=== PATIENT | female | born 1955 | race Caucasian/White ===

== ENCOUNTER 2021-12-08 15:50 | Emergency (ER) | payer MEDICARE, OTHER, SELFPAY ==
[2021-12-08 15:51] VITALS: BP 145/90; PULSE 67; RESP 14; TEMP 36.7; O2SAT 97; BMI 35.9
--- NOTE | 2021-12-08 16:19 | EKG12_ITS ---
Test Reason : NEURO Blood Pressure : / mmHG Vent. Rate : 065 BPM Atrial Rate : 065 BPM P-R Int : 176 ms QRS Dur : 086 ms QT Int : 380 ms P-R-T Axes : 027 -17 032 degrees QTc Int : 395 ms Normal sinus rhythm Anterior infarct , age undetermined , cannot be excluded Abnormal ECG Confirmed by SALINA HERRING, JOSE ([id number]), web content editor KATE MARTINEZ ([id number]) on 12/12/2021 9:46:20 AM Referred By: DAVID/KRUPA Confirmed By:JOSE DOWNING MD
--- NOTE | 2021-12-08 16:19 | CT_ITS ---
STUDY: CT BRAIN WITHOUT CONTRAST REASON FOR EXAM: Female, 65 years old. Acute change mental status with disorientation RADIATION DOSAGE (If Supplied By Facility): CTDIvol = ( 44.99 ) mGy, DLP = ( 796.11 ) mGycm TECHNIQUE: Transaxial CT imaging of the brain was performed without administration of intravenous contrast material. Individualized dose optimization techniques were used for this CT. COMPARISON: No relevant priors. FINDINGS: Normal soft tissue structures. Normal calvarium. Normal size ventricles and extra-axial spaces for the patient''s age. Normal white matter tracts of the cerebral hemispheres. Normal basal ganglia and thalami. Normal brainstem. Normal cerebellum. Decreased attenuation within the left temporal lobe consistent with a subacute infarct. Within the medial aspect of the left temporal lobe there is a 1.2 cm oval area of increased attenuation worrisome for parenchymal hematoma or less likely aneurysm. Normal visualized paranasal sinuses. CT/Brain/Head without Contrast IMPRESSION: Subacute infarct of the left temporal lobe with 1.2 cm area of hemorrhage medially or less likely aneurysm. N.B. : The above Results were Read Back by Rickie Lee MD to Gulshan Olson MD, and understanding confirmed on 12/08/2021 17:18:26 (ET). Electronically Signed: Rickie Lee MD at 17:19 EDT ,
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
[2021-12-08 16:26] LABS: Bedside Glucose 89 mg/dL (74-106)
[2021-12-08 16:27] LABS: Absolute Lymphocyte Count 2.15 X10^3/uL (0.83-4.51); Absolute Neutrophil Count 4.2 X10^3/uL (2.0-7.7); Basophil# 0.02 X10^3/uL; Basophil% 0.3 % (0-1); Eosinophil# 0.08 X10^3/uL; Eosinophils% 1.2 % (0-5); Hemoglobin 14.7 g/dL (12.0-15.0); Lymphocyte # 2.15 X10^3/ul (0.83-4.51); Lymphocyte % 31.5 % (19-41); Mean Corp Hgb Conc 32.7 g/dL (32-36); Mean Corpuscular Hgb 29.8 pg (27.0-32.0); Mean Corpuscular Volume 91.3 fL (81-99); Mean Platelet Vol. 11.8 fl (6.2-12.0); Monocyte# 0.36 X10^3/uL; Monocyte% 5.3 % (0-10); NRBC Flagged by Analyzer 0 % (0-5); Neutrophil % 61.6 % (47-70); Platelet Count 188 K/mm3 (150-450); RBC Distribution Width CV 13.5 % (11.6-14.6); Red Blood Count 4.93 M/mm3 (4.2-5.4); White Blood Count 6.8 K/mm3 (4.4-11.0)
[2021-12-08 16:31] VITALS: BMI 35.9
[2021-12-08 16:45] LABS: AST(SGOT) 21 U/L (15-37); Alanine Aminotransfer ALT/SGPT 24 U/L (13-56); Albumin, Serum 3.7 g/dL (3.2-5.0); Alkaline Phosphatase 63 U/L (45-117); Anion Gap 6 (5-15); BUN 10 mg/dL (7-18); BUN/Creat Ratio 10.9 RATIO (10-20); Calcium,Total 9.1 mg/dL (8.5-10.1); Chloride 108 mmol/L (98-107); Creatinine, Serum 0.91 mg/dL (0.55-1.02); EST Glomerular Filtration Rate 65 mL/min (>60); Est Glom Filt Rate - Afr Amer 79 mL/min (>60); Estimated Creatinine Clearance 60.52 ml/min; Globulin 3.7 g/dL (2.2-4.2); Glucose 96 mg/dL (74-106); Potassium 3.7 mmol/L (3.5-5.1); Protein, Total 7.4 g/dL (6.4-8.2); Sodium Level 141 mmol/L (136-145)
--- NOTE | 2021-12-08 16:45 | RAD_ITS ---
STUDY: X-RAY CHEST REASON FOR EXAM: Female, 65 years old. chest pain TECHNIQUE: PA and lateral views of the chest. COMPARISON: None. FINDINGS: Poor inspiration with some bibasilar atelectasis. There is no demonstrated pleural abnormality. Normal size heart. Normal mediastinum and yvrose. Normal visualized pulmonary arteries. Normal visualized aortic arch and descending thoracic aorta. Normal visualized thoracic spine. Normal visualized ribs, clavicles, and shoulders. There is no demonstrated abnormality of the visualized soft tissue structures of the upper abdomen. RAD/Chest PA and Lateral IMPRESSION: Poor inspiration with some bibasilar atelectasis. Electronically Signed: Rickie Lee MD at 17:24 EDT ,
[2021-12-08 17:45] VITALS: PULSE 68; RESP 18; O2SAT 93
[2021-12-08 17:58] LABS: Color, Urine Yellow (Yellow); Glucose, Dipstick Normal (Normal); Ketone-Dipstick Negative (Negative); Leukocyte Esterase-Dipstick 25 /ul (Negative); Nitrite-Dipstick Negative (Negative); Occult Blood-Urine Negative /ul (Negative); Protein-Dipstick Negative (Negative); Urine Bilirubin Dipstick Negative (Negative); Urine Clarity Clear (Clear); Urine Urobilinogen Normal (Normal)
[2021-12-08 18:00] VITALS: BP 131/84; PULSE 58; RESP 16; O2SAT 98
--- NOTE | 2021-12-08 18:26 | ED.RN ---
CALLED PHYSIC[facility] THE ETA IS 2 HOURS, THEY ARE TRYING TO OUT SOURCE
[2021-12-08 18:27] LABS: Bacteria 1+ /hpf (None Seen); Red Blood Cells-Urine 0-5 SEEN /hpf (0-5); Squamous Epithelial Cells - UA 0-5 SEEN /hpf (5-10); White Blood Cells 0-5 SEEN /hpf (0-5)
[2021-12-08 18:28] LABS: Mucous, Urine 1+ /hpf (<or=2+)
--- NOTE | 2021-12-08 18:45 | ED.RN ---
CALLED [facility] AND ASKED TO SPEAK TO A JIG BORING MACHINE OPERATOR FOR METAL TIER 2 THEY SAID THEY DIDN'T HAVE A JIG BORING MACHINE OPERATOR FOR METAL ON. CHARGE NURSE SAID TO CALL [facility] TO SEE IF THEY HAD ANYONE AVAILABLE
--- NOTE | 2021-12-08 18:55 | ED.RN ---
PER DR FINLEY, NO [facility] NEEDED.
--- NOTE | 2021-12-08 18:58 | ED.RN ---
DECISION WAS MADE TO FLY THE PATIENT MEDFLIGHT WILL BE HERE IN 28 MINUTES, [facility]UROLOGY TECHNOLOGIST [facility] CALLED BACK AND SAID THEY WOULD LOOK INTO THIS ISSUE
[2021-12-08 20:01] VITALS: BP 159/102; PULSE 63; RESP 18; O2SAT 97
== END 2021-12-08 20:02 | disposition short-term general hospital (02) ==
PROVIDERS: Emergency Provider Emergency Medicine; Visit Provider Emergency Medicine
DX: I61.9 Nontraumatic intracerebral hemorrhage, unspecified (principal); E66.9 Obesity, unspecified; Z68.35 Body mass index [BMI] 35.0-35.9, adult; R07.9 Chest pain, unspecified
CPT/HCPCS: 70450; 71046; 80053; 81001; 82962; 85025; 87811; 93005; 99285; A4216

== ENCOUNTER 2022-01-22 17:01 | Emergency (ER) | payer MEDICARE, OTHER, SELFPAY ==
[2022-01-22 17:04] VITALS: BP 150/80; PULSE 63; RESP 21; TEMP 36.4; O2SAT 97; BMI 38.9
[2022-01-22 17:08] VITALS: BMI 38.9
--- NOTE | 2022-01-22 17:26 | CT_ITS ---
STUDY: CT BRAIN WITHOUT CONTRAST REASON FOR EXAM: Female, 66 years old. Technologist Notes Other, rt sided headache with numbness and tingling to face and neck headache TECHNIQUE: Transaxial CT imaging of the brain was performed without administration of intravenous contrast material. Individualized dose optimization techniques were used for this CT. COMPARISON: Dec 08 2021 4:39pm report only. NO images. FINDINGS: Normal calvarium. Normal soft tissues. There is an old infarct of the Left MCA region. Again, within the medial aspect of the left temporal lobe there is a 1.1 cm oval area of increased attenuation which may be a clival meningioma or possibly a cavernous carotid artery aneurysm. CTA of the head can better evaluate. Normal size ventricles and extra-axial spaces for the patient''s age. Normal white matter tracts of the cerebral hemispheres. Normal basal ganglia and thalami. Normal brainstem. Normal cerebellum. There is no intracranial hemorrhage. There are no findings of an acute ischemic infarction. Normal visualized paranasal sinuses. ASPECTS 10 CT/Brain/Head without Contrast IMPRESSION: There are no acute intracranial findings. Again, within the medial aspect of the left temporal lobe there is a 1.1 cm oval area of increased attenuation which may be a clival meningioma or possibly a cavernous carotid artery aneurysm. CTA of the head can better evaluate. Electronically Signed: Arash Higuera MD at 18:50 EDT ,
--- NOTE | 2022-01-22 17:28 | EKG12_ITS ---
Test Reason : Blood Pressure : / mmHG Vent. Rate : 058 BPM Atrial Rate : 058 BPM P-R Int : 198 ms QRS Dur : 094 ms QT Int : 556 ms P-R-T Axes : 040 -12 050 degrees QTc Int : 545 ms Sinus bradycardia Anterior infarct , age undetermined ,cannot be excluded Prolonged QT Abnormal ECG Confirmed by SALINA HERRING, JOSE ([id number]), news videotape editor TASNEEM BERNARDO ([id number]) on 01/26/2022 7:50:26 AM Referred By: WILMA Confirmed By:JOSE DOWNING MD
--- NOTE | 2022-01-22 17:35 | RAD_ITS ---
STUDY: XR Chest 1 View 01/22/2022 5:32 PM REASON FOR EXAM: Female, 66 years old. CHEST PAIN neck pain COMPARISON: None TECHNIQUE: XR Chest 1 View FINDINGS: There is no demonstrated pleural abnormality. Normal heart size. Normal mediastinum. Normal yvrose. Prominent appearing increased interstitial lung markings. Normal visualized pulmonary arteries. There is atherosclerotic calcification of the aortic arch with tortuosity. There are diffuse degenerative changes of the visualized thoracic spine. There is degenerative osteoarthritis of the bilateral shoulders. There is no demonstrated abnormality of the visualized soft tissue structures of the upper abdomen. RAD/Chest 1 View (Portable) IMPRESSION: There are no acute findings. Electronically Signed: Arash Higuera MD at 18:01 EDT ,
[2022-01-22 18:00] LABS: Absolute Lymphocyte Count 2.32 X10^3/uL (0.83-4.51); Absolute Neutrophil Count 3.4 X10^3/uL (2.0-7.7); Basophil# 0.02 X10^3/uL; Basophil% 0.3 % (0-1); Eosinophil# 0.17 X10^3/uL; Eosinophils% 2.7 % (0-5); Hematocrit 42.1 % (37-47); Hemoglobin 13.9 g/dL (12.0-15.0); Lymphocyte # 2.32 X10^3/ul (0.83-4.51); Lymphocyte % 37.3 % (19-41); Mean Corpuscular Hgb 29.8 pg (27.0-32.0); Mean Corpuscular Volume 90.1 fL (81-99); Monocyte# 0.33 X10^3/uL; Monocyte% 5.3 % (0-10); NRBC Flagged by Analyzer 0 % (0-5); Neutrophil # 3.36 X10^3/uL (2.7-7.7); Neutrophil % 54.1 % (47-70); Platelet Count 159 K/mm3 (150-450); RBC Distribution Width CV 13.5 % (11.6-14.6); RBC Distribution Width SD 44.6 fl (35.1-43.9); Red Blood Count 4.67 M/mm3 (4.2-5.4); White Blood Count 6.2 K/mm3 (4.4-11.0)
[2022-01-22] MEDS: proCHLORPERazine 10 MG/2 ML Vial IV (18:06)
[2022-01-22] MEDS: 0.9% Normal Saline 1,000 ML 1000 ML IV (18:06)
[2022-01-22] MEDS: DiphenhydrAMINE 50 MG/ML Syringe 25 MG IV (18:06)
[2022-01-22] MEDS: carBAMazepine 200 MG Tablet 100 MG PO (18:07)
[2022-01-22 18:09] VITALS: BP 147/98; PULSE 59; RESP 23; O2SAT 95
[2022-01-22 18:09] LABS: Prothrombin Time (Protime)PT. 12.9 SECONDS (11.7-14.9)
[2022-01-22 18:10] LABS: Partial Thromboplast Time 28.5 Seconds (24.1-36.2)
[2022-01-22 18:20] LABS: Anion Gap 6 (5-15); BUN 15 mg/dL (7-18); BUN/Creat Ratio 16.7 RATIO (10-20); Calcium,Total 9.1 mg/dL (8.5-10.1); Chloride 113 mmol/L (98-107); EST Glomerular Filtration Rate 67 mL/min (>60); Est Glom Filt Rate - Afr Amer 81 mL/min (>60); Estimated Creatinine Clearance 53.83 ml/min; Glucose 124 mg/dL (74-106); Potassium 3.8 mmol/L (3.5-5.1); Sodium Level 143 mmol/L (136-145); Troponin-I HS 7 pg/mL (3.0-54.0)
[2022-01-22 19:07] VITALS: BP 147/98; PULSE 49; RESP 15; O2SAT 92
--- NOTE | 2022-01-22 20:13 | EDS_ITS ---
HPI History of Present Illness Chief Complaint: Neuro S/Sx Informant: patient Narrative Narrative: Patient is a 36-year-old female with complex medical history including ischemic stroke with hemorrhagic conversion on December 08. Patient does have a known intracranial aneurysm as well. She is followed by [facility]. Her hospital stay was complicated by severe headaches at the base of her right head going to her face. She is had intermittent tingling of her face since. She started having more pain this afternoon on her right head and neck and so her daughter called the primary care doctor who recommended she come to the emergency room for further evaluation. Symptoms started around 1 PM today. Patient tried taking Tylenol twice with no relief of her symptoms. With her initial stroke patient had trouble getting words out, was confused and was saying nonsensical things. PFSH PFSH Home Medications carbamazepine 100 mg capsule,extended release [id number] 100 mg PO BID #28 caps 01/22/22 [Rx Last Taken Unknown] Allergy/AdvReac Type Severity Reaction Status Date / Time No Known Allergies Allergy Verified 12/08/21 15:58 Social History household members: spouse Smoking Status: Never smoker substance use type: does not use ROS ROS ED Constitutional Constitutional ED: Denies chills or fever(s) Eyes Eyes: Denies blurry vision or change in vision ENT ENT ED: Reports ear pain right; Denies rhinorrhea or sore throat Cardiovascular Cardiovascular: Denies chest pain or palpitations Respiratory/Chest Respiratory/Chest: Denies cough Gastrointestinal Gastrointestinal: Denies abdominal pain, nausea or vomiting Genitourinary Genitourinary ED: Denies dysuria Musculoskeletal Musculoskeletal: Reports neck pain; Denies arthralgias Integumentary Denies rash Neurologic Neurologic: Reports headache(s) and paresthesias; Denies weakness Psychiatric Psychiatric: Denies anxiety or depression Hematologic/Lymphatic Hematologic/Lymphatic: Denies easy bleeding or easy bruising EXAM Physical Exam Const Vital Signs: 01/22/22 17:04 01/22/22 18:09 01/22/22 19:07 Temperature 97.6 F L Temperature Source Temporal Pulse Rate 63 59 L 49 L Respiratory Rate 21 H 23 H 15 Blood Pressure 150/80 H 147/98 H 147/98 H Blood Pressure Mean 103 114 114 Pulse Ox 97 95 92 Oxygen Delivery Method Room Air Room Air 01/22/22 20:18 01/22/22 20:30 Temperature Temperature Source Pulse Rate 53 L 54 L Respiratory Rate 19 H 18 Blood Pressure 146/90 H 146/90 H Blood Pressure Mean Pulse Ox 96 Oxygen Delivery Method Positive well nourished and well developed General Appearance ED: well developed and NAD HEENT Reports TM's clear and moist mucous membranes HEENT Narrative: Patient has a pinpoint area of palpation at the right base of the skull and manipulation of this reproduces her symptoms tenderness; Negative for trauma Tympanic Membrane ED: Yes TM's clear Eyes PERRL and EOMs intact bilaterally Neck supple Chest Wall inspection of chest normal and palpation of chest normal Resp normal respiratory effort and clear to auscultation bilaterally Cardio regular rate, regular rhythm and no murmurs GI normal to inspection, nondistended, normoactive bowel sounds and non-tender Back/Spine no CVA tenderness Extremity normal to inspection General Extremety ED: Negative for edema or tenderness General Extremity: Negative for edema Neuro oriented x3, CN's II-XII intact bilaterally and no sensory deficits noted Neuro Narrative: NIH=0 Sensorium / Orientation: alert Motor Exam: strength 5/5 throughout Psych mental status grossly normal Mood & Affect: anxious Skin no rashes or lesions noted and no wounds MDM MDM MDM Narrative Medical decision making narrative: Patient is evaluated for right-sided headache and tingling of her face. Patient has had intermittent tingling of her face since her stroke in December. She has an NIH of 0. I do not think this is an acute stroke. Her pain appears to be either muscle skeletal or an occipital neuralgia. She does have a history of migraines as well and is given IV Compazine and Benadryl. She is given IV fluids. She is given an oral dose of carbamazepine. On repeat evaluation patient has resolution of her symptoms and feels much better. She would like to go home. A CT is obtained given her recent hemorrhagic stroke which shows no acute findings. There is a stable carotid artery aneurysm however patient is aware of this. Patient's lab work is largely unremarkable. She will be disch arged home with a prescription for carbamazepine. She is encouraged to call her neurologist to see about taking Excedrin [id number] when she has this pain again as Tylenol is not effective. Patient and family are agreeable this plan of care. She is discharged home in stable condition. Lab Data Attestation: I reviewed the patient's lab results. Labs: Laboratory Results - last 24 hr 01/22/22 01/22/22 01/22/22 17:45 17:45 17:45 WBC 6.2 RBC 4.67 Hgb 13.9 Hct 42.1 MCV 90.1 MCH 29.8 MCHC 33.0 RDW Std Deviation 44.6 H RDW Coeff of Debra 13.5 Plt Count 159 MPV 12.0 Immature Gran % (Auto) 0.300 Neut % (Auto) 54.1 Lymph % (Auto) 37.3 [place] % (Auto) 5.3 Eos % (Auto) 2.7 Baso % (Auto) 0.3 Absolute Neuts (auto) 3.4 Absolute Lymphs (auto) 2.32 Nucleated RBC % 0 PT 12.9 INR 1.0 APTT 28.5 Sodium 143 Potassium 3.8 Chloride 113 H Carbon Dioxide 24.0 Anion Gap 6 BUN 15 Creatinine 0.90 Estim Creat Clear Calc 53.83 Est GFR (MDRD) Af Amer 81 Est GFR (MDRD) Non-Af 67 BUN/Creatinine Ratio 16.7 Glucose 124 H Calcium 9.1 Troponin I High Sens 7 Radiography Chest X-Ray - ED: 1 View, Read by ED Physician, Read by Radiologist and No Acute Disease Diagnostic Testing: Clinical Impression(s) from Imaging Studies Brain CT 01/22/22 17:26 IMPRESSION: There are no acute intracranial findings. Again, within the medial aspect of the left temporal lobe there is a 1.1 cm oval area of increased attenuation which may be a clival meningioma or possibly a cavernous carotid artery aneurysm. CTA of the head can better evaluate. Electronically Signed: Arash Higuera MD at 18:50 EDT , Chest X-Ray 01/22/22 17:35 IMPRESSION: There are no acute findings. Electronically Signed: Arash Higuera MD at 18:01 EDT , Rhythm Strip Rhythm Strip: Sinus Rhythm Rate: 58 Ectopy: None EKG Initial EKG: Attestation: I personally reviewed and interpreted this EKG as follows: Interpretation: Sinus Bradycardia Comments: Sinus bradycardia rate of 58 Left axis deviation Normal MN and QRS interval Prolonged QTC at [address] segments Discharge Plan Triage Chief Complaint: Neuro S/Sx ED Provider: Suyapa Salinas Dx/Rx/DC Orders Clinical Impression: Occipital neuralgia of right side, Headache, Facial paresthesia Instructions: ED Headache Unspecified Prescriptions: New carbamazepine 100 mg capsule, ER multiphase 12 hr 100 mg PO BID Qty: 28 0RF Primary Care Provider: Yoselin Francis Referrals: Yoselin Francis, [Primary Care Provider] - Activity Restrictions/Additional Instructions: Please call your neurologist tomorrow to discuss taking carbamazepine for these headaches versus Excedrin or another NSAID. I suspect this pain is either occipital neuralgia or possibly migraine headache. Disposition Disposition: Home, Self Care
[2022-01-22 20:18] VITALS: BP 146/90; PULSE 53; RESP 19
[2022-01-22 20:30] VITALS: BP 146/90; PULSE 54; RESP 18; O2SAT 96
== END 2022-01-22 20:32 | disposition home or self-care (01) ==
PROVIDERS: Emergency Provider Emergency Medicine; PCP Family Medicine; Visit Provider Emergency Medicine
DX: M54.81 Occipital neuralgia (principal); I72.0 Aneurysm of carotid artery; R51.9 Headache, unspecified; R20.2 Paresthesia of skin; Z86.73 Personal history of transient ischemic attack (TIA), and cerebral infarction without residual deficits; R07.9 Chest pain, unspecified
CPT/HCPCS: 70450; 71045; 80048; 84484; 85025; 85610; 85730; 93005; 96361; 96374; 96375; 99285; J7030; A4216

== ENCOUNTER 2022-06-17 09:30 | Outpatient (RCR) | payer MEDICARE, OTHER, SELFPAY ==
--- NOTE | 2021-12-16 15:34 | HP.PTEVAL ---
Patient's Visit Information MADELEINE HARRISON is a 66 year old F referred to Physical Therapy by RODDY RAMESH with a diagnosis of CVA. Date of Evaluation: 12/16/21 Physical Therapist: Jessica Doran DPT - Visit Plan Plan: Patient does not require PT at this time- she has returned to baseline - Subjective She was fully I prior to admission- She has been home since Tuesday--Two story home and lives with - bathroom and bedroom are upstairs and downstairs- single HR- 5 steps to come in the back door- ledge on the left side. No AD prior or since returning home. No loss of balance or falls. 90-95% back to baseline from mobility. She is back to cooking, cleaning, feeding dogs, sweeping up dog food, sweeping out her car. She takes her own shower, brushes her teeth, johnson her hair. The only 5% left is to get her steadiness before she takes off. No pain or N/T in the LE. - Objective Posture: good throughout. Gait: no deviation noted. HR/TR: able. Stairs: asc/esc 8 recip with 1 HR. SLS: left: 15 seconds right: 5 seconds. ROM: WFL. Transfers: no UE A. Strength: Core: fair plus, Hip: 4+/5, Knee: 5/5, Ankle: 5/5. Sensation: WNL to gross touch bilateral - Balance/Special Test Scores Functional Gait Assessment Score: 30 % Disability: 0 Lower Extremity Functional Score: 77 TUG Test Time Seconds: 9.8 30 Second Chair Rise Test Seconds: 10 - Rehabilitation Potential Physical Therapy Diagnosis: Patient presents with functional strength and mobility- does not require PT. - Anticipated Interventions Thank you for the opportunity to evaluate your patient. For Medicare and Medicare HMO plans, please review the plan of care and approve it. It will need to be FAXED BACK to us at [phone] for Medicare purposes. For Medicare only, by signing this I certify the plan of care. Please let me know if there are questions or concerns regarding this plan of care. Physician Signature: Date:
--- NOTE | 2021-12-18 12:00 | HP.SP.EVAL ---
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 Daughter, Kailey, and , Alejandro, present with her today and helped as historians. Both caregivers reporting receptive and expressive language difficulties at home since the stroke. Pre-morbid Pt was fully independent with no other prior medical comorbidities. Caregivers reporting potential symptoms started on 12/07/21. Pt brought to [facility] and then life-flighted to [facility]. CT revealed CVA and an aneurysm. Gisela reporting paraphasias and neologisms via turbin for blanket and tokafu when grabbing her head. Smoking Status: Never smoker - Pain Is pain an issue with your current prescribed condition?: No Patient Allergies - Allergies Allergies No Known Allergies Allergy (Verified 12/08/21 15:58) Objective Cog/Ling/Com - Test Administered Nryahmzqs-Hlitaonqig-Tvebqfjwlvpad Assessment Administered: Yes Emerztaek-Abhwxueotf-Nznxxysnucmlp Assessment: Cognitive ? Linguistic skills were evaluated using patient/family interview, skilled observation and informal evaluation through tasks completed by the patient. - Orientation Orientation: Person, Birthdate - Identification Body parts/objects: WFL Colors: Mild Letters: WFL Numbers: WFL - Answer Yes/No Questions Simple: Mild Complex: Moderate, Severe - Follows Commands 1 Step: WFL 2 Step: Mild Complex: Moderate - Automatic Sequences Automatic Sequences: Mild - Repetition Words: WFL Sentences: Moderate - Naming Naming in categories: Mild - Conversational Tasks Conversational Tasks: Moderate, Severe - Comments Comments: During conversation task Pt presenting with mild expressive language deficits with moderately severe receptive language deficits. Pt often benefiting from reduced sentence length and repetition to improve overall comprehension of conversation. Pt also benefiting from extended processing time and feedback confirmation of what she heard during picture identification tasks. During repetition tasks Pt performing with high accuracy for shorter sentences approximately 3 words in length, however as the complexity increased Pt accuracy reducing drastically with also the presence of neologisms. Pt demonstrating limited to no awareness of neologism errors, for example Pt calling a motorcycle a loopty-loop with no awareness until she was told. However at times it does appear Pt pauses in conversation but has difficulty identifying the error or what she replaced the target word with. Pt performing with 100% acc in automatic sequence counting from 1-21 and benefited from supervision to recite the GILBERT. - Reading Comprehension Words: Mild Phrases: Severe Sentences: Severe - Oral Reading Words: Moderate Phrases: Moderate Sentences: Severe Comments: Pt's neologisms appear to have a perseverative component with Pt ending words with -tle (churtle for capitan grande; Martle for Manuela) or -icle (midicle for minutes; pickle for picnic; famicle for famished). This perseveration appeared more apparent during reading tasks compared to conversation. - Writing Comments: Unable to test at this time due to session length restriction - will assess in future sessions. - Recall Comments: Pt demonstrating difficulty with functional recall of events thus far leading up to and including the days of her CVA treatment. Unclear if memory is a deficit at this time secondary to severity of expressive and receptive aspects of her aphasia. Will continue to monitor. Plan - Plan Plan: Will recommend Pt for weekly outpatient speech therapy intervention address moderately severe transcortical sensory aphasia due to demonstrating mild deficits in expressive language and moderately severe deficits in receptive language. Pt would benefit from verbal and visual modeling, verbal/visual and tactile cuing, repeated practice, circumlocution training, answering yes/no reliably, following directions, and reading comprehension. Without skilled intervention Pt is at risk for difficulty communicating basic, medical, emergent, social wants & needs, and interacting with family/friends at home, during social interactions, and at work. - Recommendations Treatment Warranted: Yes Treatment Warranted: Receptive/ Expressive Language - Progress Prognosis: Good - Frequency Frequency: 2x /Week Additional (Frequency): 60 min sessions Duration: 12 Months - Goal #1-5 Goal #1: Nanette will follow 2-step commands with 3 or fewer components (e.g. tap your right knee twice) at 80% accuracy given minimal verbal and visual cues in order to comprehend instructions across 3 consecutively measured sessions. Goal #2: Nanette will complete phrases/sentences with 2+ appropriate words at 80% accuracy given moderate verbal cues across 3 consecutively measured sessions. Goal #3: Nanette will identify the correct picture in a field of 4 when presented with the word auditorily with 85% accuracy given min verbal cues across 3 consecutively measured sessions. Goal #4: Nanette will answer basic progressing to mod complex yes/no questions verbally or with picture aids with 80% acc independently across 3 consecutively measured sessions. Education - Patient has Indicated that the Following Identified Educational Needs: None The Patient has indicated that they have no educational or learning abilities that may effect their care.: Yes - Patient Instruction Patient Education: Diagnosis, Treatment Plan, Goals Other Education: Direct education provided re: avoiding the phrase think about it and instead implementing aphasia word finding strategies such as asking Nanette questions that ask her to describe the word she is trying to say. Person Taught: Patient, Family Teaching Method: Discussion, Demonstration Response to teaching: Reinforcement needed
--- NOTE | 2022-01-22 08:34 | HP.SP.REEV ---
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 Pt has participated in 9 consecutive sessions targeting symptoms of transcortical sensory aphasia. Pt beginning to show awareness of expressive language neologisms and instances where she communicated a word she was not wanting. This is a significant improvement compared to initial evaluation where Pt was demonstrating no awareness of errors. Pt continues to have difficulty with receptive language at the multi-step direction level - especially when the task includes shapes. Pt's expressive language is primarily marked by difficulty with convergent naming tasks, with her greatest strength lying in confrontation naming. Through therapy it has been observed Pt has difficulty reading whereas her spelling skills (at the word level) appear to have remained in tact. Pt beginning to understand what happened to cause these expressive/receptive language changes which has improved her outlook on therapy. Suspecting potential cognitive deficits in memory however difficult to quantify given Pt's expressive/receptive language deficits. Smoking Status: Never smoker - Pain Is pain an issue with your current prescribed condition?: No Patient Allergies - Allergies Allergies No Known Allergies Allergy (Verified 12/08/21 15:58) Previous/Current Goals - Goals 1-5 Previous Goal #1: Madeleine will follow 2-step commands with 3 or fewer components (e.g. tap your right knee twice) at 80% accuracy given minimal verbal and visual cues in order to comprehend instructions across 3 consecutively measured sessions. Goal 1 Status: GOAL PROGRESSING: Madeleine follows one step written directions (e.g., [place] river the color) via identifying the described word from a field of 4 choices with 62% acc independently, however performed with 0% acc with following the action verb (e.g., salt river, draw a line under). Pt follows 2 step directions with 4 components with 0% acc independently and benefited from reduction in complexity of task to only 1 step direction with 2 components to improve acc to 42%. Pt cont'd to benefit from mod-max verbal repetition and rephrasing of directions with visual models to improve acc of following 1 step directions to 85%. Previous Goal #2: Madeleine will complete phrases/sentences with 2+ appropriate words at 80% accuracy given moderate verbal cues across 3 consecutively measured sessions. Goal 2 Status: GOAL PROGRESSING: Pt completes confrontation naming tasks with 50-69% acc independently and benefits from mod-max phonemic and semantic cues to improve acc to 90% acc. Pt completes convergent naming tasks with 25-33% acc independently and benefits from max verbal, phonemic, and semantic cues to improve to 75% acc - Pt completes convergent naming tasks when provided with a visual field of 3 choices with 100% acc. Pt completes divergent naming tasks with 20-90% acc independently and benefits from max verbal and phonemic cues to improve to 100% regardless of independent percentage. Pt describes picture scenes with 25% acc independently and improved to 43% on second attempt following mod verbal cues to create a word bank via a labeling task. Previous Goal #3: Madeleine will identify the correct picture in a field of 4 when presented with the word auditorily with 85% accuracy given min verbal cues across 3 consecutively measured sessions. Goal 3 Status: GOAL MET: Pt identified the correct picture in a field of 4 with 92% acc independently and benefited from repetition of target to improve acc to 100%. Pt demonstrating increased comprehension when presented with one word at a time, for example in an identification task. Pt with more increased difficulty at the sentence level. Previous Goal #4: Madeleine will answer basic progressing to mod complex yes/no questions verbally or with picture aids with 80% acc independently across 3 consecutively measured sessions. Goal 4 Status: GOAL PROGRESSING: Basic yes/no IF questions: 82%. Basic yes/no DO questions: 60%. Basic yes/no CAN questions: 80%. Basic yes/no ARE questions: 100% Objective Cog/Ling/Com - Test Administered Wvpbdrirk-Zldizyhdmz-Baqeumielsvvq Assessment Administered: Yes [id number]-Ulkbonjsvhxyr Assessment: Cognitive ? Linguistic skills were evaluated using patient/family interview, skilled observation and informal evaluation through tasks completed by the patient. - Identification Body parts/objects: Moderate - identification of shapes - Answer Yes/No Questions Simple: Mild Complex: Moderate, Severe - Follows Commands 1 Step: WFL 2 Step: Mild Complex: Moderate - benefits from reduction of complexity of task - Automatic Sequences Automatic Sequences: WFL - Repetition Words: WFL Sentences: Moderate - Naming Responsive naming: Mild - confrontation naming Naming in categories: Mild Alva: Moderate - convergent naming Abstract: Moderate - divergent naming - Conversational Tasks Conversational Tasks: Moderate, Severe - Reading Comprehension Words: Mild Phrases: Severe Sentences: Severe - Oral Reading Words: Moderate Phrases: Moderate Sentences: Severe Comments: Pt continues to have difficulty with reading acc of single words when reading aloud. Pt often repeating what she has read to herself which PROFESSIONAL ENGINEER is suspecting is to help with improvement of comprehension. Pt would benefit from cont'd tx of reading skills at the word level and 2+ sentence level paragraphs. - Writing Functional writing correctly: Name, Address, Paragraph - syntax and semantics of paragraph with mod-severe deficits; handwriting WFL Words: Moderate Phrases: Severe Sentences: Severe Plan - Plan Plan: Will recommend Pt for weekly outpatient speech therapy intervention address moderately severe transcortical sensory aphasia due to demonstrating mild deficits in expressive language and moderately severe deficits in receptive language. Pt would benefit from verbal and visual modeling, verbal/visual and tactile cuing, repeated practice, circumlocution training, answering yes/no reliably, following directions, and reading comprehension. Without skilled intervention Pt is at risk for difficulty communicating basic, medical, emergent, social wants & needs, and interacting with family/friends at home, during social interactions, and at work. - Recommendations Treatment Warranted: Yes Treatment Warranted: Receptive/ Expressive Language - Progress Prognosis: Good - Frequency Frequency: 2x /Week Additional (Frequency): 60 min sessions Duration: 12 Months - Goal #1-5 Goal #1: Madeleine will follow 2-step commands with 3 or fewer components (e.g. tap your right knee twice) at 80% accuracy given minimal verbal and visual cues in order to comprehend instructions across 3 consecutively measured sessions. Goal #2: Madeleine will complete basic to mod complex confrontation, convergent, and divergent naming tasks with 80% acc independently across 3 measured opportunities to improve word retrieval. Goal #3: Madeleine will read 2 or more sentences and answer comprehension questions re: the material at 75% accuracy given min assist. Goal #4: Madeleine will answer basic progressing to mod complex yes/no questions verbally or with picture aids with 80% acc independently across 3 consecutively measured sessions. Education - Patient has Indicated that the Following Identified Educational Needs: None The Patient has indicated that they have no educational or learning abilities that may effect their care.: Yes - Patient Instruction Patient Education: Diagnosis, Treatment Plan, Goals Other Education: Direct education provided re: avoiding the phrase think about it and instead implementing aphasia word finding strategies such as asking Madeleine questions that ask her to describe the word she is trying to say. Person Taught: Patient, Family Teaching Method: Discussion, Demonstration Response to teaching: Reinforcement needed
--- NOTE | 2022-03-17 18:22 | HP.SPREEV_ITS ---
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 Pt has participated in 9 consecutive sessions targeting symptoms of transcortical sensory aphasia. Pt beginning to show awareness of expressive language neologisms and instances where she communicated a word she was not wanting. This is a significant improvement compared to initial evaluation where Pt was demonstrating no awareness of errors. Pt continues to have difficulty with receptive language at the multi-step direction level - especially when the task includes shapes. Pt's expressive language is primarily marked by difficulty with convergent naming tasks, with her greatest strength lying in confrontation naming. Through therapy it has been observed Pt has difficulty reading whereas her spelling skills (at the word level) appear to have remained in tact. Pt beginning to understand what happened to cause these expressive/receptive language changes which has improved her outlook on therapy. Suspecting potential cognitive deficits in memory however difficult to quantify given Pt's expressive/receptive language deficits. Smoking Status: Never smoker - Pain Is pain an issue with your current prescribed condition?: No Patient Allergies - Allergies Allergies No Known Allergies Allergy (Verified 12/08/21 15:58) Previous/Current Goals - Goals 1-5 Previous Goal #1: Madeleine will follow 2-step commands with 3 or fewer components (e.g. tap your right knee twice) at 80% accuracy given minimal verbal and visual cues in order to comprehend instructions across 3 consecutively measured sessions. Goal 1 Status: PROGRESSIN-step directions with adjective+object = 84% acc and benefited from repetition of directions to improve acc to 100%. Completes 2- step directions with FIRST+THEN with 92% acc independently. Completes 2-step directions with IF+THEN with 60% acc independently and benefited from extended processing time to 100% acc. Previous Goal #2: Madeleine will complete basic to mod complex confrontation, convergent, and divergent naming tasks with 80% acc independently across 3 measured opportunities to improve word retrieval. Goal 2 Status: PROGRESSING: Completes confrontation naming with 50% acc and benefits from mod verbal and phonemic cues to increase to 70% acc. Completes divergent naming tasks with 60% acc. Pt can describe pictures with 20% acc and benefits from from mod-max verbal cues to identify vocabulary to include in description. Pt completes compare/contrast between 2 pictures by identifying what is the same with 50% acc and what was different with 25% acc. Previous Goal #3: Madeleine will read 2 or more sentences and answer comprehension questions re: the material at 75% accuracy given min assist. Goal 3 Status: GOAL PROGRESSING: Madeleine read a 2 sentence paragraph to herself and then answered 3 comprehension questions with answers provided in a field of 4 with 0% acc independently. Madeleine read a short letter (43 words long) and then answered comprehension questions with answers provided in a field of 3 with 0% acc independently and did not benefit from mod-max verbal and referring to the text cues. Previous Goal #4: Madeleine will answer basic progressing to mod complex yes/no questions verbally or with picture aids with 80% acc independently across 3 consecutively measured sessions. Goal 4 Status: GOAL MET: Moderate y/n questions: 90% acc independently and benefited from self correction to improve to 100%. Complex Y/N questions: 100% acc independently. Plan - Plan Plan: Will recommend Pt for weekly outpatient speech therapy intervention address moderately severe transcortical sensory aphasia due to demonstrating mild deficits in expressive language and moderately severe deficits in receptive language. Pt would benefit from verbal and visual modeling, verbal/visual and tactile cuing, repeated practice, circumlocution training, following directions, and reading comprehension. Without skilled intervention Pt is at risk for difficulty communicating basic, medical, emergent, social wants & needs, and interacting with family/friends at home, during social interactions, and at work. - Recommendations Treatment Warranted: Yes Treatment Warranted: Receptive/ Expressive Language - Progress Prognosis: Good - Frequency Frequency: 2x /Week Additional (Frequency): 60 min sessions Duration: 2 Months - Goals that are Established Determination:: Goals will be added/modified as deemed necessary and appropriate. Therapy will be discontinued when results of re-evaluation indicate therapy is no longer needed or lack of progress has been documented. - Goal #1-5 Goal #1: Madeleine will follow 2-step commands with 3 or fewer components (e.g. t ap your right knee twice) at 80% accuracy given minimal verbal and visual cues in order to comprehend instructions across 3 consecutively measured sessions. Goal #2: Madeleien will complete basic to mod complex confrontation, convergent, and divergent naming tasks with 80% acc independently across 3 measured opportunities to improve word retrieval. Goal #3: Madeleine will read 2 or more sentences and answer comprehension questions re: the material at 75% accuracy given min assist. Goal #4: Madeleine will generate 3 sentences when given a target verb following WHO+verb+WHAT structure with 80% acc independently across 3 consecutively measured sessions. Goal #5: Madeleine will generate 3 additional pieces of information answering WHERE/WHEN/WHY of one self-created WHO+verb+WHAT sentence with 2 of the 3 questions answered independently across 3 consecutively measured sessions. Education - Patient has Indicated that the Following Identified Educational Needs: None The Patient has indicated that they have no educational or learning abilities that may effect their care.: Yes - Patient Instruction Patient Education: Diagnosis, Treatment Plan, Goals Other Education: Direct education provided re: avoiding the phrase think about it and instead implementing aphasia word finding strategies such as asking Madeleine questions that ask her to describe the word she is trying to say. Person Taught: Patient, Family Teaching Method: Discussion, Demonstration Response to teaching: Reinforcement needed
--- NOTE | 2022-05-18 18:55 | HP.SP.REEV ---
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 Pt has participated in 30 consecutive sessions targeting symptoms of transcortical sensory aphasia. Pt showing improvements with auditory feedback loop via identifying instances when the word she attempted to verbalize is not the one she was looking to say. This is a significant improvement compared to initial evaluation where Pt was demonstrating no awareness of errors. Pt continues to have intermittent difficulty with receptive language at the multi-component direction level - especially when the task includes shapes. She has cont'd participation in Verb Network Strengthening Treatment (VNeST), where she is provided a target verb and asked to create 3 sentences for WHO+verb+WHAT, select one of her sentences and then add WHERE, WHY, and WHEN, then recall which verb she was using, then create 3 additional sentences either the same as before or new. This approach is designed to help create new word networks. Continuing to suspect cognitive deficits in memory however difficult to quantify given Pt's expressive/receptive language deficits. Smoking Status: Never smoker - Pain Is pain an issue with your current prescribed condition?: No Patient Allergies - Allergies Allergies No Known Allergies Allergy (Verified 12/08/21 15:58) Previous/Current Goals - Goals 1-5 Previous Goal #1: Madeleine will follow 2-step commands with 3 or fewer components (e.g. tap your right knee twice) at 80% accuracy given minimal verbal and visual cues in order to comprehend instructions across 3 consecutively measured sessions. Goal 1 Status: PROGRESSING: Limited targeting this session d/t focus on other goals. Pt followed 4 component directions with 75% acc independently and benefited from min verbal cues to improve acc to 100%. Previous Goal #2: Madeleine will complete basic to mod complex confrontation, convergent, and divergent naming tasks with 80% acc independently across 3 measured opportunities to improve word retrieval. Goal 2 Status: PROGRESSING: Pt completed confrontation naming task with 62% acc and benefited from min semantic and phonemic cues to improve to 100%. Pt completed basic convergent naming task via being given one target word and identifying its category with 50% acc independently and benefited from mod phonemic cues to improve to 80% acc and MC cues to improve to 100%. Pt completed compare and contrast task via reporting how 2 items were the same with 75% acc and how they were different with 50% acc across 4 target trials. Pt completed a phrase completion task with 60% acc and benefited from mod phonemic and semantic cues to improve to 93% acc. Previous Goal #3: Madeleine will read 2 or more sentences and answer comprehension questions re: the material at 75% accuracy given min assist. Goal 3 Status: PROGRESSING: Pt participated in auditory comprehension of a short paragraph (2 sentences) via answering comprehension questions with 60% acc (3/5) and did not benefit from mod logical cues, 50% acc (3/6) on the second trial and benefited from multiple choice to improve acc to 66%. Pt read a simple 3 sentence paragraphs and answered 6 comprehension questions about each one with the following acc across 5 trials: 66 to 100% with an average of 83% acc. Previous Goal #4: Madeleine will generate 3 sentences when given a target verb following WHO+verb+WHAT structure with 80% acc independently across 3 consecutively measured sessions. Goal 4 Status: PROGRESSING: Pt generating 3 sentences with the WHO+verb+WHAT with between 16 to 33% acc independently and benefited from mod-max verbal, semantic, and phonemic cues to improve to 50 to 83% acc. Pt placed cards in the correct order after being mixed up with 100% acc. Previous Goal #5: Madeleine will generate 3 additional pieces of information answering WHERE/WHEN/WHY of one self-created WHO+verb+WHAT sentence with 2 of the 3 questions answered independently across 3 consecutively measured sessions. Goal 5 Status: PROGRESSING: Pt generating 3 additional pieces of information via answering WHERE/WHEN/WHY questions with 0% to 33% acc independently and benefited from max verbal and logical cues to improve acc to 100%. Pt placed cards in the correct order after being mixed up with 100% acc. Objective Cog/Ling/Com - Test Administered Zsczcalef-Wfowbufnta-Jiwbowwxelcyf Assessment Administered: Yes Uyklqljzf-Rlcszdefct-Hdoizvumlgcdw Assessment: Cognitive ? Linguistic skills were evaluated using patient/family interview, skilled observation and informal evaluation through tasks completed by the patient. - Orientation Orientation: Person, Place, Date - Identification Body parts/objects: WFL Colors: WFL Letters: WFL Numbers: WFL - Answer Yes/No Questions Simple: WFL Complex: WFL - Follows Commands 1 Step: WFL 2 Step: WFL Complex: Mild - Comments Comments: Pt follows basic to min complex commands with 2-3 components however when complexity increases to 4-5, Pt completing 3-4 commands. - Automatic Sequences Automatic Sequences: WFL - Repetition Words: WFL Sentences: WFL, Mild - Naming Responsive naming: Mild, Moderate Naming in categories: Mild, Moderate [place]: Mild Abstract: Mild - Conversational Tasks Conversational Tasks: Moderate Comments: Pt demonstrating decreased instances of word finding difficulties and neologisms from severe severity to moderate severity. Pt's verbal expression is more fluent with no instances of neologisms, however Pt does become perseverative on a word ending (e.g., uscle) where she attempts to add this on during word finding attempts. Pt's conversational language is beginning to contain more content words where understanding the context of her communication is becoming clearer. Even so, Pt's language continues to remain less specific in terms of verbs and descriptor words compared to what is suspected to be typical for her. - Comments Comments: During conversation task Pt presenting with mild expressive language deficits with mild severe receptive language deficits. Sentence length during conversation is no longer modified to be shorter as Pt appears to be understanding at least 80% of conversational speech. Pt continues to benefit from extended processing time and feedback confirmation of what she heard or labeled an item during picture identification tasks. Pt continues to perform with 100% acc in automatic sequence counting from 1-21 and benefited from supervision to recite the [place]. - Reading Picture-Word Matching Picture-Word matching: WFL - Reading Comprehension Words: WFL Phrases: Moderate Sentences: Moderate - Oral Reading Words: Moderate Phrases: Moderate Sentences: Severe Comments: Pt continues to have difficulty with reading comprehension and appears to perform the same whether reading to self or aloud. Pt with minimal oral reading speech errors, however comprehensions continues to be a barrier. See goal progress above for further details. - Writing Functional writing correctly: Name, Phone Number Words: WFL Phrases: Mild Sentences: Moderate Comments: Pt's writing has improved since the time of initial evaluation via containing 15 ortiz content noun/verbs/adjectives compared to only 5 at the time of initial eval. Pt's grammatical structure continues to be a challenge and often reflects how she speaks in conversations. - Recall Comments: Pt demonstrating difficulty with functional recall of events thus far leading up to and including the days of her CVA treatment. Unclear if memory is a deficit at this time secondary to severity of expressive and receptive aspects of her aphasia. Will continue to monitor. - Executive Function Comments Comments: Suspect Pt is experiencing a change in cognitive function with regards to memory however given the severity of her aphasia, testing would be inconclusive and misrepresentative of her abilities at this time. Plan to target as her aphasia continues to improve. Cognitive Linguistic Comments - Comments Re-evaluation April 15 and April 21 with the [place] Aphasia Assessment Short Form. Plan - Plan Plan: Will recommend Pt for weekly outpatient speech therapy intervention address mild to moderate transcortical sensory aphasia due to demonstrating mild to moderate deficits in expressive language and mild deficits in receptive language. Pt would benefit from verbal and visual modeling, verbal/visual and tactile cuing, repeated practice, circumlocution training, following directions, and reading comprehension. Without skilled intervention Pt is at risk for difficulty communicating basic, medical, emergent, social wants & needs, and interacting with family/friends at home, during social interactions, and at work. - Recommendations Treatment Warranted: Yes Treatment Warranted: Receptive/ Expressive Language - Progress Prognosis: Good - Frequency Frequency: 1x/Week Additional (Frequency): 60 min sessions Duration: 10 weeks - Goals that are Established Determination:: Goals will be added/modified as deemed necessary and appropriate. Therapy will be discontinued when results of re-evaluation indicate therapy is no longer needed or lack of progress has been documented. - Goal #1-5 Goal #1: Madeleine will follow 2-step commands with 3 or fewer components (e.g. tap your right knee twice) at 80% accuracy given minimal verbal and visual cues in order to comprehend instructions across 3 consecutively measured sessions. Goal #2: Madeleine will complete basic to mod complex confrontation, convergent, and divergent naming tasks with 80% acc independently across 3 measured opportunities to improve word retrieval. Goal #3: Madeleine will read 2 or more sentences and answer comprehension questions re: the material at 75% accuracy given min assist. Goal #4: Madeleine will generate 3 sentences when given a target verb following WHO+verb+WHAT structure with 80% acc independently across 3 consecutively measured sessions. Goal #5: Madeleine will generate 3 additional pieces of information answering WHERE/WHEN/WHY of one self-created WHO+verb+WHAT sentence with 2 of the 3 questions answered independently across 3 consecutively measured sessions. Education - Patient has Indicated that the Following Identified Educational Needs: None The Patient has indicated that they have no educational or learning abilities that may effect their care.: Yes - Patient Instruction Patient Education: Diagnosis, Treatment Plan, Goals Other Education: Direct education provided re: avoiding the phrase think about it and instead implementing aphasia word finding strategies such as asking Madeleine questions that ask her to describe the word she is trying to say. Person Taught: Patient, Family Teaching Method: Discussion, Demonstration Response to teaching: Reinforcement needed
== END 2022-06-17 19:00 | disposition home or self-care (01) ==
LOC: SP 09:30
PROVIDERS: PCP Family Medicine
DX: I69.320 Aphasia following cerebral infarction
CPT/HCPCS: 92507; 92523; 97162; 97165

== ENCOUNTER 2022-07-15 09:30 | Outpatient (RCR) | payer MEDICARE, OTHER, SELFPAY ==
--- NOTE | 2022-09-23 10:30 | HP.SP.DC_ITS ---
ST Discharge Summary - Discharged: Discharge: MADELEINE HARRISON was seen for initial language/aphasia evaluation at [facility] on 12/16/22 s/p thrombus of left MCA. Pt attended 36 sessions following evaluation to target word retrieval, divergent naming, convergent naming, and sentence creation through VNeST aphasia intervention. Madeleine made significant progress since her initial evaluation which can be seen in her re-evaluation reports. Madeleine was continually making progress and would benefit from cont'd therapy - Pt's progress was relayed to her frequently. Madeleine often getting frustrated and significantly fatigued at the end of her sessions. This ST had many conversations with Pt's and phone calls with Pt's daughter re: her frustration and fatigue with accommodations to therapy intensity being addressed. In July, family requesting to place Pt on hold. Followed up with family again in August and they reported she is doing well at home. Pt discharged from speech therapy caseload on this date, 09/23/22 at family's request. Thank you for allowing me to parti cipate the care of your Pt. Will reevaluate at Pt?s request following script from physician.
== END 2022-07-15 19:00 | disposition home or self-care (01) ==
LOC: SP 09:30
PROVIDERS: PCP Family Medicine
DX: I63.312 Cerebral infarction due to thrombosis of left middle cerebral artery (principal); R47.01 Aphasia; I63.9 Cerebral infarction, unspecified
CPT/HCPCS: 92507

== ENCOUNTER 2022-09-25 15:40 | Emergency (ER) | payer MEDICARE, OTHER, SELFPAY ==
[2022-09-25 15:43] VITALS: BP 121/77; PULSE 85; RESP 16; TEMP 36.6; O2SAT 93; BMI 32.4
[2022-09-25 15:45] VITALS: RESP 18; O2SAT 88
[2022-09-25 16:01] VITALS: O2SAT 96
--- NOTE | 2022-09-25 16:03 | CT_ITS ---
INDICATION: Trauma, fell, found unresponsive EXAMINATION: CT BRAIN - CT Head or Brain W/O Contrast Injection TECHNIQUE: Multiple axial images were obtained of the head without intravenous contrast. A radiation dose optimization technique was used for this scan. IV Contrast dosage and agent: None. COMPARISON: 01/22/2022 FINDINGS: BRAIN PARENCHYMA: No intra- or extra-axial hemorrhage. No acute territorial infarction. Stable encephalomalacic area from chronic left temporal lobe CVA. Small focus of high attenuation in the medial left temporal lobe likely represents residual from the high attenuation lesion on the prior study. Posterior fossa structures are unremarkable. CSF SPACES: Appropriate for age. No hydrocephalus. Basal cisterns are patent. CALVARIUM, SKULL BASE, PARANASAL SINUSES AND MASTOID AIR CELLS: Clear. No acute fracture. ORBITS: Both globes, extraocular muscles, optic nerves and retrobulbar fat appear unremarkable. CT/Brain/Head without Contrast IMPRESSION: No acute intracranial findings. Electronically Signed: Josiah Bautista MD at 17:10 EDT ,
--- NOTE | 2022-09-25 16:03 | CT_ITS ---
INDICATION: Trauma, fall, found unresponsive EXAMINATION: CT CERVICAL SPINE - CT Spine Cervical W/O Contrast Injection TECHNIQUE: Helically acquired images were obtained of the cervical spine. 2D reformatted images were reviewed. A radiation dose optimization technique was used for this scan. IV Contrast dosage and agent: None. COMPARISON: None. FINDINGS: VERTEBRAE: No acute fracture No discrete lytic or blastic abnormality. Normal alignment. Normal craniocervical junction and cervicothoracic junction. DISCS and SPINAL CANAL: Loss of normal disc space height at C6-7 with osteophyte formation. No critical stenosis. NECK SOFT TISSUES: No prevertebral soft tissue swelling. LUNG APICES: Clear. CT/Spine Cervical without Contras IMPRESSION: No acute fracture of the cervical spine. Electronically Signed: Josiah Bautista MD at 17:15 EDT ,
--- NOTE | 2022-09-25 16:04 | EKG12_ITS ---
Test Reason : SYNCOPE Blood Pressure : / mmHG Vent. Rate : 082 BPM Atrial Rate : 082 BPM P-R Int : 200 ms QRS Dur : 094 ms QT Int : 396 ms P-R-T Axes : 038 -12 040 degrees QTc Int : 462 ms Normal sinus rhythm Minimal voltage criteria for LVH, may be normal variant ( R in aVL ) Possible Anterior infarct , age undetermined Abnormal ECG Confirmed by NETO HERRING, JAXON ([id number]), editor & co founder KATE MARTINEZ ([id number]) on 09/27/2022 11:19:40 AM Referred By: Confirmed By:JAXON DUQUE MD
--- NOTE | 2022-09-25 16:05 | EDS_ITS ---
HPI History of Present Illness Chief Complaint: Confusion Informant: patient, spouse/S.O. and family Narrative Narrative: History is father son and daughter as well as the patient. Patient really does not recall what happened. She is knows she is in the emergency department now but does not recall the events. The states that he and the patient had been out shopping all day they had a busy day. They were moving furniture on the porch. They then went inside. She made some food and was sitting at the table eating. He went into the other room to do some things. He heard what sounds like a grunt or growl. He thought maybe she was playing with one of the dogs. Short time after that he went into the kitchen to check on her. As he was started to go in there he heard a falling sound and found her on the ground. At that point there was no seizure activity. But she was frothing at the mouth and had slightly abnormal breathing. He states he did check her pulse and she had a good pulse. She was not responding to him at first. Very quickly she started to get slightly combative. She then got [place] and is progressively improved and is still improving. EMS was called but both he and his son (the patient's son also) are nutrition services associate. Patient's only medications are atorvastatin at night baby aspirin and multivitamin. She had a ischemic stroke back December 2021. There is a note about hemorrhagic conversion but the patient's family all states that she never had any bleeding. They did find a very small aneurysm but they were told it does not need any treatment. She never had bleeding or surgery. Her primary symptom of the stroke has been expressive aphasia which is just slowly improving over time. [facility] Medical History Stroke/cerebrovascular accident Home Medications aspirin 81 mg tablet,delayed release 81 mg PO DAILY 09/25/22 [History Last Taken Unknown] atorvastatin 40 mg tablet 40 mg PO DAILY 09/25/22 [History Last Taken Unknown] hydrocodone-acetaminophen 5-325mg 5mg-325mg 1 tab PO Q6H PRN PRN Pain 3 days #10 TABLETS 09/25/22 [Rx Last Taken Unknown] levetiracetam 1,000 mg tablet (Keppra) 1,000 mg PO BID #60 tabs 09/25/22 [Rx Last Taken Unknown] multivitamin 1 tab PO DAILY 09/25/22 [History Last Taken Unknown] Allergy/AdvReac Type Severity Reaction Status Date / Time clonazepam AdvReac Other Verified 09/25/22 15:49 Social History household members: spouse Smoking Status: Never smoker substance use type: does not use ROS ROS ED ROS Narrative A complete review of systems was performed and is negative except as documented in the history of present illness. Some specific details below. Constitutional: No recent fevers or chills. She was feeling well all day while shopping. EYE: No discharge, visual complaints, or pain. She denies visual complaints now. ENT: No difficulty swallowing. No swelling. No pain. No reflux symptoms. She denies any facial trauma. CV: No reported chest pain. did feel a pulse moments after the event. Respiratory: No coughing or trouble breathing. She had some frothing and coarse breathing initially but that resolved spontaneously. GI: No abdominal pain. No nausea vomiting diarrhea. No blood in stool. She has been eating and drinking normally. : No frequency dysuria or hematuria. Musculoskeletal: No symptoms of trauma. No pains except mild neck discomfort that is nonfocal. No swelling. Skin: No rash. Nondiaphoretic. Neuro: No weakness or numbness. No focal deficit. She has some expressive aphasia that is not new and is at baseline. Endocrine: No polyuria or polydipsia. No history of diabetes. EXAM Physical Exam Narrative Exam Narrative: Patient is actually awake alert sitting calmly in bed. HEENT shows no sign of head trauma that I see. No intraoral bleeding at this time. Eyes show normal range of motion and pupillary function Neck has no focal tenderness but she does state that it is somewhat sore. Lungs are clear and saturations are about 96 to 98% on room air on the monitor. This shows no hypoxia. Heart is regular. Rate about 80. I hear no murmur gallop or rub. Peripheral pulses x4 are normal. Abdomen is soft completely nontender. Extremities show no sign of trauma. I can move upper and lower extremities easily. No deformities. No tenderness or notable bruising on exam. Neurologically she is awake she is alert to person place. She does not know the year but might not get that. But she knows that this is an important year and her daughter is going to have a baby. She cannot think of the name of the president but does not like the individual. Evidently this is pretty normal also. Patient has shown marked improvement from her time at home now. This is agreed upon by all family members. Const Vital Signs: 09/25/22 15:43 09/25/22 15:45 09/25/22 16:01 Temperature 97.9 F Temperature Source Oral Pulse Rate 85 Respiratory Rate 16 18 Blood Pressure 121/77 H Blood Pressure Mean 91 Pulse Ox 93 88 96 Oxygen Delivery Method Room Air Room Air Nasal Cannula Oxygen Flow Rate (L/min) 2 09/25/22 17:08 09/25/22 18:08 Temperature Temperature Source Pulse Rate 72 69 Respiratory Rate 18 16 Blood Pressure 132/62 H 141/72 H Blood Pressure Mean 85 95 Pulse Ox 96 100 Oxygen Delivery Method Room Air Nasal Cannula Oxygen Flow Rate (L/min) 3 MDM MDM MDM Narrative Medical decision making narrative: My independent interpretation the patient's CT of the head does show signs of prior stroke on the left side. I see no indication of bleeding. My independent interpretation of her CT of the spine shows arthritic changes throughout but I see no notable fracture. Blood work shows a normal CBC. Electrolytes were normal other than mild elevation of the creatinine and decreased potassium. Patient is being given some fluids. Her lactate is pending but I am suspicious it would likely be elevated so she will be hydrated somewhat. Glucose was also found to be slightly up at 145. Troponin was negative at 15 Prolactin was elevated about 2-1/2 times normal at 80. This is giving further suspicion that this may have been a seizure. Lactate did come back elevated 4.4 as was expected. 17:10 patient's recheck. She is sleeping now. We will recheck her once we get final reading of the images. I called [facility] and discussed the case with neurologist, Dr. Jiménez. He did recommend starting Keppra to thousand twice a day. No driving until this is sorted out and they will follow her up sooner. I have the number for follow-up. I discussed with patient and family. Patient is complaining of pain around her neck but is really in the anterior sternocleidomastoid area. It is sore when she uses that muscle or pressing on it. I hear no bruit though. We will get her up and walk to make sure nothing else hurts. She had been having some pain near the left rib cage down below anteriorly but is not tender and is not hurting now. She states that she had a little soreness in the left knee but its not bothering her there either. Patient got up to walk around and her left knee was bothering her. We did do x- rays of this and there is no indication of fracture. I discussed options with family and patient. Patient does not want to be admitted. She wants to go home. Family is comfortable with this. They figured she is just kind of sore all over likely from falling in the seizure. I think this is true. There is no other focal area of pain that we have not imaged. I will give her something for pain if needed. She will start with ice and Tylenol. She can have up to 4 g of Tylenol a day but she needs to watch this with the hydrocodone. There is also Tylenol and that. Both the and son are medics and they will have EMS help them get her into the house. They have a spot for her to stay. is retired and has no problems taking care of her at home. They will slowly get her up and moving. This was preferred by all family members and the patient. Lab Data Attestation: I reviewed the patient's lab results. Labs: Laboratory Results - last 24 hr 09/25/22 09/25/22 09/25/22 15:45 15:45 16:10 WBC 10.0 RBC 4.61 Hgb 13.7 Hct 42.3 MCV 91.8 MCH 29.7 MCHC 32.4 RDW Std Deviation 44.6 H RDW Coeff of Debra 13.1 Plt Count 232 MPV 11.7 Immature Gran % (Auto) 2.900 H Neut % (Auto) 51.7 Lymph % (Auto) 38.3 [place] % (Auto) 4.3 Eos % (Auto) 2.3 Baso % (Auto) 0.5 Absolute Neuts (auto) 5.2 Absolute Lymphs (auto) 3.82 Nucleated RBC % 0 Sodium 139 Potassium 3.3 L Chloride 109 H Carbon Dioxide 20.0 L Anion Gap 10 BUN 15 Creatinine 1.17 H Estim Creat Clear Calc 49.76 Est GFR (MDRD) Af Amer 59 L Est GFR (MDRD) Non-Af 49 L BUN/Creatinine Ratio 12.8 Glucose 145 H Lactic Acid 4.4 H* Calcium 8.8 Troponin I High Sens 15 Prolactin 80.1 Radiography Diagnostic Testing: Clinical Impression(s) from Imaging Studies Brain CT 09/25/22 16:03 IMPRESSION: No acute intracranial findings. Electronically Signed: Josiah Bautista MD at 17:10 EDT , Cervical Spine CT 09/25/22 16:03 IMPRESSION: No acute fracture of the cervical spine. Electronically Signed: Josiah Bautista MD at 17:15 EDT , Knee X-Ray 09/25/22 18:35 IMPRESSION: No acute fracture or dislocation. Electronically Signed: Rickie Lee MD at 19:20 EDT , EKG Initial EKG: Comments: My independent interpretation of this patient's EKG done for an unresponsive episode shows normal sinus rhythm. Overall rate is 82. No ectopy. No acute ST elevation or depression but there are some nonspecific changes that may be related to mild LVH. RI interval is max length of 200 ms. QRS duration and QTc are normal. The EKG is similar to 22 January 2022 other than being slightly quicker Discharge Plan Triage Chief Complaint: Confusion ED Provider: Michael Beauchamp Dx/Rx/DC Orders Clinical Impression: Seizure, History of CVA with residual deficit, Expressive aphasia Instructions: ED Seizure New Onset Unknown ... Prescriptions: New levetiracetam [Keppra] 1,000 mg tablet 1,000 mg PO BID Qty: 60 0RF hydrocodone-acetaminophen [hydrocodone-acetaminophen] 5-325 mg tablet 1 tab PO Q6H PRN PRN (Reason: Pain) 3 Days Qty: 10 0RF No Action atorvastatin 40 mg tablet 40 mg PO DAILY aspirin [Aspir-81] 81 mg Tablet,Delayed Release (Dr/Ec) 81 mg PO DAILY multivitamin Tablet 1 tab PO DAILY Primary Care Provider: Yoselin Francis Referrals: Yoselin Francis, DO [Primary Care Provider] - Activity Restrictions/Additional Instructions: Call [facility] Department of neurology at [phone] for an appointment in the next 1 to 2 weeks. I discussed the case with Dr. Jiménez who would like you to be seen. Disposition Disposition: Home, Self Care
[2022-09-25 16:16] LABS: Absolute Lymphocyte Count 3.82 X10^3/uL (0.83-4.51); Absolute Neutrophil Count 5.2 X10^3/uL (2.0-7.7); Basophil# 0.05 X10^3/uL; Basophil% 0.5 % (0-1); Eosinophil# 0.23 X10^3/uL; Eosinophils% 2.3 % (0-5); Hematocrit 42.3 % (37-47); Hemoglobin 13.7 g/dL (12.0-15.0); Lymphocyte # 3.82 X10^3/ul (0.83-4.51); Lymphocyte % 38.3 % (19-41); Mean Corp Hgb Conc 32.4 g/dL (32-36); Mean Corpuscular Hgb 29.7 pg (27.0-32.0); Mean Corpuscular Volume 91.8 fL (81-99); Mean Platelet Vol. 11.7 fl (6.2-12.0); Monocyte# 0.43 X10^3/uL; Monocyte% 4.3 % (0-10); NRBC Flagged by Analyzer 0 % (0-5); Neutrophil # 5.16 X10^3/uL (2.7-7.7); Neutrophil % 51.7 % (47-70); Platelet Count 232 K/mm3 (150-450); RBC Distribution Width CV 13.1 % (11.6-14.6); RBC Distribution Width SD 44.6 fl (35.1-43.9); Red Blood Count 4.61 M/mm3 (4.2-5.4)
[2022-09-25 16:38] LABS: Anion Gap 10 (5-15); BUN 15 mg/dL (7-18); BUN/Creat Ratio 12.8 RATIO (10-20); Calcium,Total 8.8 mg/dL (8.5-10.1); Chloride 109 mmol/L (98-107); Creatinine, Serum 1.17 mg/dL (0.55-1.02); EST Glomerular Filtration Rate 49 mL/min (>60); Est Glom Filt Rate - Afr Amer 59 mL/min (>60); Estimated Creatinine Clearance 49.76 ml/min; Glucose 145 mg/dL (74-106); Potassium 3.3 mmol/L (3.5-5.1); Prolactin 80.1 ng/mL; Sodium Level 139 mmol/L (136-145); Troponin-I HS 15 pg/mL (3.0-54.0)
[2022-09-25] MEDS: 0.9% Normal Saline 1,000 ML 999 ML IV (16:43)
[2022-09-25 16:47] LABS: Lactic Acid 4.4 mmol/L (0.4-1.9)
[2022-09-25 17:08] VITALS: BP 132/62; PULSE 72; RESP 18; O2SAT 96
[2022-09-25 18:08] VITALS: BP 141/72; PULSE 69; RESP 16; O2SAT 100
[2022-09-25] MEDS: levETIRAcetam 1,000 MG Tablet 1000 MG PO (18:23)
[2022-09-25] MEDS: Ondansetron 4 MG/2 ML Vial IV (18:32)
[2022-09-25] MEDS: Morphine 4 MG/ML Syringe IV (18:32)
--- NOTE | 2022-09-25 18:35 | RAD_ITS ---
STUDY: X-RAY - LEFT KNEE REASON FOR EXAM: Female, 66 years old. trauma TECHNIQUE: 4 view(s) of the knee. COMPARISON: None. FINDINGS: Normal visualized distal femur. Normal visualized proximal tibia and fibula. Normal proximal tibiofibular articulation. There is severe degenerative arthrosis of the medial femorotibial compartment with severe joint space narrowing. There is mild degenerative arthrosis of the lateral femorotibial compartment. There is mild degenerative arthrosis of the patellofemoral articulation. The soft tissue structures are unremarkable. RAD/Knee 4 or More Views IMPRESSION: No acute fracture or dislocation. Electronically Signed: Rickie Lee MD at 19:20 EDT ,
[2022-09-25 20:08] VITALS: BP 124/70; PULSE 60; RESP 16; O2SAT 100
[2022-09-25] MEDS: HYDROcodone Bitartrate/Apap 5/325 Tablet PO (20:12)
[2022-09-25 20:13] LABS: Reflex Lactate? Y
== END 2022-09-25 20:24 | disposition home or self-care (01) ==
PROVIDERS: Emergency Provider Emergency Medicine; PCP Family Medicine; Visit Provider Emergency Medicine
DX: R56.9 Unspecified convulsions (principal); Z79.82 Long term (current) use of aspirin; I69.398 Other sequelae of cerebral infarction; Z79.899 Other long term (current) drug therapy
CPT/HCPCS: 70450; 72125; 73564; 80048; 83605; 84146; 84484; 85025; 93005; 96361; 96374; 96375; 99285; J7030; A4216; J2405

== ENCOUNTER → 2022-10-29 | Outpatient (CLI) | payer MEDICARE, OTHER, SELFPAY ==
--- NOTE | 2022-10-29 10:34 | CDU_ITS ---
Reason For Study: CVA, CONVULSIONS Rt. Velocities/BP Lt. Velocities/BP Prox CCA 92.7/22.3 cm/sec. Prox CCA 118.6/25.3 cm/sec. Mid CCA 78.7/19.3 cm/sec. Mid CCA 65.8/17.9 cm/sec. Dist CCA 65.5/17.1 cm/sec. Dist CCA 65.8/14.2 cm/sec. Prox ICA 50.9/14.1 cm/sec. Prox ICA 53.8/13.1 cm/sec. Mid ICA 94.1/25.9 cm/sec. Mid ICA 63.2/24.5 cm/sec. Dist ICA 79.8/24.8 cm/sec. Dist ICA 68.3/24.4 cm/sec. Rt. ICA/CCA = 94.1/78.7=1.2. Lt. ICA/CCA = 68.3/65.8=1.0. Prox ECA 78.7/6.2 cm/sec. Prox ECA 59.7/9.3 cm/sec. Rt. Vert. 56.7/14.9 cm/sec. Lt. Vert. 44.7/18.5 cm/sec. Right Extracranial There is intimal thickening but no significant atherosclerotic plaque noted in the right common carotid artery. There is intimal thickening but no significant atherosclerotic plaque noted in the right internal carotid artery. There is intimal thickening but no significant atherosclerotic plaque noted in the right external carotid artery. Antegrade flow is noted in the right vertebral artery. Left Extracranial There is intimal thickening but no significant atherosclerotic plaque noted in the left common carotid artery. There is intimal thickening but no significant atherosclerotic plaque noted in the left internal carotid artery. There is no significant atherosclerotic plaque noted in the left external carotid artery. Antegrade flow is noted in the left vertebral artery. Procedure Carotid Duplex [id number]. This is a Carotid Duplex examination using B-mode, color flow and specral Doppler. Exam performed in department. VL/Carotid Duplex Ultrasound Interpretation Summary Normal right extracranial internal carotid. Normal left extracranial internal c arotid. Patent and antegrade vertebrals bilaterally. Normal right extracranial internal carotid. Normal left extracranial internal carotid. Patent and antegrade vertebrals bilaterally Ordering Physician: Yoselin Francis Referring Physician: Yoselin Francis Performed By: Amanda Camp, CHIVO, RVT
[2022-10-29 12:09] LABS: Ammonia < 10.0 umol/L (11-32)
== END | disposition home or self-care (01) ==
PROVIDERS: PCP Family Medicine; Referring Provider Family Medicine; Visit Provider Family Medicine
DX: R56.9 Unspecified convulsions (principal); Z86.73 Personal history of transient ischemic attack (TIA), and cerebral infarction without residual deficits
CPT/HCPCS: 36415; 80177; 82140; 93880; 95819

== ENCOUNTER → 2022-11-17 | Outpatient (CLI) | payer MEDICARE, OTHER, SELFPAY ==
--- NOTE | 2022-11-17 13:00 | MRI_ITS ---
STUDY: MRA OF THE HEAD WITHOUT CONTRAST REASON FOR EXAM: Female, 66 years old. 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 The study was performed unenhanced. Contrast: No contrast administered. COMPARISON: CT examination of 09/23/2022 FINDINGS: CAROTID VESSELS: Normal bilateral petrous carotid arteries. Normal right cavernous carotid artery with a normal supraclinoid bifurcation. Normal left cavernous carotid artery with a normal supraclinoid bifurcation. ANTERIOR CEREBRAL ARTERIES: Normal right A1 segments of the anterior cerebral artery. Normal left A1 segments of the anterior cerebral artery. Normal intact anterior communicating artery (ACOM). Normal bilateral A2 segments of the anterior cerebral arteries. MIDDLE CEREBRAL ARTERIES: Normal right M1 and M2 segments of the middle cerebral arteries, with a normal M1 bifurcation. There is normal appearance of the LEFT M1. There is significant loss of M2 branches, particularly going to the temporal lobe. This corresponds the area of remote LEFT MCA infarct. No acute occlusion identified. Remaining M2-M4 branches on the LEFT have normal appearance. POSTERIOR TO INDICATING ARTERIES: The posterior indicating arteries are not well visualized VERTEBRAL BASILAR SYSTEM: Normal bilateral vertebral arteries. Normal basilar artery with a normal basilar bifurcation. The visualized bilateral superior cerebellar (SCA) arteries are normal. POSTERIOR CEREBRAL ARTERIES Normal bilateral P1, P2 and visualized P3 segments of the posterior cerebral arteries. There is no demonstrated aneurysm of the [place]. There is evidence of increased signal along the cortical surface of the LEFT temporal lobe corresponding to the area of infarct on recent CT. This may represent gyriform laminar necrosis. There is no demonstrated abnormality of the visualized brain. MRI/MRA Head ONLY without Contrast IMPRESSION: 1. No evidence of acute stenosis or LVO. No aneurysmal dilatation. 2. Significant pruning of M2 branches of the LEFT MCA, corresponding to the area of remote LEFT MCA infarct involving the LEFT temporal lobe. 3. No other vascular abnormalities noted. Electronically Signed: Rickie Mensah MD at 23:04 EDT ,
--- NOTE | 2022-11-17 13:45 | MRI_ITS ---
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 stroke 1 year ago and seizure 09/2022,, rt hand tingling , pressure rt side of head, short term memory loss Date: 11/17/2022 12:51 PM Technique: MR a examination of the neck obtained with standard protocol including [id number] imaging and three-dimensional reconstructions. No contrast administered. Comparison: No previous for comparison FINDINGS MRA Neck: Aortic arch: Aortic arch is not included on the exam. Right carotid system: There is a mild deformity of the posterior wall of the RIGHT carotid bifurcation without stenosis or occlusion. Mild eccentric intimal thickening versus flow artifact are considerations. Remaining RIGHT ICA is normal appearance to the level of the skull base. Normal appearance the visualized external carotid branches on the RIGHT. Left carotid system: There is normal appearance of visualized LEFT carotid artery bifurcation, mild contour deformity along posterior wall of the LEFT carotid bifurcation, consistent with flow artifact versus focal area of nonoccluding intimal thickening. Remaining LEFT ICA has normal appearance to the level of the skull base. Vertebral arteries: There is normal appearance of the vertebral arteries bilaterally without focal stenosis or occlusion. Airway and soft tissues of the neck: Not adequately visualized not visualized Cervical spine: Not adequately visualized. MRI/MRA Neck WITH and W/O Contrast IMPRESSION: 1. Mild contour deformity of flow signal along posterior wall of the carotid bifurcations bilaterally. This can represent sequelae of flow artifact versus eccentric posterior intimal thickening. No evidence however of hemodynamically significant stenosis involving the cervical carotid or vertebral circulation to level skull base. Electronically Signed: Rickie Mensah MD at 23:14 EDT ,
[2022-11-19 15:37] LABS: CREATININE FINGERSTICK < 0.9 mg/dL (0.55-1.02)
== END | disposition home or self-care (01) ==
LOC: MRI 12:10
PROVIDERS: PCP Family Medicine
DX: I63.312 Cerebral infarction due to thrombosis of left middle cerebral artery (principal)
CPT/HCPCS: 70544; 70549; A9575

== ENCOUNTER → 2023-01-05 | Outpatient (CLI) | payer MEDICARE, OTHER, SELFPAY ==
[2023-01-05 08:51] LABS: Hematocrit 42.4 % (37-47); Hemoglobin 13.8 g/dL (12.0-15.0); Mean Corp Hgb Conc 32.5 g/dL (32-36); Mean Corpuscular Hgb 30.1 pg (27.0-32.0); Mean Corpuscular Volume 92.4 fL (81-99); Mean Platelet Vol. 11.4 fl (6.2-12.0); Platelet Count 160 K/mm3 (150-450); RBC Distribution Width CV 13.2 % (11.6-14.6); RBC Distribution Width SD 44.9 fl (35.1-43.9); Red Blood Count 4.59 M/mm3 (4.2-5.4); White Blood Count 4.9 K/mm3 (4.4-11.0)
[2023-01-05 09:28] LABS: Vitamin B12 388 pg/mL (211-911)
[2023-01-05 09:41] LABS: ALB/GLOB Ratio 0.9 RATIO (0.9-2.4); AST(SGOT) 32 U/L (15-37); Alanine Aminotransfer ALT/SGPT 40 U/L (13-56); Albumin, Serum 3.3 g/dL (3.2-5.0); Alkaline Phosphatase 78 U/L (45-117); Anion Gap 5 (5-15); BUN 18 mg/dL (7-18); BUN/Creat Ratio 24.8 RATIO (10-20); Calcium,Total 8.3 mg/dL (8.5-10.1); Chloride 112 mmol/L (98-107); Cholesterol 132 mg/dL (200); Creatinine, Serum 0.73 mg/dL (0.55-1.02); EST Glomerular Filtration Rate 84 mL/min (>60); Est Glom Filt Rate - Afr Amer 102 mL/min (>60); Globulin 3.6 g/dL (2.2-4.2); Glucose 93 mg/dL (74-106); High Density Lipoprotein 73 mg/dL; Potassium 4.2 mmol/L (3.5-5.1); Protein, Total 6.9 g/dL (6.4-8.2); Sodium Level 143 mmol/L (136-145); Thyroid Stim Hormone (TSH) 0.94 uIU/mL (0.358-3.74); Triglycerides 56 mg/dL; Very Low Density Lipoprotein 11 mg/dL (5-40)
[2023-01-09 12:07] LABS: KEPPRA (LEVETIRACETAM) 14.4 ug/mL (10.0-40.0); Vitamin B1, Thiamine 109.1 nmol/L (66.5-200.0)
== END | disposition home or self-care (01) ==
PROVIDERS: PCP Family Medicine; Referring Provider Psychiatry & Neurology Neurology; Visit Provider Psychiatry & Neurology Neurology
DX: I63.9 Cerebral infarction, unspecified (principal); G40.909 Epilepsy, unspecified, not intractable, without status epilepticus; R41.3 Other amnesia
CPT/HCPCS: 36415; 80053; 80061; 80177; 82140; 82607; 82746; 83735; 84425; 84443; 85027

== ENCOUNTER 2023-02-04 17:54 | Emergency (ER) | payer MEDICARE, OTHER, SELFPAY ==
[2023-02-04 17:55] VITALS: BP 152/102; PULSE 69; RESP 22; TEMP 36.4; O2SAT 100; BMI 34.2
--- NOTE | 2023-02-04 18:20 | CT_ITS ---
INDICATION: Hx of cerebral aneurysm with spontaneous rupture EXAMINATION: CT BRAIN - CT Head or Brain W/O Contrast Injection TECHNIQUE: Multiple axial images were obtained of the head without intravenous contrast. A radiation dose optimization technique was used for this scan. IV Contrast dosage and agent: None. COMPARISON: 09/25/2022 FINDINGS: BRAIN PARENCHYMA: No intra- or extra-axial hemorrhage. No acute territorial infarction. Stable encephalomalacia left temporal lobe from chronic CVA. No intracranial mass or mass effect. Posterior fossa structures are unremarkable. CSF SPACES: Appropriate for age. No hydrocephalus. Basal cisterns are patent. CALVARIUM, SKULL BASE, PARANASAL SINUSES AND MASTOID AIR CELLS: Clear. No discrete lytic or blastic abnormalities. ORBITS: Both globes, extraocular muscles, optic nerves and retrobulbar fat appear unremarkable. CT/Brain/Head without Contrast IMPRESSION: No acute intracranial findings. Electronically Signed: Josiah Bautista MD at 18:59 EDT ,
--- NOTE | 2023-02-04 18:22 | EX.ED.DYSGE1 ---
HPI History of Present Illness Chief Complaint: General Illness Detail of Chief Complaint: I feel stupid headache and hurting all over Informant: patient and spouse/S.O. Onset/Context/Timing Onset: Hours (2 hours prior) Context: Sudden Onset Timing: Continuous Quality: Headache Location: Generalized and pain all over Current Severity: Moderate Maximum Severity: Severe Worsened by: Light sensitivity Relieved by: Nothing Associated Symptoms Associated Symptoms: History is limited Narrative Narrative: Patient is a 67-year-old woman with history of migraine headaches, cerebral aneurysm with spontaneous rupture that was flown to [facility]. There was no intervention according to family. She is on cholesterol medication and antidepressant and to anxiolytic medicine. History is limited because of patient's main responses I feel stupid . informing that this means that she does not feel well. She does endorse head pain, she does endorse light sensitivity and does endorse hurting all over. She apparently was sitting outside and holding her head prior to her headache starting. Daughter states this is common when she has a headache, migraine. Recent Illness/Hospitalization: No [facility] Medical History Stroke/cerebrovascular accident Home Medications aspirin 81 mg tablet,delayed release 81 mg PO DAILY 09/25/22 [History Last Taken Unknown] multivitamin 1 tab PO DAILY 09/25/22 [History Last Taken Unknown] atorvastatin 40 mg tablet 40 mg PO DAILY #90 tabs 12/30/22 [Rx Last Taken Unknown] buspirone 10 mg tablet 10 mg PO BID #180 tabs 12/30/22 [Rx Last Taken Unknown] hydroxyzine HCl 25 mg tablet 25 mg PO BID PRN itching #180 tabs 12/30/22 [Rx Last Taken Unknown] levetiracetam 1,000 mg tablet (Keppra) 1,000 mg PO BID #180 tabs 12/30/22 [Rx Last Taken Unknown] meloxicam 7.5 mg tablet 7.5 mg PO BID PRN pain #60 tabs 12/30/22 [Rx Last Taken Unknown] mupirocin 2 % topical ointment 1 applic topical BID 12/30/22 [History Last Taken Unknown] Allergy/AdvReac Type Severity Reaction Status Date / Time clonazepam AdvReac Other Verified 12/30/22 08:52 Family History other other (Documented in the HPI narrative) Social History household members: spouse Smoking Status: Never smoker substance use type: does not use ROS ROS ED Review of Systems ROS Unobtainable: due to mental condition and due to mental status Constitutional Constitutional ED: Denies chills or fever(s) Eyes Eyes: Reports other Details: Light sensitivity ; Denies blurry vision, change in vision or diplopia ENT ENT ED: Reports other Details: Denies ringing in ears or decreased hearing. ; Denies ear pain, rhinorrhea or sore throat Cardiovascular Cardiovascular: Denies chest pain or palpitations Respiratory/Chest Respiratory/Chest: Reports cough and dyspnea Gastrointestinal Gastrointestinal: Reports abdominal pain; Denies nausea or vomiting Musculoskeletal Musculoskeletal: Reports other Details: Left scapular pain. ; Denies arthralgias, back pain, myalgias or neck pain Integumentary Reports rash Neurologic Neurologic: Reports headache(s) and weakness; Denies paresthesias Psychiatric Psychiatric: Denies anxiety or depression Allergic/Immunologic Allergic/Immunologic ED: Denies mouth swelling, tongue swelling or urticaria EXAM Physical Exam Const Vital Signs: 02/04/23 17:55 02/04/23 18:04 02/04/23 19:17 Temperature 97.6 F L Temperature Source Temporal Pulse Rate 69 63 Respiratory Rate 22 H 19 H Respiratory Effort Normal Non-Labored Respiratory Pattern Normal Blood Pressure 152/102 H 140/93 H Blood Pressure Mean 118 108 Pulse Ox 100 Oxygen Delivery Method Room Air Positive well nourished, well developed, obese and unkempt Constitutional Narrative: Patient is rotating her head to the right and left with her eyes closed. She did not open her eyes during the entire history and physical examination. General Appearance ED: unkempt and well developed; Negative for pallor Nutritional Appearance: obese HEENT Reports moist mucous membranes HEENT Narrative: There is slight nasal discharge noted that is clear. Ears normal. Mucosa moist. Teeth normal. Eyes PERRL Eyes Narrative: There is no nystagmus. General Eye ED: Negative for pale conjunctiva or scleral icterus Neck no lymphadenopathy, supple and no JVD Neck Narrative: There is no findings. Resp normal respiratory effort and clear to auscultation bilaterally Cardio regular rate, regular rhythm, S1 normal heart sound, S2 normal heart sound and no murmurs GI normal to inspection, nondistended, normoactive bowel sounds, non-tender, non-distended and no masses; Negative for hepatosplenomegaly Back/Spine no CVA tenderness Extremity normal to inspection General Extremety ED: Negative for edema or tenderness General Extremity: Negative for edema Neuro CN's II-XII intact bilaterally Neuro Narrative: Patient reports weakness in her left upper extremity however when the left upper extremity was placed above her head it came down slowly and veered to the left missing her face/head. When the arm was extended at her side it fell to the bed. Psych Appearance: unkempt Mood & Affect: depressed and tearful Skin no rashes or lesions noted and no wounds General Skin Exam: Negative for jaundice or pallor MDM MDM MDM Narrative Medical decision making narrative: History of cerebral aneurysm and complaint of headache as well as migraines will obtain CT to rule out hemorrhage since her headache started 2 hours ago. If there is no evidence of hemorrhage we will treat with migraine cocktail. Since there was no eye contact and patient does not truly have weakness to left upper extremity suspect this is due to an affective disorder. Lab Data Labs: Laboratory Results - last 24 hr 02/04/23 17:30 WBC 8.3 RBC 4.98 Hgb 14.7 Hct 46.4 MCV 93.2 MCH 29.5 MCHC 31.7 L RDW Std Deviation 44.9 H RDW Coeff of Debra 13.2 Plt Count 183 MPV 12.2 H Immature Gran % (Auto) 0.200 Neut % (Auto) 48.5 Lymph % (Auto) 42.2 H Upson % (Auto) 6.8 Eos % (Auto) 2.1 Baso % (Auto) 0.2 Absolute Neuts (auto) 4.0 Absolute Lymphs (auto) 3.48 Nucleated RBC % 0 ESR 24 Sodium 142 Potassium 4.1 Chloride 109 H Carbon Dioxide 24.0 Anion Gap 9 BUN 13 Creatinine 1.09 H Estim Creat Clear Calc 52.68 Est GFR (MDRD) Af Amer 64 Est GFR (MDRD) Non-Af 53 L BUN/Creatinine Ratio 11.9 Glucose 113 H Calcium 9.1 Radiography Diagnostic Testing: Clinical Impression(s) from Imaging Studies Brain CT 02/04/23 18:20 IMPRESSION: No acute intracranial findings. Electronically Signed: Josiah Bautista MD at 18:59 EDT , Treatment and Re-Evaluation :: Exit interview was performed at 1933. Patient was told the CAT scan is normal. Blood work is baseline. I asked if she has been under any stress because she not reporting no symptoms. Son says no. After son walked out the informing that his son is . His ex- is back in the picture and she really has been under stress. In light of this with a normal work-up in my opinion patient had a conversion reaction. Discharge Plan Triage Chief Complaint: General Illness ED Provider: Gulshan Olson Dx/Rx/DC Orders Clinical Impression: Conversion reaction, Headache, History of subarachnoid hemorrhage Instructions: ED Conversion Reaction Prescriptions: No Action mupirocin 2 % ointment 1 applic topical BID meloxicam 7.5 mg tablet 7.5 mg PO BID PRN (Reason: pain) Qty: 60 5RF atorvastatin 40 mg tablet 40 mg PO DAILY Qty: 90 1RF levetiracetam [Keppra] 1,000 mg tablet 1,000 mg PO BID Qty: 180 1RF buspirone 10 mg tablet 10 mg PO BID Qty: 180 1RF hydroxyzine HCl 25 mg tablet 25 mg PO BID PRN (Reason: itching) Qty: 180 1RF aspirin [Aspir-81] 81 mg Tablet,Delayed Release (Dr/Ec) 81 mg PO DAILY multivitamin Tablet 1 tab PO DAILY Primary Care Provider: Yoselin Francis Referrals: Yoselin Francis, [Primary Care Provider] - 5-7 Days Disposition Disposition: Home, Self Care
[2023-02-04 18:53] LABS: Absolute Lymphocyte Count 3.48 X10^3/uL (0.83-4.51); Basophil# 0.02 X10^3/uL; Basophil% 0.2 % (0-1); Eosinophil# 0.17 X10^3/uL; Eosinophils% 2.1 % (0-5); Hematocrit 46.4 % (37-47); Hemoglobin 14.7 g/dL (12.0-15.0); Lymphocyte # 3.48 X10^3/ul (0.83-4.51); Lymphocyte % 42.2 % (19-41); Mean Corp Hgb Conc 31.7 g/dL (32-36); Mean Corpuscular Hgb 29.5 pg (27.0-32.0); Mean Corpuscular Volume 93.2 fL (81-99); Mean Platelet Vol. 12.2 fl (6.2-12.0); Monocyte# 0.56 X10^3/uL; Monocyte% 6.8 % (0-10); NRBC Flagged by Analyzer 0 % (0-5); Neutrophil % 48.5 % (47-70); Platelet Count 183 K/mm3 (150-450); RBC Distribution Width CV 13.2 % (11.6-14.6); RBC Distribution Width SD 44.9 fl (35.1-43.9); Red Blood Count 4.98 M/mm3 (4.2-5.4); White Blood Count 8.3 K/mm3 (4.4-11.0)
[2023-02-04 19:01] LABS: Erythrocyte Sedimentation Rate 24 mm/hr (0-30)
[2023-02-04 19:12] LABS: Anion Gap 9 (5-15); BUN 13 mg/dL (7-18); BUN/Creat Ratio 11.9 RATIO (10-20); Calcium,Total 9.1 mg/dL (8.5-10.1); Chloride 109 mmol/L (98-107); Creatinine, Serum 1.09 mg/dL (0.55-1.02); EST Glomerular Filtration Rate 53 mL/min (>60); Est Glom Filt Rate - Afr Amer 64 mL/min (>60); Estimated Creatinine Clearance 52.68 ml/min; Glucose 113 mg/dL (74-106); Potassium 4.1 mmol/L (3.5-5.1); Sodium Level 142 mmol/L (136-145)
[2023-02-04 19:17] VITALS: BP 140/93; PULSE 63; RESP 19
--- NOTE | 2023-02-04 19:38 | EX.ED.DYSGE1 ---
HPI History of Present Illness Chief Complaint: General Illness [facility] Medical History Stroke/cerebrovascular accident Home Medications aspirin 81 mg tablet,delayed release 81 mg PO DAILY 09/25/22 [History Last Taken Unknown] multivitamin 1 tab PO DAILY 09/25/22 [History Last Taken Unknown] atorvastatin 40 mg tablet 40 mg PO DAILY #90 tabs 12/30/22 [Rx Last Taken Unknown] buspirone 10 mg tablet 10 mg PO BID #180 tabs 12/30/22 [Rx Last Taken Unknown] hydroxyzine HCl 25 mg tablet 25 mg PO BID PRN itching #180 tabs 12/30/22 [Rx Last Taken Unknown] levetiracetam 1,000 mg tablet (Keppra) 1,000 mg PO BID #180 tabs 12/30/22 [Rx Last Taken Unknown] meloxicam 7.5 mg tablet 7.5 mg PO BID PRN pain #60 tabs 12/30/22 [Rx Last Taken Unknown] mupirocin 2 % topical ointment 1 applic topical BID 12/30/22 [History Last Taken Unknown] Allergy/AdvReac Type Severity Reaction Status Date / Time clonazepam AdvReac Other Verified 12/30/22 08:52 Family History other Social History household members: spouse Smoking Status: Never smoker substance use type: does not use EXAM Physical Exam Const Vital Signs: 02/04/23 17:55 02/04/23 18:04 02/04/23 19:17 Temperature 97.6 F L Temperature Source Temporal Pulse Rate 69 63 Respiratory Rate 22 H 19 H Respiratory Effort Normal Non-Labored Respiratory Pattern Normal Blood Pressure 152/102 H 140/93 H Blood Pressure Mean 118 108 Pulse Ox 100 Oxygen Delivery Method Room Air [facility] MDM Lab Data Labs: Laboratory Results - last 24 hr 02/04/23 17:30 WBC 8.3 RBC 4.98 Hgb 14.7 Hct 46.4 MCV 93.2 MCH 29.5 MCHC 31.7 L RDW Std Deviation 44.9 H RDW Coeff of Debra 13.2 Plt Count 183 MPV 12.2 H Immature Gran % (Auto) 0.200 Neut % (Auto) 48.5 Lymph % (Auto) 42.2 H [place] % (Auto) 6.8 Eos % (Auto) 2.1 Baso % (Auto) 0.2 Absolute Neuts (auto) 4.0 Absolute Lymphs (auto) 3.48 Nucleated RBC % 0 ESR 24 Sodium 142 Potassium 4.1 Chloride 109 H Carbon Dioxide 24.0 Anion Gap 9 BUN 13 Creatinine 1.09 H Estim Creat Clear Calc 52.68 Est GFR (MDRD) Af Amer 64 Est GFR (MDRD) Non-Af 53 L BUN/Creatinine Ratio 11.9 Glucose 113 H Calcium 9.1 Radiography Diagnostic Testing: Clinical Impression(s) from Imaging Studies Brain CT 02/04/23 18:20 IMPRESSION: No acute intracranial findings. Electronically Signed: Josiah Bautista MD at 18:59 EDT , EKG Initial EKG: Attestation: I personally reviewed and interpreted this EKG as follows: Interpretation: Sinus Rhythm (Normal sinus rhythm rate is 70. There is artifact which computer is reading is ossific changes. There is a prolonged QT interval. GA interval is under 50 ms. QT duration is 488 ms a QTc of 427. QRS duration 90 ms. [place] is normal.) Discharge Plan Triage Chief Complaint: General Illness ED Provider: Gulshan Olson Dx/Rx/DC Orders Clinical Impression: Conversion reaction, Headache, History of subarachnoid hemorrhage Instructions: ED Conversion Reaction Prescriptions: No Action mupirocin 2 % ointment 1 applic topical BID meloxicam 7.5 mg tablet 7.5 mg PO BID PRN (Reason: pain) Qty: 60 5RF atorvastatin 40 mg tablet 40 mg PO DAILY Qty: 90 1RF levetiracetam [Keppra] 1,000 mg tablet 1,000 mg PO BID Qty: 180 1RF buspirone 10 mg tablet 10 mg PO BID Qty: 180 1RF hydroxyzine HCl 25 mg tablet 25 mg PO BID PRN (Reason: itching) Qty: 180 1RF aspirin [Aspir-81] 81 mg Tablet,Delayed Release (Dr/Ec) 81 mg PO DAILY multivitamin Tablet 1 tab PO DAILY Primary Care Provider: Yoselin Francis Referrals: Yoselin Francis, DO [Primary Care Provider] - 5-7 Days Disposition Disposition: Home, Self Care
[2023-02-04] MEDS: LORazepam 0.5 MG Tablet PO (19:55)
[2023-02-04 19:57] VITALS: BP 134/78; PULSE 64; RESP 14; TEMP 36.6; O2SAT 97
== END 2023-02-04 19:57 | disposition home or self-care (01) ==
PROVIDERS: Emergency Provider Emergency Medicine; PCP Family Medicine; Visit Provider Emergency Medicine
DX: R51.9 Headache, unspecified (principal); Z86.73 Personal history of transient ischemic attack (TIA), and cerebral infarction without residual deficits; Z86.79 Personal history of other diseases of the circulatory system; F44.9 Dissociative and conversion disorder, unspecified
CPT/HCPCS: 70450; 80048; 85025; 85652; 93005; 99285

== ENCOUNTER → 2024-02-02 | Outpatient (CLI) | payer MEDICARE, OTHER, SELFPAY ==
[2024-02-02 15:46] LABS: Hematocrit 41.7 % (37-47); Hemoglobin 13.9 g/dL (12.0-15.0); Mean Corp Hgb Conc 33.3 g/dL (32-36); Mean Corpuscular Hgb 30.4 pg (27.0-32.0); Mean Corpuscular Volume 91.2 fL (81-99); Mean Platelet Vol. 12.4 fl (6.2-12.0); Platelet Count 166 K/mm3 (150-450); RBC Distribution Width CV 12.9 % (11.6-14.6); RBC Distribution Width SD 42.5 fl (35.1-43.9); Red Blood Count 4.57 M/mm3 (4.2-5.4); White Blood Count 5.6 K/mm3 (4.4-11.0)
[2024-02-02 16:00] LABS: Valproic Acid (Depakene) Level 68 ug/mL (50-100)
[2024-02-02 16:03] LABS: ALB/GLOB Ratio 0.9 RATIO (0.9-2.4); AST(SGOT) 17 U/L (15-37); Alanine Aminotransfer ALT/SGPT 18 U/L (13-56); Albumin, Serum 3.1 g/dL (3.2-5.0); Alkaline Phosphatase 73 U/L (45-117); Anion Gap 6 (5-15); BUN 13 mg/dL (7-18); BUN/Creat Ratio 12.6 RATIO (10-20); Calcium,Total 8.4 mg/dL (8.5-10.1); Chloride 111 mmol/L (98-107); Cholesterol 127 mg/dL (200); Creatinine, Serum 1.03 mg/dL (0.55-1.02); EST Glomerular Filtration Rate 56 mL/min (>60); Est Glom Filt Rate - Afr Amer 68 mL/min (>60); Globulin 3.6 g/dL (2.2-4.2); Glucose 97 mg/dL (74-106); High Density Lipoprotein 58 mg/dL; Potassium 3.6 mmol/L (3.5-5.1); Protein, Total 6.7 g/dL (6.4-8.2); Sodium Level 141 mmol/L (136-145); Triglycerides 73 mg/dL; Very Low Density Lipoprotein 15 mg/dL (5-40)
[2024-02-02 23:26] LABS: Xtra Tube EP Lab EXTRA TUBE
== END | disposition home or self-care (01) ==
LOC: PAVLAB 14:48
PROVIDERS: PCP Family Medicine; Referring Provider Psychiatry & Neurology Neurology; Visit Provider Psychiatry & Neurology Neurology
DX: G40.909 Epilepsy, unspecified, not intractable, without status epilepticus (principal); I63.9 Cerebral infarction, unspecified
CPT/HCPCS: 36415; 80053; 80061; 80164; 82140; 85027

== ENCOUNTER → 2024-12-13 | Outpatient (CLI) | payer MEDICARE, OTHER, SELFPAY ==
[2024-12-13 09:44] LABS: Hematocrit 44.1 % (37-47); Hemoglobin 14.7 g/dL (12.0-15.0); Mean Corp Hgb Conc 33.3 g/dL (32-36); Mean Corpuscular Volume 92.5 fL (81-99); Mean Platelet Vol. 11.9 fl (6.2-12.0); Platelet Count 149 K/mm3 (150-450); RBC Distribution Width CV 13.6 % (11.6-14.6); RBC Distribution Width SD 46.3 fl (35.1-43.9); Red Blood Count 4.77 M/mm3 (4.2-5.4); White Blood Count 4.5 K/mm3 (4.4-11.0)
[2024-12-13 10:13] LABS: Ammonia 24.0 umol/L (11-51); Valproic Acid (Depakene) Level 45 ug/mL (50-100)
[2024-12-13 10:15] LABS: AST(SGOT) 26 U/L (<=31); Alanine Aminotransfer ALT/SGPT 16 U/L (<=34); Albumin, Serum 3.7 g/dL (3.4-4.8); Alkaline Phosphatase 67 U/L (35-104); Anion Gap 10 (5-15); BUN 13 mg/dL (4-19); BUN/Creat Ratio 15.3 RATIO (10-20); Calcium,Total 8.7 mg/dL (7.6-11.0); Carbon Dioxide 23.3 mmol/L (21.0-32.0); Chloride 106 mmol/L (98-108); Cholesterol 126 mg/dL (<=200); Globulin 3.0 g/dL (2.2-4.2); Glucose 89 mg/dL (70-99); Low Density Lipoprotein Calc. 56 mg/dL; Potassium 4.2 mmol/L (3.3-5.1); Triglycerides 111 mg/dL; Very Low Density Lipoprotein 22 mg/dL (5-40); cholesterol:hdl ratio screen 2.63
--- OUTSIDE RECORDS SUMMARY | 2024-12-13 11:15 | XMS RPT_ITS | CCD ---
Author Organization [facility] ion [facility] Care Team Providers Care [employer] Counsel[employer] Name Role Phone MEG CARNEY Attending Unavailable MEG CARNEY Admitting Unavailable Unavailable Primary Care Provider UnavailELOY Ashby Admitting Unavailable CONSULT, SURGERY - NEURO Consulting Unavail able GULSHAN FINLEY Referring Unavailable ELOY CALVO Attending Unavailable KAILEY COOL Attending Unavailable ELOY CALVO Referring Unavailable Yoselin Francis DO Primary Care Provider DO Yoselin Francis Primary Care Provider [phone] DO Yoselin Francis Referring Provider Dr. Judah Desai Attending Provider Dr. Ronen Moise Attending Provider [phone] RONALD VINCENT Referring Unavailable HURSTRONALD Referring Unavailable HURSTRONALD Referring Unavailable HURSTRONALD Referring Unavailable HURSTRONALD Referring Unavailable RONALD VINCENT Referring Unavailable RONALD VINCENT Referring Unavailable Ronen Moise Attending Unavailable Yoselin Francis Primary Care Unavailable Yoselin Francis Referring Unavailable Nestor, Chalon Referring Unavailable Ronen Moise Attending Unavailable Nestor Chalon Primary Care Unavailable Ronen Moise Attending Unavailable Ronen Moise Referring Unavailable Nestor Chalon Primary Care Unavailable Ronen Moise Attending Unavailable Nestor, Chalon Primary Care Unavailable Nestor, Chalon Referring Unavailable Ronald Vincent MD Unavailable Unavailable Allergies Allergy Classification Reported Allergen(s) Allergy Type Date of Onset Reaction(s) Facility (2 sources) Citalopram Drug Allergy 2 Anxiety, Agitation, Confusion, Depression, Hallucination [facility] (4 sources) clonazePAM Drug Allergy 3 Other [facility] (1 source) ALLERGIES NOT ON FILE; Translations: [ALLERGIES NOT ON FILE] Propensity to adverse reactions (disorder) [facility] 2 Repository (1 source) clonazePAM Drug Allergy 4 [facility] Repository Medications Current Medications Medication Drug Class(es) Dates Sig (Normalized) Sig (Original) acetaminophen 500 mg oral capsule (2 sources) Start: 03-15-2023 Mapap (acetaminophen) 500 mg capsule take 2 capsule by oral route every 8 hours for 7 days, then as needed after 7 days - Active Start: 12-09-2021 End: 12-11-2021 take 1 tablet by mouth every four hours as needed acetaminophen (TYLENOL) tablet 325 mg aspirin 81 mg delayed release oral tablet (9 sources) Platelet Aggregation Inhibitor, Nonsteroidal Anti-inflammatory Drug Start: 03-15-2023 take 1 tablet by mouth twice daily aspirin 81 mg tablet,delayed release take 1 tablet by oral route twice daily for 6 weeks for DVT prophylaxis - Active Start: 02-23-2023 take 1 tablet by whitney th once daily in the evening aspirin 81 mg tablet,delayed release take 1 tablet by oral route every evening 81 MG - Active Start: 09-25-2022 take 1 tablet by whitney th once daily Aspirin (Aspir-81) 81 mg Tablet,Delayed Release (Dr/Ec) Active 81 MG PO DAILY September 25, 2022 12:00am Start: 12-10-2021 End: 06-10-2022 aspirin 81 MG Chew Tab chewa ble tablet Chew 1 tablet daily. 30 tablet 5 12/12/2021 06/10/2022 Active atorvastatin 40 mg oral tablet (10 sources) HMG-CoA Reductase Inhibitor Start: 02-23-2023 take 1 tablet by mouth once daily in the evening atorvastatin 40 mg tablet take 1 tablet by oral route every evening 40 MG - Active Start: 09-25-2022 End: 12-30-2022 take 40 mg by mouth once daily Atorvastatin Active 40 MG PO DAILY December 30, 2022 2:04pm Start: 12-09-2021 End: 06-09-2022 take 1 tablet by mouth at bedtime atorvastatin 40 MG tablet Take 1 tablet by mouth at bedtime. 30 tablet 5 12/11/2021 06/09/2022 Active busPIRone hydrochloride 15 mg oral tablet (5 sources) Start: 02-23-2023 take 1 tablet by mouth twice daily buspirone 15 mg tablet take 1 tablet by oral route 2 times every day MORNING AND EVENING - Active Start: 12-30-2022 End: 12-30-2022 take 10 mg by mouth twice daily Buspirone Active 10 MG PO TWICE A DAY 180 December 30, 2022 2:07pm 12 hr carBAMazepine 100 mg extended release oral capsule (3 sources) Mood Stabilizer Start: 01-22-2022 take 100 mg by mouth twice daily Carbamazepine Active 100 MG PO TWICE A DAY January 22, 2022 12:00am cephalexin 500 mg oral capsule (1 source) Cephalosporin Antibacterial Start: 03-15-2023 take 1 capsule by mouth every eight hours cephalexin 500 mg capsule take 1 capsule by oral route every 8 hours for 3 doses - Active hydrOXYzine hydrochloride 25 mg oral tablet (3 sources) Antihistamine Start: 02-23-2023 take 1 tablet by mouth once daily as needed hydroxyzine HCl 25 mg tablet take 1 by oral route DAILY PRN FOR ITHCHING - Active Start: 12-30-2022 take 25 mg by mouth twice hay y Hydroxyzine Hcl Active 25 MG PO TWICE A DAY 180 December 30, 2022 12:00am levETIRAcetam 1000 mg oral tablet (7 sources) Start: 02-23-2023 levetiracetam 1,000 mg tablet take 1 tablet by oral route every 12 hours ONE MORNING ONE IN THE EVENING - Active Start: 09-25-2022 End: 12-30-2022 take 1 tablet by mouth twice daily Levetiracetam (Keppra) 1,000 mg tablet Active 1000 MG PO TWICE A DAY 180 December 30, 2022 2:04pm LORazepam 0.5 mg oral tablet (2 sources) Benzodiazepine Start: 01-02-2022 take 1 tablet by mouth three times daily as needed for anxiety LORazepam 0.5 MG tablet Take 0.5 mg by mouth 3 times daily as needed for agitation or Anxiety. 0 01/02/2022 Active meloxicam 7.5 mg oral tablet (3 sources) Nonsteroidal Anti-inflammatory Drug Start: 02-23-2023 meloxicam 7.5 mg tablet take 1 tablet by oral route PRN as needed - Active Start: 12-30-2022 take 7.5 mg by mouth twice melchor ly Meloxicam Active 7.5 MG PO TWICE A DAY 60 December 30, 2022 12:00am Multivitamin preparation (4 sources) Start: 09-25-2022 take 1 tablet by mouth once daily Multivitamin Active 1 TABLET PO DAILY September 25, 2022 12:00am mupirocin 0.02 mg/mg topical ointment (2 sources) RNA Synthetase Inhibitor Antibacterial Start: 12-30-2022 Mupirocin Active 1 APPLIC TOPICAL TWICE A DAY December 30, 2022 12:00am ondansetron 4 mg oral tablet (1 source) Serotonin-3 Receptor Antagonist Start: 03-15-2023 take 1 tablet by mouth every eight hours as needed for nausea ondansetron HCl 4 mg tablet take 1 tablet by mouth every 8 hours as needed for nausea - Active Completed/Discontinued Medications Medication Drug Class(es) Dates Sig (Normalized) Sig (Original) acetaminophen 325 mg / HYDROcodone bitartrate 5 mg oral tablet (4 sources) Opioid Agonist Start: 09-25-2022 End: 12-30-2022 take 1 tablet by mouth every six hours as needed Hydrocodone-Acetam inophen Discontinued 1 TABLET PO EVERY 6 HOURS NEEDED 10 3 September 25, 2022 December 30, 2022 8:52am benzocaine 140 mg/ml / butamben 20 mg/ml / tetracaine 20 mg/ml mucosal spray (1 source) Michelle Local Anesthetic, Standardized Chemical Allergen Start: 12-10-2021 End: 12-10-2021 tetracaine-benzoca ine (CETACAINE) topical spray 1 spray citalopram 20 mg oral tablet (1 source) Serotonin Reuptake Inhibitor Start: 12-29-2021 End: 01-08-2022 citalopram 20 MG tablet Enoxaparin Sodium (LOVENOX) injection 40 mg (1 source) Start: 12-10-2021 End: 12-11-2021 Enoxaparin Sodium (LOVENOX) injection 40 mg 2 ml fentaNYL 0.05 mg/ml injection (1 source) Opioid Agonist Start: 12-10-2021 End: 12-10-2021 fentaNYL (SUBLIMAZE) injection 200 mcg 1 ml hydrALAZINE hydrochloride 20 mg/ml injection (1 source) Arteriolar Vasodilator Start: 12-08-2021 End: 12-09-2021 hydrALAZINE (APRESOLINE) injection 10 mg hydrALAZINE (APRESOLINE) injection 10 mg (1 source) Start: 12-09-2021 End: 12-11-2021 take 10 mg intravenously every hour as needed hydrALAZINE (APRESOLINE) injection 10 mg Iopamidol (1 source) Radiographic Contrast Agent Start: 12-08-2021 End: 12-08-2021 Iopamidol (370 mg/mL) (ISOVUE) 76 % 1-162 mL labetalol (NORMODYNE) injection 10 mg (1 source) Start: 12-09-2021 End: 12-11-2021 take 10 mg intravenously every hour as needed labetalol (NORMODYNE) injection 10 mg lidocaine 0.05 mg/mg topical ointment (1 source) Antiarrhythmic, Amide Local Anesthetic Start: 12-10-2021 End: 12-10-2021 lidocaine (XYLOCAINE) 5 % ointment 1 Application 100 ml magnesium sulfate 10 mg/ml injection (2 sources) Start: 12-10-2021 End: 12-10-2021 magnesium sulfate 1 g in dextrose 5% 100 mL premix IVPB Start: 12-09-2021 End: 12-09-2021 Magnesium Sulfate 4 g in renzo rile water 50 ml premix IVPB 2 ml midazolam 1 mg/ml injection (1 source) Benzodiazepine Start: 12-10-2021 End: 12-10-2021 midazolam (VERSED) injection 10 mg ondansetron 4mg/2ml (ZOFRAN) injection 4 mg (1 source) Start: 12-09-2021 End: 12-11-2021 take 4 mg intravenously every six hours as needed ondansetron 4mg/2ml (ZOFRAN) injection 4 mg oxyCODONE hydrochloride 10 mg oral tablet (3 sources) Opioid Agonist Start: 12-10-2021 End: 07-08-2022 take 1 tablet by mouth every four hours as needed oxyCODONE HCl (ROXICODONE) tablet 10 mg Start: 12-09-2021 End: 12-09-2021 oxyCODONE (ROXICODONE) table t Start: 12-09-2021 End: 12-10-2021 take 1 tablet by mouth every four hours as needed oxyCODONE (ROXICODONE) tablet 5 mg polyethylene glycol (MIRALAX) packet 17 g (1 source) Start: 12-09-2021 End: 12-11-2021 polyethylene glycol (MIRALAX) packet 17 g 1000 ml potassium chloride 0.02 meq/ml / sodium chloride 9 mg/ml injection (1 source) Start: 12-09-2021 End: 12-11-2021 Intravenous, at 75 mL/hr, CONTINUOUS, Starting on Tue12/09/21 at 0115, Until Tue12/11/21 at 2019 2 ml prochlorperazine 5 mg/ml injection (1 source) Phenothiazine Start: 12-10-2021 End: 12-10-2021 prochlorperazine (COMPAZINE) injection 10 mg Start: 12-10-2021 End: 12-10-2021 prochlorperazine (COMPAZINE) injection 10 mg Senna Leaves (1 source) Start: 12-09-2021 End: 12-11-2021 senna (SENOKOT) tablet 8.6 m g 1000 ml sodium chloride 9 mg /ml injection (3 sources) Start: 12-08-2021 End: 12-10-2021 sodium chloride 0.9% IV solution Start: 12-08-2021 End: 12-08-2021 sodium chloride (PF) 0.9 % i njection 1-100 mL Problems Active Problems Problem Classification Problem Date Documented Date Episodic/Chronic Acute cerebrovascular disease (20 sources) Cerebral hemorrhage; Translations: [Nontraumatic intracerebral hemorrhage, unspecified] Onset: 12-08-2021 Chronic Anxiety disorders (2 sources) Anxiety disorder, unspecified Chronic Aortic; peripheral; and visceral artery aneurysms (1 source) Aneurysm; Translations: [Aneurysm of unspecified site] Chronic Cardiac and circulatory congenital anomalies (1 source) Patent foramen ovale; Translations: [Atrial septal defect] Chronic Disorders of lipid metabolism (2 sources) Hyperlipidemia, unspecified Chronic Epilepsy; convulsions (7 sources) Epilepsy; Translations: [Epilepsy, unspecified, not intractable, without status epilepticus] Onset: 04-09-2024 12-30-2022 Chronic Epilepsy; convulsions (4 sources) Seizure; Translations: [Unspecified convulsions] 09-25-2022 Episodic Headache; including migraine (8 sources) Headache; Translations: [Headache] 01-30-2022 Episodic Late effects of cerebrovascular disease (4 sources) History of cerebrovascular accident with residual deficit; Translations: [Unspecified sequelae of cerebral infarction] 09-25-2022 Chronic Miscellaneous mental health disorders (1 source) Psychologic conversion disorder; Translations: [Dissociative and conversion disorder, unspecified] 02-04-2023 Chronic Mood disorders (2 sources) Mood disorders Occlusion or stenosis of precerebral arteries (1 source) Occlusion and stenosis of unspecified carotid artery; Translations: [Occlusion and stenosis of unspecified carotid artery] Onset: 01-02-2024 Chronic Osteoarthritis (10 sources) Unilateral primary osteoarthritis, left knee; Translations: [Unilateral primary osteoarthritis, left knee] Chronic Other aftercare (1 source) Long-term current use of aspirin; Translations: [penitentiary (current) use of aspirin] Episodic Other and ill-defined cerebrovascular disease (1 source) Cerebrovascular disease; Translations: [Other cerebrovascular vasospasm and vasoconstriction] Chronic Other circulatory disease (1 source) History of subarachnoid hemorrhage; Translations: [Personal history of other diseases of the circulatory system] 02-04-2023 Episodic Other connective tissue disease (2 sources) Presence of unspecified artificial knee joint; Translations: [Presence of unspecified artificial knee joint] Onset: 05-06-2023 Chronic Other connective tissue disease (10 sources) Presence of left artificial knee joint; Translations: [Presence of left artificial knee joint] Onset: 03-10-2023 Chronic Other injuries and conditions due to external causes (4 sources) Contusion; Translations: [Unspecified multiple injuries, initial encounter] 09-25-2022 Episodic Other nervous system disorders (4 sources) Expressive dysphasia; Translations: [Aphasia] 09-25-2022 Chronic Other nervous system disorders (7 sources) Facial paresthesia; Translations: [Paresthesia of skin] 01-30-2022 Episodic Other non-traumatic joint disorders (2 sources) Effusion, unspecified knee; Translations: [Effusion, unspecified knee] Onset: 05-04-2023 Episodic Other nutritional; endocrine; and metabolic disorders (2 sources) Obese class II; Translations: [Obesity, unspecified] Onset: 01-17-2022 01-17-2022 Chronic Residual codes; unclassified (2 sources) Amnesia; Translations: [Other amnesia] 12-30-2022 Episodic Residual codes; unclassified (2 sources) Other amnesia; Translations: [Memory loss] 12-30-2022 Episodic Spondylosis; intervertebral disc disorders; other back problems (7 sources) Cervico-occipital neuralgia; Translations: [Occipital neuralgia] 01-30-2022 Episodic Thyroid disorders (1 source) Thyroid nodule; Translations: [Nontoxic single thyroid nodule] Chronic Past or Other Problems Problem Classification Problem Date Documented Da te Episodic/Chronic Other circulatory disease (2 sources) Personal history of transient ischemic attack (TIA), and cerebral infarction without residual deficits Episodic Other non-traumatic joint disorders (4 sources) Pain in left knee; Translations: [Pain, joint, knee, left] Episodic Residual codes; unclassified (2 sources) Other specified health status Episodic Results Test Name Value Interpretation Reference Range Facility Neurology Visit Reporton Neurology Visit Report [facility] [address], [address] [place] [address] OFFICE VISIT Date of Service: 04/09/24 MR#: [id number] Acct: [id number] Name: NANETTE HARRISON GUERLINE Rep #: [id number] 14 : 1955 Provider: Dr. Ronen hernandez MD Age/Sex: 68/F Location: [facility] Status: Signed HPI [facility] Chief Complaint: Details: Interim History: Nanette returns for follow-up visit. She has a history of stroke that occurred in December 2021. She is accompanied by her . In December 2021, she was noted to have some confusion and word finding difficulty. The symptoms persisted and the following day, she presented to the emergency room and was found to have an acute left temporal infarct. A question of a left temporal hemorrhagic component was raised. 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 Neurosurgical consultation was obtained and the family reported that no surgical intervention for the cerebral aneurysm was felt to be warranted. She was placed on aspirin 81 mg daily. She has not had symptoms suggestive of recurrent stroke since December 2021 and does not have any history of stroke prior to December 2021. Her aphasia has improved over time however she continues to have word finding difficulty and exhibits word substitutions. She has also had some slowed mentation and memory difficulty, particularly with short-term memory, since her stroke and this has persisted. She denied having numbness or weakness. Buspirone has been of benefit for her anxiety. She has a history of occasional headaches. She does not experience associated nausea. Individual headaches last about 2 hours and have been alleviated with acetaminophen. In the past, her headaches occurred about once every 4 to 6 weeks. She is independent in her daily activities. In September 2022, she had a seizure. Her reported that he heard the patient fall in another room and found her on the ground, unconscious and exhibiting generalized convulsions and foaming at the mouth. The convulsion lasted about 1 minute. She did not have associated tongue biting or urinary incontinence. She had postictal confusion and lethargy. She was taken to the emergency room and levetiracetam was initiated. She has had no further seizures since September 2022. Levetiracetam may have contributed to her anxiety and may have caused easy irritability. Levetiracetam was discontinued and divalproex DR was initiated. Clinically she has tolerated divalproex DR well except for an occasional slight tremor, however laboratory studies reveal an elevated ammonia level (she does not appear to have symptomatic side effects (such as asterixis, gait imbalance or further worsened worsened cognition). She has had left knee pain since her seizure and fall in September 2022 and in March 2023 she underwent a left total knee replacement. Acetaminophen has been of benefit for her knee pain. Meloxicam was of some benefit for her knee pain (she no longer uses this medication). She has had no further seizures since September 2022 and does not have any history of seizures prior to September 2022. An EEG in October 2022 revealed diffuse theta slowing consistent with a global encephalopathy. She does not have any history of [employer] infection or concussion. She does not have any significant history. Mini-Mental status exam score was 20/30 in December 2022. She has not had fatigue. She has slept well and no longer uses trazodone. Physical Exam: Neuro: The patient is awake; she is mildly bradyphrenic; she exhibits some paucity of speech; she is oriented to day of the week; she is able to subtract 7 from 100; no tremor is noted at rest or when arms are extended Neck: No bruits Heart: Regular rhythm and rate Supplemental Info Head CT (12/08/2021): FINDINGS: Normal soft tissue structures. Normal calvarium. Normal size ventricles and extra-axial spaces for the patient''s age. Normal white matter tracts of the cerebral hemispheres. Normal basal ganglia and thalami. Normal brainstem. Normal cerebellum. Decreased attenuation within the left temporal lobe consistent with a subacute infarct. Within the medial aspect of the left temporal lobe there is a 1.2 cm oval area of increased attenuation worrisome for parenchymal hematoma or less likely aneurysm. Normal visualized paranasal sinuses. IMPRESSION: Subacute infarct of the left temporal lobe with 1.2 cm area of hemorrhage medially or less likely aneurysm. These images were reviewed on 12/30/2022. A subacute left temporal cortical/subcortical infarct is noted with a small area (13 mm) of hemorrhage versus aneurysm medially CBC, CMP (12/08/2021): Unremarkable. Head CT (01/22/2022): FINDINGS: Normal calvarium. Normal soft tissues. There is an old infarct of the Left MCA region. Again, within the medial aspec (more content not included)... Normal [facility] Ammoniaon 02-02-2024 Ammonia (P) [Moles/Vol] 56.0 umol/L High 11-32 [facility] Comment on above: Performed By: #### L 501.8100, L500.4100, L503.5510, L500.4050, L100.0500 #### [facility] [place], [address] CBC-Complete Blood Cnt No Di ffon 02-02-2024 Erythrocyte distribution width (RBC) [Ratio] 12.9 % Normal 11.6-14.6 [facility] Comment on above: Performed By: #### L 501.8100, L500.4100, L503.5510, L500.4050, L100.0500 #### [facility] [address] [place], [address] Hematocrit (Bld) [Volume fraction] 41.7 % Normal 37-47 [facility] Comment on above: Performed By: #### L 501.8100, L500.4100, L503.5510, L500.4050, L100.0500 #### [facility] [address] [place], [address] Hemoglobin (Bld) [Mass/Vol] 13.9 g/dL Normal 12.0-15.0 [facility] Comment on above: Performed By: #### L 501.8100, L500.4100, L503.5510, L500.4050, L100.0500 #### [facility] [address] [place], [address] MCH (RBC) [Entitic mass] 30.4 pg Normal 27.0-32.0 [facility] Comment on above: Performed By: #### L 501.8100, L500.4100, L503.5510, L500.4050, L100.0500 #### [facility] [address] [place], [address] MCHC (RBC) [Mass/Vol] 33.3 g/dL Normal 32-36 [facility] Comment on above: Performed By: #### L 501.8100, L500.4100, L503.5510, L500.4050, L100.0500 #### [facility] [address] [place], [address] MCV (RBC) [Entitic vol] 91.2 fL Normal 81-[address] [facility] Comment on above: Performed By: #### L 501.8100, L500.4100, L503.5510, L500.4050, L100.0500 #### [facility] [address] [place], [address] Platelet mean volume (Bld) [Entitic vol] 12.4 fL High 6.2-12.0 [facility] Comment on above: Performed By: #### L 501.8100, L500.4100, L503.5510, L500.4050, L100.0500 #### [facility] [address] [place], [address] Platelets (Bld) [#/Vol] 166 10*3/uL Normal 150-450 [facility] Comment on above: Performed By: #### L 501.8100, L500.4100, L503.5510, L500.4050, L100.0500 #### [facility] [address] [place], [address] RBC (Bld) [#/Vol] 4.57 10*6/uL Normal 4.2-5.[address] [facility] Comment on above: Performed By: #### L 501.8100, L500.4100, L503.5510, L500.4050, L100.0500 #### [facility] [address] [place], [address] RDW SD 42.5 fl Normal 35.1-43.9 [facility] Comment on above: Performed By: #### L 501.8100, L500.4100, L503.5510, L500.4050, L100.0500 #### [facility] [address] [place], [address] WBC (Bld) [#/Vol] 5.6 10*3/uL Normal 4.4-11.0 [facility] Comment on above: Performed By: #### L 501.8100, L500.4100, L503.5510, L500.4050, L100.0500 #### [facility] [address] [place], [address] Comprehensive Metabolic Prof venancio 02-02-2024 Albumin [Mass/Vol] 3.1 g/dL Low 3.2-5.0 [facility] Comment on above: Performed By: #### L 501.8100, L500.4100, L503.5510, L500.4050, L100.0500 #### [facility] [address] [place], [address] Albumin/Globulin [Mass ratio] 0.9 {ratio} Normal 0.9-2.4 [facility] Comment on above: Performed By: #### L 501.8100, L500.4100, L503.5510, L500.4050, L100.0500 #### [facility] [address] [place], [address] ALK P 73 U/L Normal 45-117 [facility] Comment on above: Performed By: #### L 501.8100, L500.4100, L503.5510, L500.4050, L100.0500 #### [facility] [address] [place], [address] ALT [Catalytic activity/Vol] 18 U/L Normal 13-56 [facility] Comment on above: Performed By: #### L 501.8100, L500.4100, L503.5510, L500.4050, L100.0500 #### [facility] [address] [place], [address] AST [Catalytic activity/Vol] 17 U/L Normal 15-37 [facility] Comment on above: Performed By: #### L 501.8100, L500.4100, L503.5510, L500.4050, L100.0500 #### [facility] [address] [place], [address] Bilirubin [Mass/Vol] 0.40 mg/dL Normal 0.20-1.00 [facility] Comment on above: Result Comment: For patients on eltrombopag therapy, use of Dimension [place] TBIL is not recommended. Performed By: #### L 501.8100, L500.4100, L503.5510, L500.4050, L100.0500 #### [facility] [address] [place], [address] BUN/CRE 12.6 RATIO Normal 10-20 [facility] Comment on above: Performed By: #### L 501.8100, L500.4100, L503.5510, L500.4050, L100.0500 #### [facility] [address] [place], [address] CA,Total 8.4 mg/dL Low 8.5-10.1 [facility] Comment on above: Performed By: #### L 501.8100, L500.4100, L503.5510, L500.4050, L100.0500 #### [facility] [address] [place], [address] Chloride [Moles/Vol] 111 mmol/L High 98-107 [facility] Comment on above: Performed By: #### L 501.8100, L500.4100, L503.5510, L500.4050, L100.0500 #### [facility] [address] [place], [address] CO2 [Moles/Vol] 24.0 mmol/L Normal 21.0-32.0 [facility] Comment on above: Performed By: #### L 501.8100, L500.4100, L503.5510, L500.4050, L100.0500 #### [facility] [address] [place], [address] Creatinine [Mass/Vol] 1.03 mg/dL High 0.55-1.02 [facility] Comment on above: Result Comment: The validity of the calculated GFR GFRAA in patients over 70 years has not been determined. Clinical correlation is essential. Performed By: #### L 501.8100, L500.4100, L503.5510, L500.4050, L100.0500 #### [facility] [address] [place], [address] EST GFR - AA 68 mL/min Normal >60 [facility] Comment on above: Result Comment: Afri can Mosoth[place] GFR Calc Performed By: #### L 501.8100, L500.4100, L503.5510, L500.4050, L100.0500 #### [facility] [address] [place], [address] GAP 6 Normal 5-15 [facility] Comment on above: Performed By: #### L 501.8100, L500.4100, L503.5510, L500.4050, L100.0500 #### [facility] [address] [place], [address] GFR/1.73 sq M.predicted among non-blacks MDRD (S/P/Bld) [Vol rate/Area] 56 mL/min/{1.73_m2} Low >60 [facility] Comment on above: Result Comment: Non- GFR Calc Performed By: #### L 501.8100, L500.4100, L503.5510, L500.4050, L100.0500 #### [facility] [address] [place], [address] Globulin (S) [Mass/Vol] 3.6 g/dL Normal 2.2-4.2 [facility] Comment on above: Performed By: #### L 501.8100, L500.4100, L503.5510, L500.4050, L100.0500 #### [facility] [address] [place], [address] Glucose [Mass/Vol] 97 mg/dL Normal 74-106 [facility] Comment on above: Performed By: #### L 501.8100, L500.4100, L503.5510, L500.4050, L100.0500 #### [facility] [address] [place], [address] Potassium [Moles/Vol] 3.6 mmol/L Normal 3.5-5.1 [facility] Comment on above: Performed By: #### L 501.8100, L500.4100, L503.5510, L500.4050, L100.0500 #### [facility] [address] [place], [address] Sodium [Moles/Vol] 141 mmol/L Normal 136-145 [facility] Comment on above: Performed By: #### L 501.8100, L500.4100, L503.5510, L500.4050, L100.0500 #### [facility] [address] [place], [address] T PROT 6.7 g/dL Normal 6.4-8.2 [facility] Comment on above: Performed By: #### L 501.8100, L500.4100, L503.5510, L500.4050, L100.0500 #### [facility] [address] [place], [address] Urea nitrogen [Mass/Vol] 13 mg/dL Normal 7-18 [facility] Comment on above: Performed By: #### L 501.8100, L500.4100, L503.5510, L500.4050, L100.0500 #### [facility] [address] [place], [address] Lipid Profileon 02-02-2024 Cholesterol [Mass/Vol] 127 mg/dL Normal 200 [facility] Comment on above: Result Comment: <200 mg/dL Desirable 200-240 mg/dL Borderline >240 mg/dL High Risk Performed By: #### L 501.8100, L500.4100, L503.5510, L500.4050, L100.0500 #### [facility] [address] [place], [address] Cholesterol in HDL [Mass/Vol] 58 mg/dL Normal [facility] Comment on above: Result Comment: The drugs N-Acetylcysteine and Metamizole may falsely depress this assay. Reference Range HDL <40 mg/dL Low HDL Cholesterol HDL >or= 60 mg/dL High HDL Cholesterol Performed By: #### L 501.8100, L500.4100, L503.5510, L500.4050, L100.0500 #### [facility] [address] [place], [address] Cholesterol in LDL [Mass/Vol] 54 mg/dL Normal 0-130 [facility] Comment on above: Performed By: #### L 501.8100, L500.4100, L503.5510, L500.4050, L100.0500 #### [facility] [address] [place], [address] Cholesterol in VLDL [Mass/Vol] 15 mg/dL Normal 5-40 [facility] Comment on above: Performed By: #### L 501.8100, L500.4100, L503.5510, L500.4050, L100.0500 #### [facility] [address] [place], [address] Triglyceride [Mass/Vol] 73 mg/dL Normal [facility] Comment on above: Result Comment: The drugs N-Acetylcysteine and Metamizole may falsely depress this assay. Serum Triglycerides Reference Interval Normal <150 mg/dL Borderline high 150 - 199 mg/dL High 200 - 499 mg/dL Very High > or = 500 mg/dL Performed By: #### L 501.8100, L500.4100, L503.5510, L500.4050, L100.0500 #### [facility] [address] [place], [address] Valproic Acid (Depakene) Lev norm 02-02-2024 VALPROIC ACID 68 ug/mL Normal 50-100 [facility] Comment on above: Performed By: #### L 501.8100, L500.4100, L503.5510, L500.4050, L100.0500 #### [facility] [address] [place], [place], [id number] Neurology Visit Reporton Neurology Visit Report [facility] [address], [address] [place], [place] [address] OFFICE VISIT Date of Service: 01/02/24 MR#: [id number] Acct: [id number] Name: NANETTE HARRISON Rep #: [id number] : 1955 Provider: Dr. Ronen hernandez MD Age/Sex: 68/F Location[place] [facility] [place]. Status: Signed HPI HPI Chief Complaint: Details: Interim History: Nanette returns for follow-up visit. She has a history of stroke that occurred in December 2021. She is accompanied by her . In December 2021, she was noted to have some confusion and word finding difficulty. The symptoms persisted and the following day, she presented to the emergency room and was found to have an acute left temporal infarct. A question of a left temporal hemorrhagic component was raised. 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 Neurosurgical consultation was obtained and the family reported that no surgical intervention for the cerebral aneurysm was felt to be warranted. She was placed on aspirin 81 mg daily. She has not had symptoms suggestive of recurrent stroke since December 2021 and does not have any history of stroke prior to December 2021. Her aphasia has improved over time however she continues to have word finding difficulty and exhibits word substitutions. She has also had some slowed mentation and memory difficulty, particularly with short-term memory, since her stroke and this has persisted. She has had some anxiety and easy irritability; buspirone 10 mg twice daily has been of moderate benefit. She denied having numbness or weakness. She has a history of occasional headaches. She does not experience associated nausea. Individual headaches last about 2 hours and have been alleviated with acetaminophen. In the past, her headaches occurred about once every 4 to 6 weeks. She is independent in her daily activities. In September 2022, she had a seizure. Her reported that he heard the patient fall in another room and found her on the ground, unconscious and exhibiting generalized convulsions and foaming at the mouth. The convulsion lasted about 1 minute. She did not have associated tongue biting or urinary incontinence. She had postictal confusion and lethargy. She was taken to the emergency room and levetiracetam was initiated. She has had no further seizures since September 2022. She has had left knee pain since her seizure and fall in September 2022 and in March 2023 she underwent a left total knee replacement. Acetaminophen is of benefit for her knee pain. Meloxicam was of some benefit for her knee pain (she no longer uses this medication). She has had no further seizures since September 2022 and does not have any history of seizures prior to September 2022. An EEG in October 2022 revealed diffuse theta slowing consistent with a global encephalopathy. She does not have any history of [employer] infection or concussion. She does not have any significant history. Mini-Mental status exam score was 20/30 in December 2022. She has not had fatigue. She now sleeps well and no longer uses trazodone. Physical Exam: Neuro: The patient is awake; she is mildly bradyphrenic; she exhibits some paucity of speech; she is oriented to day of the week; she is able to subtract 7 from 100 Neck: No bruits Heart: Regular rhythm and rate Supplemental Info Head CT (12/08/2021): FINDINGS: Normal soft tissue structures. Normal calvarium. Normal size ventricles and extra-axial spaces for the patient''s age. Normal white matter tracts of the cerebral hemispheres. Normal basal ganglia and thalami. Normal brainstem. Normal cerebellum. Decreased attenuation within the left temporal lobe consistent with a subacute infarct. Within the medial aspect of the left temporal lobe there is a 1.2 cm oval area of increased attenuation worrisome for parenchymal hematoma or less likely aneurysm. Normal visualized paranasal sinuses. IMPRESSION: Subacute infarct of the left temporal lobe with 1.2 cm area of hemorrhage medially or less likely aneurysm. These images were reviewed on 12/30/2022. A subacute left temporal cortical/subcortical infarct is noted with a small area (13 mm) of hemorrhage versus aneurysm medially CBC, CMP (12/08/2021): Unremarkable. Head CT (01/22/2022): FINDINGS: Normal calvarium. Normal soft tissues. There is an old infarct of the Left MCA region. Again, within the medial aspect of the left temporal lobe there is a 1.1 cm oval area of increased attenuation which may be a clival meningioma or possibly a cavernous carotid artery aneurysm. CTA of the head can better evaluate. Normal size ventricles and extra-axial spaces for the patient''s age. Normal white matter tracts of the cerebral hemispheres. Normal basal ganglia and thalami. Normal brainstem. Normal cerebellum. There is no intracranial hemorrhag (more content not included)... Normal [facility] Neurology Visit Reporton Neurology Visit Report [facility] [address] [place] [address], [address] [place] [address] OFFICE VISIT Date of Service: 05/03/23 MR#: [id number] Acct: [id number] Name: NANETTE HARRISON GUERLINE Rep #: [id number] : 1955 Provider: Dr. Ronen hernandez MD Age/Sex: 67/F Location[place] [facility] [place] Status: Signed with Addenda ADDENDUM by Dr. Ronen Moise MD on 08/30/23 at 1629 Addendum Addendum (08/30/2023): Trazodone has been of moderate benefit for the patient's insomnia however she continues to experience some insomnia and nighttime restlessness. Trazodone will be increased to 100 mg nightly. 08/30/23 1629 Date Ronen Moise MD cc: Yoselin Francis DO * Signed ADDENDUM by Dr. Ronen Moise MD on 07/06/23 at 1514 Addendum Addendum (07/06/2023): The patient's daughter contacted the office and reported that the patient is having insomnia. Trazodone 50 mg nightly will be prescribed. 07/06/23 1514 Date Ronen Moise MD cc: Yoselin Francis DO * Signed ADDENDUM by Dr. Ronen Moise MD on 06/29/23 at 1425 Addendum Addendum (06/29/2023): Buspirone 10 mg twice daily will be continued for her anxiety and easy irritability. 06/29/23 1425 Date Ronen Moise MD cc: Yoselin Francis DO * Signed ADDENDUM by Dr. Ronen Moise MD on 05/03/23 at 2035 Addendum Addendum (05/03/2023): Ammonia (01/05/2023): Normal. 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 She has a history of stroke that occurred in December 2021. She is accompanied by her . In December 2021, she was noted to have some confusion and word finding difficulty. The symptoms persisted and the following day she presented to the emergency room and was found to have an acute left temporal infarct. A question of a left temporal hemorrhagic component was raised. 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 Neurosurgical consultation was obtained and the family reported that no surgical intervention for the cerebral aneurysm was felt to be warranted. The patient was placed on aspirin 81 mg daily. She has not had symptoms suggestive of recurrent stroke since December 2021 and does not have any history of stroke prior to December 2021. Her aphasia has improved over time however she continues to have word finding difficulty and exhibits word substitutions. She has also had some slowed mentation and memory difficulty, particularly with short-term memory, since her stroke and this has persisted. She has had some anxiety and easy irritability; buspirone has been of benefit. Her speech output is moderately fluent. She denied having numbness or weakness. She has a history of occasional headaches. She does not experience associated nausea. Individual headaches last about 2 hours and have been alleviated with acetaminophen. In the past, her headaches occurred about once every 4 to 6 weeks. She is independent in her daily activities. In September 2022, she had a seizure. The patient's reported that he heard the patient fall in another room and found her on the ground, unconscious and exhibiting generalized convulsions and foaming at the mouth. The convulsion lasted about 1 minute. She did not have associated tongue biting or urinary incontinence. She had postictal confusion and lethargy. She was taken to the emergency room and levetiracetam was initiated. She is tolerating this well and has not had further seizures. She has had left knee pain since her seizure and fall in September 2022 and in March 2023 she underwent a left total knee replacement. Acetaminophen has not been of significant nora (more content not included)... Normal [facility] Basic metabolic 2000 panelon 02-23-2023 Anion gap [Moles/Vol] 12 mmol/L Normal 6-18 [facility] Comment on above: Performed By: #### 2 4321-2 #### [facility] [address] [place] [address] Calcium [Mass/Vol] 9.3 mg/dL Normal 8.9-10.3 [facility] Comment on above: Performed By: #### 2 4321-2 #### [facility] [address] [facility] [place] [address] Chloride [Moles/Vol] 105 mmol/L Normal 98-107 [facility] Comment on above: Performed By: #### 2 4321-2 #### [facility] [address] [facility] [place] [address] CO2 [Moles/Vol] 24 mmol/L Normal 22-[address] [facility] Comment on above: Performed By: #### 2 4321-2 #### [facility] [address] [facility] [place] [address] Creatinine [Mass/Vol] 0.85 mg/dL Normal 0.60-1.30 [facility] Comment on above: Performed By: #### 2 4321-2 #### [facility] [address] [place] [address] GFR/1.73 sq M.predicted among non-blacks MDRD (S/P/Bld) [Vol rate/Area] 74 mL/min/{1.73_m2} Normal >=60 [facility] Comment on above: Result Comment: Effe ctive March 14, 2022, calculation based on the?Chronic Kidney Disease Epidemiology Collaboration (CKD-EPI) equation refit?without adjustment for race. Performed By: #### 2 4321-2 #### [facility] [address] [facility] [address] Glucose [Mass/Vol] 80 mg/dL Normal 70-99 [facility] Comment on above: Performed By: #### 2 4321-2 #### [facility] [address] [place] [address] Potassium [Moles/Vol] 4.4 mmol/L Normal 3.6-5.1 [facility] Comment on above: Performed By: #### 2 4321-2 #### [facility] [address] [place] [address] Sodium [Moles/Vol] 141 mmol/L Normal 136-145 [facility] Comment on above: Performed By: #### 2 4321-2 #### [facility] [address] [place] [address] Urea nitrogen [Mass/Vol] 15 mg/dL Normal 8-20 [facility] Comment on above: Performed By: #### 2 4321-2 #### [facility] [address] [place] [address] Urea nitrogen/Creatinine [Mass ratio] 17.6 mg/mg Normal 12.0-20.0 [facility] Comment on above: Performed By: #### 2 4321-2 #### [facility] [address] [place] [address] Hemogram and platelets WO di fferential panel (Bld)on 02-23-2023 Basophils (Bld) [#/Vol] 0.02 10*3/uL Normal 0.00-0.20 [facility] Comment on above: Performed By: #### 2 4317-0 #### [facility] [address] [place] [address] Basophils/100 WBC (Bld) 0.4 % Normal 0.0-2.0 [facility] Comment on above: Performed By: #### 2 4317-0 #### [facility] [address] [place] [address] Eosinophils (Bld) [#/Vol] 0.11 10*3/uL Normal 0.00-0.70 [facility] Comment on above: Performed By: #### 2 4317-0 #### [facility] [address] [place] [address] Eosinophils/100 WBC (Bld) 2.3 % Normal 0.0-7.0 [facility] Comment on above: Performed By: #### 2 4317-0 #### [facility] [address] [place] [address] Erythrocyte distribution width (RBC) [Ratio] 13.2 % Normal 11.0-14.8 [facility] Comment on above: Performed By: #### 2 4317-0 #### [facility] [address] [place] [address] Hematocrit (Bld) [Volume fraction] 44.6 % Normal 34.3-47.9 [facility] Comment on above: Performed By: #### 2 4317-0 #### [facility] [address] [place] [address] Hemoglobin (Bld) [Mass/Vol] 14.8 g/dL Normal 12.0-16.0 [facility] Comment on above: Performed By: #### 2 4317-0 #### [facility] [address] [place] [address] Immature granulocytes (Bld) [#/Vol] 0.01 10*3/uL Normal 0.00-0.10 [facility] Comment on above: Performed By: #### 2 4317-0 #### [facility] [address] [place] [address] Immature granulocytes/100 WBC (Bld) 0.2 % Normal 0.0-1.2 [facility] Comment on above: Performed By: #### 2 4317-0 #### [facility] [address] [place] [address] Lymphocytes (Bld) [#/Vol] 1.89 10*3/uL Normal 1.00-4.80 [facility] Comment on above: Performed By: #### 2 4317-0 #### [facility] [address] [place] [address] Lymphocytes/100 WBC (Bld) 39.2 % Normal 17.9-49.6 [facility] Comment on above: Performed By: #### 2 4317-0 #### [facility] [address] [place] [address] MCH 30.3 pcg Normal 27.0-34.0 [facility] Comment on above: Performed By: #### 2 4317-0 #### [facility] [address] [place] [address] MCHC (RBC) [Mass/Vol] 33.2 g/dL Normal 30.8-35.3 [facility] Comment on above: Performed By: #### 2 4317-0 #### [facility] [address] [place] [address] MCV (RBC) [Entitic vol] 91.4 fL Normal 80.0-97.0 [facility] Comment on above: Performed By: #### 2 4317-0 #### [facility] [address] [place] [address] Monocytes (Bld) [#/Vol] 0.29 10*3/uL Normal 0.00-0.90 [facility] Comment on above: Performed By: #### 2 4317-0 #### [facility] [address] [place] [address] Monocytes/100 WBC (Bld) 6.0 % Normal 0.0-12.0 [facility] Comment on above: Performed By: #### 2 4317-0 #### [facility] [address] [place] [address] Neutrophils Absolute 2.50 K/mcL Normal 1.80-7.70 [facility] Comment on above: Performed By: #### 2 4317-0 #### [facility] [address] [place] [address] Neutrophils/100 WBC (Bld) 51.9 % Normal 38.1-75.5 [facility] Comment on above: Performed By: #### 2 4317-0 #### [facility] [address] [place] [address] Platelet mean volume (Bld) [Entitic vol] 11.8 fL Normal 6.2-12.1 [facility] Comment on above: Performed By: #### 2 4317-0 #### [facility] [address] [place] [address] Platelets (Bld) [#/Vol] 187 10*3/uL Normal 142-424 [facility] Comment on above: Performed By: #### 2 4317-0 #### [facility] [address] [place] [address] RBC (Bld) [#/Vol] 4.88 10*6/uL Normal 3.74-5.34 [facility] Comment on above: Performed By: #### 2 4317-0 #### [facility] [address] [place] [address] WBC (Bld) [#/Vol] 4.8 10*3/uL Normal 4.6-10.2 [facility] Comment on above: Performed By: #### 2 4317-0 #### [facility] [address] [place] [address] Absolute lymphocyte countOrd ered By: Gulshan Filney on 02-04-2023 Lymphocytes Auto (Unsp spec) [#/Vol] 3.48 10*3/uL 0.83-4.51 [facility] Basophil percentageOrdered B y: Gulshan Finley on 02-04-2023 Basophils/100 WBC (Bld) 0.2 % 0-[address] [facility] Chloride [Moles/Vol] 109 mmol/L 98-107 [facility] Eosinophils/100 WBC (Bld) 2.1 % 0-5 [facility] Glucose [Mass/Vol] 113 mg/dL 74-106 [facility] Comment on above: Fasting Glucose resu lt from 100 to 125 mg/dL suggests IMPAIRED HOMEOSTASIS per A.D.A. criteria. Neutrophils (Bld) [#/Vol] 4.0 10*3/uL 2.0-7.7 [facility] Neutrophils/100 WBC (Bld) 48.5 % 47-70 [facility] Potassium [Moles/Vol] 4.1 mmol/L 3.5-5.1 [facility] Sodium [Moles/Vol] 142 mmol/L 136-145 [facility] WBC (Bld) [#/Vol] 8.3 10*3/uL 4.4-11.0 [facility] Blood erythrocytes count (nu mber/volume)Ordered By: Gulshan Finley on 02-04-2023 RBC (Bld) [#/Vol] 4.98 10*6/uL 4.2-5.[address] [facility] Blood hemoglobin measurement (mass/volume)Ordered By: Gulshan Finley on 02-04-2023 Hemoglobin (Bld) [Mass/Vol] 14.7 g/dL 12.0-15.0 [facility] Blood lymphocytes/100 leukoc ytesOrdered By: Gulshan Finley on 02-04-2023 Lymphocytes/100 WBC (Bld) 42.2 % 19-41 [facility] Blood monocytes/100 leukocyt esOrdered By: Gulshan Finley on 02-04-2023 Monocytes/100 WBC (Bld) 6.8 % 0-[address] [facility] Blood platelet mean volumeOr dered By: Gulshan Finley on 02-04-2023 Platelet mean volume (Bld) [Entitic vol] 12.2 fL 6.2-12.0 [facility] Determination of erythrocyte mean corpuscular volume (MCV)Ordered By: Gulshan Finley on 02-04-2023 MCV (RBC) [Entitic vol] 93.2 fL 81-[address] [facility] Erythrocyte sedimentation ra teOrdered By: Gulshan Finley on 02-04-2023 ESR (Bld) [Velocity] 24 mm/h 0-30 [facility] Hematocrit Auto (Bld) [Volum e fraction]Ordered By: Gulshananibal Finley on 02-04-2023 Hematocrit (Bld) [Volume fraction] 46.4 % 37-47 [facility] Laboratory - Chemistry and C hemistry - challengeOrdered By: Gulshananibal Finley on 02-04-2023 CO2 [Moles/Vol] 24.0 mmol/L 21.0-32.0 [facility] Urea nitrogen/Creatinine [Mass ratio] 11.9 mg/mg 10-20 [facility] Laboratory - Hematology and Cell countsOrdered By: Gulshananibal Finley on 02-04-2023 Erythrocyte distribution width (RBC) [Entitic vol] 44.9 fL 35.1-43.9 [facility] Erythrocyte distribution width (RBC) [Ratio] 13.2 % 11.6-14.6 [facility] Immature granulocytes/100 WBC (Bld) 0.200 % 0.0-0.9 [facility] Comment on above: IG% - Immature Granu locytes (promyelocytes, myelocytes and metamyelocytes) > 1% indicates that a LEFT SHIFT is Present. MCH (RBC) [Entitic mass] 29.5 pg 27.0-32.0 [facility] Nucleated RBC/100 WBC (Bld) [Ratio] 0 % 0-5 [facility] MCHC Auto (RBC) [Mass/Vol]Or dered By: Gulshan Finley on 02-04-2023 MCHC (RBC) [Mass/Vol] 31.7 g/dL 32-36 [facility] No Panel InformationOrdered By: Gulshan Finley on 02-04-2023 Estimated Creatinine Clearance Calc 52.68 ml/min [facility] Estimated GFR (MDRD) Amer 64 mL/min >60 [facility] Comment on above: GFR Calc Estimated GFR (MDRD) Non-Af Amer 53 mL/min >60 [facility] Comment on above: Non- GFR Calc Platelets bldOrdered By: Gulshananibal Finley on 02-04-2023 Platelets (Bld) [#/Vol] 183 10*3/uL 150-450 [facility] Serum or plasma calcium nicole urement (mass/volume)Ordered By: Gulshananibal Finley on 02-04-2023 Calcium [Mass/Vol] 9.1 mg/dL 8.5-10.1 [facility] Serum or plasma creatinine m easurement (mass/volume)Ordered By: Gulshananibal Finley on 02-04-2023 Creatinine [Mass/Vol] 1.09 mg/dL 0.55-1.02 [facility] Comment on above: The validity of the calculated GFR & GFRAA in patients over 70 years has not been determined. Clinical correlation is essential. Serum or plasma urea nitroge n measurement (mass/volume)Or[facility]: [facility] 02-04-[facility]23 Urea nitrogen [Mass/Vol] 13 mg/dL 7-18 [facility] Thin prep Papanicolaou smear with manual screeningOrdered By: [facility] on 02-04-2023 Thin prep Papanicolaou smear with manual screening 9 5-15 [facility] Basophil percentageOrdered B y: Ronen Medinabhavana on 01-05-2023 Ammonia (P) [Moles/Vol] 13.0 umol/L 11-32 [facility] Bilirubin [Mass/Vol] 0.50 mg/dL 0.20-1.00 [facility] Comment on above: For patients on eltr ombopag therapy, use of Dimension [place] TBIL is not recommended. Chloride [Moles/Vol] 112 mmol/L 98-107 [facility] Cholesterol [Mass/Vol] 132 mg/dL <200 [facility] Comment on above: <200 mg/dL Desirable 200-240 mg/dL Borderline >240 mg/dL High Risk Glucose [Mass/Vol] 93 mg/dL 74-106 [facility] Potassium [Moles/Vol] 4.2 mmol/L 3.5-5.1 [facility] Protein [Mass/Vol] 6.9 g/dL 6.4-8.2 [facility] Sodium [Moles/Vol] 143 mmol/L 136-145 [facility] Triglyceride [Mass/Vol] 56 mg/dL <[address] [facility] Comment on above: The drugs N-Acetylcy steine and Metamizole may falsely depress this assay.Serum Triglycerides Reference Interval Normal <150 mg/dL Borderline high 150 - 199 mg/dL High 200 - 499 mg/dL Very High > or = 500 mg/dL WBC (Bld) [#/Vol] 4.9 10*3/uL 4.4-11.0 [facility] Blood erythrocytes count (nu mber/volume)Ordered By: Ronen Moise on 01-05-2023 RBC (Bld) [#/Vol] 4.59 10*6/uL 4.2-5.[address] [facility] Blood hemoglobin measurement (mass/volume)Ordered By: Ronen Moise on 01-05-2023 Hemoglobin (Bld) [Mass/Vol] 13.8 g/dL 12.0-15.0 [facility] Blood platelet mean volumeOr dered By: Ronen Moise on 01-05-2023 Platelet mean volume (Bld) [Entitic vol] 11.4 fL 6.2-12.0 [facility] Determination of erythrocyte mean corpuscular volume (MCV)Ordered By: Ronen Moise on 01-05-2023 MCV (RBC) [Entitic vol] 92.4 fL 81-[address] [facility] Hematocrit Auto (Bld) [Volum e fraction]Ordered By: Ronen Moise on 01-05-2023 Hematocrit (Bld) [Volume fraction] 42.4 % 37-47 [facility] Laboratory - Chemistry and C hemistry - challengeOrdered By: Ronen Moise on 01-05-2023 ALP [Catalytic activity/Vol] 78 U/L 45-117 [facility] ALT [Catalytic activity/Vol] 40 U/L 13-56 [facility] CO2 [Moles/Vol] 26.0 mmol/L 21.0-32.0 [facility] Cobalamin (Vitamin B12) [Mass/Vol] 388 pg/mL 211-911 [facility] Globulin (S) [Mass/Vol] 3.6 g/dL 2.2-4.[address] [facility] Magnesium [Mass/Vol] 2.0 mg/dL 1.6-2.6 [facility] Urea nitrogen/Creatinine [Mass ratio] 24.8 mg/mg 10-20 [facility] Laboratory - Hematology and Cell countsOrdered By: Ronen Moise on 01-05-2023 Erythrocyte distribution width (RBC) [Entitic vol] 44.9 fL 35.1-43.9 [facility] Erythrocyte distribution width (RBC) [Ratio] 13.2 % 11.6-14.6 [facility] MCH (RBC) [Entitic mass] 30.1 pg 27.0-32.0 [facility] MCHC Auto (RBC) [Mass/Vol]Or dered By: Ronen Moise on 01-05-2023 MCHC (RBC) [Mass/Vol] 32.5 g/dL 32-36 [facility] No Panel InformationOrdered By: Ronen Moise on 01-05-2023 Estimated GFR (MDRD) Amer 102 mL/min >60 [facility] Comment on above: GFR Calc Estimated GFR (MDRD) Non-Af Amer 84 mL/min >60 [facility] Comment on above: Non- GFR Calc Levetiracetam (Keppra) Level 14.4 ug/mL 10.0-40.0 [facility] Comment on above: Performed at: [address] [id number] Director: Gildardo Rees MD, Phone: [phone] Thyroid Stimulating Hormone (TSH) 0.94 uIU/mL 0.358-3.74 [facility] Whole Blood Vitamin B1 Level 109.1 nmol/L 66.5-200.0 [facility] Platelets bldOrdered By: Sam Moise on 01-05-2023 Platelets (Bld) [#/Vol] 160 10*3/uL 150-450 [facility] Serum or plasma albumin nicole urement (mass/volume)Ordered By: Ronen Moise on 01-05-2023 Albumin [Mass/Vol] 3.3 g/dL 3.2-5.0 [facility] Serum or plasma albumin/glob ulin mass ratioOrdered By: Ronen Moise on 01-05-2023 Albumin/Globulin [Mass ratio] 0.9 {ratio} 0.9-2.4 [facility] Serum or plasma calcium nicole urement (mass/volume)Ordered By: Ronen Moise on 01-05-2023 Calcium [Mass/Vol] 8.3 mg/dL 8.5-10.1 [facility] Serum or plasma cholesterol in HDL measurement (mass/volume)Ordered By: Ronen Moise on 01-05-2023 Cholesterol in HDL [Mass/Vol] 73 mg/dL >40 [facility] Comment on above: The drugs N-Acetylcy steine and Metamizole may falsely depress this assay. Reference Range HDL <40 mg/dL Low HDL Cholesterol HDL >or= 60 mg/dL High HDL Cholesterol Serum or plasma cholesterol in VLDL measurement (mass/volume)Ordered By: Ronen Moise on 01-05-2023 Cholesterol in VLDL [Mass/Vol] 11 mg/dL 5-40 [facility] Serum or plasma creatinine m easurement (mass/volume)Ordered By: Ronen Moise 01-05-2023 Creatinine [Mass/Vol] 0.73 mg/dL 0.55-1.02 [facility] Comment on above: The validity of the calculated GFR & GFRAA in patients over 70 years has not been determined. Clinical correlation is essential. Serum or plasma folate measu rement (mass/volume)Ordered By: Ronen Moise on 01-05-2023 Folate [Mass/Vol] 17.40 ng/mL 3.1-55.4 [facility] Serum or plasma low density lipoprotein (LDL) cholesterol measurement (mass/volume)Ordered By: Ronen Moise 01-05-2023 Cholesterol in LDL [Mass/Vol] 48 mg/dL 0-130 [facility] Serum or plasma urea nitroge n measurement (mass/volume)Ordered By: Ronen Moise 01-05-2023 Urea nitrogen [Mass/Vol] 18 mg/dL 7-18 [facility] Thin prep Papanicolaou smear with manual screeningOrdered By: Ronen Moise on 01-05-2023 Thin prep Papanicolaou smear with manual screening 32 U/L 15-37 [facility] Thin prep Papanicolaou smear with manual screening 5 5-15 [facility] Basophil percentageon 2022 Basophil percentage < 0.9 mg/dL 0.55-1.02 [facility] No Panel Informationon 11-17 Bedside Estimated GFR (eGFR) [employer] [facility] [employer] [facility] Comment on above: Previous reported re sult: < 60.0 mL/minEdited by: FELIPA on 11/23/22:0752 AMENDED REPORT 11/23/22751 EGFR WB previously reported as: < 60.0 L mL/min Basophil percentageOrdered B y: Yoselin Francis on 10-29-2022 Basophil percentage < 10.0 umol/L - [facility] Absolute lymphocyte countOrd ered By: Dr. Beauchamp on 09-25-2022 Lymphocytes Auto (Unsp spec) [#/Vol] 3.82 10*3/uL 0.83-4.51 [facility] Basophil percentageOrdered B y: Dr. Beauchamp on 09-25-2022 Lactate [Moles/Vol] 4.4 mmol/L 0.4-2.[address] [facility] Comment on above: Critical Result(s) C alled at: 16:53:32 09/25/2022 by: ROSLYN CHU TO KRUPAAPPLE. Results read back by same. Basophils/100 WBC (Bld) 0.5 % 0-1 [facility] Chloride [Moles/Vol] 109 mmol/L 98-107 [facility] Eosinophils/100 WBC (Bld) 2.3 % 0-5 [facility] Glucose [Mass/Vol] 145 mg/dL 74-106 [facility] Comment on above: Fasting Glucose resu lt greater than or equal to 126 mg/dL suggests DIABETES MELLITUS per A.D.A. criteria. Neutrophils (Bld) [#/Vol] 5.2 10*3/uL 2.0-7.7 [facility] Neutrophils/100 WBC (Bld) 51.7 % 47-70 [facility] Potassium [Moles/Vol] 3.3 mmol/L 3.5-5.1 [facility] Sodium [Moles/Vol] 139 mmol/L 136-145 [facility] WBC (Bld) [#/Vol] 10.0 10*3/uL 4.4-11.[address] [facility] Blood erythrocytes count (nu mber/volume)Ordered By: Dr. Beauchamp on 09-25-2022 RBC (Bld) [#/Vol] 4.61 10*6/uL 4.2-5.[address] [facility] Blood hemoglobin measurement (mass/volume)Ordered By: Dr. Beauchamp on 09-25-2022 Hemoglobin (Bld) [Mass/Vol] 13.7 g/dL 12.0-15.0 [facility] Blood lymphocytes/100 leukoc ytesOrdered By: Dr. Beauchamp on 09-25-2022 Lymphocytes/100 WBC (Bld) 38.3 % 19-41 [facility] Blood monocytes/100 leukocyt esOrdered By: Dr. Beauchamp on 09-25-2022 Monocytes/100 WBC (Bld) 4.3 % 0-10 [facility] Blood platelet mean volumeOr dered By: Dr. Beauchamp on 09-25-2022 Platelet mean volume (Bld) [Entitic vol] 11.7 fL 6.2-12.0 [facility] Determination of erythrocyte mean corpuscular volume (MCV)Ordered By: Dr. Beauchamp on 09-25-2022 MCV (RBC) [Entitic vol] 91.8 fL 81-[address] [facility] Hematocrit Auto (Bld) [Volum e fraction]Ordered By: Dr. Beauchamp on 09-25-2022 Hematocrit (Bld) [Volume fraction] 42.3 % 37-47 [facility] Laboratory - Chemistry and C hemistry - challengeOrdered By: Dr. Beauchamp on 09-25-2022 CO2 [Moles/Vol] 20.0 mmol/L 21.0-32.0 [facility] Urea nitrogen/Creatinine [Mass ratio] 12.8 mg/mg 10-20 [facility] Laboratory - Hematology and Cell countsOrdered By: Dr. Beauchamp on 09-25-2022 Erythrocyte distribution width (RBC) [Entitic vol] 44.6 fL 35.1-43.9 [facility] Erythrocyte distribution width (RBC) [Ratio] 13.1 % 11.6-14.6 [facility] Immature granulocytes/100 WBC (Bld) 2.900 % 0.0-0.9 [facility] Comment on above: IG% - Immature Granu locytes (promyelocytes, myelocytes and metamyelocytes) > 1% indicates that a LEFT SHIFT is Present. MCH (RBC) [Entitic mass] 29.7 pg 27.0-32.0 [facility] Nucleated RBC/100 WBC (Bld) [Ratio] 0 % 0-5 [facility] MCHC Auto (RBC) [Mass/Vol]Or dered By: Dr. Beauchamp on 09-25-2022 MCHC (RBC) [Mass/Vol] 32.4 g/dL 32-36 [facility] No Panel InformationOrdered By: Dr. Beauchamp on 09-25-2022 Estimated Creatinine Clearance Calc 49.76 ml/min [facility] Estimated GFR (MDRD) Amer 59 mL/min >60 [facility] Comment on above: GFR Calc Estimated GFR (MDRD) Non-Af Amer 49 mL/min >60 [facility] Comment on above: Non- GFR Calc Troponin I High Sensitivity 15 pg/mL 3.0-54.0 [facility] Comment on above: Please Note: New Gauri t Units and Gender Specific Reference Ranges. For more information see Policy Stat Procedure [place] High Sensitivity Troponin (TNIH) and attachments. Platelets bldOrdered By: Dr. Beauchamp on 09-25-2022 Platelets (Bld) [#/Vol] 232 10*3/uL 150-450 [facility] Serum or plasma calcium nicole urement (mass/volume)Ordered By: Dr. Beauchamp on 09-25-2022 Calcium [Mass/Vol] 8.8 mg/dL 8.5-10.1 [facility] Serum or plasma creatinine m easurement (mass/volume)Ordered By: Dr. Beauchamp on 09-25-2022 Creatinine [Mass/Vol] 1.17 mg/dL 0.55-1.02 [facility] Comment on above: The validity of the calculated GFR & GFRAA in patients over 70 years has not been determined. Clinical correlation is essential. Serum or plasma prolactin me asurement (mass/volume)Ordered By: Dr. Beauchamp on 09-25-2022 Prolactin [Mass/Vol] 80.1 ng/mL [facility] Comment on above: NORMAL REFERENCE RAN GES FEMALE NON- 2.2 - 30.3 ng/mL 8.1 - 347.6 ng/mL POST-MENOPAUSAL 0.7 - 31.5 ng/mL MALE 2.5 - 17.4 ng/mL Serum or plasma urea nitroge n measurement (mass/volume)Ordered By: Dr. Beauchamp on 09-25-2022 Urea nitrogen [Mass/Vol] 15 mg/dL 7-18 [facility] Thin prep Papanicolaou smear with manual screeningOrdered By: Dr. Beauchamp on 09-25-2022 Thin prep Papanicolaou smear with manual screening 10 5-15 [facility] Absolute lymphocyte counton 01-22-2022 Lymphocytes Auto (Unsp spec) [#/Vol] 2.32 10*3/uL 0.83-4.51 [facility] Work Phone: Basophil percentageon 2021 Basophils/100 WBC (Bld) 0.3 % 0-1 [facility] Work Phone: Chloride [Moles/Vol] 113 mmol/L 98-107 [facility] Work Phone: Eosinophils/100 WBC (Bld) 2.7 % 0-5 [facility] Work Phone: Glucose [Mass/Vol] 124 mg/dL 74-106 [facility] Work Phone: Comment on above: Fasting Glucose resu lt from 100 to 125 mg/dL suggests IMPAIRED HOMEOSTASIS per A.D.A. criteria. Neutrophils (Bld) [#/Vol] 3.4 10*3/uL 2.0-7.7 [facility] Work Phone: Neutrophils/100 WBC (Bld) 54.1 % 47-70 [facility] Work Phone: Potassium [Moles/Vol] 3.8 mmol/L 3.5-5.1 [facility] Work Phone: Sodium [Moles/Vol] 143 mmol/L 136-145 [facility] Work Phone: WBC (Bld) [#/Vol] 6.2 10*3/uL 4.4-11.0 [facility] Work Phone: Blood erythrocytes count (nu mber/volume)on 01-22-2022 RBC (Bld) [#/Vol] 4.67 10*6/uL 4.2-5.4 [facility] Phone: Blood hemoglobin measurement (mass/volume)on 01-22-2022 Hemoglobin (Bld) [Mass/Vol] 13.9 g/dL 12.0-15.0 [facility] Work Phone: Blood lymphocytes/100 leukoc yteson 01-22-2022 Lymphocytes/100 WBC (Bld) 37.3 % 19-41 [facility] Work Phone: Blood monocytes/100 leukocyt eson 01-22-2022 Monocytes/100 WBC (Bld) 5.3 % 0-[address] [facility] Work Phone: Blood platelet mean volumeon 01-22-2022 Platelet mean volume (Bld) [Entitic vol] 12.0 fL 6.2-12.0 [facility] Work Phone: Determination of erythrocyte mean corpuscular volume (MCV)on 01-22-2022 MCV (RBC) [Entitic vol] 90.1 fL 81-[address] [facility] Work Phone: Hematocrit Auto (Bld) [Volum e fraction]on 01-22-2022 Hematocrit (Bld) [Volume fraction] 42.1 % 37-47 [facility] Work Phone: INR in Blood by Coagulation assayon 01-22-2022 INR Coag (Bld) [Relative time] 1.0 {INR} [facility] Work Phone: Laboratory - Chemistry and C hemistry - challengeon 01-22-2022 CO2 [Moles/Vol] 24.0 mmol/L 21.0-32.0 [facility] Work Phone: Urea nitrogen/Creatinine [Mass ratio] 16.7 mg/mg 10-20 [facility] Work Phone: Laboratory - Coagulationon 0 01-22-2022 aPTT Coag (Bld) [Time] 28.5 s 24.1-36.2 [facility] Work Phone: PT Coag (PPP) [Time] 12.9 s 11.7-14.9 [facility] Work Phone: Laboratory - Hematology and Cell countson 01-22-2022 Erythrocyte distribution width (RBC) [Entitic vol] 44.6 fL 35.1-43.9 [facility] Work Phone: Erythrocyte distribution width (RBC) [Ratio] 13.5 % 11.6-14.6 [facility] Work Phone: Immature granulocytes/100 WBC (Bld) 0.300 % 0.0-0.9 [facility] Work Phone: Comment on above: IG% - Immature Granu locytes (promyelocytes, myelocytes and metamyelocytes) > 1% indicates that a LEFT SHIFT is Present. MCH (RBC) [Entitic mass] 29.8 pg 27.0-32.0 [facility] Work Phone: Nucleated RBC/100 WBC (Bld) [Ratio] 0 % 0-5 [facility] Work Phone: MCHC Auto (RBC) [Mass/Vol]on 01-22-2022 MCHC (RBC) [Mass/Vol] 33.0 g/dL 32-36 [facility] Work Phone: No Panel Informationon 01-22 Estimated Creatinine Clearance Calc 53.83 ml/min [facility] Work Phone: Estimated GFR (MDRD) Amer 81 mL/min >60 [facility] Work Phone: Comment on above: GFR Calc Estimated GFR (MDRD) Non-Af Amer 67 mL/min >60 [facility] Work Phone: Comment on above: Non- GFR Calc Troponin I High Sensitivity 7 pg/mL 3.0-54.0 [facility] Work Phone: Comment on above: Please Note: New Gauri t Units and Gender Specific Reference Ranges. For more information see Policy Stat Procedure [place] High Sensitivity Troponin (TNIH) and attachments. Platelets bldon 01-22-2022 Platelets (Bld) [#/Vol] 159 10*3/uL 150-450 [facility] Work Phone: Serum or plasma calcium nicole urement (mass/volume)on 01-22-2022 Calcium [Mass/Vol] 9.1 mg/dL 8.5-10.1 [facility] Work Phone: Serum or plasma creatinine m easurement (mass/volume)on 01-22-2022 Creatinine [Mass/Vol] 0.90 mg/dL 0.55-1.02 [facility] Work Phone: Comment on above: The validity of the calculated GFR & GFRAA in patients over 70 years has not been determined. Clinical correlation is essential. Serum or plasma urea nitroge n measurement (mass/volume)on 01-22-2022 Urea nitrogen [Mass/Vol] 15 mg/dL 7-18 [facility] Work Phone: Thin prep Papanicolaou smear with manual screeningon 01-22-2022 Thin prep Papanicolaou smear with manual screening 6 5-15 [facility] Work Phone: CALCIUMon 12-11-2021 Calcium [Mass/Vol] 8.7 mg/dL Normal 8.6-10.5 [facility] Comment on above: Performed By: #### M GO, IPB, CA, CHM7 #### [facility] (DEFAULT) [address] [address] Calcium [Mass/Vol] 8.7 mg/dL 8.6 - 10. 5 mg/dL [facility] CBC AND ELECTRONIC DIFFon Basophils (Bld) [#/Vol] 10*3/uL Normal 0.00-0.15 [facility] Comment on above: Performed By: #### M GO, IPB, CA, CHM7 #### [facility] (DEFAULT) [address] [place] [phone] Basophils/100 WBC (Bld) 0.1 % Normal [facility] Comment on above: Performed By: #### M GO, IPB, CA, CHM7 #### [facility] (DEFAULT) [address] [place] [phone] DIFF STATUS Electronic Differential Normal [facility] Comment on above: Performed By: #### M GO, IPB, CA, CHM7 #### [facility] (DEFAULT) [address] [place] [phone] Eosinophils (Bld) [#/Vol] 10*3/uL Normal 0.00-0.42 [facility] Comment on above: Performed By: #### M SINTIA, IPB, CA, CHM7 #### [facility] (DEFAULT) [address] [place] [phone] Eosinophils/100 WBC (Bld) 0.2 % Normal [facility] Comment on above: Performed By: #### M GO, IPB, CA, CHM7 #### [facility] (DEFAULT) [address] [place] [phone] Hematocrit (Bld) [Volume fraction] 41.8 % Normal 34.9-44.3 [facility] Comment on above: Performed By: #### M SINTIA, IPB, CA, CHM7 #### [facility] (DEFAULT) [address] [place] [address] Hemoglobin (Bld) [Mass/Vol] 13.9 g/dL Normal 11.4-15.2 [facility] Comment on above: Performed By: #### M GO, IPB, CA, CHM7 #### [facility] (DEFAULT) [address] [place] [address]44 Immature Grans % 0.2 % Normal [facility] Comment on above: Performed By: #### M GO, IPB, CA, CHM7 #### [facility] (DEFAULT) [address] [place] [address] 12096 Immature Grans Absolute <0.04 Normal <=0.08 [facility] Comment on above: Performed By: #### M GO, IPB, CA, CHM7 #### [facility] (DEFAULT) [address] [place] [address] Lymphocytes (Bld) [#/Vol] 1.89 10*3/uL Normal 1.16-3.51 [facility] Comment on above: Performed By: #### M GO, IPB, CA, CHM7 #### [facility] (DEFAULT) [address] [place] [address] 91300 Lymphocytes/100 WBC (Bld) 23.2 % Normal [facility] Comment on above: Performed By: #### M SINTIA, IPB, CA, CHM7 #### [facility] (DEFAULT) [address] [place] [phone] MCV (RBC) [Entitic vol] 89.9 fL Normal 79.6-97.7 [facility] Comment on above: Performed By: #### M GO, IPB, CA, CHM7 #### [facility] (DEFAULT) [address] [place] [address] 34857 Mean Cell Hgb 29.9 pg Normal 25.9-33.9 [facility] Comment on above: Performed By: #### M GO, IPB, CA, CHM7 #### [facility] (DEFAULT) [address] [place] [address] 37814 Mean Cell Hgb Conc 33.3 g/dL Normal 31.4-35.9 [facility] Comment on above: Performed By: #### M GO, IPB, CA, CHM7 #### [facility] (DEFAULT) [address] [place] [address]492 Monocytes (Bld) [#/Vol] 0.46 10*3/uL Normal 0.22-0.87 [facility] Comment on above: Performed By: #### Riana PATRICIO, IPB, CA, CHM7 #### [facility] (DEFAULT) [address] [place] [address] [phone] Monocytes/100 WBC (Bld) 5.7 % Normal [facility] Comment on above: Performed By: #### Riana PATRICIO, IPB, CA, CHM7 #### [facility] (DEFAULT) [address] [place] [address] 13468 Nucleated RBC 0.0 /100 WBC Normal <=0.2 [facility] Comment on above: Performed By: #### Riana PATRICIO, IPB, CA, CHM7 #### [facility] (DEFAULT) [address] [place] [phone] Platelet mean volume (Bld) [Entitic vol] 12.0 fL Normal 8.5-12.2 [facility] Comment on above: Performed By: #### Riana PATRICIO, IPB, CA, CHM7 #### [facility] (DEFAULT) [address] [place] [address] [phone] Platelets (Bld) [#/Vol] 199 10*3/uL Normal 150-393 [facility] Comment on above: Performed By: #### M SINTIA, IPB, CA, CHM7 #### U [facility] (DEFAULT) [address] [place] [address] [phone] RBC (Bld) [#/Vol] 4.65 10*6/uL Normal 3.91-5.04 [facility] Comment on above: Performed By: #### Riana PATRICIO, IPB, CA, CHM7 #### [facility] (DEFAULT) [address] [place] [address] 01639 RBC Distribution 13.5 % Normal 10.8-14.9 [facility] Comment on above: Performed By: #### M SINTIA, IPB, CA, CHM7 #### [facility] (DEFAULT) [address] [place] [address] 38323 Segs + Bands Auto 70.6 % Normal [facility] Comment on above: Performed By: #### M GO, IPB, CA, CHM7 #### [facility] (DEFAULT) [address] [place] [address] 84925 Segs + Bands,Absolute Auto 5.73 K/uL Normal 1.64-7.28 [facility] Comment on above: Performed By: #### M SINTIA, IPB, CA, CHM7 #### [facility] (DEFAULT) [address] [place] [address] 74697 WBC (Bld) [#/Vol] 8.13 10*3/uL Normal 3.99-11.19 [facility] Comment on above: Performed By: #### M GO, IPB, CA, CHM7 #### [facility] (DEFAULT) [address] [place] [address] 34213 Basophils (Bld) [#/Vol] 10*3/uL 0.00 - 0.15 K/uL [facility] Basophils/100 WBC (Bld) 0.1 % [facility] Differential cell count method Nom (Bld) Electronic Differential [facility] Eosinophils (Bld) [#/Vol] 10*3/uL 0.00 - 0.42 K/uL [facility] Eosinophils/100 WBC (Bld) 0.2 % [facility] Erythrocyte distribution width (RBC) [Ratio] 13.5 % 10.8 - 14.9 % [facility] Hematocrit (Bld) [Volume fraction] 41.8 % 34.9 - 44.3 % [facility] Hemoglobin (Bld) [Mass/Vol] 13.9 g/dL 11.4 - 15.2 g/dL [facility] Immature granulocytes (Bld) [#/Vol] 10*3/uL <=0.08 K/uL [facility] Immature granulocytes/100 WBC (Bld) 0.2 % [facility] Lymphocytes (Bld) [#/Vol] 1.89 10*3/uL 1.16 - 3.51 K/uL [facility] Lymphocytes/100 WBC (Bld) 23.2 % [facility] MCH (RBC) [Entitic mass] 29.9 pg 25.9 - 33.9 [place] [facility] (RBC) [Mass/Vol] 33.3 g/dL 31.4 - 35.9 g/dL [facility] MCV (RBC) [Entitic vol] 89.9 fL 79.6 - 97.7 fL [facility] Monocytes (Bld) [#/Vol] 0.46 10*3/uL 0.22 - 0.87 K/uL [facility] Monocytes/100 WBC (Bld) 5.7 % [facility] Neutrophils (Bld) [#/Vol] 5.73 10*3/uL 1.64 - 7.28 K/uL [facility] Nucleated RBC/100 WBC (Bld) [Ratio] 0.0 % <=0.2 /100 WBC [facility] Platelet mean volume (Bld) [Entitic vol] 12.0 fL 8.5 - 12.2 fL [facility] Platelets (Bld) [#/Vol] 199 10*3/uL 150 - 393 K/uL [facility] RBC (Bld) [#/Vol] 4.65 10*6/uL [facility] Segmented neutrophils/100 WBC (Bld) 70.6 % [facility] WBC (Bld) [#/Vol] 8.13 10*3/uL 3.99 - 11. 19 K/uL [facility] CHEM 7 (LYTES,BUN,CREA,GLUC) on 12-11-2021 Anion gap [Moles/Vol] 18 mmol/L High 7-[address] [facility] Comment on above: Performed By: #### M SINTIA IPB, CA, CHM7 #### [facility] (DEFAULT) [address] [place] [address] [phone] Chloride [Moles/Vol] 108 mmol/L Normal 98-108 [facility] Comment on above: Performed By: #### M SINTIA, IPB, CA, CHM7 #### [facility] (DEFAULT) [address] [place] [address] 45440 CO2 [Moles/Vol] 18 mmol/L Low 21-31 [facility] Comment on above: Performed By: #### M SINTIA IPB, CA, CHM7 #### [facility] (DEFAULT) [address] [place] [address] 49605 Creatinine [Mass/Vol] 0.74 mg/dL Normal 0.50-1.20 [facility] Comment on above: Performed By: #### M SINTIA IPB, CA, CHM7 #### [facility] (DEFAULT) [address] [place] [address] 54548 GFR/1.73 sq M.predicted among non-blacks MDRD (S/P/Bld) [Vol rate/Area] 89 mL/min/{1.73_m2} Normal >=60 [facility] Comment on above: Result Comment: Repo rted eGFR is based on the CKD-EPI 2020 equation using creatinine, age, and sex. Performed By: #### M SINTIA IPB, CA, CHM7 #### [facility] (DEFAULT) [address] [place] [address] 20080 Glucose [Mass/Vol] 98 mg/dL Normal 70-99 [facility] Comment on above: Performed By: #### M SINTIA IPB, CA, CHM7 #### [facility] (DEFAULT) [address] [place] [address] 01117 Osmolality [Osmolality] 293 mosm/kg Normal 278-305 [facility] Comment on above: Performed By: #### M SINTIA IPB, CA, CHM7 #### [facility] (DEFAULT) [address] [place] [address] 69773 Potassium [Moles/Vol] 4.0 mmol/L Normal 3.5-5.0 [facility] Comment on above: Performed By: #### M GO, IPB, CA, CHM7 #### [facility] (DEFAULT) [address] [place] [address] 92200 Sodium [Moles/Vol] 140 mmol/L Normal 135-145 [facility] Comment on above: Performed By: #### M GO, IPB, CA, CHM7 #### [facility] (DEFAULT) [address] [place] [address] 70658 Urea nitrogen [Mass/Vol] 13 mg/dL Normal 7-25 [facility] Comment on above: Performed By: #### Riana PATRICIO, IPB, CA, CHM7 #### [facility] (DEFAULT) [address] [place] [address] 52437 Urea nitrogen/Creatinine [Mass ratio] 18 mg/mg Normal [facility] Comment on above: Performed By: #### M SINTIA IPB, CA, CHM7 #### [facility] (DEFAULT) [address] [place] [address] 02257 Anion gap [Moles/Vol] 18 mmol/L High 7 - 17 mmol/L [facility] Chloride [Moles/Vol] 108 mmol/L 98 - 10 8 mmol/L [facility] CO2 [Moles/Vol] 18 mmol/L Low 21 - 31 mmol/L [facility] Creatinine [Mass/Vol] 0.74 mg/dL 0.50 - 1.20 mg/dL [facility] GFR/1.73 sq M.predicted CKD-EPI (S/P/Bld) [Vol rate/Area] 89 >=60 mL/min/1.73m2 [facility] Comment on above: Reported eGFR is bas ed on the CKD-EPI 2020 equation using creatinine, age, and sex. Glucose [Mass/Vol] 98 mg/dL 70 - 99 mg/dL [facility] Interpretation and review of laboratory results Abnormal [facility] Osmolality Calc [Osmolality] 293 [facility] Potassium [Moles/Vol] 4.0 mmol/L 3.5 - 5.0 mmol/L [facility] Sodium [Moles/Vol] 140 mmol/L 135 - 145 mmol/L [facility] Urea nitrogen [Mass/Vol] 13 mg/dL 7 - 25 mg/dL [facility] Urea nitrogen/Creatinine [Mass ratio] 18 mg/mg [facility] MAGNESIUMon 12-11-2021 Magnesium [Mass/Vol] 1.9 mg/dL Normal 1.6-2.6 [facility] Comment on above: Performed By: #### AMY BETANCOURT, ASHVIN, CHM7 #### [facility] (DEFAULT) [address] [place] [address] 39975 Magnesium [Mass/Vol] 1.9 mg/dL 1.6 - 2 .6 mg/dL [facility] No Panel Informationon 12-11 Interpretation and review of laboratory results Normal [facility] PHOSPHATE, INORGANICon 12-11 Phosphorous 2.8 mg/dL Normal 2.2-4.6 [facility] Comment on above: Performed By: #### AMY BETANCOURT, ASHVIN, CHM7 #### [facility] (DEFAULT) [address] [place] [address] 60692 Phosphate [Mass/Vol] 2.8 mg/dL 2.2 - 4 .6 mg/dL [facility] PT,INR,PTTon 12-11-2021 aPTT Coag (Bld) [Time] 30.7 s Normal 24.0-34.3 [facility] Comment on above: Performed By: #### AMY BETANCOURT, ASHVIN, CHM7 #### [facility] (DEFAULT) [address] [place] [address] 60632 INR Coag (PPP) [Relative time] 1.2 {INR} High 0.9-1.1 [facility] Comment on above: Performed By: #### AMY BETANCOURT, ASHVIN, CHM7 #### [facility] (DEFAULT) [address] [place] [address] 88160 PT Coag (PPP) [Time] 14.8 s High 11.9-14.2 [facility] Comment on above: Performed By: #### M AMY PATRICIO CA, CHM7 #### [facility] (DEFAULT) [address] [place] [address] 54405 aPTT Coag (PPP) [Time] 30.7 s [facility] INR Coag (Bld) [Relative time] 1.2 {INR} High [facility] Interpretation and review of laboratory results Abnormal [facility] PT Coag (PPP) [Time] 14.8 s High [facility] CALCIUMon 12-10-2021 Calcium [Mass/Vol] 8.6 mg/dL Normal 8.6-10.5 [facility] Comment on above: Performed By: #### AMY BETANCOURT CA, CHM7 #### [facility] (DEFAULT) [address] [place] [address] [phone] Calcium [Mass/Vol] 8.6 mg/dL 8.6 - 10. 5 mg/dL [facility] CBC AND ELECTRONIC DIFFon Basophils (Bld) [#/Vol] 10*3/uL Normal 0.00-0.15 [facility] Comment on above: Performed By: #### M AMY PATRICIO, ASHVIN, CHM7 #### [facility] (DEFAULT) [address] [place] [address] 74545 Basophils/100 WBC (Bld) 0.1 % Normal [facility] Comment on above: Performed By: #### AMY BETANCOURT, CA, CHM7 #### [facility] (DEFAULT) [address] [place] [address] 86159 DIFF STATUS Electronic Differential Normal [facility] Comment on above: Performed By: #### M GO, IPB, CA, CHM7 #### [facility] (DEFAULT) [address] [place] [address] 52657 Eosinophils (Bld) [#/Vol] 0.04 10*3/uL Normal 0.00-0.42 [facility] Comment on above: Performed By: #### M GO, IPB, CA, CHM7 #### [facility] (DEFAULT) [address] [place] [address] 35555 Eosinophils/100 WBC (Bld) 0.5 % Normal [facility] Comment on above: Performed By: #### M GO, IPB, CA, CHM7 #### [facility] (DEFAULT) [address] [place] [address] 98126 Hematocrit (Bld) [Volume fraction] 43.0 % Normal 34.9-44.3 [facility] Comment on above: Performed By: #### M GO, IPB, CA, CHM7 #### [facility] (DEFAULT) [address] [place] [address] 03919 Hemoglobin (Bld) [Mass/Vol] 14.3 g/dL Normal 11.4-15.2 [facility] Comment on above: Performed By: #### M GO, IPB, CA, CHM7 #### [facility] (DEFAULT) [address] [place] [address] 01060 Immature Grans % 0.3 % Normal [facility] Comment on above: Performed By: #### M GO, IPB, CA, CHM7 #### [facility] (DEFAULT) [address] [place] [address] 53932 Immature Grans Absolute <0.04 Normal <=0.08 [facility] Comment on above: Performed By: #### M GO, IPB, CA, CHM7 #### [facility] (DEFAULT) [address] [place] [address] 85303 Lymphocytes (Bld) [#/Vol] 1.46 10*3/uL Normal 1.16-3.51 [facility] Comment on above: Performed By: #### M ELIZA PATRICIOB, CA, CHM7 #### [facility] (DEFAULT) [address] [place] [address] 06374 Lymphocytes/100 WBC (Bld) 18.5 % Normal [facility] Comment on above: Performed By: #### M SINTIA IPB, CA, CHM7 #### [facility] (DEFAULT) [address] [place] [address] 99698 MCV (RBC) [Entitic vol] 90.5 fL Normal 79.6-97.7 [facility] Comment on above: Performed By: #### Riana PATRICIO IPB, CA, CHM7 #### [facility] (DEFAULT) [address] [place] [address] 78182 Mean Cell Hgb 30.1 pg Normal 25.9-33.9 [facility] Comment on above: Performed By: #### ELIZA BETANCOURTB, CA, CHM7 #### [facility] (DEFAULT) [address] [place] [address] 64440 Mean Cell Hgb Conc 33.3 g/dL Normal 31.4-35.9 [facility] Comment on above: Performed By: #### M SINTIA IPB, CA, CHM7 #### [facility] (DEFAULT) [address] [place] [address] 28977 Monocytes (Bld) [#/Vol] 0.41 10*3/uL Normal 0.22-0.87 [facility] Comment on above: Performed By: #### M SINTIA, IPB, CA, CHM7 #### [facility] (DEFAULT) [address] [place] [address] 89740 Monocytes/100 WBC (Bld) 5.2 % Normal [facility] Comment on above: Performed By: #### M SINTIA, IPB, CA, CHM7 #### [facility] (DEFAULT) [address] [place] [address] 52881 Nucleated RBC 0.0 /100 WBC Normal <=0.2 [facility] Comment on above: Performed By: #### M ELIZA PATRICIOB, CA, CHM7 #### [facility] (DEFAULT) [address] [place] [address] 13516 Platelet mean volume (Bld) [Entitic vol] 11.8 fL Normal 8.5-12.2 [facility] Comment on above: Performed By: #### M SINTIA IPB, CA, CHM7 #### [facility] (DEFAULT) [address] [place] [address] 74697 Platelets (Bld) [#/Vol] 187 10*3/uL Normal 150-393 [facility] Comment on above: Performed By: #### ELIZA BETANCOURTB, CA, CHM7 #### [facility] (DEFAULT) [address] [place] [address] 72812 RBC (Bld) [#/Vol] 4.75 10*6/uL Normal 3.91-5.04 [facility] Comment on above: Performed By: #### ELIZA BETANCOURTB, CA, CHM7 #### [facility] (DEFAULT) [address] [place] [address] 37685 RBC Distribution 13.5 % Normal 10.8-14.9 [facility] Comment on above: Performed By: #### M ELIZA PATRICIOB, CA, CHM7 #### [facility] (DEFAULT) [address] [place] [address] 10701 Segs + Bands Auto 75.4 % Normal [facility] Comment on above: Performed By: #### ELIZA BETANCOURTB, CA, CHM7 #### [facility] (DEFAULT) [address] [place] [address] 16052 Segs + Bands,Absolute Auto 5.97 K/uL Normal 1.64-7.28 [facility] Comment on above: Performed By: #### M AMY PATRICIO, CA, CHM7 #### [facility] (DEFAULT) [address] [place] [address] WBC (Bld) [#/Vol] 7.91 10*3/uL Normal 3.99-11.19 [facility] Comment on above: Performed By: #### M AMY PATRICIO, CA, CHM7 #### [facility] (DEFAULT) [address] [place] [address] Basophils (Bld) [#/Vol] 10*3/uL 0.00 - 0.15 K/uL [facility] Basophils/100 WBC (Bld) 0.1 % [facility] Differential cell count method Nom (Bld) Electronic Differential [facility] Eosinophils (Bld) [#/Vol] 0.04 10*3/uL 0.00 - 0.42 K/uL [facility] Eosinophils/100 WBC (Bld) 0.5 % [facility] Erythrocyte distribution width (RBC) [Ratio] 13.5 % 10.8 - 14.9 % [facility] Hematocrit (Bld) [Volume fraction] 43.0 % 34.9 - 44.3 % [facility] Hemoglobin (Bld) [Mass/Vol] 14.3 g/dL 11.4 - 15.2 g/dL [facility] Immature granulocytes (Bld) [#/Vol] 10*3/uL <=0.08 K/uL [facility] Immature granulocytes/100 WBC (Bld) 0.3 % [facility] Lymphocytes (Bld) [#/Vol] 1.46 10*3/uL 1.16 - 3.51 K/uL [facility] Lymphocytes/100 WBC (Bld) 18.5 % [facility] MCH (RBC) [Entitic mass] 30.1 pg 25.9 - 33.9 pg [facility] MCHC (RBC) [Mass/Vol] 33.3 g/dL 31.4 - 35.9 g/dL [facility] MCV (RBC) [Entitic vol] 90.5 fL 79.6 - 97.7 fL [facility] Monocytes (Bld) [#/Vol] 0.41 10*3/uL 0.22 - 0.87 K/uL [facility] Monocytes/100 WBC (Bld) 5.2 % [facility] Neutrophils (Bld) [#/Vol] 5.97 10*3/uL 1.64 - 7.28 K/uL [facility] Nucleated RBC/100 WBC (Bld) [Ratio] 0.0 % <=0.2 /100 WBC [facility] Platelet mean volume (Bld) [Entitic vol] 11.8 fL 8.5 - 12.2 fL [facility] Platelets (Bld) [#/Vol] 187 10*3/uL 150 - 393 K/uL [facility] RBC (Bld) [#/Vol] 4.75 10*6/uL [facility] Segmented neutrophils/100 WBC (Bld) 75.4 % [facility] WBC (Bld) [#/Vol] 7.91 10*3/uL 3.99 - 11. 19 K/uL [facility] CHEM 7 (LYTES,BUN,CREA,GLUC) on 12-10-2021 Anion gap [Moles/Vol] 14 mmol/L Normal 7-17 [facility] Comment on above: Performed By: #### AMY BETANCOURT, ASHVIN, CHM7 #### [facility] (DEFAULT) [address] [address] Chloride [Moles/Vol] 108 mmol/L Normal 98-108 [facility] Comment on above: Performed By: #### AMY BETANCOURT, ASHVIN, CHM7 #### [facility] (DEFAULT) [address] [address] CO2 [Moles/Vol] 22 mmol/L Normal 21-31 [facility] Comment on above: Performed By: #### AMY BETANCOURT, ASHVIN, CHM7 #### [facility] (DEFAULT) [address] [place] [address] 57291 Creatinine [Mass/Vol] 0.79 mg/dL Normal 0.50-1.20 [facility] Comment on above: Performed By: #### ELIZA BETANCOURTB, CA, CHM7 #### [facility] (DEFAULT) [address] [place] [address] 00805 GFR/1.73 sq M.predicted among non-blacks MDRD (S/P/Bld) [Vol rate/Area] 82 mL/min/{1.73_m2} Normal >=60 [facility] Comment on above: Result Comment: Repo rted eGFR is based on the CKD-EPI 2020 equation using creatinine, age, and sex. Performed By: #### AMY BETANCOURT, CA, CHM7 #### [facility] (DEFAULT) [address] [place] [address] 42983 Glucose [Mass/Vol] 99 mg/dL Normal 70-99 [facility] Comment on above: Performed By: #### ELIZA BETANCOURTB, CA, CHM7 #### [facility] (DEFAULT) [address] [place] [address] 73391 Osmolality [Osmolality] 292 mosm/kg Normal 278-305 [facility] Comment on above: Performed By: #### ELIZA BETANCOURTB, CA, CHM7 #### [facility] (DEFAULT) [address] [place] [address] 81714 Potassium [Moles/Vol] 3.9 mmol/L Normal 3.5-5.0 [facility] Comment on above: Performed By: #### ELIZA BETANCOURTB, CA, CHM7 #### [facility] (DEFAULT) [address] [place] [address] 85590 Sodium [Moles/Vol] 140 mmol/L Normal 135-145 [facility] Comment on above: Performed By: #### Riana PATRICIO IPB, CA, CHM7 #### [facility] (DEFAULT) [address] [place] [address] Urea nitrogen [Mass/Vol] 11 mg/dL Normal 7-25 [facility] Comment on above: Performed By: #### M AMY PATRICIO, CA, CHM7 #### [facility] (DEFAULT) [address] [place] [address] Urea nitrogen/Creatinine [Mass ratio] 14 mg/mg Normal [facility] Comment on above: Performed By: #### M AMY PATRICIO, CA, CHM7 #### [facility] (DEFAULT) [address] [place] [address] Anion gap [Moles/Vol] 14 mmol/L 7 - 17 mmol/L [facility] Chloride [Moles/Vol] 108 mmol/L 98 - 10 8 mmol/L [facility] CO2 [Moles/Vol] 22 mmol/L 21 - 31 mmol/L [facility] Creatinine [Mass/Vol] 0.79 mg/dL 0.50 - 1.20 mg/dL [facility] GFR/1.73 sq M.predicted CKD-EPI (S/P/Bld) [Vol rate/Area] 82 >=60 mL/min/1.73m2 [facility] Comment on above: Reported eGFR is bas ed on the CKD-EPI 2020 equation using creatinine, age, and sex. Glucose [Mass/Vol] 99 mg/dL 70 - 99 mg/dL [facility] Osmolality Calc [Osmolality] 292 [facility] Potassium [Moles/Vol] 3.9 mmol/L 3.5 - 5.0 mmol/L [facility] Sodium [Moles/Vol] 140 mmol/L 135 - 145 mmol/L [facility] Urea nitrogen [Mass/Vol] 11 mg/dL 7 - 25 mg/dL [facility] Urea nitrogen/Creatinine [Mass ratio] 14 mg/mg [facility] CONTINUOUS CARDIAC MONITORIN G STRIPon 12-10-2021 [facility] CONTINUOUS CARDIAC MONITORIN G STRIPOrdered By: Unassigned Pacs on 12-10-2021 [facility] Work Phone: CT HEAD WITHOUT CONTRASTon 0 12-10-2021 CT HEAD WITHOUT CONTRAST EXAM: CT HEAD WITHOUT CONTRAST, 12/10/2021 7:06 AM COMPARISON: CT head noncontrast 12/09/2021, cerebral angiogram 12/09/2021. CLINICAL INDICATIONS: 65 years Female Headache, intracranial hemorrhage suspected; RELEVANT CLINICAL HISTORY: TECHNIQUE: A series of transaxial computerized tomographic images are obtained from base of skull to vertex without intravenous contrast. Axial whole-head and thin section posterior fossa slices are provided. Reformats: Sagittal and coronal. FINDINGS: No significant change, compared with CT from previous day. Again seen is a cortically based, somewhat wedge-shaped area of hypoattenuation involving the left temporal lobe, with relative sparing of the medial temporal lobe. Appearance is compatible with a recent infarct in the left MCA territory. Again seen is an ovoid density just over 1 cm in size, located in the left medial temporal region, adjacent to the anterior clinoid, and closely related to the left sylvian fissure. As suggested in the report of the previous CT exam, this could attention represent a thrombosed aneurysm, since this was not visualized on cerebral angiography of 12/09/2021. No midline shift, no downward herniation, no hydrocephalus. Posterior fossa is unremarkable. Calvarium is intact. IMPRESSION: 1. No significant change, compared with CT from previous day. 2. Again seen is cortically based hypoattenuation involving the lateral aspect of the left temporal lobe, compatible with an acute stage cerebral infarct. 3. Again seen is an ovoid hyperdensity in the medial left temporal region closely related to the sylvian fissure. It could represent a thrombosed aneurysm. Normal [facility] CT Head WO contraston 2021 IMPRESSION: 1. No significant change, compared with CT from previous day. 2. Again seen is cortically based hypoattenuation involving the lateral aspect of the left temporal lobe, compatible with an acute stage cerebral infarct. 3. Again seen is an ovoid hyperdensity in the medial left temporal region closely related to the sylvian fissure. It could represent a thrombosed aneurysm. OLOGY EXAM: CT HEAD WITHOUT CONTRAST, 12/10/2021 7:06 AM COMPARISON: CT head noncontrast 12/09/2021, cerebral angiogram 12/09/2021. CLINICAL INDICATIONS: 65 years Female Headache, intracranial hemorrhage suspected; RELEVANT CLINICAL HISTORY: TECHNIQUE: A series of transaxial computerized tomographic images are obtained from base of skull to vertex without intravenous contrast. Axial whole-head and thin section posterior fossa slices are provided. Reformats: Sagittal and coronal. FINDINGS: No significant change, compared with CT from previous day. Again seen is a cortically based, somewhat wedge-shaped area of hypoattenuation involving the left temporal lobe, with relative sparing of the medial temporal lobe. Appearance is compatible with a recent infarct in the left MCA territory. Again seen is an ovoid density just over 1 cm in size, located in the left medial temporal region, adjacent to the anterior clinoid, and closely related to the left sylvian fissure. As suggested in the report of the previous CT exam, this could attention represent a thrombosed aneurysm, since this was not visualized on cerebral angiography of 12/09/2021. No midline shift, no downward herniation, no hydrocephalus. Posterior fossa is unremarkable. Calvarium is intact. RADIOLOGY Narinder John MD - 12/10/2021 EXAM: CT HEAD WITHOUT CONTRAST, 12/10/2021 7:06 AM COMPARISON: CT head noncontrast 12/09/2021, cerebral angiogram 12/09/2021. CLINICAL INDICATIONS: 65 years Female Headache, intracranial hemorrhage suspected; RELEVANT CLINICAL HISTORY: TECHNIQUE: A series of transaxial computerized tomographic images are obtained from base of skull to vertex without intravenous contrast. Axial whole-head and thin section posterior fossa slices are provided. Reformats: Sagittal and coronal. FINDINGS: No significant change, compared with CT from previous day. Again seen is a cortically based, somewhat wedge-shaped area of hypoattenuation involving the left temporal lobe, with relative sparing of the medial temporal lobe. Appearance is compatible with a recent infarct in the left MCA territory. Again seen is an ovoid density just over 1 cm in size, located in the left medial temporal region, adjacent to the anterior clinoid, and closely related to the left sylvian fissure. As suggested in the report of the previous CT exam, this could attention represent a thrombosed aneurysm, since this was not visualized on cerebral angiography of 12/09/2021. No midline shift, no downward herniation, no hydrocephalus. Posterior fossa is unremarkable. Calvarium is intact. IMPRESSION IMPRESSION: 1. No significant change, compared with CT from previous day. 2. Again seen is cortically based hypoattenuation involving the lateral aspect of the left temporal lobe, compatible with an acute stage cerebral infarct. 3. Again seen is an ovoid hyperdensity in the medial left temporal region closely related to the sylvian fissure. It could represent a thrombosed aneurysm. [facility] Radiology Study observation (narrative) [facility] WO contrastOrdered B y: Narinder John on 12-10-2021 [facility] Work Phone: ECHOCARDIOGRAM TRANSESOPHAGE AL (GILDARDO)on 12-10-2021 ECHOCARDIOGRAM TRANSESOPHAGEAL (GILDARDO) ? Normal LV size and systolic function, EF 55%. ? Normal RV size and systolic function. ? Small PFO with qymp-zk-whpml flow seen by color Doppler. ? Very small (3 mm) secundum ASD seen with 1.3 cm posterior rim. No significant flow seen on color Doppler. ? No evidence of right to left shunting with bubble study through PFO or ASD. ? No significant valvular dysfunction. ? No RA, LA, or SCARLETT thrombus. ? Gastric and descending/transvers e aorta views not obtained due to patient intolerance and self-extubation. Facility [facility] Patient Information Patient Name Nanette Harrison Legal Sex Female Indication for Exam Priority: Routine Dx: Cerebrovascular accident (CVA), unspecified mechanism [I63.9 (ICD-10-CM)] Order Question Reason for Exam recent stroke, unknown cause Interpretation Summary ? Normal LV size and systolic function, EF 55%. ? Normal RV size and systolic function. ? Small PFO with whjt-wk-oomnq flow seen by color Doppler. ? Very small (3 mm) secundum ASD seen with 1.3 cm posterior rim. No significant flow seen on color Doppler. ? No evidence of right to left shunting with bubble study through PFO or ASD. ? No significant valvular dysfunction. ? No RA, LA, or SCARLETT thrombus. ? Gastric and descending/transvers e aorta views not obtained due to patient intolerance and self-extubation. Findings Left Ventricle Chamber size is normal. Normal wall thickness. Normal global wall motion. Regional wall motion is normal. Ejection fraction is normal (55 - 60%). Diastolic function not assessed. Right Ventricle Chamber size is normal. Normal wall thickness. Segmental wall motion is normal. Systolic function is normal. Left Atrium Chamber size is normal. Left atrial appendage appears normal. No left atrial appendage thrombus present. No spontaneous contrast is present in the appendage. Normal pulmonary vein connection present. Right Atrium Chamber size is normal. Septum The atrial septum is bowed right due to elevated left atrial pressure. A patent foramen ovale is present by color flow. A secundum septal defect is present by color flow. Mitral Valve Normal appearing leaflets. Leaflet mobility is normal. Trace regurgitation. No valve stenosis. Aortic Valve Trileaflet valve. Leaflet mobility is normal. No regurgitation. No stenosis. Tricuspid Valve Normal leaflets. Leaflet mobility is normal. Trace regurgitation. No stenosis. Pulmonic Valve Normal structure. No regurgitation. No stenosis. Aorta No dilation to extent seen. Pericardium No pericardial effusion. IVC/SVC The superior vena cava structure is normal. Pulmonary Artery The pulmonary artery is normal. Reading Providers Reading Role Read Date Ash Chilel MD Fellow - Reading 12/10/2021 Mark Hallman MD Test [employer] [facility], [facility] 12/10/2021 Wall Motion Score Index: 1.00 The left ventricular wall motion is normal. Doppler Measurements - Tricuspid Valve Regurgitation TR pk arcadio 2.55 m/s TR pk grad 26 mmHg Performing Staff Roopa Smith RN Study Details The risks and alternatives of the procedure and conscious sedation were explained to the patient/family member and/or their power of contract attorney. Informed consent was obtained. All staff members involved in the procedure completed a timeout prior to the start of the procedure verifying correct patient identity and correct procedure to be performed. A complete transesophageal echocardiography study (including color flow Doppler, 3D and agitated saline contrast study) was performed. Overall study quality was good. Total time physician provided [id number]-um-[id number] service beginning with the administration of sedation medications until the patient was sufficiently recovered after the procedure was 35 minutes. Contrast was not administered per physician discretion. Probe insertion was not difficult. Patient reaction to probe was well-tolerated. Indications for study: cardiac source of embolus. There were no complications. Exam Details Performed Procedure Technologist Supporting Staff Performing Physician ECHO TRANSESOPHAGEAL W/3D W/COLORFLOW W/LIMITED DOPPLER Roopa Smith RN Appointment Date/Status Modality Department 12/10/2021 Arrived GILDARDO TESTING, [facility] ECHOCARDIOGRAPHY ROSS Begin Exam End Exam 12/10/2021 1:16 PM 12/10/2021 2:56 PM Moderate sedation provided by performing physician. Vitals Height Weight BSA (Calculated - sq m) BP Pulse 148/69 56 GILDARDO Sedation Medications No data selected in time range GILDARDO Documentation Sedation/Intra-proce dure Log Signed at 1558 EDT Order Report Order Details Encounter View Encounter External Results Report Open External Results Report Patient Release Status: This result is viewable by the patient in Coffee and Powerhart. ECHOCARDIOGR (more content not included)... Normal [facility] Normal LV size and systolic function, EF 55%. Normal RV size and systolic function. Small PFO with iswt-rs-gqzfc flow seen by color Doppler. Very small (3 mm) secundum ASD seen with 1.3 cm posterior rim. No significant flow seen on color Doppler. No evidence of right to left shunting with bubble study through PFO or ASD. No significant valvular dysfunction. No RA, LA, or SCARLETT thrombus. Gastric and descending/transvers e aorta views not obtained due to patient intolerance and self-extubation. Left Ventricle Chamber size is normal. Normal wall thickness. Normal global wall motion. Regional wall motion is normal. Ejection fraction is normal (55 - 60%). Diastolic function not assessed. Right Ventricle Chamber size is normal. Normal wall thickness. Segmental wall motion is normal. Systolic function is normal. Left Atrium Chamber size is normal. Left atrial appendage appears normal. No left atrial appendage thrombus present. No spontaneous contrast is present in the appendage. Normal pulmonary vein connection present. Right Atrium Chamber size is normal. IVC/SVC The superior vena cava structure is normal. Mitral Valve Normal appearing leaflets. Leaflet mobility is normal. Trace regurgitation. No valve stenosis. Tricuspid Valve Normal leaflets. Leaflet mobility is normal. Trace regurgitation. No stenosis. Aortic Valve Trileaflet valve. Leaflet mobility is normal. No regurgitation. No stenosis. Pulmonic Valve Normal structure. No regurgitation. No stenosis. Pericardium No pericardial effusion. Septum The atrial septum is bowed right due to elevated left atrial pressure. A patent foramen ovale is present by color flow. A secundum septal defect is present by color flow. Pulmonary Artery The pulmonary artery is normal. Aorta No dilation to extent seen. Study Details The risks and alternatives of the procedure and conscious sedation were explained to the patient/family member and/or their power of contract attorney. Informed consent was obtained. All staff members involved in the procedure completed a timeout prior to the start of the procedure verifying correct patient identity and correct procedure to be performed. A complete transesophageal echocardiography study (including color flow Doppler, 3D and agitated saline contrast study) was performed. Overall study quality was good. Total time physician provided gicl-my-ozcy service beginning with the administration of sedation medications until the patient was sufficiently recovered after the procedure was 35 minutes. Contrast was not administered per physician discretion. Probe insertion was not difficult. Patient reaction to probe was well-tolerated. Indications for study: cardiac source of embolus. There were no complications. Wall Motion Score Index: 1.00 The left ventricular wall motion is normal. [facility] Radiology Study observation (narrative) [facility] ECHOCARDIOGRAM TRANSESOPHAGE AL (GILDARDO)Ordered By: Mark Hallman on 12-10-2021 Body surface area Derived from formula 2.2 m2 [facility] Work Phone: TR pk grad 26 mmHg [facility] Work Phone: TR pk arcadio 2.55 m/s [facility] Work Phone: [facility] Work Phone: EXTRA MICROon 12-10-2021 [facility] LAVENDER TOP TUBEon 12-11-19 [facility] MAGNESIUMon 12-10-2021 Magnesium [Mass/Vol] 2.1 mg/dL Normal 1.6-2.6 [facility] Comment on above: Performed By: #### AMY BETANCOURT CA, CHM7 #### [facility] (DEFAULT) [address] [place] [address] [phone] Magnesium [Mass/Vol] 2.1 mg/dL 1.6 - 2 .6 mg/dL [facility] No Panel Informationon 12-10 Interpretation and review of laboratory results Normal [facility] PHOSPHATE, INORGANICon 12-10 Phosphorous 3.4 mg/dL Normal 2.2-4.6 [facility] Comment on above: Performed By: #### AMY BETANCOURT CA, CHM7 #### [facility] (DEFAULT) [address] [place] [address] [phone] Phosphate [Mass/Vol] 3.4 mg/dL 2.2 - 4 .6 mg/dL [facility] PT,INR,PTTon 12-10-2021 aPTT Coag (Bld) [Time] 29.8 s Normal 24.0-34.3 [facility] Comment on above: Performed By: #### AMY BETANCOURT CA, CHM7 #### [facility] (DEFAULT) [address] [place] [address] [phone] INR Coag (PPP) [Relative time] 1.2 {INR} High 0.9-1.1 [facility] Comment on above: Performed By: #### AMY BETANCOURT CA, CHM7 #### [facility] (DEFAULT) [address] [place] [address] [phone] PT Coag (PPP) [Time] 14.5 s High 11.9-14.2 [facility] Comment on above: Performed By: #### AMY BETANCOURT CA, CHM7 #### [facility] (DEFAULT) [address] [place] [address] [phone] aPTT Coag (PPP) [Time] 29.8 s [facility] INR Coag (Bld) [Relative time] 1.2 {INR} High [facility] Interpretation and review of laboratory results Abnormal [facility] PT Coag (PPP) [Time] 14.5 s High [facility] ABORH TYPE RECONFIRMATIONon 12-09-2021 ABO/RH(D) TYPE Positive Normal [facility] Comment on above: Performed By: #### M AMY PATRICIO, CA, CHM7 #### [facility] (DEFAULT) [address] [place] [address] [phone] ABO/RH(D) TYPE Positive [facility] CALCIUMon 12-09-2021 Calcium [Mass/Vol] 8.6 mg/dL Normal 8.6-10.5 [facility] Comment on above: Performed By: #### M AMY PATRICIO, CA, CHM7 #### [facility] (DEFAULT) [address] [place] [address] 68113 Calcium [Mass/Vol] 8.6 mg/dL 8.6 - 10. 5 mg/dL [facility] CARDIAC RHYTHM (SCANNED)on 0 12-09-2021 [facility] CBC AND ELECTRONIC DIFFon Basophils (Bld) [#/Vol] 10*3/uL Normal 0.00-0.15 [facility] Comment on above: Performed By: #### M AMY PATRICIO, CA, CHM7 #### [facility] (DEFAULT) [address] [place] [address] 99923 Basophils/100 WBC (Bld) 0.1 % Normal [facility] Comment on above: Performed By: #### M AMY PATRICIO, CA, CHM7 #### [facility] (DEFAULT) [address] [place] [address] [phone] DIFF STATUS Electronic Differential Normal [facility] Comment on above: Performed By: #### AMY BETANCOURT, CA, CHM7 #### [facility] (DEFAULT) [address] [place] [address] [phone] Eosinophils (Bld) [#/Vol] 10*3/uL Normal 0.00-0.42 [facility] Comment on above: Performed By: #### AMY BETANCOURT, CA, CHM7 #### [facility] (DEFAULT) [address] [place] [address] 13674 Eosinophils/100 WBC (Bld) 0.1 % Normal [facility] Comment on above: Performed By: #### ELIZA BETANCOURTB, CA, CHM7 #### [facility] (DEFAULT) [address] [place] [address] [phone] Hematocrit (Bld) [Volume fraction] 40.2 % Normal 34.9-44.3 [facility] Comment on above: Performed By: #### AMY BETANCOURT, CA, CHM7 #### [facility] (DEFAULT) [address] [place] [address] 49132 Hemoglobin (Bld) [Mass/Vol] 13.9 g/dL Normal 11.4-15.2 [facility] Comment on above: Performed By: #### AMY BETANCOURT, ASHVIN, CHM7 #### [facility] (DEFAULT) [address] [place] [address] 69495 Immature Grans % 0.3 % Normal [facility] Comment on above: Performed By: #### AMY BETANCOURT, CA, CHM7 #### [facility] (DEFAULT) [address] [place] [address] 13183 Immature Grans Absolute <0.04 Normal <=0.08 [facility] Comment on above: Performed By: #### AMY BETANCOURT, CA, CHM7 #### [facility] (DEFAULT) [address] [place] [address] 31035 Lymphocytes (Bld) [#/Vol] 1.67 10*3/uL Normal 1.16-3.51 [facility] Comment on above: Performed By: #### ELIZA BETANCOURTB, CA, CHM7 #### [facility] (DEFAULT) [address] [place] [address] 54061 Lymphocytes/100 WBC (Bld) 21.0 % Normal [facility] Comment on above: Performed By: #### M SINTIA, IPB, CA, CHM7 #### U [facility] (DEFAULT) [address] [place] [address] 51433 MCV (RBC) [Entitic vol] 88.4 fL Normal 79.6-97.7 [facility] Comment on above: Performed By: #### M SINTIA, IPB, CA, CHM7 #### [facility] (DEFAULT) [address] [place] [address] 90152 Mean Cell Hgb 30.5 pg Normal 25.9-33.9 [facility] Comment on above: Performed By: #### Riana PATRICIO, IPB, CA, CHM7 #### [facility] (DEFAULT) [address] [place] [address] 12266 Mean Cell Hgb Conc 34.6 g/dL Normal 31.4-35.9 [facility] Comment on above: Performed By: #### Riana PATRICIO, ELIZAB, CA, CHM7 #### [facility] (DEFAULT) [address] [place] [address] 02742 Monocytes (Bld) [#/Vol] 0.32 10*3/uL Normal 0.22-0.87 [facility] Comment on above: Performed By: #### Riana PATRICIO, IPB, CA, CHM7 #### [facility] (DEFAULT) [address] [place] [address] 65995 Monocytes/100 WBC (Bld) 4.0 % Normal [facility] Comment on above: Performed By: #### Riana PATRICIO, IPB, CA, CHM7 #### [facility] (DEFAULT) [address] [place] [address] 44982 Nucleated RBC 0.0 /100 WBC Normal <=0.2 [facility] Comment on above: Performed By: #### M GO, IPB, CA, CHM7 #### U [facility] (DEFAULT) [address] [place] [address] 94305 Platelet mean volume (Bld) [Entitic vol] 11.8 fL Normal 8.5-12.2 [facility] Comment on above: Performed By: #### M GO, IPB, CA, CHM7 #### U [facility] (DEFAULT) [address] [place] [address] 24572 Platelets (Bld) [#/Vol] 171 10*3/uL Normal 150-393 [facility] Comment on above: Performed By: #### M GO, IPB, CA, CHM7 #### U [facility] (DEFAULT) [address] [place] [address] 90945 RBC (Bld) [#/Vol] 4.55 10*6/uL Normal 3.91-5.04 [facility] Comment on above: Performed By: #### M GO, IPB, CA, CHM7 #### [facility] (DEFAULT) [address] [place] [address] 40860 RBC Distribution 13.5 % Normal 10.8-14.9 [facility] Comment on above: Performed By: #### M GO, IPB, CA, CHM7 #### [facility] (DEFAULT) [address] [place] [address] 84018 Segs + Bands Auto 74.5 % Normal [facility] Comment on above: Performed By: #### M GO, IPB, CA, CHM7 #### U [facility] (DEFAULT) [address] [place] [address] 34994 Segs + Bands,Absolute Auto 5.93 K/uL Normal 1.64-7.28 [facility] Comment on above: Performed By: #### M GO, IPB, CA, CHM7 #### [facility] (DEFAULT) [address] [place] [address] 38999 WBC (Bld) [#/Vol] 7.96 10*3/uL Normal 3.99-11.19 [facility] Comment on above: Performed By: #### M SINTIA, IPSameera, CA, CHM7 #### [facility] (DEFAULT) [address] [place] [address] 12323 Basophils (Bld) [#/Vol] 10*3/uL 0.00 - 0.15 K/uL [facility] Basophils/100 WBC (Bld) 0.1 % [facility] Differential cell count method Nom (Bld) Electronic Differential [facility] Eosinophils (Bld) [#/Vol] 10*3/uL 0.00 - 0.42 K/uL [facility] Eosinophils/100 WBC (Bld) 0.1 % [facility] Erythrocyte distribution width (RBC) [Ratio] 13.5 % 10.8 - 14.9 % [facility] Hematocrit (Bld) [Volume fraction] 40.2 % 34.9 - 44.3 % [facility] Hemoglobin (Bld) [Mass/Vol] 13.9 g/dL 11.4 - 15.2 g/dL [facility] Immature granulocytes (Bld) [#/Vol] 10*3/uL <=0.08 K/uL [facility] Immature granulocytes/100 WBC (Bld) 0.3 % [facility] Lymphocytes (Bld) [#/Vol] 1.67 10*3/uL 1.16 - 3.51 K/uL [facility] Lymphocytes/100 WBC (Bld) 21.0 % [facility] MCH (RBC) [Entitic mass] 30.5 pg 25.9 - 33.9 pg [facility] MCHC (RBC) [Mass/Vol] 34.6 g/dL 31.4 - 35.9 g/dL [facility] MCV (RBC) [Entitic vol] 88.4 fL 79.6 - 97.7 fL [facility] Monocytes (Bld) [#/Vol] 0.32 10*3/uL 0.22 - 0.87 K/uL [facility] Monocytes/100 WBC (Bld) 4.0 % [facility] Neutrophils (Bld) [#/Vol] 5.93 10*3/uL 1.64 - 7.28 K/uL [facility] Nucleated RBC/100 WBC (Bld) [Ratio] 0.0 % <=0.2 /100 WBC [facility] Platelet mean volume (Bld) [Entitic vol] 11.8 fL 8.5 - 12.2 fL [facility] Platelets (Bld) [#/Vol] 171 10*3/uL 150 - 393 K/uL [facility] RBC (Bld) [#/Vol] 4.55 10*6/uL [facility] Segmented neutrophils/100 WBC (Bld) 74.5 % [facility] WBC (Bld) [#/Vol] 7.96 10*3/uL 3.99 - 11. 19 K/uL [facility] CHEM 7 (LYTES,BUN,CREA,GLUC) on 12-09-2021 Anion gap [Moles/Vol] 11 mmol/L Normal 7-17 [facility] Comment on above: Performed By: #### M AMY PATRICIO, CA, CHM7 #### [facility] (DEFAULT) [address] [place] [address] Chloride [Moles/Vol] 108 mmol/L Normal 98-108 [facility] Comment on above: Performed By: #### AMY BETANCOURT, CA, CHM7 #### [facility] (DEFAULT) [address] [place] [address] CO2 [Moles/Vol] 24 mmol/L Normal 21-31 [facility] Comment on above: Performed By: #### AMY BETANCOURT, CA, CHM7 #### [facility] (DEFAULT) [address] [place] [address] Creatinine [Mass/Vol] 0.79 mg/dL Normal 0.50-1.20 [facility] Comment on above: Performed By: #### AMY BETANCOURT, CA, CHM7 #### U [facility] (DEFAULT) [address] [place] [address] [phone] GFR/1.73 sq M.predicted among non-blacks MDRD (S/P/Bld) [Vol rate/Area] 82 mL/min/{1.73_m2} Normal >=60 [facility] Comment on above: Result Comment: Repo rted eGFR is based on the CKD-EPI 2020 equation using creatinine, age, and sex. Performed By: #### AMY BETANCOURT, CA, CHM7 #### [facility] (DEFAULT) [address] [place] [address] 64163 Glucose [Mass/Vol] 111 mg/dL High 70-99 [facility] Comment on above: Performed By: #### AMY BETANCOURT, CA, CHM7 #### [facility] (DEFAULT) [address] [place] [address] 65055 Osmolality [Osmolality] 290 mosm/kg Normal 278-305 [facility] Comment on above: Performed By: #### AMY BETANCOURT, CA, CHM7 #### [facility] (DEFAULT) [address] [place] [address] 19167 Potassium [Moles/Vol] 3.9 mmol/L Normal 3.5-5.0 [facility] Comment on above: Performed By: #### ELIZA BETANCOURTB, CA, CHM7 #### [facility] (DEFAULT) [address] [place] [address] 50203 Sodium [Moles/Vol] 139 mmol/L Normal 135-145 [facility] Comment on above: Performed By: #### ELIZA BETANCOURTB, CA, CHM7 #### [facility] (DEFAULT) [address] [place] [address] 28758 Urea nitrogen [Mass/Vol] 9 mg/dL Normal 7-25 [facility] Comment on above: Performed By: #### ELIZA BETANCOURTB, ASHVIN, JENNIFERM7 #### [facility] (DEFAULT) [address] [place] [address] Urea nitrogen/Creatinine [Mass ratio] 11 mg/mg Normal [facility] Comment on above: Performed By: #### M AMY PATRICIO, ASHVIN, PAKO7 #### [facility] (DEFAULT) [address] [place] [address] Anion gap [Moles/Vol] 11 mmol/L 7 - 17 mmol/L [facility] Chloride [Moles/Vol] 108 mmol/L 98 - 10 8 mmol/L [facility] CO2 [Moles/Vol] 24 mmol/L 21 - 31 mmol/L [facility] Creatinine [Mass/Vol] 0.79 mg/dL 0.50 - 1.20 mg/dL [facility] GFR/1.73 sq M.predicted CKD-EPI (S/P/Bld) [Vol rate/Area] 82 >=60 mL/min/1.73m2 [facility] Comment on above: Reported eGFR is bas ed on the CKD-EPI 2020 equation using creatinine, age, and sex. Glucose [Mass/Vol] 111 mg/dL High 70 - 99 mg/dL [facility] Interpretation and review of laboratory results Abnormal [facility] Osmolality Calc [Osmolality] 290 [facility] Potassium [Moles/Vol] 3.9 mmol/L 3.5 - 5.0 mmol/L [facility] Sodium [Moles/Vol] 139 mmol/L 135 - 145 mmol/L [facility] Urea nitrogen [Mass/Vol] 9 mg/dL 7 - 25 mg/dL [facility] Urea nitrogen/Creatinine [Mass ratio] 11 mg/mg [facility] CT ANGIO BRAIN/NECKon 2021 CT ANGIO BRAIN/NECK EXAM: CT ANGIO BRAIN/NECK, 12/08/2021 21:29 PM COMPARISON: No previous study is available for comparison. CLINICAL INDICATIONS: 65 years Female Suspected Stroke; TECHNIQUE: A series of transaxial multislice computerized tomographic images are obtained with helical technique from top of aortic arch to vertex following bolus intravenous administration of nonionic contrast. Axial thin section source images, as well as sagittal and coronal thin section reformats, were provided at the scanner. Additional multiplanar and 3D reconstructions were provided. CONTRAST: Iopamidol (370 mg/mL) (ISOVUE) 76 % 1-162 mL; Route of Administration: Intravenous; Dose: 75 mL. FINDINGS: CTA NECK: Aortic Arch: There is conventional origin of the great vessels from the aortic arch, without origin stenosis. Carotid Arteries: The bilateral common, internal, and external carotid arteries are normal in caliber, without evidence of dissection or pseudoaneurysm. No significant stenosis at the carotid bifurcations bilaterally. Tortuous course of the bilateral common carotid arteries bilaterally. Vertebral Arteries: Cervical segments of both vertebral arteries are patent with no significant narrowing. No evidence of dissection and/or pseudoaneurysm. CTA INTRACRANIAL: Intrarenal segments of the internal carotid arteries are patent. No significant stenosis. No major anatomical variations at [place]. 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 Intracranial vertebral arteries are patent. Basilar artery is unremarkable. 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 No evidence of active extravasation within these hyperattenuating focus. Small amount of contrast near the base of the suspected aneurysm (series 7 image 159). The expected continuing vessel is not opacified with contrast and may be the source of the patient's infarct. This vessel appears to originate near the M1 M2 junction. Nonvascular findings: Hazy groundglass densities noted bilaterally. Multinodular appearance of the thyroid gland with largest nodule within the left thyroid lobe measuring 1.6 x 1.3 cm (image 38 series 5) IMPRESSION: 1. 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 2. 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 No CTA spot sign within this thrombosed aneurysm; minimal contrast near the base of the suspected aneurysm could reflect blood flow near the aneurysm neck. No flow distal to this 3. No large vessel occlusion or significant stenosis involving the major arterial vasculature head and neck. 4. Multinodular appearance of the thyroid gland with largest nodule within the left thyroid lobe. Recommend nonemergent thyroid ultrasound when clinically feasible. 5. Hazy bilateral groundglass densities, may relate to aspiration or a developing infectious/inflammat ory etiology. Findings were discussed with Dr. Lilliam Parson on 12/08/2021 9:50 PM. I personally viewed and interpreted these images and I have reviewed and approved this report. [facility] IMPRESSION: 1. 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 2. 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 No CTA spot sign within this thrombosed aneurysm; minimal contrast near the base of the suspected aneurysm could reflect blood flow near the aneurysm neck. No flow distal to this 3. No large vessel occlusion or significant stenosis involving the major arterial vasculature head and neck. 4. Multinodular appearance of the thyroid gland with largest nodule within the left thyroid lobe. Recommend nonemergent thyroid ultrasound when clinically feasible. 5. Hazy bilateral groundglass densities, may relate to aspiration or a developing infectious/inflammat ory etiology. Findings were discussed with Dr. Lilliam Parson on 12/08/2021 9:50 PM. I personally viewed and interpreted these images and I have reviewed and approved this report. OLOGY EXAM: CT ANGIO BRAIN/NECK, 12/08/2021 21:29 PM COMPARISON: No previous study is available for comparison. CLINICAL INDICATIONS: 65 years Female Suspected Stroke; TECHNIQUE: A series of transaxial multislice computerized tomographic images are obtained with helical technique from top of aortic arch to vertex following bolus intravenous administration of nonionic contrast. Axial thin section source images, as well as sagittal and coronal thin section reformats, were provided at the scanner. Additional multiplanar and 3D reconstructions were provided. CONTRAST: Iopamidol (370 mg/mL) (ISOVUE) 76 % 1-162 mL; Route of Administration: Intravenous; Dose: 75 mL. FINDINGS: CTA NECK: Aortic Arch: There is conventional origin of the great vessels from the aortic arch, without origin stenosis. Carotid Arteries: The bilateral common, internal, and external carotid arteries are normal in caliber, without evidence of dissection or pseudoaneurysm. No significant stenosis at the carotid bifurcations bilaterally. Tortuous course of the bilateral common carotid arteries bilaterally. Vertebral Arteries: Cervical segments of both vertebral arteries are patent with no significant narrowing. No evidence of dissection and/or pseudoaneurysm. CTA INTRACRANIAL: Intrarenal segments of the internal carotid arteries are patent. No significant stenosis. No major anatomical variations at [place]. 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 Intracranial vertebral arteries are patent. Basilar artery is unremarkable. 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 No evidence of active extravasation within these hyperattenuating focus. Small amount of contrast near the base of the suspected aneurysm (series 7 image 159). The expected continuing vessel is not opacified with contrast and may be the source of the patient's infarct. This vessel appears to originate near the M1 M2 junction. Nonvascular findings: Hazy groundglass densities noted bilaterally. Multinodular appearance of the thyroid gland with largest nodule within the left thyroid lobe measuring 1.6 x 1.3 cm (image 38 series 5) RADIOLOGY Ronald Gramajo MD - 12/09/2021 EXAM: CT ANGIO BRAIN/NECK, 12/08/2021 21:29 PM COMPARISON: No previous study is available for comparison. CLINICAL INDICATIONS: 65 years Female Suspected Stroke; TECHNIQUE: A series of transaxial multislice computerized tomographic images are obtained with helical technique from top of aortic arch to vertex following bolus intravenous administration of nonionic contrast. Axial thin section source images, as well as sagittal and coronal thin section reformats, were provided at the scanner. Additional multiplanar and 3D reconstructions were provided. CONTRAST: Iopamidol (370 mg/mL) (ISOVUE) 76 % 1-162 mL; Route of Administration: Intravenous; Dose: 75 mL. FINDINGS: CTA NECK: Aortic Arch: There is conventional origin of the great vessels from the aortic arch, without origin stenosis. Carotid Arteries: The bilateral common, internal, and external carotid arteries are normal in caliber, without evidence of dissection or pseudoaneurysm. No significant stenosis at the carotid bifurcations bilaterally. Tortuous course of the bilateral common carotid arteries bilaterally. Vertebral Arteries: Cervical segments of both vertebral arteries are patent with no significant narrowing. No evidence of dissection and/or pseudoaneurysm. CTA INTRACRANIAL: Intrarenal segments of the internal carotid arteries are patent. No significant stenosis. No major anatomical variations at [place]. 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 Intracranial vertebral arteries are patent. Basilar artery is unremarkable. 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 No evidence of active extravasation within these hyperattenuating focus. Small amount of contrast near the base of the suspected aneurysm (series 7 image 159). The expected continuing vessel is not opacified with contrast and may be the source of the patient's infarct. This vessel appears to originate near the M1 M2 junction. Nonvascular findings: Hazy groundglass densities noted bilaterally. Multinodular appearance of the thyroid gland with largest nodule within the left thyroid lobe measuring 1.6 x 1.3 cm (image 38 series 5) IMPRESSION IMPRESSION: 1. 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 2. 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 No CTA spot sign within this thrombosed aneurysm; minimal contrast near the base of the suspected aneurysm could reflect blood flow near the aneurysm neck. No flow distal to this 3. No large vessel occlusion or significant stenosis involving the major arterial vasculature head and neck. 4. Multinodular appearance of the thyroid gland with largest nodule within the left thyroid lobe. Recommend nonemergent thyroid ultrasound when clinically feasible. 5. Hazy bilateral groundglass densities, may relate to aspiration or a developing infectious/inflammat ory etiology. Findings were discussed with Dr. Lilliam Parson on 12/08/2021 9:50 PM. I personally viewed and interpreted these images and I have reviewed and approved this report. [facility] CT HEAD WITHOUT CONTRASTon 0 12-09-2021 CT HEAD WITHOUT CONTRAST EXAM: CT HEAD WITHOUT CONTRAST, 12/09/2021 4:30 AM COMPARISON: CT head without contrast December 08, 2021 CLINICAL INDICATIONS: 65 years Female Parenchymal hemorrhage, follow-up; TECHNIQUE: A series of transaxial computerized tomographic images are obtained from base of skull to vertex without intravenous contrast. Axial whole-head and thin section posterior fossa slices are provided. Reformats: Sagittal and coronal. FINDINGS: Stable area of hypodensity involving the inferior left temporal lobe with loss of castelan-white differentiation. Stable localized mass effect with sulcal effacement. No midline shift. At the medial aspect of this area of hypodensity adjacent to the left anterior clinoid process there is a stable rounded focus of hyperdensity. Ventricles are normal in size and configuration for patient's stated age. Posterior fossa is within normal limits. Calvarium and skull base appear intact. Visualized sinuses show no air fluid levels. Visualized orbits are unremarkable. IMPRESSION: 1. Stable area of hypodensity in the inferior left temporal lobe favored to represent a subacute infarct. 2. 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 I personally viewed and interpreted these images and I have reviewed and approved this report. Normal [facility] CT Head WO contraston 2021 IMPRESSION: 1. Stable area of hypodensity in the inferior left temporal lobe favored to represent a subacute infarct. 2. 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 I personally viewed and interpreted these images and I have reviewed and approved this report. OLOGY EXAM: CT HEAD WITHOUT CONTRAST, 12/09/2021 4:30 AM COMPARISON: CT head without contrast December 08, 2021 CLINICAL INDICATIONS: 65 years Female Parenchymal hemorrhage, follow-up; TECHNIQUE: A series of transaxial computerized tomographic images are obtained from base of skull to vertex without intravenous contrast. Axial whole-head and thin section posterior fossa slices are provided. Reformats: Sagittal and coronal. FINDINGS: Stable area of hypodensity involving the inferior left temporal lobe with loss of castelan-white differentiation. Stable localized mass effect with sulcal effacement. No midline shift. At the medial aspect of this area of hypodensity adjacent to the left anterior clinoid process there is a stable rounded focus of hyperdensity. Ventricles are normal in size and configuration for patient's stated age. Posterior fossa is within normal limits. Calvarium and skull base appear intact. Visualized sinuses show no air fluid levels. Visualized orbits are unremarkable. RADIOLOGY Sadiq Chauhan MD - 12/09/2021 EXAM: CT HEAD WITHOUT CONTRAST, 12/09/2021 4:30 AM COMPARISON: CT head without contrast December 08, 2021 CLINICAL INDICATIONS: 65 years Female Parenchymal hemorrhage, follow-up; TECHNIQUE: A series of transaxial computerized tomographic images are obtained from base of skull to vertex without intravenous contrast. Axial whole-head and thin section posterior fossa slices are provided. Reformats: Sagittal and coronal. FINDINGS: Stable area of hypodensity involving the inferior left temporal lobe with loss of castelan-white differentiation. Stable localized mass effect with sulcal effacement. No midline shift. At the medial aspect of this area of hypodensity adjacent to the left anterior clinoid process there is a stable rounded focus of hyperdensity. Ventricles are normal in size and configuration for patient's stated age. Posterior fossa is within normal limits. Calvarium and skull base appear intact. Visualized sinuses show no air fluid levels. Visualized orbits are unremarkable. IMPRESSION IMPRESSION: 1. Stable area of hypodensity in the inferior left temporal lobe favored to represent a subacute infarct. 2. 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 I personally viewed and interpreted these images and I have reviewed and approved this report. [facility] Radiology Study observation (narrative) [facility] CT Head WO contrastOrdered B y: Sadiq Chauhan on 12-09-2021 [facility] Work Phone: HEMOGLOBIN [id number] By: Barbara Vaughn on 12-09-2021 Average glucose Estimated from glycated hemoglobin (Bld) [Mass/Vol] 111 mg/dL [facility] HbA1c (Bld) [Mass fraction] 5.5 % 4.7 - 5.6 % [facility] LIPID PANEL WITH REFLEX TO Riana LLANES LDLon 12-09-2021 Cholesterol [Mass/Vol] 180 mg/dL <200 [facility] Comment on above: [<200 mg/dL: Desirab le] [200-239 mg/dL: Borderline High] [>239 mg/dL: High] Cholesterol in HDL [Mass/Vol] 51 mg/dL >=40 [facility] Comment on above: [<40 mg/dL: Low (Hig h Risk)] [>59 mg/dL: High (Low Risk)] Cholesterol in HDL [Mass/Vol] 129 mg/dL <130 [facility] Cholesterol in LDL [Mass/Vol] 107 mg/dL High 0 - 99 mg/dL [facility] Comment on above: [<100 mg/dL: Optimal ] [100-129 mg/dL: Near Optimal] [130-159 mg/dL: Borderline High] [160-189 mg/dL: High] [>189 mg/dL: Very High] Cholesterol.total/Alejandra sterol in HDL [Mass ratio] 3.5 {ratio} <4.5 [facility] Interpretation and review of laboratory results Abnormal [facility] Triglyceride [Mass/Vol] 109 mg/dL <[address] [facility] Comment on above: [<150 mg/dL: Desirab le] [150-199 mg/dL: Borderline] [200-499 mg/dL: High] [>500 mg/dL: Very High] LT BLUE TOP TUBEon 2 [facility] MAGNESIUMon 12-09-2021 Magnesium [Mass/Vol] 1.8 mg/dL Normal 1.6-2.6 [facility] Comment on above: Performed By: #### M AMY PATRICIO, ASHVIN, CHM7 #### [facility] (DEFAULT) [address] [place] [id number] Magnesium [Mass/Vol] 1.8 mg/dL 1.6 - 2 .6 mg/dL [facility] No Panel Informationon 12-09 Interpretation and review of laboratory results Normal [facility] PHOSPHATE, INORGANICon 12-09 Phosphorous 3.8 mg/dL Normal 2.2-4.6 [facility] Comment on above: Performed By: #### M AMY PATRICIO, ASHVIN, CHM7 #### [facility] (DEFAULT) [address] [place] [address] Phosphate [Mass/Vol] 3.8 mg/dL 2.2 - 4 .6 mg/dL [facility] PT,INR,PTTon 12-09-2021 aPTT Coag (Bld) [Time] 28.5 s Normal 24.0-34.3 [facility] Comment on above: Performed By: #### P TPTT #### [facility] (DEFAULT) [address] [place] [id number] INR Coag (PPP) [Relative time] 1.2 {INR} High 0.9-1.1 [facility] Comment on above: Performed By: #### P TPTT #### [facility] (DEFAULT) [address] [place] [phone] PT Coag (PPP) [Time] 14.6 s High 11.9-14.2 [facility] Comment on above: Performed By: #### P TPTT #### [facility] (DEFAULT) [address] [place] [id number] aPTT Coag (PPP) [Time] 28.5 s [facility] INR Coag (Bld) [Relative time] 1.2 {INR} High [facility] Interpretation and review of laboratory results Abnormal [facility] PT Coag (PPP) [Time] 14.6 s High [facility] TYPE AND SCREENon 12-09-2021 ABO/RH(D) TYPE Positive Normal [facility] Comment on above: Performed By: #### M GO, IPB, CA, CHM7 #### [facility] (DEFAULT) [address] [place] [phone] Absolute lymphocyte counton 12-08-2021 Lymphocytes Auto (Unsp spec) [#/Vol] 2.15 10*3/uL 0.83-4.51 [facility] Work Phone: Basophil percentageon 2021 Basophil percentage 0-5 SEEN /hpf 0-5 [facility] Work Phone: Basophils/100 WBC (Bld) 0.3 % 0-[address] [facility] Work Phone: Bilirubin [Mass/Vol] 0.40 mg/dL 0.20-1.00 [facility] Work Phone: Comment on above: For patients on eltr ombopag therapy, use of Dimension [place] TBIL is not recommended. Chloride [Moles/Vol] 108 mmol/L 98-107 [facility] Work Phone: Eosinophils/100 WBC (Bld) 1.2 % 0-5 [facility] Work Phone: Glucose [Mass/Vol] 96 mg/dL 74-106 [facility] Work Phone: Neutrophils (Bld) [#/Vol] 4.2 10*3/uL 2.0-7.7 [facility] Work Phone: Neutrophils/100 WBC (Bld) 61.6 % 47-70 [facility] Work Phone: Potassium [Moles/Vol] 3.7 mmol/L 3.5-5.1 [facility] Work Phone: Protein [Mass/Vol] 7.4 g/dL 6.4-8.2 [facility] Work Phone: Sodium [Moles/Vol] 141 mmol/L 136-145 [facility] Work Phone: WBC (Bld) [#/Vol] 6.8 10*3/uL 4.4-11.0 [facility] Work Phone: Bilirubin Test strip Ql (U)o n 12-08-2021 Bilirubin Ql (U) Negative Negative [facility] Work Phone: Blood erythrocytes count (nu mber/volume)on 12-08-2021 RBC (Bld) [#/Vol] 4.93 10*6/uL 4.2-5.4 [facility] Work Phone: Blood hemoglobin measurement (mass/volume)on 12-08-2021 Hemoglobin (Bld) [Mass/Vol] 14.7 g/dL 12.0-15.0 [facility] Work Phone: Blood lymphocytes/100 leukoc yteson 12-08-2021 Lymphocytes/100 WBC (Bld) 31.5 % 19-41 [facility] Work Phone: Blood monocytes/100 leukocyt eson 12-08-2021 Monocytes/100 WBC (Bld) 5.3 % 0-[address] [facility] Work Phone: Blood platelet mean volumeon 12-08-2021 Platelet mean volume (Bld) [Entitic vol] 11.8 fL 6.2-12.0 [facility] Work Phone: CALCIUMon 12-08-2021 Calcium [Mass/Vol] 8.2 mg/dL Low 8.6-10.5 [facility] Comment on above: Performed By: #### H FP, C7ED, CA, IPB, MGO #### [facility] (DEFAULT) [address] [place] [address] Calcium [Mass/Vol] 8.2 mg/dL Low 8.6 - 10. 5 mg/dL [facility] CBC AND ELECTRONIC DIFFon Basophils (Bld) [#/Vol] 10*3/uL Normal 0.00-0.15 [facility] Comment on above: Performed By: #### M SINTIA, IPB, CA, CHM7 #### [facility] (DEFAULT) [address] [place] [address] [id number] Basophils/100 WBC (Bld) 0.2 % Normal [facility] Comment on above: Performed By: #### Riana PATRICIO, IPB, CA, CHM7 #### [facility] (DEFAULT) [address] [place] [phone] DIFF STATUS Electronic Differential Normal [facility] Comment on above: Performed By: #### Riana PATRICIO, IPB, CA, CHM7 #### [facility] (DEFAULT) [address] [place] [phone] Eosinophils (Bld) [#/Vol] 0.06 10*3/uL Normal 0.00-0.42 [facility] Comment on above: Performed By: #### M SINTIA, IPB, CA, CHM7 #### [facility] (DEFAULT) [address] [place] [address] [phone] Eosinophils/100 WBC (Bld) 1.0 % Normal [facility] Comment on above: Performed By: #### M GO, IPB, CA, CHM7 #### [facility] (DEFAULT) [address] [place] [phone] Hematocrit (Bld) [Volume fraction] 39.5 % Normal 34.9-44.3 [facility] Comment on above: Performed By: #### M GO, IPB, CA, CHM7 #### [facility] (DEFAULT) [address] [place] [phone] Hemoglobin (Bld) [Mass/Vol] 13.2 g/dL Normal 11.4-15.2 [facility] Comment on above: Performed By: #### M GO, IPB, CA, CHM7 #### [facility] (DEFAULT) [address] [address] Immature Grans % 0.2 % Normal [facility] Comment on above: Performed By: #### M GO, IPB, CA, CHM7 #### [facility] (DEFAULT) [address] [phone] Immature Grans Absolute <0.04 Normal <=0.08 [facility] Comment on above: Performed By: #### M GO, IPB, CA, CHM7 #### [facility] (DEFAULT) [address] [address] Lymphocytes (Bld) [#/Vol] 1.89 10*3/uL Normal 1.16-3.51 [facility] Comment on above: Performed By: #### M GO, IPB, CA, CHM7 #### [facility] (DEFAULT) [address] [address] Lymphocytes/100 WBC (Bld) 30.5 % Normal [facility] Comment on above: Performed By: #### M GO, IPB, CA, CHM7 #### [facility] (DEFAULT) [address] [address] MCV (RBC) [Entitic vol] 89.2 fL Normal 79.6-97.7 [facility] Comment on above: Performed By: #### M GO, IPB, CA, CHM7 #### [facility] (DEFAULT) [address] [address] Mean Cell Hgb 29.8 pg Normal 25.9-33.9 [facility] Comment on above: Performed By: #### M GO, IPB, CA, CHM7 #### U [facility] (DEFAULT) [address] [place] [address] Mean Cell Hgb Conc 33.4 g/dL Normal 31.4-35.9 [facility] Comment on above: Performed By: #### M SINTIA, IPB, CA, CHM7 #### U [facility] (DEFAULT) [address] [place] [address] Monocytes (Bld) [#/Vol] 0.32 10*3/uL Normal 0.22-0.87 [facility] Comment on above: Performed By: #### Riana PATRICIO, IPB, CA, CHM7 #### [facility] (DEFAULT) [address] [place] [address] 79507 Monocytes/100 WBC (Bld) 5.2 % Normal [facility] Comment on above: Performed By: #### Riana PATRICIO, IPB, CA, CHM7 #### U [facility] (DEFAULT) [address] [place] [address]91 Nucleated RBC 0.0 /100 WBC Normal <=0.2 [facility] Comment on above: Performed By: #### Riana PATRICIO, IPB, CA, CHM7 #### U [facility] (DEFAULT) [address] [place] [address] 57513 Platelet mean volume (Bld) [Entitic vol] 11.9 fL Normal 8.5-12.2 [facility] Comment on above: Performed By: #### M SINTIA, IPB, CA, CHM7 #### U [facility] (DEFAULT) [address] [place] [address]35 Platelets (Bld) [#/Vol] 158 10*3/uL Normal 150-393 [facility] Comment on above: Performed By: #### Riana PATRICIO, IPB, CA, CHM7 #### [facility] (DEFAULT) [address] [place] [address] 7[address] RBC (Bld) [#/Vol] 4.43 10*6/uL Normal 3.91-5.04 [facility] Comment on above: Performed By: #### M SINTIA, IPB, CA, CHM7 #### [facility] (DEFAULT) [address] [place] [address] 28087 RBC Distribution 13.4 % Normal 10.8-14.9 [facility] Comment on above: Performed By: #### M AMY PATRICIO, CA, CHM7 #### [facility] (DEFAULT) [address] [place] [address]345 Segs + Bands Auto 62.9 % Normal [facility] Comment on above: Performed By: #### M SINTIA, IPB, CA, CHM7 #### [facility] (DEFAULT) [address] [place] [address] 8[address] Segs + Bands,Absolute Auto 3.91 K/uL Normal 1.64-7.28 [facility] Comment on above: Performed By: #### AMY BETANCOURT, CA, CHM7 #### [facility] (DEFAULT) [address] [place] [address] 16525 WBC (Bld) [#/Vol] 6.20 10*3/uL Normal 3.99-11.19 [facility] Comment on above: Performed By: #### M AMY PATRICIO, CA, CHM7 #### [facility] (DEFAULT) [address] [place] [address]402 Basophils (Bld) [#/Vol] 10*3/uL 0.00 - 0.15 K/uL [facility] Basophils/100 WBC (Bld) 0.2 % [facility] Differential cell count method Nom (Bld) Electronic Differential [facility] Eosinophils (Bld) [#/Vol] 0.06 10*3/uL 0.00 - 0.42 K/uL [facility] Eosinophils/100 WBC (Bld) 1.0 % [facility] Erythrocyte distribution width (RBC) [Ratio] 13.4 % 10.8 - 14.9 % [facility] Hematocrit (Bld) [Volume fraction] 39.5 % 34.9 - 44.3 % [facility] Hemoglobin (Bld) [Mass/Vol] 13.2 g/dL 11.4 - 15.2 g/dL [facility] Immature granulocytes (Bld) [#/Vol] 10*3/uL <=0.08 K/uL [facility] Immature granulocytes/100 WBC (Bld) 0.2 % [facility] Lymphocytes (Bld) [#/Vol] 1.89 10*3/uL 1.16 - 3.51 K/uL [facility] Lymphocytes/100 WBC (Bld) 30.5 % [facility] MCH (RBC) [Entitic mass] 29.8 pg 25.9 - 33.9 pg [facility] MCHC (RBC) [Mass/Vol] 33.4 g/dL 31.4 - 35.9 g/dL [facility] MCV (RBC) [Entitic vol] 89.2 fL 79.6 - 97.7 fL [facility] Monocytes (Bld) [#/Vol] 0.32 10*3/uL 0.22 - 0.87 K/uL [facility] Monocytes/100 WBC (Bld) 5.2 % [facility] Neutrophils (Bld) [#/Vol] 3.91 10*3/uL 1.64 - 7.28 K/uL [facility] Nucleated RBC/100 WBC (Bld) [Ratio] 0.0 % <=0.2 /100 WBC [facility] Platelet mean volume (Bld) [Entitic vol] 11.9 fL 8.5 - 12.2 fL [facility] Platelets (Bld) [#/Vol] 158 10*3/uL 150 - 393 K/uL [facility] RBC (Bld) [#/Vol] 4.43 10*6/uL [facility] Segmented neutrophils/100 WBC (Bld) 62.9 % [facility] WBC (Bld) [#/Vol] 6.20 10*3/uL 3.99 - 11. 19 K/uL [facility] CHM 7 - EDon 12-08-2021 Anion gap [Moles/Vol] 14 mmol/L Normal 7-17 [facility] Comment on above: Performed By: #### H FP, C7ED, CA, IPB, MGO #### U [facility] (DEFAULT) [address] [place] [address] Chloride [Moles/Vol] 106 mmol/L Normal 98-108 [facility] Comment on above: Performed By: #### H FP, C7ED, CA, IPB, MGO #### [facility] (DEFAULT) [address] [place] [address] CO2 [Moles/Vol] 22 mmol/L Normal 21-31 [facility] Comment on above: Performed By: #### H FP, C7ED, CA, IPB, MGO #### [facility] (DEFAULT) [address] [place] [address] Creatinine [Mass/Vol] 0.78 mg/dL Normal 0.50-1.20 [facility] Comment on above: Performed By: #### H FP, C7ED, CA, IPB, MGO #### [facility] (DEFAULT) [address] [place] [address] GFR/1.73 sq M.predicted among non-blacks MDRD (S/P/Bld) [Vol rate/Area] 83 mL/min/{1.73_m2} Normal >=60 [facility] Comment on above: Result Comment: Repo rted eGFR is based on the CKD-EPI 2020 equation using creatinine, age, and sex. Performed By: #### H FP, C7ED, CA, IPB, MGO #### [facility] (DEFAULT) [address] [place] [address] Glucose [Mass/Vol] 126 mg/dL High 70-99 [facility] Comment on above: Performed By: #### H FP, C7ED, CA, IPB, MGO #### U [facility] (DEFAULT) [address] [place] [address]9999 Osmolality [Osmolality] 289 mosm/kg Normal 278-305 [facility] Comment on above: Performed By: #### H FP, C7ED, CA, IPB, MGO #### [facility] (DEFAULT) [address] [place] [address] Potassium [Moles/Vol] 3.6 mmol/L Normal 3.5-5.0 [facility] Comment on above: Performed By: #### H FP, C7ED, CA, IPB, MGO #### [facility] (DEFAULT) [address] [place] [address]60 Sodium [Moles/Vol] 138 mmol/L Normal 135-145 [facility] Comment on above: Performed By: #### H FP, C7ED, CA, IPB, MGO #### [facility] (DEFAULT) [address] [place] [address] 56566 Urea nitrogen [Mass/Vol] 10 mg/dL Normal 7-25 [facility] Comment on above: Performed By: #### H FP, C7ED, CA, IPB, MGO #### [facility] (DEFAULT) [address] [place] [address] Urea nitrogen/Creatinine [Mass ratio] 13 mg/mg Normal [facility] Comment on above: Performed By: #### H FP, C7ED, CA, IPB, MGO #### [facility] (DEFAULT) [address] [place] [address] Anion gap [Moles/Vol] 14 mmol/L 7 - 17 mmol/L [facility] Chloride [Moles/Vol] 106 mmol/L 98 - 10 8 mmol/L [place] CO2 [Moles/Vol] 22 mmol/L 21 - 31 mmol/L [facility] Creatinine [Mass/Vol] 0.78 mg/dL 0.50 - 1.20 mg/dL [facility] GFR/1.73 sq M.predicted CKD-EPI (S/P/Bld) [Vol rate/Area] 83 >=60 mL/min/1.73m2 [facility] Comment on above: Reported eGFR is bas ed on the CKD-EPI 2020 equation using creatinine, age, and sex. Glucose [Mass/Vol] 126 mg/dL High 70 - 99 mg/dL [facility] Osmolality Calc [Osmolality] 289 [facility] Potassium [Moles/Vol] 3.6 mmol/L 3.5 - 5.0 mmol/L [facility] Sodium [Moles/Vol] 138 mmol/L 135 - 145 mmol/L [facility] Urea nitrogen [Mass/Vol] 10 mg/dL 7 - 25 mg/dL [facility] Urea nitrogen/Creatinine [Mass ratio] 13 mg/[place] ANGIO BRAIN/NECKon 2021 Radiology Study observation (narrative) [facility] CT Head limitedon 12-08-2021 IMPRESSION: 1. 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 No evidence of hemorrhagic transformation or significant mass effect. 2. 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 Findings were discussed with Dr. Lilliam Parson on 12/08/2021 9:41 PM. I personally viewed and interpreted these images and I have reviewed and approved this report. OLOGY EXAM: CT STROKE HEAD-STROKE ALERT ONLY, 12/08/2021 9:29 PM COMPARISON: None. CLINICAL INDICATIONS: 65 years Female Suspected Stroke; TECHNIQUE: A series of transaxial computerized tomographic images are obtained from base of skull to vertex without intravenous contrast. Axial whole-head and thin section posterior fossa slices are provided. Reformats: Sagittal and coronal. FINDINGS: Area of hypoattenuation within the left inferior frontal lobe with loss of castelan-white differentiation. No evidence of hemorrhagic transformation. Associated local mass effect with sulcal effacement. No significant mass effect or midline shift. Hyperattenuating focus measuring 1.2 x 1.1 cm adjacent to the left anterior clinoid process. Scattered patchy hypodensities in the periventricular and subcortical white matter compatible with sequelae of chronic microvascular disease. Ventricles are normal in size and configuration for patient's stated age. Posterior fossa structures appear grossly unremarkable. Calvarium and skull base appear intact. No air-fluid levels. Mastoid air cells are clear. Visualized orbits are unremarkable. RADIOLOGY Ronald Gramajo MD - 12/08/2021 EXAM: CT STROKE HEAD-STROKE ALERT ONLY, 12/08/2021 9:29 PM COMPARISON: None. CLINICAL INDICATIONS: 65 years Female Suspected Stroke; TECHNIQUE: A series of transaxial computerized tomographic images are obtained from base of skull to vertex without intravenous contrast. Axial whole-head and thin section posterior fossa slices are provided. Reformats: Sagittal and coronal. FINDINGS: Area of hypoattenuation within the left inferior frontal lobe with loss of castelan-white differentiation. No evidence of hemorrhagic transformation. Associated local mass effect with sulcal effacement. No significant mass effect or midline shift. Hyperattenuating focus measuring 1.2 x 1.1 cm adjacent to the left anterior clinoid process. Scattered patchy hypodensities in the periventricular and subcortical white matter compatible with sequelae of chronic microvascular disease. Ventricles are normal in size and configuration for patient's stated age. Posterior fossa structures appear grossly unremarkable. Calvarium and skull base appear intact. No air-fluid levels. Mastoid air cells are clear. Visualized orbits are unremarkable. IMPRESSION IMPRESSION: 1. 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 No evidence of hemorrhagic transformation or significant mass effect. 2. 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 Findings were discussed with Dr. Lilliam Parson on 12/08/2021 9:41 PM. I personally viewed and interpreted these images and I have reviewed and approved this report. [facility] Radiology Study observation (narrative) [facility] CT Head limitedOrdered By: Santana Gramajo on 12-08-2021 [facility] CT STROKE HEAD-STROKE ALERT ONLYon 12-08-2021 CT STROKE HEAD-STROKE ALERT ONLY EXAM: CT STROKE HEAD-STROKE ALERT ONLY, 12/08/2021 9:29 PM COMPARISON: None. CLINICAL INDICATIONS: 65 years Female Suspected Stroke; TECHNIQUE: A series of transaxial computerized tomographic images are obtained from base of skull to vertex without intravenous contrast. Axial whole-head and thin section posterior fossa slices are provided. Reformats: Sagittal and coronal. FINDINGS: Area of hypoattenuation within the left inferior frontal lobe with loss of castelan-white differentiation. No evidence of hemorrhagic transformation. Associated local mass effect with sulcal effacement. No significant mass effect or midline shift. Hyperattenuating focus measuring 1.2 x 1.1 cm adjacent to the left anterior clinoid process. Scattered patchy hypodensities in the periventricular and subcortical white matter compatible with sequelae of chronic microvascular disease. Ventricles are normal in size and configuration for patient's stated age. Posterior fossa structures appear grossly unremarkable. Calvarium and skull base appear intact. No air-fluid levels. Mastoid air cells are clear. Visualized orbits are unremarkable. IMPRESSION: 1. 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 No evidence of hemorrhagic transformation or significant mass effect. 2. 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 Findings were discussed with Dr. Lilliam Parson on 12/08/2021 9:41 PM. I personally viewed and interpreted these images and I have reviewed and approved this report. Normal [facility] Determination of erythrocyte mean corpuscular volume (MCV)on 12-08-2021 MCV (RBC) [Entitic vol] 91.3 fL 81-[address] [facility] Work Phone: GLUCOSE POCon 12-08-2021 Glucose [Mass/Vol] 102 mg/dL High 70 - 99 mg/dL [facility] Interpretation and review of laboratory results Abnormal [facility] POC Sample Type CAPBL [facility] Test performed at address of the patient encounter. [facility] Glucose Glucometer (BldC) [M ass/Vol]on 12-08-2021 Glucose [Mass/Vol] 89 mg/dL 74-106 [facility] Work Phone: Comment on above: MANAGEMENT OF PATIEN T CARE PER NURSING PROTOCOL HEMOGLOBIN A1Con 12-08-2021 Glucose [Mass/Vol] 111 mg/dL Normal [facility] Comment on above: Performed By: #### M GO, IPB, CA, CHM7 #### [facility] (DEFAULT) [address] [place] [address]82 HbA1c (Bld) [Mass fraction] 5.5 % Normal 4.7-5.6 [facility] Comment on above: Performed By: #### M GO, IPB, CA, CHM7 #### [facility] (DEFAULT) [address] [place] [address]17 HEPATIC FUNCTION PANELon Albumin [Mass/Vol] 3.6 g/dL Normal 3.5-5.0 [facility] Comment on above: Performed By: #### H FP, C7ED, CA, IPB, MGO #### [facility] (DEFAULT) [address] [place] [address] 58879 ALP [Catalytic activity/Vol] 48 U/L Normal 32-126 [facility] Comment on above: Performed By: #### H FP, C7ED, CA, IPB, MGO #### [facility] (DEFAULT) [address] [place] [address] 38697 ALT [Catalytic activity/Vol] 14 U/L Normal 9-48 [facility] Comment on above: Performed By: #### H FP, C7ED, CA, IPB, MGO #### [facility] (DEFAULT) [address] [place] [address] 73510 AST [Catalytic activity/Vol] 19 U/L Normal 10-39 [facility] Comment on above: Performed By: #### H FP, C7ED, CA, IPB, MGO #### [facility] (DEFAULT) [address] [place] [address] 06479 Bilirubin [Mass/Vol] 0.5 mg/dL Normal <1.5 [facility] Comment on above: Performed By: #### H FP, C7ED, CA, IPB, MGO #### [facility] (DEFAULT) [address] [place] [address] Bilirubin.indirect [Mass/Vol] 0.1 mg/dL Normal <0.3 [facility] Comment on above: Performed By: #### H ARIN, C7ED, CA, IPB, MGO #### [facility] (DEFAULT) [address] [place] [address] Protein [Mass/Vol] 6.1 g/dL Low 6.4-8.3 [facility] Comment on above: Performed By: #### H ARIN, C7ED, CA, IPB, MGO #### [facility] (DEFAULT) [address] [place] [address] 14593 Albumin [Mass/Vol] 3.6 g/dL 3.5 - 5.0 g/dL [facility] ALP [Catalytic activity/Vol] 48 U/L 32 - 126 U/L [facility] ALT [Catalytic activity/Vol] 14 U/L 9 - 48 U/L [facility] AST [Catalytic activity/Vol] 19 U/L 10 - 39 U/L [facility] Bilirubin [Mass/Vol] 0.5 mg/dL <1.5 [facility] Bilirubin.direct [Mass/Vol] 0.1 mg/dL <0.3 [facility] Protein [Mass/Vol] 6.1 g/dL Low 6.4 - 8.3 g/dL [facility] HIGH SENSITIVITY TROPONIN I - SINGLE ORDERon 12-08-2021 hs-Troponin I 3 ng/L Normal <34 [facility] Comment on above: Order Comment: Acute Coronary Syndrome (ACS): Initial Evaluation and Management:[email or web address] Performed By: #### M AMY PATRICIO, CA, CHM7 #### [facility] (DEFAULT) [address] [place] [address] Interpretation and review of laboratory results Normal [facility] Troponin I.cardiac DL <= 0.01 ng/mL [Mass/Vol] 3 ng/L <34 [facility] Hematocrit Auto (Bld) [Volum e fraction]on 12-08-2021 Hematocrit (Bld) [Volume fraction] 45.0 % 37-47 [facility] Work Phone: Ketones Test strip Ql (U)on 12-08-2021 Ketones Ql (U) Negative Negative [facility] Work Phone: LIPID PANEL WITH REFLEX TO Riana LLANES LDLon 12-08-2021 Calculated LDL Cholesterol 107 mg/dL High 0-99 [facility] Comment on above: Result Comment: [<10 0 mg/dL: Optimal] [100-129 mg/dL: Near Optimal] [130-159 mg/dL: Borderline High] [160-189 mg/dL: High] [>189 mg/dL: Very High] Performed By: #### AMY BETANCOURT, ASHVIN, CHM7 #### [facility] (DEFAULT) [address] [place] [address] Cholesterol [Mass/Vol] 180 mg/dL Normal <200 [facility] Comment on above: Result Comment: [<20 0 mg/dL: Desirable] [200-239 mg/dL: Borderline High] [>239 mg/dL: High] Performed By: #### AMY BETANCOURT, CA, CHM7 #### [facility] (DEFAULT) [address] [place] [address] Cholesterol in HDL [Mass/Vol] 51 mg/dL Normal >=40 [facility] Comment on above: Result Comment: [<40 mg/dL: Low (High Risk)] [>59 mg/dL: High (Low Risk)] Performed By: #### AMY BETANCOURT, CA, CHM7 #### [facility] (DEFAULT) [address] [place] [address] 99658 Non HDL Cholesterol 129 mg/dL Normal <130 [facility] Comment on above: Performed By: #### AMY BETANCOURT CA, CHM7 #### [facility] (DEFAULT) [address] [place] [address] Total Cholesterol/HDL Ratio 3.5 Normal <4.5 [facility] Comment on above: Performed By: #### AMY BETANCOURT, ASHVIN, CHM7 #### [facility] (DEFAULT) [address] [place] [address] Triglyceride [Mass/Vol] 109 mg/dL Normal <150 [facility] Comment on above: Result Comment: [<15 0 mg/dL: Desirable] [150-199 mg/dL: Borderline] [200-499 mg/dL: High] [>500 mg/dL: Very High] Performed By: #### AMY BETANCOURT, ASHVIN, CHM7 #### [facility] (DEFAULT) [address] [place] [address] 98748 Laboratory - Chemistry and C hemistry - challengeon 12-08-2021 ALP [Catalytic activity/Vol] 63 U/L 45-117 [facility] Work Phone: ALT [Catalytic activity/Vol] 24 U/L 13-56 [facility] Work Phone: CO2 [Moles/Vol] 27.0 mmol/L 21.0-32.0 [facility] Work Phone: Globulin (S) [Mass/Vol] 3.7 g/dL 2.2-4.[address] [facility] Work Phone: Urea nitrogen/Creatinine [Mass ratio] 10.9 mg/mg 10-20 [facility] Work Phone: Laboratory - Hematology and Cell countson 12-08-2021 Erythrocyte distribution width (RBC) [Entitic vol] 46.0 fL 35.1-43.9 [facility] Work Phone: Erythrocyte distribution width (RBC) [Ratio] 13.5 % 11.6-14.6 [facility] Work Phone: Immature granulocytes/100 WBC (Bld) 0.100 % 0.0-0.9 [facility] Work Phone: Comment on above: IG% - Immature Granu locytes (promyelocytes, myelocytes and metamyelocytes) > 1% indicates that a LEFT SHIFT is Present. MCH (RBC) [Entitic mass] 29.8 pg 27.0-32.0 [facility] Work Phone: Nucleated RBC/100 WBC (Bld) [Ratio] 0 % 0-5 [facility] Work Phone: MAGNESIUMon 12-08-2021 Magnesium [Mass/Vol] 1.7 mg/dL Normal 1.6-2.6 [facility] Comment on above: Performed By: #### H FP, C7ED, CA, IPB, MGO #### [facility] (DEFAULT) [address] [place] [address] Magnesium [Mass/Vol] 1.7 mg/dL 1.6 - 2 .6 mg/dL [facility] MCHC Auto (RBC) [Mass/Vol]on 12-08-2021 MCHC (RBC) [Mass/Vol] 32.7 g/dL 32-36 [facility] Work Phone: Mucus LM Ql (Urine sed)on Mucus Ql (Urine sed) 1+ /hpf [facility] Work Phone: Nitrite Test strip Ql (U)on 12-08-2021 Nitrite Ql (U) Negative Negative [facility] Work Phone: No Panel Informationon 12-08 Interpretation and review of laboratory results Abnormal [facility] Interpretation and review of laboratory results Normal [facility] Estimated Creatinine Clearance Calc 60.52 ml/min [facility] Work Phone: Estimated GFR (MDRD) Amer 79 mL/min >60 [facility] Work Phone: Comment on above: GFR Calc Estimated GFR (MDRD) Non-Af Amer 65 mL/min >60 [facility] Work Phone: Comment on above: Non- GFR Calc PHOSPHATE, INORGANICon 12-08 Phosphorous 2.6 mg/dL Normal 2.2-4.6 [facility] Comment on above: Performed By: #### H ARIN, BariED, CA, IPB, MGO #### [facility] (DEFAULT) [address] [place] [address] 26880 Phosphate [Mass/Vol] 2.6 mg/dL 2.2 - 4 .6 mg/dL [facility] PTINR-STROKEon 12-08-2021 INR Coag (PPP) [Relative time] 1.2 {INR} High 0.9-1.1 [facility] Comment on above: Performed By: #### M AMY PATRICIO, CA, CHM7 #### [facility] (DEFAULT) [address] [place] [address] [phone] PT Coag (PPP) [Time] 14.6 s High 11.9-14.2 [facility] [facility] Comment on above: Performed By: #### M AMY PATRICIO, CA, CHM7 #### [facility] (DEFAULT) [address] [place] [id number] INR Coag (Bld) [Relative time] 1.2 {INR} High [facility] Interpretation and review of laboratory results Abnormal [facility] PT Coag (PPP) [Time] 14.6 s High [facility] PTTon 12-08-2021 aPTT Coag (Bld) [Time] 25.2 s Normal 24.0-34.3 [facility] Comment on above: Performed By: #### M AMY PATRICIO, CA, CHM7 #### [facility] (DEFAULT) [address] [place] [phone] aPTT Coag (PPP) [Time] 25.2 s [place] Interpretation and review of laboratory results Normal [facility] Platelets bldon 12-08-2021 Platelets (Bld) [#/Vol] 188 10*3/uL 150-450 [facility] Work Phone: Protein Test strip Ql (U)on 12-08-2021 Protein Ql (U) Negative Negative [facility] Work Phone: Serum or plasma albumin nicole urement (mass/volume)on 12-08-2021 Albumin [Mass/Vol] 3.7 g/dL 3.2-5.0 [facility] Work Phone: Serum or plasma albumin/glob ulin mass ratioon 12-08-2021 Albumin/Globulin [Mass ratio] 1.0 {ratio} 0.9-2.4 [facility] Work Phone: Serum or plasma calcium nicole urement (mass/volume)on 12-08-2021 Calcium [Mass/Vol] 9.1 mg/dL 8.5-10.1 [facility] Work Phone: Serum or plasma creatinine m easurement (mass/volume)on 12-08-2021 Creatinine [Mass/Vol] 0.91 mg/dL 0.55-1.02 [facility] Work Phone: Comment on above: The validity of the calculated GFR & GFRAA in patients over 70 years has not been determined. Clinical correlation is essential. Serum or plasma urea nitroge n measurement (mass/volume)on 12-08-2021 Urea nitrogen [Mass/Vol] 10 mg/dL 7-18 [facility] Work Phone: Squamous epithelial cells de tection in urine sediment by light microscopyon 12-08-2021 Epithelial cells.squamous LM Ql (Urine sed) 0-5 SEEN /hpf 5-10 [facility] Work Phone: TYPE AND SCREENon 12-08-2021 ABO/RH(D) TYPE Positive [facility] Thin prep Papanicolaou smear with manual screeningon 12-08-2021 Thin prep Papanicolaou smear with manual screening 21 U/L 15-37 [facility] Work Phone: Thin prep Papanicolaou smear with manual screening 6 5-15 [facility] Work Phone: URINE DIPSTICK; REFLEX MICRO SCOPY; REFLEX CULTURE PERFORMABLEon 12-08-2021 Appearance (U) Clear Normal Clear [facility] Comment on above: Performed By: #### AMY BETANCOURT, ASHVIN, CHM7 #### [facility] (DEFAULT) [address] [place] [phone] Blood Urine Small Abnormal Negative [facility] Comment on above: Performed By: #### AMY BETANCOURT, ASHVIN, CHM7 #### [facility] (DEFAULT) [address] [place] [address] [phone] Color (U) Yellow Normal Yellow [facility] Comment on above: Performed By: #### AMY BETANCOURT, ASHVIN, CHM7 #### [facility] (DEFAULT) [address] [place] [address] [phone] Glucose Ql (U) Negative Normal Negative [facility] Comment on above: Performed By: #### AMY BETANCOURT, ASHVIN, CHM7 #### [facility] (DEFAULT) [address] [place] [address] [phone] Ketones Ql (U) Negative Normal Negative [facility] Comment on above: Performed By: #### AMY BETANCOURT, ASHVIN, CHM7 #### [facility] (DEFAULT) [address] [place] [address] [phone] Leukocyte esterase Test strip Ql (U) Negative Normal Negative [facility] Comment on above: Performed By: #### AMY BETANCOURT, ASHVIN, CHM7 #### [facility] (DEFAULT) [address] [place] [address] [phone] Nitrites Urine Negative Normal Negative [facility] Comment on above: Performed By: #### AMY BETANCOURT, ASHVIN, CHM7 #### [facility] (DEFAULT) [address] [place] [address] [phone] pH (U) 7.0 [pH] Normal 5.0-7.0 [facility] Comment on above: Performed By: #### AMY BETANCOURT, ASHVIN, CHM7 #### [facility] (DEFAULT) [address] [place] [address] [phone] Protein Urine Negative Normal Negative [facility] Comment on above: Performed By: #### M AMY PATRICIO, ASHVIN, CHM7 #### [facility] (DEFAULT) [address] [place] [address] [phone] Specific [place] Urine 1.010 Normal 1.001-1.035 [facility] Comment on above: Performed By: #### AMY BETANCOURT, ASHVIN, CHM7 #### [facility] (DEFAULT) [address] [place] [address] [phone] Urobilinogen Urine 0.2 E.U./dL Normal 0.2 E.U/d L, 1.0 E.U/dL [facility] Comment on above: Performed By: #### AMY BETANCOURT, ASHVIN, CHM7 #### [facility] (DEFAULT) [address] [place] [address] [phone] Appearance (U) Clear Clear [facility] Color (U) Yellow Yellow [facility] Glucose Test strip (U) [Mass/Vol] Negative Negative [facility] Interpretation and review of laboratory results Abnormal [facility] Ketones (U) [Mass/Vol] Negative Negative [facility] [place] Leukocyte esterase Test strip Ql (U) Negative Negative [facility] Nitrite Ql (U) Negative Negative [facility] pH (U) 7.0 [pH] 5.0 - 7.0 [facility] Protein (U) [Mass/Vol] Negative Negative [facility] [place] RBC (U) [#/Vol] Small [facility]normal [facility] Specific gravity (U) [Rel density] 1.010 [facility] Urobilinogen (U) [Mass/Vol] 0.2 E.U./dL 0.2 E.U/dL, 1.0 E.U/dL [facility] URINE MICROSCOPIC WITH REFLE X TO CULTUREon 12-08-2021 Bacteria ABSENT Normal ABSENT [facility] Comment on above: Performed By: #### AMY BETANCOURT, CA, CHM7 #### [facility] (DEFAULT) [address] [place] [address] RBC Urine 0-2 Normal 0-2 [facility] Comment on above: Performed By: #### AMY BETANCOURT, CA, CHM7 #### [facility] (DEFAULT) [address] [place] [address] [phone] Squamous/Epithelial Cells 0/hpf = 0+ Normal 1/hpf = 1+, 2-5/hpf = 2+, 0/hpf = 0+, ABSENT [facility] Comment on above: Performed By: #### AMY BETANCOURT, CA, CHM7 #### [facility] (DEFAULT) [address] [place] [address] 36776 WBC Urine 0-5 Normal 0-5 [facility] Comment on above: Performed By: #### AMY BETANCOURT, CA, CHM7 #### [facility] (DEFAULT) [address] [place] [address] [phone] URINE MICROSCOPIC WITH REFLE X TO CULTUREOrdered By: Cecilia Ortiz on 12-08-2021 Bacteria LM Ql (Urine sed) ABSENT ABSENT [facility] Epithelial cells.squamous LM Ql (Urine sed) 0/hpf = 0+ 1/hpf = 1+, 2-5/hpf = 2+, 0/hpf = 0+, ABSENT [facility] Interpretation and review of laboratory results Normal [facility] RBC LM.HPF (Urine sed) [#/Area] 0-2 0 - 2 /HPF [facility] WBC LM.HPF (Urine sed) [#/Area] 0-5 0 - 5 /HPF [facility] [place] Urine blood detectionon -0 RBC Ql (U) Negative Negative [facility] Work Phone: RBC Ql (U) 0-5 SEEN /hpf 0-5 [facility] Work Phone: Urine clarityon 12-08-2021 Clarity (U) Clear Clear [facility] Work Phone: Urine color determinationon 12-08-2021 Color (U) Yellow Yellow [facility] Work Phone: Urine glucose detectionon Glucose Ql (U) Normal mg/dl Normal [facility] Work Phone: Urine leukocyte esterase det ection by dipstickon 12-08-2021 Leukocyte esterase Test strip Ql (U) 25 /ul Negative [facility] Work Phone: Urine pHon 12-08-2021 pH (U) 7.0 [pH] 5.0 - 8.0 [facility] Work Phone: Urine sediment bacteria coun t by microscopy (number/high power field)on 12-08-2021 Bacteria LM.HPF (Urine sed) [#/Area] 1 /[HPF] None Seen [facility] Work Phone: Urine specific gravity measu rementon 12-08-2021 Specific gravity (U) [Rel density] 1.010 1.002-1.030 [facility] Work Phone: Urobilinogen Auto test strip Ql (U)on 12-08-2021 Urobilinogen Ql (U) Normal mg/dl Normal [facility] Work Phone: Vital Signs Date Time Vital Sign Value Performing Clinician Faci lity 02-04-2023 19:57-0400 Body temperature 97.8 [degF] DO Yoselinfederico Bojorquezer Work Phone: [facility] 02-04-2023 19:57-0400 Diastolic blood pressure 78 mm[Hg] DO Yoselin Tito Work Phone: [facility] 02-04-2023 19:57-0400 Heart rate 64 /min DO Yoselin Tito Work Phone: [facility] 02-04-2023 19:57-0400 Respiratory rate 14 /min DO Yoselin Tito Work Phone: [facility] 02-04-2023 19:57-0400 SaO2% (BldA) [Mass fraction] 97 % DO Yoselin Tito Work Phone: [facility] 02-04-2023 19:57-0400 Systolic blood pressure 134 mm[Hg] DO Yoselin Tito Work Phone: [facility] 02-04-2023 17:55-0400 Body height 177.8 cm DO Yoselin Tito Work Phone: [facility] 02-04-2023 17:55-0400 Body mass index (BMI) [Ratio] 34.2 kg/m2 DO Yoselin Tito Work Phone: [facility] 02-04-2023 17:55-0400 Body weight 108.2 kg DO Yoselin Tito Work Phone: [facility] 12-30-2022 08:53-0400 Body height 177.8 cm DO Yoselin Tito Work Phone: [facility] 12-30-2022 08:53-0400 Body mass index (BMI) [Ratio] 32.3 kg/m2 DO Yoselin Tito Work Phone: [facility] 12-30-2022 08:53-0400 Body temperature 98.4 [degF] DO Yoselin Tito Work Phone: [facility] 12-30-2022 08:53-0400 Body weight 102.05 kg DO Yoselin Tito Work Phone: [facility] 12-30-2022 08:53-0400 Diastolic blood pressure 76 mm[Hg] DO Yoselin Tito Work Phone: [facility] 12-30-2022 08:53-0400 Heart rate 64 /min DO Yoselin Francis Work Phone: [facility] 12-30-2022 08:53-0400 Respiratory rate 15 /min DO Yoselin Francis Work Phone: [facility] 12-30-2022 08:53-0400 SaO2% (BldA) [Mass fraction] 96 % DO Yoselin Francis Work Phone: [facility] 12-30-2022 08:53-0400 Systolic blood pressure 126 mm[Hg] DO Yoselin Francis Work Phone: [facility] 09-25-2022 20:08-0400 Diastolic blood pressure 70 mm[Hg] [facility] 09-25-2022 20:08-0400 Heart rate 60 /min [facility] 09-25-2022 20:08-0400 Respiratory rate 16 /min [facility] 09-25-2022 20:08-0400 SaO2% (BldA) [Mass fraction] 100 % [facility] 09-25-2022 20:08-0400 Systolic blood pressure 124 mm[Hg] [facility] 09-25-2022 18:08-0400 Inhaled oxygen flow rate 3 L/min [facility] 09-25-2022 15:43-0400 Body height 177.8 cm [facility] 09-25-2022 15:43-0400 Body mass index (BMI) [Ratio] 32.4 kg/m2 [facility] 09-25-2022 15:43-0400 Body temperature 97.9 [degF] [facility] 09-25-2022 15:43-0400 Body weight 102.6 kg [facility] 01-22-2022 20:30-0400 Diastolic blood pressure 90 mm[Hg] [facility] Work Phone: 01-22-2022 20:30-0400 Heart rate 54 /min [facility] Work Phone: 01-22-2022 20:30-0400 Respiratory rate 18 /min [facility] Work Phone: 01-22-2022 20:30-0400 SaO2% (BldA) [Mass fraction] 96 % [facility] Work Phone: 01-22-2022 20:30-0400 Systolic blood pressure 146 mm[Hg] [facility] Work Phone: 01-22-2022 17:08-0400 Body height 165.1 cm [facility] Work Phone: 01-22-2022 17:08-0400 Body mass index (BMI) [Ratio] 38.9 kg/m2 [facility] Work Phone: 01-22-2022 17:08-0400 Body weight 106 kg [facility] Work Phone: 01-22-2022 17:04-0400 Body temperature 97.6 [degF] [facility] Work Phone: 12-11-2021 17:16-0400 Body temperature 98.6 [degF] Geeta Davalos MD Work Phone: [facility] 12-11-2021 17:16-0400 Diastolic blood pressure 57 mm[Hg] Geeta Davalos MD Work Phone: [facility] 12-11-2021 17:16-0400 Heart rate 61 /min Geeta Davalos MD Work Phone: [facility] 12-11-2021 17:16-0400 Respiratory rate 24 /min Geeta Davalos MD Work Phone: [facility] 12-11-2021 17:16-0400 SaO2% (BldA) [Mass fraction] 94 % Geeta Davalos MD Work Phone: [facility] 12-11-2021 17:16-0400 Systolic blood pressure 120 mm[Hg] Geeta Davalos MD Work Phone: [facility] 12-09-2021 04:39-0400 Body mass index (BMI) [Ratio] 36.34 kg/m2 Geeta Davalos MD Work Phone: [facility] 12-09-2021 04:39-0400 Body weight 108.4 kg Geeta Davalos MD Work Phone: [facility] 12-08-2021 21:37-0400 Body height 172.7 cm Geeta Davalos MD Work Phone: [facility] 12-08-2021 20:01-0400 Diastolic blood pressure 102 mm[Hg] [facility] Work Phone: 12-08-2021 20:01-0400 Heart rate 63 /min [facility] Work Phone: 12-08-2021 20:01-0400 Respiratory rate 18 /min [facility] Work Phone: 12-08-2021 20:01-0400 SaO2% (BldA) [Mass fraction] 97 % [facility] Work Phone: 12-08-2021 20:01-0400 Systolic blood pressure 159 mm[Hg] [facility] Work Phone: 12-08-2021 16:31-0400 Body height 172.72 cm [facility] Work Phone: 12-08-2021 16:31-0400 Body mass index (BMI) [Ratio] 35.9 kg/m2 [facility] Work Phone: 12-08-2021 16:31-0400 Body weight 107.22 kg [facility] Work Phone: 12-08-2021 15:51-0400 Body temperature 98 [degF] [facility] Work Phone: Encounters Encounter Date Encounter Type Care Provider Facility Start: 04-09-2024 End[facility] Start: 02-02-2024 End: 02-02-2024 ambulatory Ronencristal Moise Facility:[facility] Start: 01-02-2024 End: 01-02-2024 ambulatory Wally Baez Facility:[facility] Start: 11-18-2023 End: 11-18-2023 Encounter identifier [facility] Start: [facility]23 [facility] Start: 05-16-2023 End: 05-17-2023 ambulatory [facility] Start: 05-13-2023 End: 05-14-2023 ambulatory [facility] Start: 05-09-2023 End: 05-10-2023 ambulatory [facility] Start: 05-06-2023 End: 05-07-2023 ambulatory [facility] Start: 05-03-2023 End: 05-03-2023 ambulatory Ronen Moise Facility:[facility] Start: 05-02-2023 End: 05-03-2023 ambulatory RONALD [facility] Start: 04-25-2023 Encounter for other preprocedural examination Ronald Vincent MD [facility] Start: 04-25-2023 Encounter for preprocedural cardiovascular examination Ronald Vincent MD [facility] Start: 04-25-2023 End: 04-25-2023 Postop follow up visit related to original px Ronald Vincent MD [facility] Start: 04-25-2023 End: 04-25-2023 Encounter identifier Ronald Vincent Work Phone: [facility] Start: 04-21-2023 End: 04-21-2023 ambulatory [facility] Start: 04-12-2023 End: 04-12-2023 Encounter identifier Ronald Vincent Work Phone: [facility] Start: 03-15-2023 End: 03-15-2023 Encounter identifier [facility] Start: 03-10-2023 End: 03-10-2023 Encounter identifier Ronald Vincent Work Phone: [facility] Start: 02-23-2023 End: 02-23-2023 Encounter for other preprocedural examination London Ramos Work Phone: [facility] Start: 02-23-2023 End: 02-23-2023 Encounter for preprocedural cardiovascular examination London Ramos Work Phone: [facility] Start: 02-23-2023 End: 02-23-2023 Office outpatient new 45 minutes London Ramos Work Phone: [facility] Start: 02-23-2023 End: 02-23-2023 Encounter for other preprocedural examination Ronald Vincent Work Phone: [facility] Start: 02-23-2023 End: 02-23-2023 Encounter identifier Ronald Riana Vincent Work Phone: [facility] Start: 02-04-2023 End: 02-04-2023 Emergency department patient visit DO Yoselinfederico Westonnger Work Phone: [facility] Work Phone: Start: 01-05-2023 End: 01-05-2023 ambulatory DO Yoselin Riana Tito Work Phone: [facility] Work Phone: Start: 01-05-2023 End: 01-05-2023 Patient encounter procedure DO Yoselinfederico Westonnger Work Phone: [facility]atory[facility] Start: 01-03-2023 End: 01-03-2023 Office outpatient new 45 minutes Sandy Ariza Work Phone: [facility] Start: 12-30-2022 End: 12-30-2022 Patient encounter procedure DO Yoselin Francis Work Phone: [facility] Work Phone: Start: 11-17-2022 End: 11-17-2022 Patient encounter procedure DO Yoselin Francis Work Phone: [facility] Work Phone: Start: 11-09-2022 End: 11-09-2022 Subsequent hospital visit by physician Eloy Calvo MD Work Phone: [facility] Comment on above: Canceled (Cancel Norma son Not Listed - Please provide detailed information) Start: 10-29-2022 Non-patient / Non-visit DO Jody Francis Work Phone: [facility] Start: 10-29-2022 End: 10-29-2022 ambulatory [facility] Work Phone: Start: 10-29-2022 End: 10-29-2022 Patient encounter procedure [facility] Start: 09-25-2022 End: 09-25-2022 Emergency department patient visit [facility] Start: 07-15-2022 End: 07-15-2022 ambulatory [facility] Work Phone: Start: 07-15-2022 End: 07-15-2022 Discharged Recurring [facility] Start: 06-17-2022 End: 06-17-2022 ambulatory [facility] Work Phone: Start: 06-17-2022 End: 06-17-2022 Discharged Recurring [facility] Start: 01-22-2022 End: 01-22-2022 Emergency department patient visit [facility] Start: 01-22-2022 Registered Recurring [facility] Start: 01-08-2022 ambulatory KAILEY COOL Facil ity:[facility] Start: 01-08-2022 End: 01-08-2022 Office outpatient visit 40 minutes Kailey Cool [employer] SALES [employer]SULTANT-FINANCIAL SALES ASSOCIATE Work Phone: 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; Thyroid nodule; PFO (patent foramen ovale) Start: 12-10-2021 Evaluation and management of inpatient [facility] Start: 12-08-2021 End: 12-11-2021 Evaluation and management of inpatient ELOY De [place]ón [place] Facility:[facility] Start: 12-08-2021 End: 12-11-2021 Evaluation and management of inpatient Geeta Davalos MD Work Phone: [id number] Comment on above: Stroke Start: 12-08-2021 End: 12-08-2021 Emergency department patient visit [facility] Procedures Date Procedure Procedure Detail Performing Clinician Start: 05-20-2023 FOLLOW UP IN PHYSICA L THERAPY RONALD VINCENT Start: 05-16-2023 FOLLOW UP IN PHYSICA L THERAPY RONALD VINCENT Start: 05-13-2023 FOLLOW UP IN PHYSICA L THERAPY RONALD VINCENT Start: 05-09-2023 FOLLOW UP IN PHYSICA L THERAPY RONALD VINCENT Start: 05-06-2023 FOLLOW UP IN PHYSICA L THERAPY RONALD VINCENT Start: 05-02-2023 FOLLOW UP IN PHYSICA L THERAPY RONALD VINCENT Start: 04-25-2023 End: 04-25-2023 Radiologic examination knee 3 views Ronald Vincent MD Start: 04-21-2023 AMB REFERRAL TO PHYS ICAL THERAPY RONALD VINCENT Start: 03-15-2023 End: 03-15-2023 Arthrp kne condyle&platu medial&lat compartments Ronald Vincent MD Start: 03-15-2023 End: 03-15-2023 Intermittent Compression Device - SELF PAY Ronald Vincent MD Start: 03-15-2023 End: 03-15-2023 PA Arthroplasty, Total Knee Ronald Vincent MD Start: 03-15-2023 End: 03-15-2023 Physical therapy evaluation low complex 20 mins Ronald Vincent MD Start: 03-15-2023 End: 03-15-2023 Therapeut actvity direct pt contact each 15 min Ronald Vincent MD Start: 02-23-2023 End: 02-23-2023 No Charge Ronald Vincent MD Start: 02-23-2023 End: 02-23-2023 Noninvasive ear/pulse oximetry single deter Ronald Vincent MD Start: 02-23-2023 End: 02-23-2023 Pre- Op Visit Ronald Vincent MD Start: 02-23-2023 End: 02-23-2023 Walker folding wheeled w/o s Ronald Vincent MD Start: 02-04-2023 CT of head without contrast DO Yoselin Tito Work Phone: Start: 01-03-2023 End: 01-03-2023 Radiologic examination knee 3 views Ronald Vincent MD Start: 11-17-2022 MRI of neck vessels with contrast DO Yoselinfederico Westonnger Work Phone: Start: 11-17-2022 Magnetic resonance angiography of head without contrast DO Yoselinfederico Westonnger Work Phone: Start: 09-25-2022 Radiologic examinati on of knee Start: 09-25-2022 CT cervical spine wi thout contrast Start: 09-25-2022 CT of head without contrast Start: 01-22-2022 Plain chest X-ray Start: 01-22-2022 CT of head without contrast Start: 12-11-2021 Assay of magnesium Julee Parson MD Work Phone: Start: 12-11-2021 CBC AND ELECTRONIC DIFF Lilliam Parson MD Work Phone: Start: 12-11-2021 Complete blood count with white cell differential, automated Lilliam Parson MD Work Phone: Start: 12-10-2021 Echo transesophag r- t 2d w/prb img acquisj i&r Sergio Mcfadden MD, PhD Work Phone: Start: 12-10-2021 Ct head/brain w/o co ntrast material John Iverson MD, PhD Work Phone: Start: 12-10-2021 End: 12-10-2021 CONTINUOUS CARDIAC MONITORING STRIP Other Other Start: 12-10-2021 Assay of magnesium Julee Parson MD Work Phone: Start: 12-10-2021 CBC AND ELECTRONIC DIFF Lilliam Parson MD Work Phone: Start: 12-10-2021 Complete blood count with white cell differential, automated Lilliam Parson MD Work Phone: Start: 12-09-2021 End: 12-09-2021 Slctv cath intrnl carotid art angio intrcrnl art Faraz Bar MD, PhD Work Phone: Start: 12-09-2021 CARDIAC RHYTHM Other Ot her Start: 12-09-2021 Assay of magnesium Julee Parson MD Work Phone: Start: 12-09-2021 CBC AND ELECTRONIC DIFF Lilliam Parson MD Work Phone: Start: 12-09-2021 Complete blood count with white cell differential, automated Lilliam Parson MD Work Phone: Start: 12-09-2021 Ct head/brain w/o co ntrast material Lilliam Parson MD Work Phone: Start: 12-09-2021 ABORH TYPE RECONFIRMATION Mark Clarke MD Work Phone: Start: 12-08-2021 End: 12-09-2021 Antibody screen Geeta Davalos MD Work Phone: Comment on above: Performed By: #### M GO, IPB, CA, CHM7 #### [facility] [address] [place] [id number] Start: 12-08-2021 End: 12-08-2021 Blood typing serologic abo Jodie Chatman MD Work Phone: Start: 12-08-2021 EXTRA MICRO Geeta Davalos MD Work Phone: Start: 12-08-2021 Bilirubin direct Pineda Davalos MD Work Phone: Start: 12-08-2021 CBC AND ELECTRONIC DIFF Geeta Davalos MD Work Phone: Start: 12-08-2021 Complete blood count with white cell differential, automated Geeta Davalos MD Work Phone: Start: 12-08-2021 GOLD TOP TUBE Geeta Davalos MD Work Phone: Start: 12-08-2021 LAVENDER TOP TUBE Shaina Davalos MD Work Phone: Start: 12-08-2021 LT BLUE TOP TUBE Pineda Davalos MD Work Phone: Start: 12-08-2021 MINT GREEN TOP TUBE Zuleika Davalos MD Work Phone: Start: 12-08-2021 RAINBOW DRAW Geeta Davalos MD Work Phone: Start: 12-08-2021 Urnls dip stick/tabl et reagent auto microscopy Geeta Davalos MD Work Phone: Start: 12-08-2021 Urnls dip stick/tabl et rgnt auto w/o microscopy Geeta Davalos MD Work Phone: Start: 12-08-2021 End: 12-08-2021 Ct angiography head w/contrast/noncontrast Geeta Davalos MD Work Phone: Start: 12-08-2021 Glucose measurement, blood Geeta Davalos MD Work Phone: Start: 12-08-2021 Plain chest X-ray Start: 12-08-2021 CT of head without contrast Start: 12-08-2021 Lipid 1996 panel - S ricco or Plasma Geeta Davalos MD Work Phone: Viral antigen assay Plan of Treatment Date Care Activity Detail Author Start: 12-08-2026 Fasting lipid profile LIPID SCREENIN G [facility] Start: 12-08-2026 Lipid panel LIPID SCREENING [facility] Start: 02-23-2023 Patient referral Referrals: TOMY GREENE [facility] Start: 02-23-2023 ECG complete ( 05125), Sent on: [facility] Start: 02-04-2023 Influenza vaccination INFLUENZ A VACCINE (Season Ended) [facility] Start: 12-11-2022 End: 12-11-2022 MRA Neck vessels WO contrast MRI ANGIO NECK WITHOUT CONTRAST Imaging Routine 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 Expected: 12/11/2022 (Approximate), Expires: 12/11/2022 [facility] Comment on above: Expected: 12/11/2022 (Approximate), Expires: 12/11/2022 Start: 12-10-2022 End: 12-10-2022 Patient encounter procedure Imaging [facility] [place] Start: 10-29-2022 Measurement of substance [facility] Start: 10-29-2022 [facility] Start: 04-02-2022 End: 04-02-2022 Patient encounter procedure 04/02/2022 Office Visit Neurology Kailey Cool, 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 Start: 02-04-2022 Influenza vaccination INFLUENZA VACC INE (#1) [facility] Start: 01-08-2022 End: 01-08-2022 Patient encounter procedure 01/08/2022 Office Visit Neurology Kailey Cool, HEALTH AND WELLNESS SALES CONSULTANT-FINANCIAL SALES ASSOCIATE [address] [place] [address] Neurological [facility] Start: 12-18-2021 End: 12-11-2022 Cardiac telemetry MOBILE CARDIAC TELEMETRY ECG Routine 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 Cerebrovascular accident (CVA), unspecified mechanism Other cerebrovascular vasospasm and vasoconstriction Expected: 12/18/2021 (Approximate), Expires: 12/11/2022 [facility] Comment on above: Expected: 12/18/2021 (Approximate), Expires: 12/11/2022 Start: 12-11-2021 End: 12-11-2022 MRA Head vessels WO and W contrast IV MRI ARTERIOGRAM BRAIN WITH AND WITHOUT CONTRAST Imaging Routine 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 Expected: 12/11/2021, Expires: 12/11/2022 [facility] Comment on above: Expected: 12/11/2021 , Expires: 12/11/2022 Start: 12-08-2021 [facility] Work Phone: Start: 2018 Pneumococcal vaccination PNEUMOCOCCAL VACCINE SERIES (1 - PCV) [facility] Start: 12-16-2003 Zoster vaccine hzv live for subcutaneous use ZOSTER (SHINGLES) VACCINE (1 of 2) [facility] Start: 1998 Colonoscopy COLORECTAL CAN CER SCREENING DISCUSSION [facility] Start: 1998 Screening for malignant neoplasm of colon COLORECTAL CANCER SCREENING DISCUSSION [facility] Start: 1993 Screening for malignant neoplasm of breast MAMMOGRAM SCREENING DISCUSSION [facility] Start: 1993 Screening mammography MAMMOGRA M SCREENING DISCUSSION [facility] Start: 1974 Screening for malignant neoplasm of cervix CERVICAL CANCER SCREENING DISCUSSION [facility] Start: 1972 Third diphtheria, tetanus and acellular pertussis (DTaP) vaccination TDAP (ADULT) [facility] Start: 12-16-1971 Tetanus vaccination TETANUS [facility] Start: 06-17-1954 COVID-19 VACCINE (#1) COVID-19 VACCI NE (#1) [facility] Start: 1955 Hepatitis C antibody , confirmatory test HEPATITIS C VIRUS SCREENING [facility] Start: 1955 Hepatitis C screening HEPATITI S C VIRUS SCREENING [facility] Start: 1955 Screening for osteoporosis DEXA SCAN DISCUSSION [facility] Start: 1955 Tetanus vaccination TETANUS [facility] End: 12-09-2021 FLUORO IMAGING FOR NEURO ENDOVASCULAR [facility] Comment on above: One Time for 1 Occur rences starting 12/09/2021 until 12/09/2021 Lactic acid measurement [facility] Patient Education [facility] Work Phone: Patient referral [facility] Work Phone: End: 12-08-2021 Standard ECG ECG ECG STAT One Time for 1 Occurrences starting 12/08/2021 until 12/08/2021 [facility] Comment on above: One Time for 1 Occur rences starting 12/08/2021 until 12/08/2021 End: 12-09-2021 Standard ECG ECG ECG STAT One Time for 1 Occurrences starting 12/09/2021 until 12/09/2021 [facility] Work Phone: Comment on above: One Time for 1 Occur rences starting 12/09/2021 until 12/09/2021 Payers Date Payer Category Payer Self-pay 2020 Private Health Insurance CLI [id number] 2020 Unknown GENERIC PAYOR ME DICARE SUPPLEMENT [id number] 2020-Present [phone] [address] [address] [place] [address] [id number] 2018 Medicare [id number] 2018 Medicare MEDICARE MEDICAR E A AND B [id number] 2018-Present [address] [place] [address] [id number] 1953 Unknown [id number] [id number]. 2.594 1953 Unknown [id number] 2.16.840.1.749675.3.579. 2.594 1953 Unknown [id number] 2.16.840.1.634443.3.579. 2.1243 1953 Unknown [id number] 2.16.840.1.404221.3.579. 2.1243 1953 Unknown [id number] 2.16.840.1.944592.3.579. 2.1243 1953 Unknown [id number] 2.16.840.1.333593.3.579. 2.1243 1953 Unknown [id number] 2.16.840.1.398388.3.579. 2.1243 1953 Unknown [id number] 2.16.840.1.811783.3.579. 2.1243 1953 Unknown [id number] 2.16.840.1.780844.3.579. 2.1243 Unknown [id number] 2.16.840.1.443850.3.579. 2.462 Unknown [id number] 2.16.840.1.501765.3.579. 2.462 Unknown [id number] 2.16.840.1.651927.3.579. 2.462 Unknown [id number] 2.16.840.1.985806.3.579. 2.462 Social History Date Type Detail Facility Start: 12-08-2021 End: 11-18-2023 Tobacco smoking status WVIS Unknown if ever smoked [facility] Start: 1955 Sex Assigned At Female [facility] Start: 12-08-2021 Tobacco smoking status NHIS Never smoked tobacco [facility] Start: 12-08-2021 Tobacco use and exposure Smokeless tobacco non-user [facility] Start: 12-10-2021 Alcohol intake Lifetime non-drinker (finding) [facility] Start: 1955 Sex Assigned At Not on file [facility] Start: 01-08-2022 Alcohol intake Current drinker of alcohol (finding) [facility] Start: 01-08-2022 History SDOH Alcohol Comment Socially [facility] Start: 01-08-2022 History of Social function [facility] Start: 01-08-2022 Tobacco use panel [facility] Start: 11-18-2023 Alcohol intake Alcohol Use Details [facility] Start: 11-11-2023 Sexual Orientation Straight or heterosexual [facility] Mental Status Date Assessment Result Facility 02-04-2023 Cognitive function Anxious;Restless [facility] Work Phone: 09-25-2022 Cognitive function Awake;Alert;Inappropri ate [facility] Work Phone: 01-22-2022 Cognitive function Voice/Name [facility] Work Phone: 12-08-2021 Cognitive function Alert;Follows Commands [facility] Work Phone: Clinical Notes 12-08-2021 to 02-23-2023 Note Date & Type Note Facility 02-23-2023 History of Presen t illness Narrative Encounter Date 3 Preoperative medical risk stratification The patient, Nanette Harrison, is a 67-year-old female who presents for preoperative medical risk stratification at the request of Dr.Jason Carlton HERRING in anticipation of LTKA. 3 New Problem Left Knee Location: Left whole knee. Severity: Moderate. Duration: 5 months. chronic Yes. Quality: Dull. Achy. Timing: Wakes you up at night? Yes. Pain prevents you from falling asleep? Yes. Pain after walking awhile? Yes. Associated Symptoms: Catching? Yes. Clicking? Yes. Stiffness? Yes. Context: Difficulty ascending stairs? Yes. Difficulty descending stairs? Yes. Worse going from sitting to standing? Yes. Difficulty getting in and out of cars? Yes. Does the pain force you to change activities? Yes. Does the pain limit your ADL's? Yes. Worse with pivoting? Yes. Worse with twisting? Yes. Modifying Factors: Walking: makes it worse. Weight bearing: makes it worse. NSAID's - Prescription: makes it better. Comments: Patient's pain has decreased some due to starting Meloxicam by another provider. She tobar [facility] Work Phone: 1(257) 248-493809-01-2023 Discharge summary Author Gulshan Finley [facility] February 04, 2023 7:38pm Note Date/Time February 04, 2023 6:28pm [facility] Medical Records Department [address] [place] [address] Emergency Department Summary 02/04/23 MR#: [id number] Acct: [id number] Name: NANETTE HARRISON Rep #:[id number] : 1955 67 From: Gulshan Finley MD PCP: Yoselin Francis, Status:REG E R Location: ED HPI History of Present Illness Chief Complaint: General Illness Detail of Chief Complaint: I feel stupid headache and hurting all over Informant: patient and spouse/S.O. Onset/Context/Timing Onset: Hours (2 hours prior) Context: Sudden Onset Timing: Continuous Quality: Headache Location: Generalized and pain all over Current Severity: Moderate Maximum Severity: Severe Worsened by: Light sensitivity Relieved by: Nothing Associated Symptoms Associated Symptoms: History is limited Narrative Narrative: Patient is a 67-year-old woman with history of migraine headaches, cerebral aneurysm with spontaneous rupture that was flown to [facility]. There was no intervention according to family. She is on cholesterol medication and antidepressant and to anxiolytic medicine. History is limited because of patient's main responses I feel stupid . informing that this means that she does not feel well. She does endorse head pain, she does endorse lightsensitivity and does endorse hurting all over. She apparently was sitting outside and holding her head prior to her headache starting. Daughter states this is common when she has a headache, migraine. Recent Illness/Hospitalization: No PFSH PFSH Medical History Stroke/cerebrovascular accident Home Medications aspirin 81 mg tablet,delayed release 81 mg PO DAILY 09/25/22 [History Last Taken Unknown] multivitamin 1 tab PO DAILY 09/25/22 [History Last Taken Unknown] atorvastatin 40 mg tablet 40 mg PO DAILY #90 tabs 12/30/22 [Rx Last Taken Unknown] buspirone 10 mg tablet 10 mg PO BID #180 tabs 12/30/22 [Rx Last Taken Unknown] hydroxyzine HCl 25 mg tablet 25 mg PO BID PRN itching #180 tabs 12/30/22 [Rx Last Taken Unknown] levetiracetam 1,000 mg tablet (Keppra) 1,000 mg PO BID #180 tabs 12/30/22 [Rx Last Taken Unknown] meloxicam 7.5 mg tablet 7.5 mg PO BID PRN pain #60 tabs 12/30/22 [Rx Last Taken Unknown] mupirocin 2 % topical ointment 1 applic topical BID 12/30/22 [History Last Taken Unknown] Allergy/AdvReac Type Severity Reaction Status Date / Time clonazepam AdvReac Other Verified 12/30/22 08:52 Family History other other (Documented in the HPI narrative) Social History household members: spouse Smoking Status: Never smoker substance use type: does not use ROS ROS ED Review of Systems ROS Unobtainable: due to mental condition and due to mental status Constitutional Constitutional ED: Denies chills or fever(s) Eyes Eyes: Reports other Details: Light sensitivity ; Denies blurry vision, change in vision or diplopia ENT ENT ED: Reports other Details: Denies ringing in ears or decreased hearing. ; Denies ear pain, rhinorrhea or sore throat Cardiovascular Cardiovascular: Denies chest pain or palpitations Respiratory/Chest Respiratory/Chest: Reports cough and dyspnea Gastrointestinal Gastrointestinal: Reports abdominal pain; Denies nausea or vomiting Musculoskeletal Musculoskeletal: Reports other Details: Left scapular pain. ; Denies arthralgias, back pain, myalgias or neck pain Integumentary Reports rash Neurologic Neurologic: Reports headache(s) and weakness; Denies paresthesias Psychiatric Psychiatric: Denies anxiety or depression Allergic/Immunologic Allergic/Immunologic ED: Denies mouth swelling, tongue swelling or urticaria EXAM Physical Exam Const Vital Signs: 02/04/23 17:55 02/04/23 18:04 02/04/23 19:17 Temperature 97.6 F L Temperature Source Temporal Pulse Rate 69 63 Respiratory Rate 22 H 19 H Respiratory Effort Normal Non-Labored Respiratory Pattern Normal Blood Pressure 152/102 H 140/93 H Blood Pressure Mean 118 108 Pulse Ox 100 Oxygen Delivery Method Room Air Positive well nourished, well developed, obese and unkempt Constitutional Narrative: Patient is rotating her head to the right and left with her eyes closed. She did not open her eyes during the entire history and physical examination. General Appearance ED: unkempt and well developed; Negative for pallor Nutritional Appearance: obese HEENT Reports moist mucous membranes HEENT Narrative: There is slight nasal discharge noted that is clear. Ears normal. Mucosa moist. Teeth normal. Eyes PERRL Eyes Narrative: There is no nystagmus. General Eye ED: Negative for pale conjunctiva or scleral icterus Neck no lymphadenopathy, supple and no JVD Neck Narrative: There is no findings. Resp normal respiratory effort and clear to auscultation bilaterally Cardio regular rate, regular rhythm, S1 normal heart sound, S2 normal heart sound and no murmurs GI normal to inspection, nondistended, normoactive bowel sounds, non-tender, non-distended and no masses; Negative for hepatosplenomegaly Back/Spine no CVA tenderness Extremity normal to inspection General Extremety ED: Negative for edema or tenderness General Extremity: Negative for edema Neuro CN's II-XII intact bilaterally Neuro Narrative: Patient reports weakness in her left upper extremity however when the left upperextremity was placed above her head it came down slowly and veered to the left missing her face/head. When the arm was extended at her side it fell to the bed. Psych Appearance: unkempt Mood & Affect: depressed and tearful Skin no rashes or lesions noted and no wounds General Skin Exam: Negative for jaundice or pallor MDM MDM MDM Narrative Medical decision making narrative: History of cerebral aneurysm and complaint of headache as well as migraines willobtain CT to rule out hemorrhage since her headache started 2 hours ago. If there is no evidence of hemorrhage we will treat with migraine cocktail. Since there was no eye contact and patient does not truly have weakness to left upper extremity suspect this is due to an affective disorder. Lab Data Labs: Laboratory Results - last 24 hr 02/04/23 17:30 WBC 8.3 RBC 4.98 Hgb 14.7 Hct 46.4 MCV 93.2 MCH 29.5 MCHC 31.7 L RDW Std Deviation 44.9 H RDW Coeff of Debra 13.2 Plt Count 183 MPV 12.2 H Immature Gran % (Auto) 0.200 Neut % (Auto) 48.5 Lymph % (Auto) 42.2 H Bond % (Auto) 6.8 Eos % (Auto) 2.1 Baso % (Auto) 0.2 Absolute Neuts (auto) 4.0 Absolute Lymphs (auto) 3.48 Nucleated RBC % 0 ESR 24 Sodium 142 Potassium 4.1 Chloride 109 H Carbon Dioxide 24.0 Anion Gap 9 BUN 13 Creatinine 1.09 H Estim Creat Clear Calc 52.68 Est GFR (MDRD) Af Amer 64 Est GFR (MDRD) Non-Af 53 L BUN/Creatinine Ratio 11.9 Glucose 113 H Calcium 9.1 Radiography Diagnostic Testing: Clinical Impression(s) from Imaging Studies Brain CT 02/04/23 18:20 IMPRESSION: No acute intracranial findings. Electronically Signed: Josiah Bautista MD at 18:59 EDT Reading Location ID and State: [facility] / [place] Tel , Service support , Treatment and Re-Evaluation :: Exit interview was performed at 1933. Patient was told the CAT scan is normal. Blood work is baseline. I asked if she has been under any stress because she not reporting no symptoms. Son says no. After son walked out the informing that his son is . His ex- is back in the picture and she really has been under stress. In light of this with a normal work-up in my opinion patient had a conversion reaction. Discharge Plan Triage Chief Complaint: General Illness ED Provider: Gulshan Finley Dx/Rx/DC Orders Clinical Impression: Conversion reaction, Headache, History of subarachnoid hemorrhage Instructions: ED Conversion Reaction Prescriptions: No Action mupirocin 2 % ointment 1 applic topical BID meloxicam 7.5 mg tablet 7.5 mg PO BID PRN (Reason: pain) Qty: 60 5RF atorvastatin 40 mg tablet 40 mg PO DAILY Qty: 90 1RF levetiracetam [Keppra] 1,000 mg tablet 1,000 mg PO BID Qty: 180 1RF buspirone 10 mg tablet 10 mg PO BID Qty: 180 1RF hydroxyzine HCl 25 mg tablet 25 mg PO BID PRN (Reason: itching) Qty: 180 1RF aspirin [Aspir-81] 81 mg Tablet,Delayed Release (Dr/Ec) 81 mg PO DAILY multivitamin Tablet 1 tab PO DAILY Primary Care Provider: Yoselin Francis Referrals: Yoselin Francis, [Primary Care Provider] - 5-7 Days Disposition Disposition: Home, Self Care What to do if you have Problems For any increased pain, shortness of breath, bleeding, nausea or vomiting, chestpain, or any unexpected problems, contact your Primary Care Provider. Call [facility] ([phone]) or report to the closest Emergency Room. Call 911 if necessary. 02/04/231937 <Electronically signed by Gulshan Finley MD> Cosigner Signature (if applicable): CC: Yoselin Francis DO ~ Signed [facility] Work Phone: 1(206) 154-852109-01-2023 Discharge summary Author Gulshan [facility] February 04, 2023 7:39pm Note Date/Time February 04, 2023 7:39pm [facility] Medical Records Department [address] [place] [address] Emergency Department Summary 02/04/23 MR#: [id number] Acct: [id number] Name: NANETTE HARRISON GUERLINE Rep #:[id number] : 1955 67 From: Gulshan Finley MD PCP: Yoselin Francis DO Status:REG E R Location: ED HPI History of Present Illness Chief Complaint: [facility] Medical History Stroke/cerebrovascular accident Home Medications aspirin 81 mg tablet,delayed release 81 mg PO DAILY 09/25/22 [History Last Taken Unknown] multivitamin 1 tab PO DAILY 09/25/22 [History Last Taken Unknown] atorvastatin 40 mg tablet 40 mg PO DAILY #90 tabs 12/30/22 [Rx Last Taken Unknown] buspirone 10 mg tablet 10 mg PO BID #180 tabs 12/30/22 [Rx Last Taken Unknown] hydroxyzine HCl 25 mg tablet 25 mg PO BID PRN itching #180 tabs 12/30/22 [Rx Last Taken Unknown] levetiracetam 1,000 mg tablet (Kejoira) 1,000 mg PO BID #180 tabs 12/30/22 [Rx Last Taken Unknown] meloxicam 7.5 mg tablet 7.5 mg PO BID PRN pain #60 tabs 12/30/22 [Rx Last Taken Unknown] mupirocin 2 % topical ointment 1 applic topical BID 12/30/22 [History Last Taken Unknown] Allergy/AdvReac Type Severity Reaction Status Date / Time clonazepam AdvReac Other Verified 12/30/22 08:52 Family History other Social History household members: spouse Smoking Status: Never smoker substance use type: does not use EXAM Physical Exam Const Vital Signs: 02/04/23 17:55 02/04/23 18:04 02/04/23 19:17 Temperature 97.6 F L Temperature Source Temporal Pulse Rate 69 63 Respiratory Rate 22 H 19 H Respiratory Effort Normal Non-Labored Respiratory Pattern Normal Blood Pressure 152/102 H 140/93 H Blood Pressure Mean 118 108 Pulse Ox 100 Oxygen Delivery Method Room Air MDM MDM Lab Data Labs: Laboratory Results - last 24 hr 02/04/23 17:30 WBC 8.3 RBC 4.98 Hgb 14.7 Hct 46.4 MCV 93.2 MCH 29.5 MCHC 31.7 L RDW Std Deviation 44.9 H RDW Coeff of Debra 13.2 Plt Count 183 MPV 12.2 H Immature Gran % (Auto) 0.200 Neut % (Auto) 48.5 Lymph % (Auto) 42.2 H Bond % (Auto) 6.8 Eos % (Auto) 2.1 Baso % (Auto) 0.2 Absolute Neuts (auto) 4.0 Absolute Lymphs (auto) 3.48 Nucleated RBC % 0 ESR 24 Sodium 142 Potassium 4.1 Chloride 109 H Carbon Dioxide 24.0 Anion Gap 9 BUN 13 Creatinine 1.09 H Estim Creat Clear Calc 52.68 Est GFR (MDRD) Af Amer 64 Est GFR (MDRD) Non-Af 53 L BUN/Creatinine Ratio 11.9 Glucose 113 H Calcium 9.1 Radiography Diagnostic Testing: Clinical Impression(s) from Imaging Studies Brain CT 02/04/23 18:20 IMPRESSION: No acute intracranial findings. Electronically Signed: Josiah Bautista MD at 18:59 EDT Reading Location ID and State: [facility] / [place] Tel , Service support , EKG Initial EKG: Attestation: I personally reviewed and interpreted this EKG as follows: Interpretation: Sinus Rhythm (Normal sinus rhythm rate is 70. There is artifact which computer is reading is ossific changes. There is a prolonged QT interval. NM interval is under 50 ms. QT duration is 488 ms a QTc of 427. QRSduration 90 ms. [place] is normal.) Discharge Plan Triage Chief Complaint: General Illness ED Provider: Gulshan Finley Dx/Rx/DC Orders Clinical Impression: Conversion reaction, Headache, History of subarachnoid hemorrhage Instructions: ED Conversion Reaction Prescriptions: No Action mupirocin 2 % ointment 1 applic topical BID meloxicam 7.5 mg tablet 7.5 mg PO BID PRN (Reason: pain) Qty: 60 5RF atorvastatin 40 mg tablet 40 mg PO DAILY Qty: 90 1RF levetiracetam [Keppra] 1,000 mg tablet 1,000 mg PO BID Qty: 180 1RF buspirone 10 mg tablet 10 mg PO BID Qty: 180 1RF hydroxyzine HCl 25 mg tablet 25 mg PO BID PRN (Reason: itching) Qty: 180 1RF aspirin [Aspir-81] 81 mg Tablet,Delayed Release (Dr/Ec) 81 mg PO DAILY multivitamin Tablet 1 tab PO DAILY Primary Care Provider: Yoselin Francis Referrals: Yoselin Francis DO [Primary Care Provider] - 5-7 Days Disposition Disposition: Home, Self Care What to do if you have Problems For any increased pain, shortness of breath, bleeding, nausea or vomiting, chestpain, or any unexpected problems, contact your Primary Care Provider. Call [facility] ([phone]) or report to the closest Emergency Room. Call 911 if necessary. 02/04/231938 <Electronically signed by Gulshan Finley MD> Cosigner Signature (if applicable): CC: Yoselin Francis DO ~ Signed [facility] Work Phone: 1(151) 843-847304-22-2023 Hospital Discharge instructions Additional Instructions Call [facility] Department of neurology at [phone] for an appointment in the next 1 to 2 weeks. I discussed the case with Dr. Jiménez who would like you to be seen.[facility] Work Phone: 1(909) 237-574708-05-2022 Instructions* Patient Instructions* ANGELINA Pulido - 01/08/2022 3:14 PM EDT Follow up with PCP regarding thyroid nodules Please schedule MRI prior to neurosurgery appointment * Attachments The following attachments cannot be sent through Care Everywhere. * Your Care after a Stroke Book ([facility]) ([place] History of Present illness Narrative* ANGELINA Pulido - 01/08/2022 1:40 PM EDT [facility] Department of Neurology Section of Cerebrovascular Disease and Neurocritical Care Hospital Follow Up IDENTIFYING PATIENT INFORMATION: Nanette Harrison MR# [id number] 01/08/2022 CHIEF COMPLAINT: Follow up after hospitalization HISTORY OF PRESENT ILLNESS: The patient Nanette Harrison is a 66 y.o. female has no past medical history on file. Nanette Harrison who presents to the outpatient stroke clinic accompanied in the office by her Daughter Kailey Allen. Nanette Harrison for follow-up after recent hospitalization. For details, please refer to the discharge summary dated 12/11/21. In summary, the patient presented as a level 1 stroke alert from [facility] with headache and confusion. Patient was last known well at 1700 on 12/07. Per family she had begun experiencing a headache on 12/06 but felt that it was her normal migraine. Then, on 12/07, she began having confusion. Then on 12/08, she had worsening confusion and started making comments about dogs that were not there and continuedrepeating herself. She also did not recognize her son. Her brought her to OSH where she wasagitated and complained of headache. 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 TPA was not given due to bleed. 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 CTA revealed complete occlusion ofthe distal left M2 segment of the middle cerebral artery with reconstitution distally likely due tocollateral flow; hyperattenuating focus noted on same day CT head favored to reflect a thrombosed aneurysm arising from the proximal M1 segment of the left middle cerebral artery; no flow distal to this; no large vessel occlusion or significant stenosis. Neurosurgery saw her and recommended DCA forafternoon of 12/09. This was performed on 12/09 and revealed an inferior M2 occlusion and completely thrombosed left MCA aneurysm. A GILDARDO was ordered for further work-up which was performed on 12/10 and revealed a normal LV and RV with EF 55%, a small PFO with left to right flow, a small secundum ASD with no significant flow. Bubble study showed no evidence of R to L shunting from either the PFO or ASD. There was no valvular dysfunction and no thrombus. An MRI was initially ordered but not completed as the etiology of the stroke was determined from DCA and would result in no changes of management. Ms. Harrison was found to have an acute left MCA inferior division ischemic stroke with etiology dueto thrombosis of left MCA aneurysm. A1C was 5.5. LDL of 107. Patient was started on Aspirin 81mg every day and atorvastatin 40mg daily for secondary stroke prevention. She was also sent home with an event recorder for cardiac monitoring. Per neurosurgery, she should have follow-up with them in one year for an MRA. PAST MEDICALHISTORY: No past medical history on file. PAST SURGICAL HISTORY: Past Surgical History: Procedure Laterality Date PLACEMENT CATH SELECTIVE INTERNAL CAROTID ARTERY W/ ANGIO IPSILAT INTRACRANIAL CAROTID W/ RAD S&I N/A 12/09/2021 Laterality: N/A; Surgeon: Faraz Bar MD, PhD; Location: [facility] MAIN OR CURRENT MEDICATIONS: Current Outpatient Medications Medication Sig Dispense Refill aspirin 81 MG Chew Tab chewable tablet Chew 1 tablet daily. 30 tablet 5 atorvastatin 40 MG tablet Take 1 tablet by mouth at bedtime. 30 tablet 5 LORazepam 0.5 MG tablet Take 0.5 mg by mouth 3 times daily as needed for agitation or Anxiety. No current facility-administered medications for this visit. ALLERGIES: Allergies Allergen Reactions Celexa [Citalopram] Anxiety, Agitation, Confusion, Depression and Hallucination SOCIAL HISTORY: Social History Tobacco Use Smoking status: Never Smoker Smokeless tobacco: Never Used Vaping Use Vaping Use: Never used Substance Use Topics Alcohol use: Yes Comment: Socially Drug use: Never Psycho-Social History: She reports that she has never smoked. She has never used smokeless tobacco. She reports current alcohol use. She reports that she does not use drugs. She currently resides at home with her FAMILY HISTORY: No family history of early strokes PAIN ASSESSMENT (Patient reports Pain): none FALL ASSESSMENT: none MEDICATION COMPLIANCE: Takes medication as prescribed without missed doses RECENT HOSPITALIZATION: none HOME HEALTH NEEDS: none FUNCTIONAL ASSESSMENT (Able to perform all ADLs): Performs all ADL's independently REVIEW OF SYSTEMS: No history of fever, chills, sweats, weight loss, fatigue, vision loss, double vision,visual scintillations, blurring, hearing loss, tinnitus, voice change, speech problems, chest pain, dyspnea, palpitations, cough, swallowing difficulties, nausea, vomiting, diarrhea, constipation, hematuria, dysuria, frequency, joint pain, joint swelling, rash, easy bruising, bleeding, headache, memory loss, dizzy, LOC, focal motor weakness, sensory loss, numbness, tingling, tremors, twitches, seizures, balance problems, gait problems, coordination difficulties, depression, fatigue, or insomnia. Positive Review of Systems: PHYSICAL EXAM: BP 120/57, HR 61, RR 24, T 98.6 Neurological examination: General: The patient appears nutritionally appropriate, well-groomed, and appears comfortable in noacute distress. Mental Status: Patient having some issues with memory and recall Language expressive aphasia (difficulty with word finding) Cranial nerves: Visual eller full, pupils were equal and reactive to light, and extra-ocular motion was intact. Face motion and sensation were symmetric. Hearing was symmetric to bilateral finger rub. Palate was symmetric. Bilateral shoulder shrug was intact. Tongue was midline with normal movement. There was no dysarthria. Motor: Normal strength and tone in all four extremities. No pronator drift. Bilateral fast finger movements were symmetric. Sensation: Intact light touch bilaterally, no extinction. Coordination: Bilateral finger to nose was normal. There was no dysmetria. No dysdiadokinesia. Gait: Gait was narrow-based and steady. NIH STROKE SCALE 1a. Level of consciousness: 0 1b. Level of consciousness questions: 1 1c. Level of consciousness commands: 0 2. Best Gaze: 0 3. Visual: 0 4. Facial Palsy: 0 5a. Motor left arm: 0 5b. Motor right arm: 0 6a. Motor left le 6b. Motor right le 7. Limb Ataxia: 0 8. Sensory: 0 9. Best Language: 2 10. Dysarthria: 0 11. Extinction and Inattention: 0 TOTAL: 3 Modified [facility]: 1 DATA: HgBA1c: Lab Results Component Value Date HGBA1C 5.5 12/08/2021 Lipid panel: Lab Results Component Value Date CHOLESTEROL 180 12/08/2021 TRIG 109 12/08/2021 HDL 51 12/08/2021 LDLCALC 107 (H) 12/08/2021 RADIOLOGY REVIEW: I have reviewed radiology image(s) and report(s) of: ECHOCARDIOGRAM TRANSESOPHAGEAL (GILDARDO) Normal LV size and systolic function, EF 55%. Normal RV size and systolic function. Small PFO with [id number] flow seen by color Doppler. Very small (3 mm) secundum ASD seen with 1.3 cm posterior rim. No significant flow seen on color Doppler. No evidence of right to left shunting with bubble study through PFO or ASD. No significant valvular dysfunction. No RA, LA, or SCARLETT thrombus. Gastric and descending/transverse aorta views not obtained due to patient intolerance and self-extubation. CT HEAD WITHOUT CONTRAST Narrative: EXAM: CT HEAD WITHOUT CONTRAST, 12/10/2021 7:06 AM COMPARISON: CT head noncontrast 12/09/2021, cerebral angiogram 12/09/2021. CLINICAL INDICATIONS: 65 years Female Headache, intracranial hemorrhage suspected; RELEVANT CLINICAL HISTORY: TECHNIQUE: A series of transaxial computerized tomographic images are obtained from base of skull to vertex without intravenous contrast. Axial whole-head and thin section posterior fossa slices are provided. Reformats: Sagittal and coronal. FINDINGS: No significant change, compared with CT from previous day. Again seen is a cortically based, somewhat wedge-shaped area of hypoattenuation involving the left temporal lobe, with relative sparing of the medial temporal lobe. Appearance is compatible with a recent infarct in the left MCA territory. Again seen is an ovoid density just over 1 cm in size, located in the left medial temporal region, adjacent to the anterior clinoid, and closely related to the left sylvian fissure. As suggested in the report of the previous CT exam, this could attention represent a thrombosed aneurysm, since this was not visualized on cerebral angiography of 12/09/2021. No midline shift, no downward herniation, no hydrocephalus. Posterior fossa is unremarkable. Calvarium is intact. Impression: IMPRESSION: 1. No significant change, compared with CT from previous day. 2. Again seen is cortically based hypoattenuation involving the lateral aspect of the left temporal lobe, compatible with an acute stage cerebral infarct. 3. Again seen is an ovoid hyperdensity in the medial left temporal region closely related to the sylvian fissure. It could represent a thrombosed aneurysm. SSMENT: The patient is a 66 y.o. female with a history of has no past medical history on file. who presentsto outpatient stroke clinic for follow-up after recent hospitalization. 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 A1C was 5.5. LDL of 107. Patient was started on Aspirin 81mg every day and atorvastatin 40mg daily for secondary stroke prevention. She was also sent home with an event recorder for cardiac monitoring. Per neurosurgery, she should have follow-up with them in one year for an MRA. NIHSS on discharge 4 (aphasia, LOC questions, facial palsy). NIHSS at clinic visit 3 (expressive aphasia and LOC questions) mRS 1. Having issues with short term memory loss and recall. Patient getting twice a week ST with some improvement of aphasia and word finding difficulties. Recommending iPAD for ongoing memory and speech recovery. No results from cardiac tech at this time, which was ordered inpatient. GILDARDO showed evidence of small PFO and very small ASD. Discussed implications of PFO, incidence in normal population, association with stroke as well as the results of 3 studies that revealed a statistically significant benefit in patient's with selected echocardiographic features, though the absolute difference between the closure and medical treatment groups was modest, the overall stroke risk in both groups was low, andthere was a slightly increased risk of atrial fibrillation associated with closure. Evidence based conversation surrounding the discussion of PFO closure and the potential implications occurred with p atient led decision making. As mechanism of stroke is known to be related to L MCA thrombosed aneurysm would defer cardiology evaluation at this time. Evidence of multinodular appearance of the thyroid gland with largest nodule within the left thyroid lobe. Recommend nonemergent thyroid ultrasound when clinically feasible. Defer to PCP for thyroid ultrasound if appropriate. Discussed natural history, prognosis, and treatment of stroke as well as recovery issues. For secondary stroke prevention, the patient should continue daily anti-platelet medication and vascular risk factor modification. PLAN: ? Anti-platelet medication: continue ASA 81mg ? Physical therapy/Speech therapy/Rehabilitation ? To reduce the risk of future ischemic stroke, the patient needs continued vascular risk factor modification. The following are the recommended guidelines*: ? LDL Goal: < 70 mg/dL-continue atorvastatin 40mg ? Smoking Cessation ? Diabetes management: Goal <6.5 ? Blood pressure control: should achieve <130/80 mmHg. BP management should aim to achieve mcc control in a reasonable amount of time, taking into consideration the individual patient's requirements and characteristics. ? Weight Management: Goal for BMI is 18.5-24.9 kg/m2. ? Alcohol: No more than 2 drinks/day for men or 1 drink/day for non- women. ? Promote lifestyle modification: weight control, physical activity, moderation of alcohol intake, moderate sodium intake. ? Follow-up with Neurovascular 3 months ADDITIONAL RECOMMENDATIONS: Will defer any further evaluation that may be warranted to patients primary care physician. Thank you for allowing me to participate in the care of Nanette Harrison. If you have any questions or concerns please contact me. Kailey Cool, [employer] 01/08/2022 1:16 PM I spent about 45 minutes today with patient, reviewing history, and hospital records, MRs, CTs, labs, examining patient, discussing impressions, answering questions and charting. *References: (1) Mac et al, Stroke 2011, 42:227-276; (2) Burch et al, Stroke 2006, 0135-9419;(3) Shruthi et al, Stroke 2006; 37: 577-617; (4) Trung Carmichael. IVET 2003, [phone]; (5) Kiersten, et al, Circulation 2001, 103-163; (6) Rc et al, Stroke 1999, 6927-4070;(7) ATP III. See also ht tp:///nhlbi.nih.gov/guidelines/cholesterol/index.htm [facility] Narrative* Sergio Mcfadden MD, PhD - 12/11/2021 3:11 PM EDT Images from the original note were not included. Discharge Summary Name: Nanette Harrison Age: 65 y.o. Birthday: 1955 Admit Date: 12/08/2021 Discharge Date: 12/11/2021 Admission Information Admitting Physician: Eloy Calvo MD Discharge Information Discharge Physician: Eloy Calvo MD Problem List Active Hospital Problems Diagnosis Stroke Resolved Hospital Problems No resolved problems to display. DISCHARGE LETTER: Dear Doctors, I recently had the opportunity to care for Nanette Harrison during her recent hospital stay at [facility]. REASON FOR ADMISSION: Nanette Harrison is a 65 y.o. right handed female with no significant past medical history who presented as a level 1 stroke alert from OSH with headache and confusion. Patient was last known well at 1700 on 12/07. Per family she had begun experiencing a headache on 12/06 but felt that it was her normal migraine. She did have poor appetite at that time. Then, on 12/07, she began having confusion. She was attempting to make her damian food cake that she has made many times in the past and knows the recipe by heart, however she had forgotten how to make it. She continued to repeat I don't know. Then on 12/08, she had worsening confusion and started making comments about dogs that were not there and continued repeating herself. She also did not recognize her son. Her brought her to OSH where she was agitated and complained of headache. 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 TPA was not given due to bleed. 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 CTA revealed complete occlusion ofthe distal left M2 segment of the middle cerebral artery with reconstitution distally likely due tocollateral flow; hyperattenuating focus noted on same day CT head favored to reflect a thrombosed aneurysm arising from the proximal M1 segment of the left middle cerebral artery; no flow distal to this; no large vessel occlusion or significant stenosis. At this time her NIHSS was 6. She was repeating Nanette, tower, and squad force. Neurosurgery saw her and recommended DCA for afternoon of12/09. HOSPITAL COURSE: Ms. Harrison was found to have an acute left MCA inferior division ischemic stroke as well as complete thrombosis of left MCA aneurysm. A summary of her hospital course is below. Patient was admitted to neurovascular service on 12/08 for work-up and management of left MCA ischemic stroke. Her CT head obtained on 12/08/2021 revealed subacute infarct within the left inferior frontal/temporal lobe. No evidence of hemorrhagic transformation or significant mass effect; hyper attenuating adjacent to the left anterior clinoid process favored to reflect a thrombosed aneurysm, likely arising from proximal middle cerebral artery. Her CTA brain/neck obtained on 12/08 revealed complete occlusion of the distal left M2 segment of the middle cerebral artery with reconstitution distally likely due to collateral flow; hyperattenuating focus noted on same day CT head favored to reflect a thrombosed aneurysm arising from the proximal M1 segment of the left middle cerebral artery; no flow distal to this; no large vessel occlusion or significant stenosis. Neurosurgery was consulted who saw the patient and recommended a diagnostic cerebral angiogram. This was performed on 12/09 and revealed an inferior M2 occlusion and completely thrombosed left MCA aneurysm. A GILDARDO was ordered for further work-up which was performed on 12/10 and revealed a normal LV and RV with EF 55%, a small PFO with left to right flow, a small secundum ASD with no significant flow. Bubble study showed no evidence ofR to L shunting from either the PFO or ASD. There was no valvular dysfunction and no thrombus. An MRI was initially ordered but not completed as the etiology of the stroke was determined from DCA andwould result in no changes of management. Aspirin 81mg every day was started on 12/09. Lab results revealed LDL of 107 and she was started on atorvastatin 40mg every day. A1C was 5.5. Patient had a severe headache throughout 12/08, 12/09, and 12/10.Oxycodone 10mg PRN was given as well as IV Mg and compazine. Patient with improved pain on 12/11, stating that the pain felt similar to her prior migraines (she has a history of migraines). Patient's motor function improved throughout hospital stay, she had no notable weakness on day of discharge. She did remain with expressive aphasia with some difficulty with comprehension as well. OT/PT saw the patient and recommended inpatient rehab, however, family declined and wished to take her home. Patient was discharged with prescriptions for aspirin 81mg and atorvastatin 40mg every day. She will also go home with an event recorder for cardiac monitoring. She was instructed to follow-up in stroke clinic and with PCP. Per neurosurgery, she should have follow-up with them in one year for an MRA. Final diagnosis: Subacute left temporal CVA - Etiology by TOAST Criteria - Other (thrombosed aneurysm of L MCA) Ischemic Stroke Core Measures -NIHSS on admission 6 -NIHSS on discharge 4 (aphasia, LOC questions, facial palsy) -mRS 1 -Antiplatelet therapy has been initiated, Aspirin 81 mg daily. -Anticoagulation therapy was not indicated for this patient -Patients LDL and HgbA1c were checked and the patient will be discharged on atorvastatin 40mg -Stroke education booklet has been ordered and will be provided by the RN that includes both written and verbal education to the patient and family regarding ischemic strokes. We have reviewed the patient's personal modifiable risk factors. - Swallow study was completed and patient was cleared for a regular diet -Patient has been assessed for Rehab by PT/OT/Speech. Further recommendations - Continue aspirin 81mg daily - Continue atorvastatin 40mg daily - Follow up with neurology stroke clinic - Follow up w/ PCP (needs to establish) - Follow up w/ NSGY in 1 year - Obtain MR Angio Brain in 1 year prior to visit Physical Exam on the Date of Discharge: Vitals: 12/11/21 1153 BP: 122/59 Pulse: 59 Resp: 14 Temp: 97.7 F (36.5 C) Wt Readings from Last 1 Encounters: 12/09/21 108.4 kg (238 lb 15.7 oz) Gen: Alert and interactive. Not oriented 2/2 aphasia CV: Regular rate and rhythm Resp: Non labored breathing, on room air GI: Soft, not distended Neuro: Alert, aphasic, NIH as below Stroke Assessment: 12/11/2021 Provider NIH Stroke Scale NIH Interval (Provider): admission NIH Level of Conciousness (Provider): 0 NIH LOC Questions (Provider): 2 NIH LOC Commands (Provider): 0 NIH Best Gaze (Provider): 0 NIH Visual (Provider): 0 NIH Facial Palsy (Provider): 0 NIH Left Arm Motor (Provider): 1 NIH Right Arm Motor (Provider): 1 NIH Left Leg Motor (Provider): 0 NIH Right Leg Motor (Provider): 0 NIH Limb Ataxia (Provider): 0 NIH Sensory (Provider): 0 NIH Best Language (Provider): 2 NIH Dysarthria (Provider): 0 NIH Extinction and Inattention (Provider): 0 NIH Total Score (Provider): 6 Stroke Scales Flowsheet Row Most Recent Value ICH Score (Calculated) 0 filed on 12/08/20212149 ICH Volume (ml) (Calculated Score) 0.83 filed on 12/08/20212149 Modified Linda Scale Score Premorbid (MRSS) 0 filed on 12/08/20212135 NIH Total Score (Provider) 6 filed on 12/08/20212111 At the time of discharge the patient's mental status was Alert. Upon discharge the patient's code status [id number] It has been my pleasure participating in this patient's care. Please contact me with any questions or concerns regarding her hospital stay. Signed, Maxine Mcfadden MD, PhD Neurology, PGY-2 Pager #[phone] Dictated under attending physician Eloy Calvo MD Division of Neurology CONSULTS DURING ADMISSION: IP CONSULT TO SURGERY - NEURO IP CONSULT TO OCCUPATIONAL THERAPY IP CONSULT TO PHYSICAL THERAPY IP CONSULT TO SPEECH THERAPY IP CONSULT TO SOCIAL WORK IMAGING / PROCEDURES / RESULTS: ECHOCARDIOGRAM TRANSESOPHAGEAL (GILDARDO) Final Result CT HEAD WITHOUT CONTRAST Final Result IMPRESSION: 1. No significant change, compared with CT from previous day. 2. Again seen is cortically based hypoattenuation involving the lateral aspect of the left temporal lobe, compatible with an acute stage cerebral infarct. 3. Again seen is an ovoid hyperdensity in the medial left temporal region closely related to the sylvian fissure. It could represent a thrombosed aneurysm. RO IMAGING FOR NEURO ENDOVASCULAR CT HEAD WITHOUT CONTRAST Final Result IMPRESSION: 1. Stable area of hypodensity in the inferior left temporal lobe favored to represent a subacute infarct. 2. 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 I personally viewed and interpreted these images and I have reviewed and approved this report. ANGIO BRAIN/NECK Final Result IMPRESSION: 1. 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 2. 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 No CTA spot sign within this thrombosed aneurysm; minimal contrast near the base of the suspected aneurysm could reflect blood flow near the aneurysm neck. No flow distal to this 3. No large vessel occlusion or significant stenosis involving the major arterial vasculature head and neck. 4. Multinodular appearance of the thyroid gland with largest nodule within the left thyroid lobe. Recommend nonemergent thyroid ultrasound when clinically feasible. 5. Hazy bilateral groundglass densities, may relate to aspiration or a developing infectious/inflammatory etiology. Findings were discussed with Dr. Lilliam Parson on 12/08/2021 9:50 PM. I personally viewed and interpreted these images and I have reviewed and approved this report. STROKE HEAD-STROKE ALERT ONLY Final Result IMPRESSION: 1. 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 No evidence of hemorrhagic transformation or significant mass effect. 2. 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 Findings were discussed with Dr. Lilliam Parson on 12/08/2021 9:41 PM. I personally viewed and interpreted these images and I have reviewed and approved this report. Should you require further information or copies of results or reports please contact [employer] @ [phone] LABS AT TIME OF DISCHARGE: Lab Results Component Value Date SODIUM 140 12/11/2021 POTASSIUM 4.0 12/11/2021 MAGNESIUM 1.9 12/11/2021 BUN 13 12/11/2021 CREATSERUM 0.74 12/11/2021 Lab Results Component Value Date WBC 8.13 12/11/2021 HGB 13.9 12/11/2021 PLATELET 199 12/11/2021 INR 1.2 (H) 12/11/2021 Lab Results Component Value Date HGBA1C 5.5 12/08/2021 PATIENT'S MEDICAL HOME AT DISCHARGE: No primary care provider on file. No primary physician on file. None DISCHARGE ORDERS AND MEDICATIONS: No orders of the defined types were placed in this encounter. Discharge Orders AMB REFERRAL TO PHYSICAL THERAPY AMB REFERRAL TO OCCUPATIONAL THERAPY AMB REFERRAL TO NEUROLOGY MOBILE CARDIAC TELEMETRY Medication List for when you go home START taking these medications aspirin 81 MG CHEW chewable tablet Chew 1 tablet daily. Start taking on: December 12, 2021 atorvastatin 40 MG TABS Take 1 tablet by mouth at bedtime. Commonly known as: LIPITOR FOLLOW-UP: [facility] ([facility]) [facility] [address] [place], [place] Go to Please call to make initial outpatient physical therapy and occupational therapy appointments. [facility] of Present illness Narrative* TAWNYA Reyes - 12/11/2021 2:59 PM EDT Final Discharge Planning Final Discharge Planning Discharge Disposition: Home Services at Discharge: Outpatient rehab services, Occupational Therapy, Physical Therapy Selected Continued Care - Admitted Since 12/08/2021 No services have been selected for the patient. Community Agency Name(s) For Handoff: N/A Additional Community Agency Name(s): no Plan Plan: Discharge home Patient/Family In Agreement With Plan: yes AVS is complete per CM's viewpoint. Pt is declining discharge to inpatient rehabilitation. Pt is agreeable to discharging home with outptient PT and OT. Follow-up neurology appointment is scheduled. Pt to initiate care with a PCP. No other CM needs at this time. MARILYN Clay Family Helper [phone] CM had conversation with patient/caregiver related to specialty care follow-up. Barriers identified: None Outpatient CM was not contacted related to barriers 12/11/21, 1537 CM scheduled neurosurgery and MRIs of the brain and neck. MARILYN Clay Family Helper [phone] * Eloy Calvo MD - 12/11/2021 7:47 AM EDT Stroke Attending Addendum (Date of service 12/11/21): I have reviewed Dr. Mcfadden's note and agree with the following highlights, additions, and addendums: The patient is a 65 y.o. right-handed female with no significant medical history who on 12/06/21 developed symptoms of headache but was otherwise acting normal. Then on 12/07/21 1700 while at cook out wasconfused (could not do her usual recipe for dessert). Then on 12/08 family noted she was not making sense. The patient presented to an OSH [place] ER where CT brain showed an inferior division left MCAinfarct and rounded hyperdensity, which was felt to be hemorrhagic conversion. The patient was transferred to [facility] ER. On arrival NIHSS was 6. CT brain hear read as thrombosed aneurysm with left MCA in farct. CT angiogram head/neck shows left M2 occlusion and thrombosed aneurysm arising from proximalM1. LDL 107, HgbA1c 5.5. Angio + LM2 occlusion. GILDARDO EF 55%, +PFO/ASD. Interval Overnight History: 128/59. Desat transiently overnight, off O2 currently. Mild GORDON. Neurological examination shows aphasia, NIHSS 4 (?-2, aphas-2). Assessment/Plan: Acute left MCA inferior division ischemic stroke, Post-stroke day # 6, Thrombosed left MCA aneurysm. Stroke work-up completed. Cancel MRI (able to see infarct on CT brain). Continue daily anti-platelet medication (Asa) and vascular risk factor modification. On lipitor 40. DVT prophylaxis with SCDs and lovenox SQ. PT/OT consults-ARF. GORDON on oxy. EM on disch arge. DC IVF. Family declines ARF, DC home today. Eloy Calvo MD * Dragan Cornejo MD - 12/10/2021 7:26 PM EDT Neurosurgery update Angio completed and revealed left mca aneurysm completely thrombosed. Stroke care per nv. Can follow-up with Dr. Bar in 1 year with repeat MR angio brain. No further neurosurgical intervention needed at this time. Neurosurgery will sign off. Please call with questions or concerns. Pager [phone]. * Eloy Calvo MD - 12/10/2021 6:54 PM EDT Stroke Attending Addendum (Date of service 12/10/21): The resident was present with the medical student who participated in the visit and documentation of this note. I saw and evaluated the patient, and discussed the case with the resident and medical student. I have reviewed the note and agree with the history, exam and medical decision making and have made modifications to information when appropriate. I have interviewed and examined patient. I have reviewed Darlyn Ulloa's note and agree with the following highlights, additions, and addendums: The patient is a 65 y.o. right-handed female with no significant medical history who on 12/06/21 developed symptoms of headache but was otherwise acting normal. Then on 12/07/21 1700 while at cook out was confused (could not do her usual recipe for dessert). Then on 12/08 family noted she was not making sense. [facility] showed an inferior division left MCA infarct and rounded hyperdensity, which was felt to be hemorrhagic conversion. The patient was transferred to [facility] ER. On arrival NIHSS was 6. CT brain hear read as thrombosed aneurysm with left MCA infarct. CT angiogram head/neck shows left M2 occlusion and thrombosed aneurysm arising from proximal M1. LDL 107, HgbA1c 5.5. Angio + LM2 occlusion. Interval Overnight History: 134/60. 95%. GORDON 10/10. Neurological examination shows aphasia, NIHSS 4 (?-2, aphas-2). Assessment/Plan: Acute left MCA inferior division ischemic stroke, Post-stroke day # 5, Thrombosed left MCA aneurysm. Stroke work-up ordered including MRI brain, GILDARDO, cardiac monitoring, swallow evaluation, Stroke education. Continue daily anti-platelet medication (Asa) and vascular risk factor modification. On lipitor 40. DVT prophylaxis with SCDs and lovenox SQ. PT/OT consults. VS q 4 hrs. GORDON- increase oxy. EM on discharge. Eloy Calvo MD * MARILYN Jose - 12/10/2021 3:04 PM EDT Placement Plan Expected Discharge Date: 12/11/2021 Referred Level of Care: IPR Barriers: facility acceptance/choice, medical Current Referrals and Status Current therapy recommendations for IPR. SW sent referrals near pt's home and will follow up with alist of accepting facilities. VERONICA Urias, MARILYN-S Systems Architect for [facility] * ASHWIN Villafuerte - 12/10/2021 10:45 AM EDT NUTRITION RISK SCREENING NOTE Nutrition Plan of Care: 1. Continue current diet order. 2. Pt declined oral supplements. 3. Monitor for significant weight changes. 4. Monitor and encourage po intakes with goal of average po being 50%. 5. donor technician to follow. Nanette Harrison is a 65 y.o. female admitted with stroke. Met with patient today at bedside wearing mask and eye protection. Oven Operator Automatic Screening Pt's appetite is poor. Pt with no nausea, vomiting, diarrhea or constipation. Pt with no issues with chewing and/or swallowing. Pt with unsure of any weight changes. Past History Past medical, surgical, family, and social histories have been reviewed and are located elsewhere in the medical record. Height: 172.7 cm (5' 8) Admit wt: 238 lb IBW: 140 lb %IBW: 170% BMI: 36.30 Wt Readings from Last 10 Encounters: 12/09/21 108.4 kg (238 lb 15.7 oz) Current Diet Orders Procedures DIET NPO with meds Standing Status: Standing Number of Occurrences: 1 Order Specific Question: NPO Meds: Answer: with meds Food Allergies reviewed:NKFA Cultural or Baptism Restrictions/Preferences: denies Skin Ross Score: 17 STAND skin bundle initiated Active Wounds: Sheath Site Assessment (Wound) Right radial (1) Edema: - Summary Pt is at nutrition risk due to admission diagnosis, chronic conditions, poor po intake, and decreased skin integrity. Pt is on STAND skin bundle. Asked pt about appetite and she would keep stating that she is working through her meal. Asked patient about average po intake and she repeated she wasworking through her meal. Observed only a few bites of breakfast was eaten. Pt declined all oral supplements. Will encourage good protein sources. Will continue to monitor. Maday Haque DTR Pager:[phone] * TAWNYA Reyes - 12/10/2021 10:05 AM EDT Discharge Planning Patient Assessment Admission Assessment Patient Assessment Completed: Yes Anticipated discharge disposition: Home Reason for Admission: Stroke Is the patient able to participate in the assessment?: Yes Information source: Patient, Review of Medical Record Information Source Name/Contact: Nanette Harrison [phone] Demographics Verified and Updated: Yes Has the patient been admitted to any hospital in the last 30 days?: Transferred From Outside Hospital Advanced Care Planning Has the patient completed Advance Directives?: Not Completed Referral to Social Work for Advance Care Planning? : Patient Declines Legal Next of Kin Does the patient have a Guardian?: No Spouse: Yes Name and Contact information: Alejandro London [phone] Adult Child(amie), List All Adult Children: Yes Name and Contact information: Kailey Horton [phone] Referral to Social Work to Identify Legal Next of Kin?: No Reviewed and Updated in Demographics? : Yes Outpatient Providers Does patient have a primary care physician? : No Is the patient agreeable to a referral or information on a primary care physician?: Patient Declines Patient-reported plan for outpatient follow-up: Pt to find PCP in her geographic area Does the patient follow any specialists?: No Reviewed and updated Care Team?: Yes No care clinical team lead to display Environment/Caregivers Is the patient from a facility or jail?: No Patient lives with: Spouse or Partner Living Environment: House How many steps does the patient have to navigate to enter or inside the home? : a few Does the patient have a first floor set-up with bed and bathroom?: Yes Patient Caregiving Responsibilities: Self Patient-identified caregiver/support network: Family Who does the patient identify as a teachable caregiver(s)?: Spouse or Partner Services Does the patient use a home health or hospice agency?: No Current with dialysis?: No Does the patient use any community programs or services?: No Does patient use DME? : none Does the patient use oxygen?: No Does patient use medical supplies? : none Initial ADLs Prior to Arrival What is the patient's baseline physical functioning prior to this acute illness?: independent What is the patient's baseline cognitive functioning prior to this acute illness?: independent Are there therapy or specialists consults?: Yes Select consult type: PT, OT, INSTALLATION DRAFTER Does the patient's home require any home modifications for discharge? : No CM to recommend therapy or other consults? : No Medication Management Does the patient have prescription insurance coverage? : Yes Is the patient on Anticoagulation? 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 : No Employed?: Retired Coping/Stress Concerns about patient s coping and stress?: No Concerns about patient s caregiver s coping and stress?: No Identified Caregiver Values and Beliefs Cultural or catholic practices that may impact discharge planning and/or medical care?: No Initial Discharge Planning Anticipated discharge disposition: Home Transportation Available for Discharge: Family or Friend Anticipated DME: none Anticipated Services at Discharge: Outpatient follow up Patient Assessment Completed: Yes Risk of Readmission: 3.8 Category Reference: High:16-100 Mod-High:10-16 Mod-Low: 5-10 Low: 0-5 Expected Discharge Date: 12/11/2021 Discharge Planning Summary Awaiting PT and OT recommendations Case Management Plan 1. RX, PCP, and demographics reviewed and updated in the system 2. Will monitor team recommendations for level of care at discharge 3. Patient will be provided instructions on follow up appointments 4. Patient will be provided instructions/information on the warning signs and symptoms which may indicate the need to seek medical attention 5. Will continue to follow with medical team to arrange recommended follow up with specialty physicians MARILYN Clay Family Helper [phone] * Brielle Roman - 12/10/2021 9:55 AM EDT Acute Care INSTALLATION DRAFTER Speech/Language/Cognitive Evaluation Best mode of Communication: spoken language (regular speech) Communication Strategies: Provide extended time to answer, repeat questions/prompts as necessary, redirect attention verbally if pt does not respond or perseverating, ask simple yes/no questions. Discharge Recommendations: Based on the below outcome measures/assessment score(s) and INSTALLATION DRAFTER clinicaljudgment, discharge destination recommendation is: Deferred to PT/OT recomendations related to mobility Barriers to discharge home: Cognitive impairments that impact safety and independence, 1:1 assist needed for IADL's including medication management and finances Supporting factors for discharge setting: Impaired speech and language skills limiting ability to communicate basic wants/needs, Impaired cognitive skills limiting independence Acute INSTALLATION DRAFTER Outcomes Tracking Communicate basic wants and needs?: yes Demo insight/appreciation of deficits?: no (Emerging awareness of word-finding and writing difficulties) Complete basic problem solving?: unable to determine Current therapy frequency recommendation in acute: Speech/Lang/Cog Therapy Frequency: 4 times a week Clinical Impression: Nanette Harrison presents with expressive/receptive language difficulties, aphasia, and suspected cognitive deficits (unable to fully assess at this time d/t pt with headache, fatigue, confusion, family entering room during assessment) 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 Pt demonstrating difficulties with naming, word-finding, repetition of multiple-word utterances (suspect immediate recall impacting), command following, letter identification and reading single words, and writing. Suspect confusion and complaint of headache impacting overall performance. Pt benefits from repetition of questions/prompts to attend to task, increased time to respond, semantic and phonemic cues and/or multiple choice for word-finding. Recommend ongoing INSTALLATION DRAFTER services to address noted deficits and perform ongoing assessment of cognitive-communication abilities. Patient Instruction/Education this session: Educated pt on purpose for evaluation, reviewed noted deficits with pt and family as well as POC. Plan for next session: Address goals (see below), ongoing assessment Subjective: Pt awake, alert, sitting upright in chair. Reporting right side of face feels tingly, asking What did I do?, with headache (rated 8-9/10) upon arrival - nursing notified. Pt continuously touching face/head throughout session. Family ( and daughter) entered room at end of evaluation. Pain: General Pain Documentation (Adult, OB, Peds) Presence of Pain: non-verbal indicator of pain/discomfort not present DVPRS (Defense and Veterans Pain Rating Scale) DVPRS: Rest: 9- severe pain DVPRS: Activity: 9- severe pain Patient History Comments: Nanette Harrison is a 65 y.o. right handed female with no significant past medical history who presented as a level 1 stroke alert from OSH with headache and confusion. Patient was last known well [id number] on 12/07. Per family she had begun experiencing a headache on 12/06 but felt that it was her normal migraine. She did have poor appetite at that time. Then, on 12/07, she began having confusion. She was attempting to make her damian food cake that she has made many times in the past and knows therecipe by heart, however she had forgotten how to make it. She continued to repeat I don't know. Then on 12/08, she had worsening confusion and started making comments about dogs that were not there a nd continued repeating herself. She also did not recognize her son. Her brought her to OSH where she was agitated and complained of headache. 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 TPA was not given due to bleed. 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 CTA revealed complete occlusion ofthe distal left M2 segment of the middle cerebral artery with reconstitution distally likely due tocollateral flow; hyperattenuating focus noted on same day CT head favored to reflect a thrombosed aneurysm arising from the proximal M1 segment of the left middle cerebral artery; no flow distal to this; no large vessel occlusion or significant stenosis. At this time her NIHSS was 6. She was repeating Nanette, tower, and squad force. Neurosurgery saw her and recommended DCA for afternoon of12/09. She lives in [place], [place] with her , Alejandro, of 48 years, and two dogs. 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 Denies tobacco, drug, or alcohol use. She does not see a doctor INTERVAL HISTORY 12/08 - Repeat CTH revealed stable area of hypodensity in the inferior left temporal lobe favored to represent subacute infarct; stable hyperdensity suspected to represent thrombosed aneurysm likely arising from the proximal left MCA. Patient with expressive aphasia and confusion. Neurosurgery recommending DCA for 12/09. 12/09: Today, Ms. Harrison has continued confusion with expressive aphasia and trouble identifying common items (ex. a pen), however she was oriented to age and month. She reports a headache as well. She follows some commands but has difficulty. Taken for DCA procedure with neurosurgery this afternoon. Oxycodone PRN ordered for headache after procedure. Brain MRI ordered for further work-up, but not urgently. LDL came back at 107 so Atorvastatin 40mg started. A1c normal at 5.5. CT Head Without Contrast 12/10: IMPRESSION: 1. No significant change, compared with CT from previous day. 2. Again seen is cortically based hypoattenuation involving the lateral aspect of the left temporal lobe, compatible with an acute stage cerebral infarct. 3. Again seen is an ovoid hyperdensity in the medial left temporal region closely related to the sylvian fissure. It could represent a thrombosed aneurysm. Residence: House Lives With: spouse IADL History IADL Comments: Pr reports she does not wear glasses and is right-handed Respiratory Status: Room Air EXPRESSIVE LANGUAGE: Impaired Task: Imitates Gestures Functional Automatic Speech (Not assessed) Phrase Completion (Not assessed) Confrontation Naming Impaired (Pt independently named 5/12 objects. Given semantic, phonemic cues, and multiple choice to accurately name ~90% objects presented. Phonemic paraphasias, perseveration from previously named objects when naming.) Answering 'wh' Questions (Not assessed) Repetition Impaired (Accurate with single words. Impairments noted at short phrase/sentence level.) Verbalize Basic Wants and Needs Functional Functional Participation in Conversation Unable to assess Expressive Language Characteristics: Anomia, Phonemic Paraphasia and Perseveration; Fluent with some short phrases, unable to assess abilities with longer utterances RECEPTIVE LANGUAGE: Impaired Task: Follow 1-Step Commands Impaired (Required repetition + increased verbal cues for cranial nerve instructions (e.g., opened mouth initially when asked to smile, then did it with repetition). Labelling/naming impacting.) Follow 2+ Step Commands Impaired (When asked to point at 2 objects, picked them up instead. When asked to use object to point to another, picked up wrong object and set on other object. Labelling/naming impacting.) Answers Basic Y/N Questions Functional Answers Complex Y/N Questions Impaired Conversational Comprehension Functional READING: Impaired Task: Letter Identification Impaired (Reading initial letters incorrectly even with all other letters covered (said T and M were S).) Single Words Aloud Impaired (Unable to read mama even after spelling letter by letter with clinician) WRITING: Impaired Task: Writing Biographical Information Impaired (Accurately wrote full name. Could not recall number and street name when writing address.) Writing Sentences Impaired (? impacted by immediate recall of phrase dictated by clinician, complaint of headache) SOCIAL INTERACTION/PRAGMATICS: Functional; pt Task: Takes Turns in Communication Intact Maintains Eye Contact Functional Responds Appropriately to Questions Functional COGNITION: Impaired; unable to fully assess deficits at this time Task: Arousal/Alertness Appropriate responses to stimuli Orientation Level Oriented to person (Oriented to place with multiple choice) Safety Judgment Unable to assess Awareness of Errors Assistance required to correct errors made, Decreased awareness of errors Deficits (Slight awareness of word-finding difficulty and writing difficulty, reporting she knew some answers were wrong, although unable to correct) Attention Span Attends with cues to redirect (Headache likely impacting) Memory Unable to assess (Suspect headache and suspected linguistic deficits impacting, immediate recall of short phrases impaired) Problem Solving Unable to assess Cognition Comments Unable to fully assess cognition at this time. Pt appearing fatigued, confused, headache, and linguistic deficits impacting, family entering upon administration of Orientation-Log. CRANIAL NERVE EXAMINATION: Cranial Nerve Exam CN V (Trigeminal) normal blink, equal sensation on forehead, cheeks, and jaw, strong equal bilateral strength of masseter and temporal muscles (Pt reporting tingling on right side, perseverating on What did I do? and touching face following cranial nerve assessment.) CN VII (Facial) strong bilateral movement of upper and lower face CN IX (glossopharyngeal) hoarseness (mild) CN X (Vagus) hoarseness (mild) CN XI (Accessory) strong and equal shoulder shrug CN XII (Hypoglossal) clearly articulated speech, tongue midline with strong equal strength (Pt withdifficulty initiating tongue protrustion/laterlization, ? d/t complaint of headache, confusion, difficulty with command following) MOTOR SPEECH TASKS: Intact Task: Speech Intelligibility Intact Fluency (Suspct impacted by word-finding difficulties rather than motor speech) Saliva Management Intact VOCAL PARAMETERS: Functional Task: Vocal Quality hoarse, mild Subjective Voice Evaluation Grade of dysphonia (G): 1 Roughness (R): 1 Breathiness (B): 1 Asthenia (A): 0 Strain (S): 0 INSTALLATION DRAFTER Outcomes: Western Aphasia Battery -Bedside Revised Form: an individually administered assessment for adults with acquired neurological disorders. Assesses the linguistic skills most frequently affected by aphasia, in addition to ortiz non- linguistic skills and provides differential diagnosis information. Western Aphasia Battery-Bedside (WAB-B) Spontaneous Speech: Content Score: 4 Spontaneous Speech: Fluency Score : 5 Auditory Verbal Comprehension Yes/No Questions Score: 7 Sequential Commands Score: 0 Repetition Score: 7 Object Naming Score: (Unable to complete d/t pt with headache and fatigue. 5/13 objects accurately named without cues.) *Unable to provide official score d/t inability to complete all sections with pt confused, fatigued, complaining of headache Acute INSTALLATION DRAFTER Goals Plan of Care by DYANA Lang at 12/10/2021 9:55 AM Version 1 of 1 Problem: INSTALLATION DRAFTER - Cognition Goal: Ongoing Goal Description: Pt will participate in evaluation of other language/cognition skill areas with additional treatment goals to follow as appropriate/indicated. Outcome: Ongoing Problem: INSTALLATION DRAFTER - Language Goal: Word Retrieval Strategies for Naming Description: Patient will recall/implement use of word retrieval strategies, given mod cues, to complete functional naming tasks and improve verbal expression/word retrieval and ability to verbally express wants/needs, across x1-2 session(s). Outcome: Ongoing Goal: Ongoing Goal Description: Pt will participate in ongoing evaluation of language (specifically areas of reading/writing and speech automatics given limited initial assessment) with additional treatment goals to follow as appropriate/indicated across x1 session. Outcome: Ongoing I was assisted by Antonia Simmons for today's session. and I used facemask, protective eye shield, and gloves in today's patient interaction. Speech Language Pathologist: Brielle Roman Time In: 55 Time Out: 1036 Total Visit Time: 41 minutes Total Treatment Time (skilled, billable minutes): 38 minutes Patient location at end of session: chair Alarms on at end of session: RN aware INSTALLATION DRAFTER did not touch/manage existing alarms this session. Needs in reach. Upon discontinuation of Acute Care Speech Therapy Services or patient discharge from the hospital this note represents the current Speech Therapy Discharge Summary Associated attestation - Antonia Simmons SLP - 12/10/2021 4:16 PM EDT Clinical Green Chain Marker Attestation: I, DYANA Lang, was present for the session and provided direct guidance in the room during this patient care session. I attest that all documentation reflects accurate skilled clinical decisions and judgements. I havemade changes as needed. Antonia Simmons MA, [facility] Pager: [phone] License: [email or web address] Email: [email or web address] *Available via [email or web address] Chat, Tuesday- from 7:00am-3:30pm * Kitty Ferrari OT - 12/10/2021 8:08 AM EDT Acute Occupational Therapy Evaluation Prior to Admission AM-PAC Score: PRIOR LEVEL AM-PAC Activity Raw Score: 24 PRIOR LEVEL AM-PAC Mobility Raw Score: 24 Current AM-PAC score(s): CURRENT AM-PAC Mobility Raw Score: 18 CURRENT AM-PAC Activity Raw Score: 15 Based on the above AM-PAC score(s) and OT clinical judgment, discharge destination recommendation is: Inpatient Rehab Facility Supporting Factors (would benefit from skilled therapy services): Patient status is anticipated to be appropriate to tolerate inpatient rehab therapy requirements at time of discharge from acute care, Impaired functional status, Decreased strength, Impaired balance, Decreased endurance, Impaired self-care abilities, Impaired cognitive status, Assistance needed with functional mobility, Fall risk Mobility equipment available at home: none used ADL equipment available at home: none Equipment recommendations for discharge: to be determined Current therapy frequency recommendation(s) in acute: 5 times a week Precautions and Weightbearing Status: OT Existing Precautions/Restrictions: fall Patient Safety Communication Prior to Visit: Nursing Respiratory Status O2 Device: room air Subjective: Pt received sitting up and attempting to exit bed with IV line pulling behind her. Pain: General Pain Documentation (Adult, OB, Peds) Presence of Pain: complains of pain/discomfort Pain Location: headache DVPRS (Defense and Veterans Pain Rating Scale) DVPRS: Rest: 6- moderate pain DVPRS: Activity: 6- moderate pain Home Setting Residence: House Lives With: spouse Second floor setup: bedroom, walk in shower Number of stairs to enter home: 0 Number of stairs in home: 10 Stair Railings at Home: interior - present on right side (ascending) Mobility Equipment Available: none used ADL Equipment Available: none Previous Level of Function Prior level ADL Overview: Independent with all ADLs Dominant Hand: Right Bed Mobility/Transfers: independent Ambulation Skills: independent Assistive Device: none used Level of Ambulation: community Prior Level of Function Details: Pt fair historian and limited responses due to confusion and fair alertness IADL History IADLs: independent Primary Language: Honduran Home Management Skills: independent Medication Management: independent Homemaking Responsibilities: Yes Meal Prep Responsibility: Primary Laundry Responsibility: Primary Cleaning Responsibility: Primary Bill Paying/Finance Responsibility: Secondary Shopping Responsibility: Secondary IADL Comments: Reports drives as needed. Spouse works 2 x week Objective/Observation: Vitals/Vitals Responses to Treatment: VSS Vision Screen Currently wearing corrective lenses: No, Reading only Speech (receptive/expressive deficits) Speech: word-finding difficulties Hearing Hearing: no gross deficits noted Cognition Overall Cognitive Status: Impaired Arousal/Alertness: Delayed responses to stimuli Orientation Level: Oriented to person Following Commands: Follows one step commands with repetition, Follows one step commands with increased time Safety Judgment: Decreased awareness of need for assistance, Decreased awareness of need for safety Awareness of Errors: Decreased awareness of errors Deficits: Decreased awareness of deficits Attention Span: Attends with cues to redirect Memory: Decreased recall of recent events, Decreased short term memory (Limited assessment) Problem Solving: Unable to assess Cognition Comments: Pt with fair alertness/processing, fatigue and confusion. Limited/poor recall and attention throughout session ADLs: ADL Assessment: Toileting Deficit, LE Dressing Deficit, UE Dressing Deficit, Bathing Deficit, Grooming Deficit Eating Assistance: Set up supervision Eating Location: chair Eating Deficit: Increased time to complete, Activity tolerance, Attention, Initiation, Problem solving Eating Skilled Rationale (Verbal/Tactile/Visual/Demonstration): Supervision, Setup Grooming Assistance: Minimal Grooming Location: standing at sink Grooming Deficit: Balance, Retrieval of items, Manipulation of items, Opening/closing containers, Generalized weakness, Activity tolerance, Increased time to complete, Attention, Initiation, Sequencing, Problem solving Grooming Skilled Rationale (Verbal/Tactile/Visual/Demonstration): Supervision, Setup, Technique of activity, Facilitate positioning, Proper pacing, Cues for cognitive deficit Bathing Assistance: Moderate Bathing Location: seated in chair UE Dressing Assistance: Minimal UE Dressing Location: seated in chair UE Dressing Deficit: Thread RUE, Thread LUE, Activity tolerance, Increased time to complete, Attention, Initiation, Sequencing, Problem solving UE Dressing Skilled Rationale (Verbal/Tactile/Visual/Demonstration): Supervision, Setup, Technique of activity, Cues for cognitive deficit LE Dressing Assistance: Maximal LE Dressing Location: edge of bed LE Dressing Deficit: Don/doff R sock, Don/doff L sock, Generalized weakness, Activity tolerance, Increased time to complete, Retrieval of items, Manipulation of items, Attention, Initiation, Sequencing, Problem solving LE Dressing Skilled Rationale (Verbal/Tactile/Visual/Demonstration): Cues for cognitive deficit, Facilitate positioning, Setup, Supervision, Proper pacing Toilet Assistance: Minimal Toileting Location: toilet Toileting Deficit: Balance, Grab bar use, Activity tolerance, Increased time to complete, Attention, Initiation, Sequencing Toilet Skilled Rationale (Verbal/Tactile/Visual/Demonstration): Supervision, Setup, Technique of activity, Facilitate postural control, Proper pacing Extremity Assessments: RUE Assessment RUE Assessment: Within Functional Limits Right UE Assessment Details: (Limited formal, MMT . Grossly 4/5) LUE Assessment LUE Assessment: Within Functional Limits Left UE Assessment Details: Limited formal MMT due to confusion. Grossly 4/5 Balance: Sitting Balance Static Sitting-Level of Assistance: Standby Dynamic Sitting-Level of Assistance: Contact guard Skilled Rationale: Positioning, Sequencing, Verbal cues, Hand placement Sitting Balance Skilled Intervention/Details: Pt very restless changing position EOB Standing Balance Static Standing-Level of Assistance: Minimum assistance Dynamic Standing-Level of Assistance: Minimum assistance Standing-Balance Support: Gait belt Skilled Rationale: Full extension to upright positioning/posture, Verbal cues, Sequencing, Positioning, Technique of activity, Cues for increased safety Standing Balance Skilled Intervention/Details: Completed grooming task standing sink level with CGA-min A x1 for balance. Pt very retropulsive with functional task engagement (high risk for falls). Neuro: Sensation Overall Sensation: Intact Sensation Comments: (Withdraws to all stimuli) Gross Coordination Gross Coordination: other (see comments) (Grossly WFL but slow) Fine Motor Coordination Additional Documentation: Yes Fine Motor Coordination Left Hand, Finger To Nose: mild impairment Right Hand, Finger To Nose: mild impairment Left Hand Thumb/Finger Opposition Skills: mild impairment Right Hand Thumb/Finger Opposition Skills: mild impairment Left Hand, Manipulation of Objects: mild impairment Right Hand, Manipulation of Objects: mild impairment Left Hand, Graphomotor Skills: mild impairment (Required assist due to confusion/restless and poor attention with task) Skin and Edema: Skin Integrity Skin Integrity Description: WFL Edema Edema: none noted Mobility Assessment: Supine to Sit Mobility [place] Level: Supine->Sit: stand-by assist Physical Assist: Supine->Sit: (1 person) Bed Features/Set-up: Supine->Sit: Head of bed elevated, Use of bed rail Skilled Rationale: Verbal cues, Hand placement, Positioning, Sequencing, Technique of activity, Cues for increased safety Skilled Intervention/Details: Supine->Sit: Pt with restless behavior and no safety awareness or awareness of lines (IV puling) Transfer Assessment: Sit to Stand Transfer [place] Level: Sit->Stand: other (see comments) (CGA-min A x1) Physical Assist: Sit->Stand: (1 person) Assistive Device: Sit->Stand: gait belt Skilled Rationale: Positioning, Sequencing, Hand placement, Verbal cues, Technique of activity, Cues for increased safety Skilled Intervention/Details: Sit->Stand: Cues for attention to environment and hands placement Stand to Sit Transfer [place] Level: Stand->Sit: contact guard assist Physical Assist: Stand->Sit: (1 person) Assistive Device: Stand->Sit: gait belt, armed chair Skilled Rationale: Positioning, Sequencing, Hand placement, Verbal cues, Controlled descent for sitting, Technique of activity Skilled Intervention/Details: Stand->Sit: Cues for proximity to chair and hands placement Toilet Transfer [place] Level: Toilet: minimum assist (75% patient effort) Physical Assist: Toilet: (1 person) Assistive Device: Toilet: gait belt, hand held assist Skilled Rationale: Verbal cues, Positioning, Finding/maintaining midline positioning, Technique of activity, Initiation and execution of task, Cues for increased safety Skilled Intervention/Details: Toilet: Max coaching for safety and attention to task Functional Mobility: Functional Mobility [place] Level: Functional Mobility/Gait: minimum assist (75% patient effort) Physical Assist: Functional Mobility/Gait: (1 person) Assistive Device: Functional Mobility/Gait: hand held assist Functional Mobility Distance: Distance needed to access restroom Functional Mobility Deficits: Balance, Attention, Activity tolerance, Decreased step length, Pain, Problem solving Functional Mobility Skilled Rationale: Proper pacing, Tactile cues, Technique of activity, Verbal cues, Facilitate postural control, Cues for increased safety, Cues for cognitive deficit Skilled Intervention/Details - Functional Mobility/Gait: Pt very restless with poor safety awareness and imbalance Outcome Score(s): Unable to complete F[place] due to confusion CURRENT [facility] Daily Activity Inpatient Short Form Putting on/Taking Off Lower Body Clothin - A Lot of Assistance Bathin - A Lot of Assistance Toiletin - A Lot of Assistance Putting on/Taking Off Upper Body Clothin - A Little Assistance Groomin - A Little Assistance Eatin - A Little Assistance CURRENT [facility] Activity Raw Score: 15 CURRENT [facility] Activity Functional Limitation/Modifier: 56.46% Currently Impaired in Daily Activity- CK Interventions: ADL and mobility to bathroom/sink with min A /max step by step coaching for attention, initiation and task execution due to Headache/Confusion/expressive & receptive deficits. Assessment & Plan: Nanette Harrison is a 65 y.o. right handed female with no significant past medical history who presented as a level 1 stroke alert from [facility] with headache and confusion. Patientwas last known well at 1700 on 12/07. Per family she had begun experiencing a headache on 12/06 butfelt that it was her normal migraine. She did have poor appetite at that time. Then, on 12/07, she began having confusion. She was attempting to make her damian food cake that she has made many times inthe past and knows the recipe by heart, however she had forgotten how to make it. She continued to repeat I don't know. Then on 12/08, she had worsening confusion and started making comments about dogs that were not there and continued repeating herself. She also did not recognize her son. Her brought her to OSH where she was agitated and complained of headache. 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 TPA was not given due to bleed. 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 Exam findings include impairments in: aerobic capacity, cognitive impairments, endurance, motor function, muscle performance, posture, transfers, strength, balance, attention. These impairments contribute to occupational performance limitations including bathing, dressing, grooming, toileting, functional mobility, ADL transfers, home management tasks, driving/transportation, shopping/errands. The following factors impact the plan of care: None Patient will benefit from skilled occupational therapy to address these impairments, occupational performance limitations, and participation restrictions. Patient's rehab potential is: good, to achieve stated therapy goals. Planned Therapy Interventions (OT Eval): ADL retraining, IADL retraining, balance training, bed mobility training, cognitive training, neuromuscular re- education, strengthening, transfer training Patient Instruction/Education this session: Patient Instruction: Pt with confusion and fair cognition. No readiness for teaching/learning. Educated on Role of OT/plan of care Plan for next session: Cognitive, ADL and balance retraining Acute OT Goals Plan of Care by Kitty Ferrari OT at 12/10/2021 8:08 AM Version 1 of 1 Problem: OT - ADLs Goal: Toileting Description: Pt will complete toileting task including clothing management with supervision for improved ability to safely complete self-care activities. Outcome: Ongoing Goal: Bathing Description: Pt will perform full body bathing/dressing routine with modified independence while seated for improved ability to complete self-care activities. Outcome: Ongoing Problem: OT - Cognition Goal: Cognition Home Maintenance Description: Pt will complete simulated home maintenance task (medication management, finance management, etc.) with supervision to promote safety and success at discharge destination. Outcome: Ongoing Goal: Cognition - Command following Description: Pt will follow 100 % of multi-step commands during ADL task for improved safety and success at discharge destination. Outcome: Ongoing Problem: OT - Balance Goal: Balance - Standing Description: Pt will perform 15 minutes of functional ADL task in standing with supervision and balance level of supervision to promote safety and improved balance required for self-care activities. Outcome: Ongoing Problem: OT - Strength/ROM Goal: Strength/ROM ADL Participation Description: Pt will demonstrate independence with UE exercise program to prevent deconditioning while in the hospital and to maximize UE ROM/coordination/strength for ADL participation. Outcome: Ongoing Evaluating Therapist: Kitty Ferrari OT Additional Details: Co-evaluation/co-treatment performed?: Yes, simultaneous billable skilled care This co-evaluation session performed between OT and PT was beneficial, necessary and provided distinct services in establishing this person's individual plan of care. Medical complexity with functional deficits necessitated two skilled therapy disciplines working concurrently to determine each discipline's goals. This co-treatment was medically necessary due to patient's: Cognitive issues, Coordination issues, Postural control and Alertness/arousal I used facemask, protective eye shield, and gloves in today's patient interaction. OT Evaluation Complexity Occupational Profile and Client History: Moderate - expanded history Assessment of Occupational Performance: Moderate (3-5 performance deficits) Clinical Decision/Performance Deficits: Moderate (detailed assessments w/several treatment options) Time In: 744 Time Out: 807 Total Visit Time: 23 minutes Total Treatment Time (skilled, billable minutes): 23 minutes Patient location at end of session: chair Alarms on at end of session: chair alarm Needs in reach. Upon discontinuation of Acute Care Occupational Therapy Services or patient discharge from the hospital this note represents the current Occupational Therapy Discharge Summary. * Kathy Riley - 12/10/2021 7:45 AM EDT Acute Physical Therapy Evaluation Prior to Admission [facility] score(s): PRIOR LEVEL AM-PAC Mobility Raw Score: 24 Current AM-PAC score(s): CURRENT AM-PAC Mobility Raw Score: 19 Based on the above AM-PAC score(s) and PT clinical judgment, patient is a good candidate for discharge to Inpatient Rehab Facility Supporting Factors (would benefit from skilled therapy services): Patient status is anticipated to be appropriate to tolerate inpatient rehab therapy requirements at time of discharge from acute care, Impaired balance, Impaired self-care abilities, Impaired cognitive status, Decreased endurance nece ssitating skilled therapy services, but able to tolerate therapy requirements for inpatient rehab Mobility equipment available at home: none used ADL equipment available at home: none Equipment needed for discharge: to be determined Current therapy frequency recommendation in acute: Therapy Frequency: 5 times a week Precautions and Weightbearing Status: Existing Precautions/Restrictions: fall Patient Safety Communication Prior to Visit: Nursing Respiratory Status O2 Device: room air Subjective: Pt was agreeable for therapy session today. She had difficulty understanding tasks and following commands. Pt reported having a headache and tiredness. Pain: General Pain Documentation (Adult, OB, Peds) Presence of Pain: complains of pain/discomfort Pain Location: headache DVPRS (Defense and Veterans Pain Rating Scale) DVPRS: Rest: 6- moderate pain DVPRS: Activity: 6- moderate pain Home Setting Residence: House Lives With: spouse Second floor setup: bedroom, walk in shower Number of stairs to enter home: 0 Number of stairs in home: 10 Stair Railings at Home: interior - present on right side (ascending) Mobility Equipment Available: none used ADL Equipment Available: none Previous Level of Function Prior level ADL Overview: Independent with all ADLs Dominant Hand: Right Bed Mobility/Transfers: independent Ambulation Skills: independent Assistive Device: none used Level of Ambulation: community Objective/Observation: Cognition Overall Cognitive Status: Impaired Arousal/Alertness: Delayed responses to stimuli Orientation Level: Oriented to person Following Commands: Follows one step commands with repetition Safety Judgment: Decreased awareness of need for assistance, Decreased awareness of need for safety Awareness of Errors: Decreased awareness of errors Cognition Comments: Pt was also lethargic with responses to stimulus. She kept saying what do you want me to do?. Vision Screen Currently wearing corrective lenses: No Speech Speech: word-finding difficulties Hearing Hearing: no gross deficits noted Extremity Assessments: RLE Assessment RLE Assessment: Within Functional Limits LLE Assessment LLE Assessment: Within Functional Limits Sensation Overall Sensation: Intact Mobility Assessment: Supine to Sit Mobility [place] Level: Supine->Sit: stand-by assist Bed Features/Set-up: Supine->Sit: Use of bed rail, Head of bed elevated Skilled Rationale: Positioning, Hand placement, Verbal cues, Technique of activity, Cues for increased safety Skilled Intervention/Details: Supine->Sit: Pt was trying to get out of bed independently as PT walked into pt room. Pt was very quick with movment due to confusion. Cued for safety with transfer from supine to sit. Balance: Sitting Balance Static Sitting-Level of Assistance: Standby Dynamic Sitting-Level of Assistance: Contact guard Skilled Rationale: Positioning, Sequencing, Hand placement, Verbal cues Sitting Balance Skilled Intervention/Details: Pt alternated between leaning forward and sitting back in chair. When asked why she leaned forward she reported I am tired and my head hurts. Standing Balance Static Standing-Level of Assistance: Minimum assistance Dynamic Standing-Level of Assistance: Minimum assistance Standing-Balance Support: Gait belt Skilled Rationale: Verbal cues, Positioning Standing Balance Skilled Intervention/Details: Pt presented with slight lateral sway in static standing. Pt tried to use the sink as support during standing but was cued to stand up straight while completing ADLs. Pt had increased unsteadiness with eyes closed. Transfer Assessment: Sit to Stand Transfer [place] Level: Sit->Stand: contact guard assist Assistive Device: Sit->Stand: gait belt Skilled Rationale: Positioning, Sequencing, Hand placement, Verbal cues, Cues for increased safety Skilled Intervention/Details: Sit->Stand: Pt cued for safe sit to stand due to quickness with movement. Stand to Sit Transfer [place] Level: Stand->Sit: contact guard assist Assistive Device: Stand->Sit: gait belt, armed chair Skilled Rationale: Hand placement, Verbal cues Skilled Intervention/Details: Stand->Sit: Pt cued to use arm rest on chair to sit down. Gait/Functional Mobility: Gait Assessment [place] Level: Gait: minimum assist (75% patient effort) Assistive Device: Gait: gait belt Gait Distance (feet): 20 Gait Deviations Identified: increased postural sway, ataxic Gait Skilled Rationale: verbal, safety to avoid obstacles Skilled Intervention/Details - Gait: Pt demonstrated unsteadiness and lateral swaying during ambulation. Cued to avoid obstacles and use proper railing when ambulating to the toilet. Outcome Score(s): CURRENT [facility] Basic Mobility Inpatient Short Form Turning over in bed: 4 - No Assistance Sitting/standing from chair: 3 - A Little Assistance Moving from lying on back to sittin - No Assistance Moving to and from bed to chair: 3 - A Little Assistance Walk in hospital room: 3 - A Little Assistance Climbing 3-5 steps with a railin - A Lot of Assistance CURRENT [facility] Mobility Raw Score: 19 CURRENT [facility] Mobility Functional Limitation/Modifier: 41.77% Currently Impaired in Basic Mobility- CK Assessment & Plan: Patient was admitted for level 1 stroke alert from [facility] with headache and confusion and seen for therapy evaluation related to mobility and balance assessment. Pt continued to have confusion and required more time and repetition for questions to answer. She closed her eyes a lot during the evaluation. Exam findings include impairments in: Balance, Coordination, Pain, Transfers, Gait/Locomotion, Motor control, Neuromotor development and sensory integration. These impairments contribute to functional limitations including Decreased functional mobility. Current clinical presentation is Evolving - changing/inconsistent clinical characteristics (Moderate). Patient history factors impacting Plan Of Care include Pain and impulsive behavior. Patient willbenefit from skilled physical therapy to address these impairments, functional limitations, and participation restrictions and has good rehab potential to achieve therapy goals. Planned Therapy Interventions: balance training, gait training, neuromuscular re-education, bed mobility training Plan for next session: Continue working on safe bed mobility, transfers, balance, and ambulation. Acute PT Goals Plan of Care by Pippa Phelan PT at 12/10/2021 2:51 PM Version 1 of 1 Problem: PT - Balance/Coordination/Neuro Re-Education Goal: Standing Dynamic/Static Balance Description: Pt will perform standing balance tasks for 10 minutes with supervision with least restrictive device in order to improve functional mobility and safety with standing tasks. Outcome: Ongoing Problem: PT - Mobility Goal: Ambulation Description: Pt will ambulate 150 feet with least restrictive device with standby assistance to improve ability to navigate home environment. Outcome: Ongoing Goal: Stairs Description: Pt will ascend/descend 12 stairs with railings with contact guard assistance with least restrictive device to improve ability to perform functional mobility necessary in recommended discharge environment. Outcome: Ongoing Problem: PT - Transfers Goal: Sit <-> Stand Description: Pt will perform sit to/from stand transfers with standby assistance with least restrictive device in order to improve functional mobility and safety. Outcome: Ongoing PT treatment consisted of to work and progress towards above goal(s). Evaluating Therapist: Kathy Riley Additional Details: Co-evaluation/co-treatment performed?: Yes, simultaneous billable skilled care This co-evaluation session performed between PT and OT was beneficial, necessary and provided distinct services in establishing this person's individual plan of care. Medical complexity with functional deficits necessitated two skilled therapy disciplines working concurrently to determine each discipline's goals. This co-treatment was medically necessary due to patient's: anticipated assistance required. I used gloves and facemask in today's patient interaction. Evaluation Complexity Components History: Moderate (1-2 personal factors and/or comorbidities) Body Systems Review: Moderate (Addressing a total of 3 or more elements) Clinical Presentation: Evolving - changing/inconsistent clinical characteristics (Moderate) Clinical Decision Making: Moderate Time In: 0745 Time Out: 0807 Total Visit Time: 22 minutes Total Treatment Time (skilled, billable minutes): 22 minutes Patient location at end of session: chair Alarms on at end of session: chair alarm Needs in reach. Upon discontinuation of Acute Care Physical Therapy Services or patient discharge from the hospitalthis note represents the current Physical Therapy Discharge Summary. Associated attestation - Pippa Phelan, PT - 12/10/2021 2:54 PM EDT I, Pippa Phelan, PT, provided direct guidance in the room during this patient care session. I attest that all documentation reflects accurate skilled clinical decisions and judgements. * DYANA Cedillo - 12/09/2021 8:34 AM EDT Speech Language Pathology Attempt Note 12/09/2021 INSTALLATION DRAFTER Therapy Completed: Attempted Attempted Reason: Patient is NPO for test/procedure (Pt scheduled for DCA today) DYANA Cedillo Time In: 833 Time Out: 0834 Total Visit Time: 0 minutes Total Treatment Time (skilled, billable minutes): 0 [facility] Plan of Care - Joaquín Gonzales RN - 12/11/2021 9:40 AM EDT Problem: Patient Care Overview Goal: Plan of Care Review Outcome: Met This Shift Goal: Individualization & Mutuality Outcome: Met This Shift Goal: Discharge Needs Assessment Outcome: Met This Shift Goal: Interdisciplinary Rounds/Family Conf Outcome: Met This Shift Problem: Stroke (Ischemic) (Adult) Goal: Signs and Symptoms of Listed Potential Problems Will be Absent, Minimized or Managed (Stroke) Description: Signs and symptoms of listed potential problems will be absent, minimized or managed by discharge/transition of care (reference Stroke (Ischemic) (Adult) CPG). Outcome: Ongoing [facility]07-08-2022 Miscellaneous Notes* Plan of Care - Joaquín Gonzales RN - 12/11/2021 9:40 AM EDT Problem: Patient Care Overview Goal: Plan of Care Review Outcome: Met This Shift Goal: Individualization & Mutuality Outcome: Met This Shift Goal: Discharge Needs Assessment Outcome: Met This Shift Goal: Interdisciplinary Rounds/Family Conf Outcome: Met This Shift Problem: Stroke (Ischemic) (Adult) Goal: Signs and Symptoms of Listed Potential Problems Will be Absent, Minimized or Managed (Stroke) Description: Signs and symptoms of listed potential problems will be absent, minimized or managed by discharge/transition of care (reference Stroke (Ischemic) (Adult) CPG). Outcome: Ongoing * Plan of Care - Amparo Menezes RN - 12/11/2021 6:50 AM EDT Problem: Patient Care Overview Goal: Plan of Care Review Outcome: Progressing Toward Goal Goal: Individualization & Mutuality Outcome: Progressing Toward Goal Goal: Discharge Needs Assessment Outcome: Progressing Toward Goal Goal: Interdisciplinary Rounds/Family Conf Outcome: Progressing Toward Goal Problem: Stroke (Ischemic) (Adult) Goal: Signs and Symptoms of Listed Potential Problems Will be Absent, Minimized or Managed (Stroke) Description: Signs and symptoms of listed potential problems will be absent, minimized or managed by discharge/transition of care (reference Stroke (Ischemic) (Adult) CPG). Outcome: Progressing Toward Goal * Plan of Care - Kennedy Parada RN - 12/10/2021 10:06 PM EDT Problem: Patient Care Overview Goal: Plan of Care Review Outcome: Met This Shift Goal: Individualization & Mutuality Outcome: Met This Shift Goal: Discharge Needs Assessment Outcome: Met This Shift Goal: Interdisciplinary Rounds/Family Conf Outcome: Met This Shift Flowsheets (Taken 12/10/2021 1710) Participants: family nursing patient physician Problem: Stroke (Ischemic) (Adult) Goal: Signs and Symptoms of Listed Potential Problems Will be Absent, Minimized or Managed (Stroke) Description: Signs and symptoms of listed potential problems will be absent, minimized or managed by discharge/transition of care (reference Stroke (Ischemic) (Adult) CPG). Outcome: Met This Shift * Nursing Notes - Kennedy Parada RN - 12/10/2021 6:08 PM EDT Message to Xochitl Clement MD @ [phone]: Hello, this patient is still in severe pain after receiving 10 mg oxycodone. There was a one-time order of dilaudid that was not given earlier as patient was asleep. Did you want to try another one-time dose or do you want to try a headache cocktail? Please advise, [phone] Call from Xochitl Clement MD @ [phone]. Magnesium and compazine to be ordered. Message to Xochitl Clement MD @ 4527: Hello, I wanted to let you know that this patient had a desatting event. The read on the pulse ox wasn't great, but there were a few times when it appeared to be reading clearly and she was around 73- 74%, and then did come up to 86-88%. She stated no SOB and did not appear to be in distress; 2L O2 via NC were placed. It occurred while finishing giving the IV compazine, so unsure if it was perhaps a reaction? Please advise, [phone] Call from @ [phone]. MD notified of event and told that it lasted approximately 2 minutes. Patient weaned off O2 to room air. Message to Xochitl Clement MD @ 6711: Thank you for the call. Patient on room air now; vitals are stable and patient appears to have some improvement in pain. No further concern per MD. * Medical Student - Darlyn Ulloa - 12/10/2021 3:36 PM EDT Images from the original note were not included. NEUROVASCULAR STROKE SERVICE Daily Progress Note IDENTIFYING INFORMATION Nanette Harrison MR# [id number] 12/10/2021 HISTORY OF PRESENT ILLNESS Nanette Harrison is a 65 y.o. right handed female with no significant past medical history who presented as a level 1 stroke alert from OSH with headache and confusion. Patient was last known well at 1700 on 12/07. Per family she had begun experiencing a headache on 12/06 but felt that it was her normal migraine. She did have poor appetite at that time. Then, on 12/07, she began having confusion. She was attempting to make her damian food cake that she has made many times in the past and knows the recipe by heart, however she had forgotten how to make it. She continued to repeat I don't know. Then on 12/08, she had worsening confusion and started making comments about dogs that were not there and continued repeating herself. She also did not recognize her son. Her brought her to OSH where she was agitated and complained of headache. 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 TPA was not given due to bleed. 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 CTA revealed complete occlusion ofthe distal left M2 segment of the middle cerebral artery with reconstitution distally likely due tocollateral flow; hyperattenuating focus noted on same day CT head favored to reflect a thrombosed aneurysm arising from the proximal M1 segment of the left middle cerebral artery; no flow distal to this; no large vessel occlusion or significant stenosis. At this time her NIHSS was 6. She was repeating Nanette, tower, and squad force. Neurosurgery saw her and recommended DCA for afternoon of12/09. She lives in [place], [place] with her , Alejandro, of 48 years, and two dogs. 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 Denies tobacco, drug, or alcohol use. She does not see a doctor INTERVAL HISTORY 12/08 - Repeat CTH revealed stable area of hypodensity in the inferior left temporal lobe favored to represent subacute infarct; stable hyperdensity suspected to represent thrombosed aneurysm likely arising from the proximal left MCA. Patient with expressive aphasia and confusion. Neurosurgery recommending DCA for 12/09. 12/09: Taken for DCA procedure with neurosurgery which revealed inferior M2 occlusion, cerebral aneurysm was not visualized. Oxycodone PRN ordered for headache after procedure. LDL came back at 107 so Atorvastatin 40mg started. A1c normal at 5.5. Today: 12/10 - This morning she had a very severe headache, so a repeat head CT was ordered which was stable from prior. When speaking with Ms. Harrison later this morning, she continued to report a severe headache. She was not oriented to month or age. She was aphasic on exam. Able to move all 4 extremities today, improved from yesterday. When asked if she could understand what we were discussing, she stated kind of. She was made NPO for TTE this afternoon. We discussed event monitor vs. LINQwith her for further work-up, which we will discuss with her family. Increased oxycodone from 5mg to 10mg PRN for better pain control given severity of her headache. Started aspirin 81mg and DVT ppx w ith lovenox. PHYSICAL EXAM General Physical Exam General: NAD, lying comfortably in bed HENT: Normal oropharynx and mucosa. Normal external appearance of ears and nose. CV/Chest: Regular rate and rhythm, normal S1S2 Lungs: No audible wheezing. Normal work of breathing. No accessory muscle use Abdomen: Non distended, non tender Extremities: Warm and well perfused. No appreciable edema, cyanosis or deformity. Skin: No rash. Normal palpation of skin. Musculoskeletal: No joint tenderness. Normal digits and nails by inspection. No clubbing. Neurologic Examination Mental status/Cognition: alert; not oriented to month or age Speech/language: aphasia; comprehension impaired Cranial nerves: CN II Visual eller full to confrontation without visual extinction CN III,IV, PERRL. EOMI. CN V Facial sensation intact to light touch bilaterally in V1, V2, V3 CN VII Right sided facial droop CN VIII Hearing grossly intact to voice CN IX & X Mild dysarthria CN XI Shoulder shrug with full strength CN XII Tongue protrudes midline Motor: Normal bulk and tone. All extremities antigravity without drift Sensation: intact to light touch throughout without extinction Coordination/Complex Motor: - Jvfqpy-rt-[id number] intact bilaterally without dysmetria - Gizh-sn-emzc intact bilaterally without dysmetria - Rapid alternating movements are normal without dysdiadochokinesia NIHSS 12/10/2021 Provider NIH Stroke Scale NIH Interval (Provider): admission NIH Level of Conciousness (Provider): 0 NIH LOC Questions (Provider): 2 NIH LOC Commands (Provider): 1 NIH Best Gaze (Provider): 0 NIH Visual (Provider): 0 NIH Facial Palsy (Provider): 1 NIH Left Arm Motor (Provider): 0 NIH Right Arm Motor (Provider): 0 NIH Left Leg Motor (Provider): 0 NIH Right Leg Motor (Provider): 0 NIH Limb Ataxia (Provider): 0 NIH Sensory (Provider): 0 NIH Best Language (Provider): 2 NIH Dysarthria (Provider): 1 NIH Extinction and Inattention (Provider): 0 NIH Total Score (Provider): 7 ASSESSMENT AND PLAN 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 No evidence of hemorrhagic transformation or significant mass effect; hyper attenuating adjacent to the left anterior clinoid process favored to reflect a thrombosed aneurysm, likely arising from proximal middle cerebral artery - CTA brain/neck: complete occlusion of the distal left M2 segment of the middle cerebral artery with reconstitution distally likely due to collateral flow; hyperattenuating focus noted on same day CT head favored to reflect a thrombosed aneurysm arising from the proximal M1 segment of the left middle cerebral artery; no flow distal to this; no large vessel occlusion or significant stenosis. - MRI: ordered - SBP: < 140 - LDL: 107 - A1C: 5.5 - TTE: obtained GILDARDO today, results pending - Statin therapy: atorvastatin 40mg - Antiplatelet therapy: Aspirin 81mg - Anticoagulation: None - Will discuss with family regarding event monitor vs. LINQ for outpatient cardiac monitoring - Q4 neuro checks Ischemic Stroke Core Measures -NIHSS on admission 6 -Patient has been started on Mechanical (SCD's) and Pharmacological (SQ heparin/Lovenox) DVT prophylaxis. -Antiplatelet therapy has been initiated, Aspirin 81 mg daily. -Anticoagulation therapy was not indicated for this patient -Patients LDL and HgbA1c were checked and the patient will be discharged on atorvastatin 40mg -Dysphagia screening ordered, and will be completed prior to patient receiving oral intake. -Stroke education booklet has been ordered and will be provided by the RN that includes both written and verbal education to the patient and family regarding ischemic strokes. We have reviewed the patient's personal modifiable risk factors. -Patient is being assessed for Rehab by PT/OT/Speech and PM&R if indicated. Other problems Headache: - Patient with continued headache, oxycodone increased from 5mg to 10mg PRN Diet: DIET NPO WITHOUT meds DVT prophylaxis: Lovenox Code status: DNRCC-ARREST Dispo: Discharge pending PT/OT/INSTALLATION DRAFTER evaluation Discussed on team rounds. Signed, Darlyn Ulloa, MS4 VITAL SIGNS Temp: [97.8 F (36.6 C)-98.7 F (37.1 C)] 98.7 F (37.1 C) Pulse (Heart Rate): [52-69] 58 Resp Rate: [8-26] 16 BP: (109-159)/(60-84) 139/72 O2 Sat (%): [93 %-97 %] 95 % Oxygen Therapy: Oxygen Therapy O2 Sat (%): 95 % O2 Device: room air Intake/Output: Intake/Output Summary (Last 24 hours) at 12/10/2021 1536 Last data filed at 12/10/2021 0816 Gross per 24 hour Intake 620 ml Output 1675 ml Net -1055 ml LABS/CULTURES Lab Results Component Value Date WBC 7.91 12/10/2021 HGB 14.3 12/10/2021 HCT 43.0 12/10/2021 PLATELET 187 12/10/2021 MCV 90.5 12/10/2021 Lab Results Component Value Date SODIUM 140 12/10/2021 POTASSIUM 3.9 12/10/2021 CHLORIDE 108 12/10/2021 CO2 22 12/10/2021 BUN 11 12/10/2021 CREATSERUM 0.79 12/10/2021 GLUCOSE 99 12/10/2021 Lab Results Component Value Date CHOLESTEROL 180 12/08/2021 TRIG 109 12/08/2021 HDL 51 12/08/2021 LDLCALC 107 (H) 12/08/2021 Lab Results Component Value Date HGBA1C 5.5 12/08/2021 Lab Results Component Value Date ALBUMIN 3.6 12/08/2021 , No results found for: CPK, TROP IMAGING/DIAGNOSTIC STUDIES ECHOCARDIOGRAM TRANSESOPHAGEAL (GILDARDO) CT HEAD WITHOUT CONTRAST Final Result IMPRESSION: 1. No significant change, compared with CT from previous day. 2. Again seen is cortically based hypoattenuation involving the lateral aspect of the left temporal lobe, compatible with an acute stage cerebral infarct. 3. Again seen is an ovoid hyperdensity in the medial left temporal region closely related to the sylvian fissure. It could represent a thrombosed aneurysm. RO IMAGING FOR NEURO ENDOVASCULAR CT HEAD WITHOUT CONTRAST Final Result IMPRESSION: 1. Stable area of hypodensity in the inferior left temporal lobe favored to represent a subacute infarct. 2. 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 I personally viewed and interpreted these images and I have reviewed and approved this report. ANGIO BRAIN/NECK Final Result IMPRESSION: 1. 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 2. 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 No CTA spot sign within this thrombosed aneurysm; minimal contrast near the base of the suspected aneurysm could reflect blood flow near the aneurysm neck. No flow distal to this 3. No large vessel occlusion or significant stenosis involving the major arterial vasculature head and neck. 4. Multinodular appearance of the thyroid gland with largest nodule within the left thyroid lobe. Recommend nonemergent thyroid ultrasound when clinically feasible. 5. Hazy bilateral groundglass densities, may relate to aspiration or a developing infectious/inflammatory etiology. Findings were discussed with Dr. Lilliam Parson on 12/08/2021 9:50 PM. I personally viewed and interpreted these images and I have reviewed and approved this report. STROKE HEAD-STROKE ALERT ONLY Final Result IMPRESSION: 1. 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 No evidence of hemorrhagic transformation or significant mass effect. 2. 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 Findings were discussed with Dr. Lilliam Parson on 12/08/2021 9:41 PM. I personally viewed and interpreted these images and I have reviewed and approved this report. BRAIN WITHOUT CONTRAST (Results Pending) MEDICATIONS aspirin 81 mg Oral Daily atorvastatin 40 mg Oral QHS enoxaparin 40 mg Subcutaneous Daily HYDROmorphone 1 mg Intravenous Once senna 8.6 mg Oral Daily Or senna 8.6 mg Per NG tube Daily * Plan of Care - Pippa Phelan PT - 12/10/2021 2:51 PM EDT Problem: PT - Balance/Coordination/Neuro Re-Education Goal: Standing Dynamic/Static Balance Description: Pt will perform standing balance tasks for 10 minutes with supervision with least restrictive device in order to improve functional mobility and safety with standing tasks. Outcome: Ongoing Problem: PT - Mobility Goal: Ambulation Description: Pt will ambulate 150 feet with least restrictive device with standby assistance to improve ability to navigate home environment. Outcome: Ongoing Goal: Stairs Description: Pt will ascend/descend 12 stairs with railings with contact guard assistance with least restrictive device to improve ability to perform functional mobility necessary in recommended discharge environment. Outcome: Ongoing Problem: PT - Transfers Goal: Sit <-> Stand Description: Pt will perform sit to/from stand transfers with standby assistance with least restrictive device in order to improve functional mobility and safety. Outcome: Ongoing * Plan of Care - Antonia Simmons, DYANA - 12/10/2021 9:55 AM EDT Problem: INSTALLATION DRAFTER - Cognition Goal: Ongoing Goal Description: Pt will participate in evaluation of other language/cognition skill areas with additional treatment goals to follow as appropriate/indicated. Outcome: Ongoing Problem: INSTALLATION DRAFTER - Language Goal: Word Retrieval Strategies for Naming Description: Patient will recall/implement use of word retrieval strategies, given mod cues, to complete functional naming tasks and improve verbal expression/word retrieval and ability to verbally express wants/needs, across x1-2 session(s). Outcome: Ongoing Goal: Ongoing Goal Description: Pt will participate in ongoing evaluation of language (specifically areas of reading/writing and speech automatics given limited initial assessment) with additional treatment goals to follow as appropriate/indicated across x1 session. Outcome: Ongoing * Plan of Care - Kitty Ferrari OT - 12/10/2021 8:08 AM EDT Problem: OT - ADLs Goal: Toileting Description: Pt will complete toileting task including clothing management with supervision for improved ability to safely complete self-care activities. Outcome: Ongoing Goal: Bathing Description: Pt will perform full body bathing/dressing routine with modified independence while seated for improved ability to complete self-care activities. Outcome: Ongoing Problem: OT - Cognition Goal: Cognition Home Maintenance Description: Pt will complete simulated home maintenance task (medication management, finance management, etc.) with supervision to promote safety and success at discharge destination. Outcome: Ongoing Goal: Cognition - Command following Description: Pt will follow 100 % of multi-step commands during ADL task for improved safety and success at discharge destination. Outcome: Ongoing Problem: OT - Balance Goal: Balance - Standing Description: Pt will perform 15 minutes of functional ADL task in standing with supervision and balance level of supervision to promote safety and improved balance required for self-care activities. Outcome: Ongoing Problem: OT - Strength/ROM Goal: Strength/ROM ADL Participation Description: Pt will demonstrate independence with UE exercise program to prevent deconditioning while in the hospital and to maximize UE ROM/coordination/strength for ADL participation. 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] PROCEDURE PERFORMED Procedure(s) (LRB): DIAGNOSTIC CEREBRAL ANGIOGRAM (N/A) PRIMARY CLOSURE TR band for hemostasis INTRAOPERATIVE FINDINGS No significant abnormalities SURGEON Surgeon(s) and Role: * Faraz Bar MD, PhD - Primary * Agustín Tiwari MD - Fellow ANESTHESIOLOGIST Anesthesiologist: Christal Guerrier MD HIGH SCHOOL PHYSICAL EDUCATION TEACHER: Pippa Callahan APRN-HIGH SCHOOL PHYSICAL EDUCATION TEACHER SURGICAL STAFF Variety Lathe Operator: Alysha Fernandez RN Bonding Molder: Narinder Melgar; Geeta Pedroza; Evy Montoya COMPLICATIONS None ESTIMATED BLOOD LOSS Minimal SPECIMENS No specimen sent * No specimens in log * Agustín Tiwari MD December 09, 2021 4:25 PM * Medical Student - Darlyn Ulloa - 12/09/2021 4:02 PM EDT Images from the original note were not included. NEUROVASCULAR STROKE SERVICE Daily Progress Note IDENTIFYING INFORMATION Nanette Harrison MR# [id number] 12/09/2021 HISTORY OF PRESENT ILLNESS Nanette Harrison is a 65 y.o. right handed female with no significant past medical history who presented as a level 1 stroke alert from OSH with headache and confusion. Patient was last known well at 1700 on 12/07. Per family she had begun experiencing a headache on 12/06 but felt that it was her normal migraine. She did have poor appetite at that time. Then, on 12/07, she began having confusion. She was attempting to make her damian food cake that she has made many times in the past and knows the recipe by heart, however she had forgotten how to make it. She continued to repeat I don't know. Then on 12/08, she had worsening confusion and started making comments about dogs that were not there and continued repeating herself. She also did not recognize her son. Her brought her to OSH where she was agitated and complained of headache. 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 TPA was not given due to bleed. 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 CTA revealed complete occlusion ofthe distal left M2 segment of the middle cerebral artery with reconstitution distally likely due tocollateral flow; hyperattenuating focus noted on same day CT head favored to reflect a thrombosed aneurysm arising from the proximal M1 segment of the left middle cerebral artery; no flow distal to this; no large vessel occlusion or significant stenosis. At this time her NIHSS was 6. She was repeating Nanette, tower, and squad force. Neurosurgery saw her and recommended DCA for afternoon of12/09. She lives in [place], [place] with her , Alejandro, of 48 years, and two dogs. 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 Denies tobacco, drug, or alcohol use. She does not see a doctor INTERVAL HISTORY 12/08 - Repeat CTH revealed stable area of hypodensity in the inferior left temporal lobe favored to represent subacute infarct; stable hyperdensity suspected to represent thrombosed aneurysm likely arising from the proximal left MCA. Patient with expressive aphasia and confusion. Neurosurgery recommending DCA for 12/09. Today: 12/09: Today, Ms. Harrison has continued confusion with expressive aphasia and trouble identifying common items (ex. a pen), however she was oriented to age and month. She reports a headache aswell. She follows some commands but has difficulty. Taken for DCA procedure with neurosurgery this afternoon. Oxycodone PRN ordered for headache after procedure. Brain MRI ordered for further work-up, but not urgently. LDL came back at 107 so Atorvastatin 40mg started. A1c normal at 5.5. PHYSICAL EXAM General Physical Exam General: NAD, lying comfortably in bed HENT: Normal oropharynx and mucosa. Normal external appearance of ears and nose. CV/Chest: Regular rate and rhythm, normal S1S2 Lungs: No audible wheezing. Normal work of breathing. No accessory muscle use Abdomen: Non distended, non tender Extremities: Warm and well perfused. No appreciable edema, cyanosis or deformity. Skin: No rash. Normal palpation of skin. Musculoskeletal: No joint tenderness. Normal digits and nails by inspection. No clubbing. Neurologic Examination Mental status/Cognition: alert; oriented to month and age; poor attention; no apparent neglect Speech/language: expressive aphasia; object naming impaired Cranial nerves: CN II Visual eller full to confrontation without visual extinction CN III,IV, PERRL. EOMI. CN V Unable to assess CN VII No facial droop seen CN VIII Hearing grossly intact to voice CN IX & X Unable to assess CN XI Shoulder shrug with full strength CN XII Tongue protrudes midline Motor: Left and right arm both with slight drift but doesn't hit bed; able to lift bilateral lower extremities against gravity Sensation: intact to light touch throughout without extinction Coordination/Complex Motor: - [id number]-dd-jfkp intact bilaterally without dysmetria NIHSS 12/09/2021 Provider NIH Stroke Scale NIH Interval (Provider): admission NIH Level of Conciousness (Provider): 0 NIH LOC Questions (Provider): 2 NIH LOC Commands (Provider): 0 NIH Best Gaze (Provider): 0 NIH Visual (Provider): 0 NIH Facial Palsy (Provider): 0 NIH Left Arm Motor (Provider): 1 NIH Right Arm Motor (Provider): 1 NIH Left Leg Motor (Provider): 0 NIH Right Leg Motor (Provider): 0 NIH Limb Ataxia (Provider): 0 NIH Sensory (Provider): 0 NIH Best Language (Provider): 2 NIH Dysarthria (Provider): 0 NIH Extinction and Inattention (Provider): 0 NIH Total Score (Provider): 6 ASSESSMENT AND PLAN 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 No evidence of hemorrhagic transformation or significant mass effect; hyper attenuating adjacent to the left anterior clinoid process favored to reflect a thrombosed aneurysm, likely arising from proximal middle cerebral artery - CTA brain/neck: complete occlusion of the distal left M2 segment of the middle cerebral artery with reconstitution distally likely due to collateral flow; hyperattenuating focus noted on same day CT head favored to reflect a thrombosed aneurysm arising from the proximal M1 segment of the left middle cerebral artery; no flow distal to this; no large vessel occlusion or significant stenosis. - MRI: ordered - SBP: < 140 - LDL: 107 - A1C: 5.5 - TTE: not yet obtained - Statin therapy: started atorvastatin 40mg - Antiplatelet therapy: None currently, re-evaluate after DCA with neurosurgery - Anticoagulation: None - Patient with continued headache, ordered oxycodone 5mg PRN Ischemic Stroke Core Measures -NIHSS on admission 6 -Patient has been started on Mechanical (SCD's) and Pharmacological (SQ heparin/Lovenox) DVT prophylaxis. -Antiplatelet therapy has been initiated, Aspirin 81 mg daily. -Anticoagulation therapy was not indicated for this patient -Patients LDL and HgbA1c were checked and the patient will be discharged on atorvastatin 40mg -Dysphagia screening ordered, and will be completed prior to patient receiving oral intake. -Stroke education booklet has been ordered and will be provided by the RN that includes both written and verbal education to the patient and family regarding ischemic strokes. We have reviewed the patient's personal modifiable risk factors. -Patient is being assessed for Rehab by PT/OT/Speech and PM&R if indicated. Other problems Headache: - Patient with continued headache, oxycodone ordered PRN Diet: DIET NPO with meds DVT prophylaxis: [facility] Code status: DNRCC-ARREST Dispo: Discharge pending PT/OT/INSTALLATION DRAFTER evaluation Discussed on team rounds. Signed, Darlyn Ulloa, MS4 VITAL SIGNS Temp: [97.6 F (36.4 C)-98.7 F (37.1 C)] 97.7 F (36.5 C) Pulse (Heart Rate): [55-75] 66 Resp Rate: [8-27] 22 BP: (116-162)/(59-81) 141/67 O2 Sat (%): [91 %-99 %] 95 % Weight: [108.4 kg (238 lb 15.7 oz)-108.4 kg (239 lb)] 108.4 kg (238 lb 15.7 oz) Oxygen Therapy: Oxygen Therapy O2 Sat (%): 95 % O2 Device: room air Flow (L/min): 2 Oxygen Delivery/Consumption Hemodynamics BSA (Calculated - sq m): 2.2 m2 Intake/Output: Intake/Output Summary (Last 24 hours) at 12/09/2021 1603 Last data filed at 12/09/2021 1113 Gross per 24 hour Intake 1357.85 ml Output 750 ml Net 607.85 ml LABS/CULTURES Lab Results Component Value Date WBC 7.96 12/09/2021 HGB 13.9 12/09/2021 HCT 40.2 12/09/2021 PLATELET 171 12/09/2021 MCV 88.4 12/09/2021 Lab Results Component Value Date SODIUM 139 12/09/2021 POTASSIUM 3.9 12/09/2021 CHLORIDE 108 12/09/2021 CO2 24 12/09/2021 BUN 9 12/09/2021 CREATSERUM 0.79 12/09/2021 GLUCOSE 111 (H) 12/09/2021 Lab Results Component Value Date CHOLESTEROL 180 12/08/2021 TRIG 109 12/08/2021 HDL 51 12/08/2021 LDLCALC 107 (H) 12/08/2021 Lab Results Component Value Date HGBA1C 5.5 12/08/2021 Lab Results Component Value Date ALBUMIN 3.6 12/08/2021 , No results found for: CPK, TROP IMAGING/DIAGNOSTIC STUDIES CT HEAD WITHOUT CONTRAST Final Result IMPRESSION: 1. Stable area of hypodensity in the inferior left temporal lobe favored to represent a subacute infarct. 2. 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 I personally viewed and interpreted these images and I have reviewed and approved this report. ANGIO BRAIN/NECK Final Result IMPRESSION: 1. 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 2. 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 No CTA spot sign within this thrombosed aneurysm; minimal contrast near the base of the suspected aneurysm could reflect blood flow near the aneurysm neck. No flow distal to this 3. No large vessel occlusion or significant stenosis involving the major arterial vasculature head and neck. 4. Multinodular appearance of the thyroid gland with largest nodule within the left thyroid lobe. Recommend nonemergent thyroid ultrasound when clinically feasible. 5. Hazy bilateral groundglass densities, may relate to aspiration or a developing infectious/inflammatory etiology. Findings were discussed with Dr. Lilliam Parson on 12/08/2021 9:50 PM. I personally viewed and interpreted these images and I have reviewed and approved this report. STROKE HEAD-STROKE ALERT ONLY Final Result IMPRESSION: 1. 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 No evidence of hemorrhagic transformation or significant mass effect. 2. 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 Findings were discussed with Dr. Lilliam Parson on 12/08/2021 9:41 PM. I personally viewed and interpreted these images and I have reviewed and approved this report. BRAIN WITHOUT CONTRAST (Results Pending) FLUORO IMAGING FOR NEURO ENDOVASCULAR (Results Pending) MEDICATIONS [AUG Hold] atorvastatin 40 mg Oral QHS [AUG Hold] senna 8.6 mg Oral Daily Or [AUG Hold] senna 8.6 mg Per NG tube Daily * Nursing Notes - Dmitry Beltre RN - 12/09/2021 2:00 PM EDT Patient arrived from ED and placed on bedside monitor. Patient clutching head and rolling around onED cart, My head really hurts. situation Patient alert, oriented X1 confused to date, place and .Will follow some commands 1425-Dr. Guerrier at bedside to obtain anesthesia consent from daughter Kailey. Consent obtained, Dr. Bar at bedside. * Op Note - Faraz Bar MD, PhD - 12/09/2021 12:00 PM EDT Operative Report DATE PERFORMED: 12/09/2021 1. Left common carotid artery arteriogram. 2. Left common carotid artery cerebral arteriogram. 3. Right common carotid artery arteriogram. 4. Right common carotid artery cerebral arteriogram. 5. Left subclavian artery arteriogram. 6. Right subclavian artery arteriogram. HISTORY OF PRESENT ILLNESS: This is a 65-year-old female with concern for a stroke as well as a possible partially thrombosed left MCA aneurysm. She is here for digital subtraction arteriogram to further evaluate this. SURGEON(S): Faraz Bar MD, PhD FIREWOOD CUTTER: Agustín Tiwari MD ANESTHESIA: Monitored anesthesia care. DESCRIPTION OF PROCEDURE: The patient was brought to the operating room, was transferred onto the operative bed. All pressure points were padded appropriately. The area was prepped and draped in sterile fashion. A time-out occurred to verify correct patient and procedure. The right radial artery was identified under ultrasound and the area over it was infiltrated with 1% lidocaine. The right radial artery was then accessed with a micropuncture device under ultrasound guidance, and a 5-Lithuanian radial artery sheath was placed. Through this radial artery sheath, the patient received 2.5 mg of verapamil and 200 mcg of nitroglycerin. The patient also received 50,000 units of heparin IV. A 5-Lithuanian Sim 2 glide catheter was advanced over the aortic arch, reformatted, and advanced into the left subclavian artery, and a left subclavian artery arteriogram performed. The catheter was withdrawn and advanced in the left common carotid artery and a left common carotid artery arteriogram was performed. With the catheter in the left common carotid artery, a left common carotid artery cerebral arteriogram was performed. The catheter was withdrawn and advanced in the right common carotid artery and a right common carotid artery arteriogram was performed. With the catheter in the right common carotid artery, a right common carotid artery cerebral arteriogram was performed. The catheter was withdrawn into the right subclavian artery right at the entry site of the right vertebral artery and a right subclavian artery arteriogram was performed. The right subclavian artery cerebral arteriogram was performed of the vertebral artery circulation. The catheter was removed. The sheath was removed and hemostasis obtained with a TR band device. FINDINGS: The left subclavian artery arteriogram demonstrated opacification of the left subclavian artery with wide opacification of the vertebral artery. This is the dominant of the 2 vertebral arteries. There was no evidence of stenosis. The left common carotid artery arteriogram demonstrated antegrade filling of the common, internal, and external carotid arteries. There was no carotid stenosis. The left common carotid artery cerebral arteriogram demonstrated antegrade filling of the anterior and middle cerebral arteries. The inferior branch of the middle cerebral artery is missing. There was no evidence of aneurysm or AVM. The right common carotid artery arteriogram demonstrated antegrade filling of the common, internal, and external carotid arteries. There was no carotid stenosis. The right common carotid artery cerebral arteriogram demonstrated antegrade fill of the anterior and middle cerebral arteries. The capillary and venous phase were unremarkable. There was no evidence of aneurysm AVM. The right subclavian artery arteriogram demonstrated antegrade filling of the posterior circulation. The capillary and venous phases were unremarkable. There was no evidence of aneurysm AVM. There was moderate atherosclerotic disease throughout. COMPLICATIONS: None. DISPOSITION: Stable to recovery. IMPRESSION: 1. Inferior M2 occlusion. 2. No evidence of cerebral aneurysm. Dictated By: Faraz Bar MD, PhD Faraz Bar MD, PhD ATTENDING ELODIA/Garrett JOB: [id number] DOC: [id number] * Certification - Lilliam Parson MD - 12/08/2021 9:56 PM EDT I certify that this patient requires inpatient services at this time. I anticipate the expected length of stay will include at least two midnights. Inpatient services are due to the following medicalconcerns stroke. Plans for post hospitalization care will be discharge to pending PT/OT Lilliam Parson MD Neurology, PGY2 * Nursing Notes - Donald Hurley RN - 12/08/2021 9:10 PM EDT Patient arrival to [facility] 2105hrs Blood glucose 102 * Nursing Notes - Donald Hurley RN - 12/08/2021 9:10 PM EDT From [facility] by air. Presented with AMS, left sided headache, left arm/chest pain. No prior medical history per patient and EMS. LKW yesterday afternoon during family republican. Patient arrives GCS 14, RASS -1, NIH 5, disoriented to place, time, and situation. 2+ PERRL. 150mcg Fentanyl total en route by EMS. * Nursing Notes - Donald Hurley RN - 12/08/2021 8:56 PM EDT Transfer Center Intake Note [phone] Triage Line [phone] Bed Placement REMINDER to TC magazine filler: please request facesheet, images, and discharge summary if inpatient. Pt Current Location/ Level of care: ED If Inpatient transfer, Date of admission to OSH: Today Clinical reason for transfer: No NS at HPI: Presented with AMS and head pain. Patient is awake but no orientated. PMH: none VS: 145/90 67 14 98.0 97% on RA Pertinent Labs, EKG and images: CT- stroke with hemorrhagic conversion COVID negative. Labs WNL IV drips: none Isolation: none ADA needs: none Level of care triaged to: If PCU, please describe reason: Silvia Castro RN From [facility] [place] in [place]* Plan of Care - Amparo Menezes RN - 12/11/2021 6:50 AM EDT Problem: Patient Care Overview Goal: Plan of Care Review Outcome: Progressing Toward Goal Goal: Individualization & Mutuality Outcome: Progressing Toward Goal Goal: Discharge Needs Assessment Outcome: Progressing Toward Goal Goal: Interdisciplinary Rounds/Family Conf Outcome: Progressing Toward Goal Problem: Stroke (Ischemic) (Adult) Goal: Signs and Symptoms of Listed Potential Problems Will be Absent, Minimized or Managed (Stroke) Description: Signs and symptoms of listed potential problems will be absent, minimized or managed by discharge/transition of care (reference Stroke (Ischemic) (Adult) CPG). Outcome: Progressing Toward Goal [facility]07-07-2022 Note* Plan of Care - Kennedy Parada RN - 12/10/2021 10:06 PM EDT Problem: Patient Care Overview Goal: Plan of Care Review Outcome: Met This Shift Goal: Individualization & Mutuality Outcome: Met This Shift Goal: Discharge Needs Assessment Outcome: Met This Shift Goal: Interdisciplinary Rounds/Family Conf Outcome: Met This Shift Flowsheets (Taken 12/10/2021 1710) Participants: family nursing patient physician Problem: Stroke (Ischemic) (Adult) Goal: Signs and Symptoms of Listed Potential Problems Will be Absent, Minimized or Managed (Stroke) Description: Signs and symptoms of listed potential problems will be absent, minimized or managed by discharge/transition of care (reference Stroke (Ischemic) (Adult) CPG). Outcome: Met This Shift [place]-07-2022 Note* Nursing Notes - Kennedy Parada RN - 12/10/2021 6:08 PM EDT Message to Xochitl Clement MD @ 1806: Hello, this patient is still in severe pain after receiving 10 mg oxycodone. There was a one-time order of dilaudid that was not given earlier as patient was asleep. Did you want to try another one-time dose or do you want to try a headache cocktail? Please advise, [id number] Call from Xochitl Clement MD @ 1816. Magnesium and compazine to be ordered. Message to Xochitl Clement MD @ 8332: Helmagui, I wanted to let you know that this patient had a desatting event. The read on the pulse ox wasn't great, but there were a few times when it appeared to be reading clearly and she was around 73- 74%, and then did come up to 86-88%. She stated no SOB and did not appear to be in distress; 2L O2 via NC were placed. It occurred while finishing giving the IV compazine, so unsure if it was perhaps a reaction? Please advise, [phone] Call from @ [phone]. MD notified of event and told that it lasted approximately 2 minutes. Patient weaned off O2 to room air. Message to Xochitl Clement MD @ [phone]: Thank you for the call. Patient on room air now; vitals are stable and patient appears to have some improvement in pain. No further concern per MD. [facility]07-07-2022 Note* Medical Student - Darlyn Ulloa - 12/10/2021 3:36 PM EDT Images from the original note were not included. NEUROVASCULAR STROKE SERVICE Daily Progress Note IDENTIFYING INFORMATION Nanette Harrison MR# [id number] 12/10/2021 HISTORY OF PRESENT ILLNESS Nanette Harrison is a 65 y.o. right handed female with no significant past medical history who presented as a level 1 stroke alert from OSH with headache and confusion. Patient was last known well at 1700 on 12/07. Per family she had begun experiencing a headache on 12/06 but felt that it was her normal migraine. She did have poor appetite at that time. Then, on 12/07, she began having confusion. She was attempting to make her damian food cake that she has made many times in the past and knows the recipe by heart, however she had forgotten how to make it. She continued to repeat I don't know. Then on 12/08, she had worsening confusion and started making comments about dogs that were not there and continued repeating herself. She also did not recognize her son. Her brought her to OSH where she was agitated and complained of headache. 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 TPA was not given due to bleed. 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 CTA revealed complete occlusion ofthe distal left M2 segment of the middle cerebral artery with reconstitution distally likely due tocollateral flow; hyperattenuating focus noted on same day CT head favored to reflect a thrombosed aneurysm arising from the proximal M1 segment of the left middle cerebral artery; no flow distal to this; no large vessel occlusion or significant stenosis. At this time her NIHSS was 6. She was repeating Nanette, tower, and squad force. Neurosurgery saw her and recommended DCA for afternoon of12/09. She lives in [place], [place] with her , Alejandro, of 48 years, and two dogs. 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 Denies tobacco, drug, or alcohol use. She does not see a doctor INTERVAL HISTORY 12/08 - Repeat CTH revealed stable area of hypodensity in the inferior left temporal lobe favored to represent subacute infarct; stable hyperdensity suspected to represent thrombosed aneurysm likely arising from the proximal left MCA. Patient with expressive aphasia and confusion. Neurosurgery recommending DCA for 12/09. 12/09: Taken for DCA procedure with neurosurgery which revealed inferior M2 occlusion, cerebral aneurysm was not visualized. Oxycodone PRN ordered for headache after procedure. LDL came back at 107 so Atorvastatin 40mg started. A1c normal at 5.5. Today: 12/10 - This morning she had a very severe headache, so a repeat head CT was ordered which was stable from prior. When speaking with Ms. Harrison later this morning, she continued to report a severe headache. She was not oriented to month or age. She was aphasic on exam. Able to move all 4 extremities today, improved from yesterday. When asked if she could understand what we were discussing, she stated kind of. She was made NPO for TTE this afternoon. We discussed event monitor vs. LINQwith her for further work-up, which we will discuss with her family. Increased oxycodone from 5mg to 10mg PRN for better pain control given severity of her headache. Started aspirin 81mg and DVT ppx w ith lovenox. PHYSICAL EXAM General Physical Exam General: NAD, lying comfortably in bed HENT: Normal oropharynx and mucosa. Normal external appearance of ears and nose. CV/Chest: Regular rate and rhythm, normal S1S2 Lungs: No audible wheezing. Normal work of breathing. No accessory muscle use Abdomen: Non distended, non tender Extremities: Warm and well perfused. No appreciable edema, cyanosis or deformity. Skin: No rash. Normal palpation of skin. Musculoskeletal: No joint tenderness. Normal digits and nails by inspection. No clubbing. Neurologic Examination Mental status/Cognition: alert; not oriented to month or age Speech/language: aphasia; comprehension impaired Cranial nerves: CN II Visual eller full to confrontation without visual extinction CN III,IV, PERRL. EOMI. CN V Facial sensation intact to light touch bilaterally in V1, V2, V3 CN VII Right sided facial droop CN VIII Hearing grossly intact to voice CN IX & X Mild dysarthria CN XI Shoulder shrug with full strength CN XII Tongue protrudes midline Motor: Normal bulk and tone. All extremities antigravity without drift Sensation: intact to light touch throughout without extinction Coordination/Complex Motor: - Mgfzqf-sd-hhdc intact bilaterally without dysmetria - Tfrz-pk-unrx intact bilaterally without dysmetria - Rapid alternating movements are normal without dysdiadochokinesia NIHSS 12/10/2021 Provider NIH Stroke Scale NIH Interval (Provider): admission NIH Level of Conciousness (Provider): 0 NIH LOC Questions (Provider): 2 NIH LOC Commands (Provider): 1 NIH Best Gaze (Provider): 0 NIH Visual (Provider): 0 NIH Facial Palsy (Provider): 1 NIH Left Arm Motor (Provider): 0 NIH Right Arm Motor (Provider): 0 NIH Left Leg Motor (Provider): 0 NIH Right Leg Motor (Provider): 0 NIH Limb Ataxia (Provider): 0 NIH Sensory (Provider): 0 NIH Best Language (Provider): 2 NIH Dysarthria (Provider): 1 NIH Extinction and Inattention (Provider): 0 NIH Total Score (Provider): 7 ASSESSMENT AND PLAN 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 No evidence of hemorrhagic transformation or significant mass effect; hyper attenuating adjacent to the left anterior clinoid process favored to reflect a thrombosed aneurysm, likely arising from proximal middle cerebral artery - CTA brain/neck: complete occlusion of the distal left M2 segment of the middle cerebral artery with reconstitution distally likely due to collateral flow; hyperattenuating focus noted on same day CT head favored to reflect a thrombosed aneurysm arising from the proximal M1 segment of the left middle cerebral artery; no flow distal to this; no large vessel occlusion or significant stenosis. - MRI: ordered - SBP: < 140 - LDL: 107 - A1C: 5.5 - TTE: obtained GILDARDO today, results pending - Statin therapy: atorvastatin 40mg - Antiplatelet therapy: Aspirin 81mg - Anticoagulation: None - Will discuss with family regarding event monitor vs. LINQ for outpatient cardiac monitoring - Q4 neuro checks Ischemic Stroke Core Measures -NIHSS on admission 6 -Patient has been started on Mechanical (SCD's) and Pharmacological (SQ heparin/Lovenox) DVT prophylaxis. -Antiplatelet therapy has been initiated, Aspirin 81 mg daily. -Anticoagulation therapy was not indicated for this patient -Patients LDL and HgbA1c were checked and the patient will be discharged on atorvastatin 40mg -Dysphagia screening ordered, and will be completed prior to patient receiving oral intake. -Stroke education booklet has been ordered and will be provided by the RN that includes both written and verbal education to the patient and family regarding ischemic strokes. We have reviewed the patient's personal modifiable risk factors. -Patient is being assessed for Rehab by PT/OT/Speech and PM&R if indicated. Other problems Headache: - Patient with continued headache, oxycodone increased from 5mg to 10mg PRN Diet: DIET NPO WITHOUT meds DVT prophylaxis: Lovenox Code status: DNRCC-ARREST Dispo: Discharge pending PT/OT/INSTALLATION DRAFTER evaluation Discussed on team rounds. Signed, Darlyngirma Ulloa, MS4 VITAL SIGNS Temp: [97.8 F (36.6 C)-98.7 F (37.1 C)] 98.7 F (37.1 C) Pulse (Heart Rate): [52-69] 58 Resp Rate: [8-26] 16 BP: (109-159)/(60-84) 139/72 O2 Sat (%): [93 %-97 %] 95 % Oxygen Therapy: Oxygen Therapy O2 Sat (%): 95 % O2 Device: room air Intake/Output: Intake/Output Summary (Last 24 hours) at 12/10/2021 1536 Last data filed at 12/10/2021 0816 Gross per 24 hour Intake 620 ml Output 1675 ml Net -1055 ml LABS/CULTURES Lab Results Component Value Date WBC 7.91 12/10/2021 HGB 14.3 12/10/2021 HCT 43.0 12/10/2021 PLATELET 187 12/10/2021 MCV 90.5 12/10/2021 Lab Results Component Value Date SODIUM 140 12/10/2021 POTASSIUM 3.9 12/10/2021 CHLORIDE 108 12/10/2021 CO2 22 12/10/2021 BUN 11 12/10/2021 CREATSERUM 0.79 12/10/2021 GLUCOSE 99 12/10/2021 Lab Results Component Value Date CHOLESTEROL 180 12/08/2021 TRIG 109 12/08/2021 HDL 51 12/08/2021 LDLCALC 107 (H) 12/08/2021 Lab Results Component Value Date HGBA1C 5.5 12/08/2021 Lab Results Component Value Date ALBUMIN 3.6 12/08/2021 , No results found for: CPK, TROP IMAGING/DIAGNOSTIC STUDIES ECHOCARDIOGRAM TRANSESOPHAGEAL (GILDARDO) CT HEAD WITHOUT CONTRAST Final Result IMPRESSION: 1. No significant change, compared with CT from previous day. 2. Again seen is cortically based hypoattenuation involving the lateral aspect of the left temporal lobe, compatible with an acute stage cerebral infarct. 3. Again seen is an ovoid hyperdensity in the medial left temporal region closely related to the sylvian fissure. It could represent a thrombosed aneurysm. RO IMAGING FOR NEURO ENDOVASCULAR CT HEAD WITHOUT CONTRAST Final Result IMPRESSION: 1. Stable area of hypodensity in the inferior left temporal lobe favored to represent a subacute infarct. 2. 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 I personally viewed and interpreted these images and I have reviewed and approved this report. ANGIO BRAIN/NECK Final Result IMPRESSION: 1. 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 2. 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 No CTA spot sign within this thrombosed aneurysm; minimal contrast near the base of the suspected aneurysm could reflect blood flow near the aneurysm neck. No flow distal to this 3. No large vessel occlusion or significant stenosis involving the major arterial vasculature head and neck. 4. Multinodular appearance of the thyroid gland with largest nodule within the left thyroid lobe. Recommend nonemergent thyroid ultrasound when clinically feasible. 5. Hazy bilateral groundglass densities, may relate to aspiration or a developing infectious/inflammatory etiology. Findings were discussed with Dr. Lilliam Parson on 12/08/2021 9:50 PM. I personally viewed and interpreted these images and I have reviewed and approved this report. STROKE HEAD-STROKE ALERT ONLY Final Result IMPRESSION: 1. 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 No evidence of hemorrhagic transformation or significant mass effect. 2. 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 Findings were discussed with Dr. Lilliam Parson on 12/08/2021 9:41 PM. I personally viewed and interpreted these images and I have reviewed and approved this report. BRAIN WITHOUT CONTRAST (Results Pending) MEDICATIONS aspirin 81 mg Oral Daily atorvastatin 40 mg Oral QHS enoxaparin 40 mg Subcutaneous Daily HYDROmorphone 1 mg Intravenous Once senna 8.6 mg Oral Daily Or senna 8.6 mg Per NG tube Daily [facility]07-07-2022 Note* Plan of Care - Pippa Phelan, PT - 12/10/2021 2:51 PM EDT Problem: PT - Balance/Coordination/Neuro Re-Education Goal: Standing Dynamic/Static Balance Description: Pt will perform standing balance tasks for 10 minutes with supervision with least restrictive device in order to improve functional mobility and safety with standing tasks. Outcome: Ongoing Problem: PT - Mobility Goal: Ambulation Description: Pt will ambulate 150 feet with least restrictive device with standby assistance to improve ability to navigate home environment. Outcome: Ongoing Goal: Stairs Description: Pt will ascend/descend 12 stairs with railings with contact guard assistance with least restrictive device to improve ability to perform functional mobility necessary in recommended discharge environment. Outcome: Ongoing Problem: PT - Transfers Goal: Sit <-> Stand Description: Pt will perform sit to/from stand transfers with standby assistance with least restrictive device in order to improve functional mobility and safety. Outcome: Ongoing [facility]07-07-2022 Note* Plan of Care - Antonia Simmons, INSTALLATION DRAFTER - 12/10/2021 9:55 AM EDT Problem: INSTALLATION DRAFTER - Cognition Goal: Ongoing Goal Description: Pt will participate in evaluation of other language/cognition skill areas with additional treatment goals to follow as appropriate/indicated. Outcome: Ongoing Problem: INSTALLATION DRAFTER - Language Goal: Word Retrieval Strategies for Naming Description: Patient will recall/implement use of word retrieval strategies, given mod cues, to complete functional naming tasks and improve verbal expression/word retrieval and ability to verbally express wants/needs, across x1-2 session(s). Outcome: Ongoing Goal: Ongoing Goal Description: Pt will participate in ongoing evaluation of language (specifically areas of reading/writing and speech automatics given limited initial assessment) with additional treatment goals to follow as appropriate/indicated across x1 session. Outcome: Ongoing [facility]07-07-2022 Note* Plan of Care - Kitty Ferrari OT - 12/10/2021 8:08 AM EDT Problem: OT - ADLs Goal: Toileting Description: Pt will complete toileting task including clothing management with supervision for improved ability to safely complete self-care activities. Outcome: Ongoing Goal: Bathing Description: Pt will perform full body bathing/dressing routine with modified independence while seated for improved ability to complete self-care activities. Outcome: Ongoing Problem: OT - Cognition Goal: Cognition Home Maintenance Description: Pt will complete simulated home maintenance task (medication management, finance management, etc.) with supervision to promote safety and success at discharge destination. Outcome: Ongoing Goal: Cognition - Command following Description: Pt will follow 100 % of multi-step commands during ADL task for improved safety and success at discharge destination. Outcome: Ongoing Problem: OT - Balance Goal: Balance - Standing Description: Pt will perform 15 minutes of functional ADL task in standing with supervision and balance level of supervision to promote safety and improved balance required for self-care activities. Outcome: Ongoing Problem: OT - Strength/ROM Goal: Strength/ROM ADL Participation Description: Pt will demonstrate independence with UE exercise program to prevent deconditioning while in the hospital and to maximize UE ROM/coordination/strength for ADL participation. Outcome: Ongoing [facility]07-06-2022 History and physical note* Eloy Calvo MD - 12/09/2021 8:43 PM EDT Stroke Attending Addendum (Date of service 12/09/21): I have interviewed and examined patient. I have reviewed Dr. Parson's note and agree with the following highlights, additions, and addendums: The patient is a 65 y.o. right-handed female with no significant medical history who on 12/06/21 developed symptoms of headache but was otherwise acting normal. Then on 12/07/21 1700 while at cook out was confused (could not do her usual recipe for dessert). Then12/08 family noted she was not making sense. [facility] showed an inferior division left MCA infarct and rounded hyperdensity, which was felt to be hemorrhagic conversion. The patient was transferred to [facility] ER. On arrival NIHSS was 6. CT brain hear read as thrombosed aneurysm with left MCA infarct. CT angiogram head/neck shows left M2 occlusion and thrombosed aneurysm arising from proximal M1. LDL 107, HgbA1c 5.5. ROS: Pertinent Positives and Negatives are +GORDON. All other systems reviewed and are negative. Interval Overnight History: 156/78. Neurological examination shows aphasia, NIHSS 3 (?-1, aphas-2). 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 Stroke work-up ordered including MRI brain, TTE, cardiac monitoring, swallow evaluation, Stroke education. Continue daily anti-platelet medication and vascular risk factor modification. DVT prophylaxis with SCDs and lovenox SQ. PT/OT consults. To cerebral angiogram today for aneurysm. Oxycodone for headache. Start lipitor. Eloy Calvo MD [facility]07-06-2022 History and physical note* Eloy Calvo MD - 12/09/2021 8:43 PM EDT Stroke Attending Addendum (Date of service 12/09/21): I have interviewed and examined patient. I have reviewed Dr. Parson's note and agree with the following highlights, additions, and addendums: The patient is a 65 y.o. right-handed female with no significant medical history who on 12/06/21 developed symptoms of headache but was otherwise acting normal. Then on 12/07/21 1700 while at cook out was confused (could not do her usual recipe for dessert). Then12/08 family noted she was not making sense. The patient presented to an OSH [place] ER where CT brain showed an inferior division left MCA infarct and rounded hyperdensity, which was felt to be hemorrhagic conversion. The patient was transferred to [facility] ER. On arrival NIHSS was 6. CT brain hear read as thrombosed aneurysm with left MCA infarct. CT angiogram head/neck shows left M2 occlusion and thrombosed aneurysm arising from proximal M1. LDL 107, HgbA1c 5.5. ROS: Pertinent Positives and Negatives are +GORDON. All other systems reviewed and are negative. Interval Overnight History: 156/78. Neurological examination shows aphasia, NIHSS 3 (?-1, aphas-2). 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 Stroke work-up ordered including MRI brain, TTE, cardiac monitoring, swallow evaluation, Stroke education. Continue daily anti-platelet medication and vascular risk factor modification. DVT prophylaxis with SCDs and lovenox SQ. PT/OT consults. To cerebral angiogram today for aneurysm. Oxycodone for headache. Start lipitor. Eloy Calvo MD * Lillaim Parson MD - 12/08/2021 9:13 PM EDT Neurovascular Evaluation Note Evaluation Date: 12/08/2021 Unit: [id number] Consultation was requested by Dr. eGeta Davalos MD Patient status: Emergency Length of stay: 0 days Reason for Consult/Chief Complaint L1 hemorrhagic History of Present Illness Nanette Harrison is a 65 y.o. R handed female with no significant PMH who presents with headache andconfusion. A stroke alert was called for STAT consultation. Time of Level 1 Stroke Alert Activation (Or In House): 2029 Arrival Time of Stroke Team : 2099 Patient Location - Onset of Symptoms: Not in a healthcare setting Patient first presented to an [facility] ED facility: no Last Known Well: Date: 12/07/21 Last Known Well: Time: 1200 Source of information: family Last know well 1700 on 12/07. She started developing a headache on 12/06 that they assumed was her migraine. She also had poor appetite. Then, yesterday at their cookout, at around 1700, they noticed shewas struggling with making her Damian food cake that she knows by heart. She kept repeating I don'tknow. Then today, she wasn't making sense and stating something about dogs that weren't there and kept repeating herself. She also didn't recognize her son. Her , an EMT, took her to the OSH.She still complained of the headache and was agitated. CTH with subacute L temporal CVA with hemorrhagic conversion . TPA not given due to bleed. She was transferred to [facility] for further evaluation. On arrival to [facility], NIHSS was 6 (LOC question, BUE drift, best language). CTH with subacute L temporal CVA with thrombosed aneurysm.. 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 Denies tobacco, drug, or alcohol use. She does not see a doctor Review of Systems Unable to obtain due to mental status Neurovascular-specific History / Information Home antiplatelet/anticoagulation therapy: None Patient Current Risk Factors: Stroke risk factors include none. Prior stroke history: no. Family Hx of Stroke: Parents: no Siblings: no Stroke Diagnostic/Treatment Eligibility Information tPA not given as out of window and due to bleed Stroke Clinical Assessment Information: NIHSS (Provider) Flowsheet Row First Filed Value Provider NIH Stroke Scale NIH Interval (Provider) admission filed on 12/08/20212111 NIH Level of Conciousness (Provider) 0 filed on 12/08/20212111 NIH LOC Questions (Provider) 2 filed on 12/08/20212111 NIH LOC Commands (Provider) 0 filed on 12/08/20212111 NIH Best Gaze (Provider) 0 filed on 12/08/20212111 NIH Visual (Provider) 0 filed on 12/08/20212111 NIH Facial Palsy (Provider) 0 filed on 12/08/20212111 NIH Left Arm Motor (Provider) 1 filed on 12/08/20212111 NIH Right Arm Motor (Provider) 1 filed on 12/08/20212111 NIH Left Leg Motor (Provider) 0 filed on 12/08/20212111 NIH Right Leg Motor (Provider) 0 filed on 12/08/20212111 NIH Limb Ataxia (Provider) 0 filed on 12/08/20212111 NIH Sensory (Provider) 0 filed on 12/08/20212111 NIH Best Language (Provider) 2 filed on 12/08/20212111 NIH Dysarthria (Provider) 0 filed on 12/08/20212111 NIH Extinction and Inattention (Provider) 0 filed on 12/08/20212111 NIH Total Score (Provider) 6 filed on 12/08/20212111 Is NIH=0 Within 180 min of Last Known Well Time? -- Stroke Scales Flowsheet Row Most Recent Value ICH Score (Calculated) 0 filed on 12/08/20212149 ICH Volume (ml) (Calculated Score) 0.83 filed on 12/08/20212149 Modified Linda Scale Score Premorbid (MRSS) 0 filed on 12/08/20212135 NIH Total Score (Provider) 6 filed on 12/08/20212111 Past Medical History Medical History: No past medical history on file. SURGICAL HISTORY: No past surgical history on file. SOCIAL HISTORY: Social History Tobacco Use Smoking status: Never Smoker Smokeless tobacco: Never Used Vaping Use Vaping Use: Never used Substance Use Topics Alcohol use: Never Drug use: Never Medications PRIOR TO ARRIVAL MEDS: Prior to Admission medications Not on File Current Meds: Current Facility Administered Meds: Current Facility-Administered Medications Medication Dose Route Frequency Provider Last Rate Last Admin lidocaine 1% (PF) (XYLOCAINE MPF) 1 % injection 0.3 mL 0.3 mL Infiltration Once PRN Geeta Davalos MD No current outpatient medications on file. Scheduled Meds: Continuous Infusions: PRN Meds:lidocaine 1% (PF) Vitals Objective Findings: Vital Signs (24hrs): Temp: [97.6 F (36.4 C)] 97.6 F (36.4 C) Pulse (Heart Rate): [55] 55 Resp Rate: [13-15] 15 BP: (128-145)/(65-81) 145/65 O2 Sat (%): [98 %-99 %] 99 % Weight: [108.4 kg (239 lb)] 108.4 kg (239 lb) Body mass index is 36.34 kg/m . Lines/Drains/Airways/Wounds: Patient Lines/Drains/Airways Status Active Lines, Drains, Airways, & Wound Overview Name Placement date Placement time Site Days Peripheral IV Line - Single Lumen 12/08/21 median cubital vein (antecubital fossa), right 12/08/21 -- -- less than 1 Physical Exam General: Laying comfortably in bed; in no acute distress. CV: RRR. Pulmonary: No increased work of breathing, Equal chest rise bilaterally, no audible wheezing. Abdomen: soft, non-tender Ext: No cyanosis, edema, or deformity Skin: No rash Neurological Examination Psych and Mental status: alert; not oriented to person, place, year, and month; poor attention Speech/language: fluent; comprehension impaired ; object naming impaired; repetition impaired Cranial nerves: CN II visual eller full to threat CN III, IV, PERRL. EOMI. CN V unable to assess due to mental status CN VII no overt droop CN VIII hearing grossly intact to voice CN IX & X soft palate elevates symmetrically in the midline, no dysarthria CN XI shoulder shrug full strength bilaterally CNXII tongue protrudes midline Motor: Normal bulk and tone. - Left arm: slight drift, doesn't hit bed - Right arm: slight drift, doesn't hit bed - Left leg: no drift - Right leg: no drift Sensation: withdraws in all 4 extremities Coordination/Complex Motor: no obvious ataxia in arm or leg movements Gait: deferred Laboratory Results Diagnostics/Procedures: Labs-CBC WBC/Hgb/Hct/Plts: 6.20/13.2/39.5/158 (12/09 2131) Labs-Chem 7([facility]) Labs-Coags Ptt/Pt/Inr: 25.2/14.6/1.2 (12/09 2131) Additional Labs No results found for: CHOLESTEROL, TRIG, HDL, LDLCALC, LDLDIRECT Labs-Hemoglobin A1C No results found for: HGBA1C Imaging Imaging was analyzed by Mickie Avilez LVO CT Stroke Head: subacute L temporal CVA with thrombosed aneurysm CTA Brain/Neck: possible distal M2 occlusion -- final read pending Assessment/Impression Nanette Harrison is a 65 y.o. R handed female with no significant PMH who presents with headache andconfusion. NIHSS 6 (LOC question, BUE drift, best language), mRS 0. Presenation concerning for Wernicke's with fluent but impaired comprehension in the setting of a L temporal CVA. Will evaluate further as below. Plan -Please admit to neurovascular service PCU, attending Dr. Calvo. A hemorrhagic stroke order set has been signed and held. ICH score 0 -Neurosurgery consulted. Appreciate recommendations. Possible DCA -Check PT/INR/PTT and reverse any coagulopathy -Blood pressure goals with SBP less than 140 -Repeat a head CT [address] -Vital signs and neuro assessments q 2 -No anticoagulation, antiplatelet therapy and pharmacological DVT prophylaxis until a follow up head CT/MRI has been completed to ensure stability of hemorrhage -Obtain brain MRI with and without contrast unless contraindicated -Swallow evaluation prior to any oral intake -ECHO to evaluate cardiac function -Lipid panel, LFTs and HgbA1c to evaluate secondary risk factors -Baseline EKG, if not done in ED. Continuous telemetry -PT, OT, Speech and hospice social worker consults Other medical problems: None Code Status: DNRCC-ARREST, OK to intubate -- verified with /LNOK on 12/08 DVT prophylaxis: SCDs Diet: No diet orders on file This plan has been discussed stroke attending Dr. Pa and has been communicated to ED team. Signed, Lilliam Parson MD Neurology, PGY2 Pager: [phone] [facility] Note* Kasia Garcia RN - 12/09/2021 6:11 PM EDT Report called to Kay BRADSHAW VSS. Pt without complaints. 1823 pt ttransported per cart to floor with PACU SMOKE CONTROL SUPERVISOR and RN on tele and pulse ox; siderails up x 2. documented [facility] Nurse Surgical operation note* Kasia Garcia RN - 12/09/2021 6:11 PM EDT Report called to Kay QUINNS. Pt without complaints. 1823 pt ttransported per cart to floor with PACU SMOKE CONTROL SUPERVISOR and RN on tele and pulse ox; siderails up x 2. 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] PROCEDURE PERFORMED Procedure(s) (LRB): DIAGNOSTIC CEREBRAL ANGIOGRAM (N/A) PRIMARY CLOSURE TR band for hemostasis INTRAOPERATIVE FINDINGS No significant abnormalities SURGEON Surgeon(s) and Role: * Faraz Bar MD, PhD - Primary * Agustín Tiwari MD - Fellow ANESTHESIOLOGIST Anesthesiologist: Christal Guerrier MD HIGH SCHOOL PHYSICAL EDUCATION TEACHER: Pippa Callahan APRN-HIGH SCHOOL PHYSICAL EDUCATION TEACHER SURGICAL STAFF Variety Lathe Operator: Alysha Fernandez RN Bonding Molder: Narinder Melgar; Geeta Pedroza; Evy Montoya COMPLICATIONS None ESTIMATED BLOOD LOSS Minimal SPECIMENS No specimen sent * No specimens in log * Agustín Tiwari MD December 09, 2021 4:25 PM [facility] Work Phone: 1(153) 736-934207-06-2022 Note* Medical Student - Darlyn Ulloa - 12/09/2021 4:02 PM EDT Images from the original note were not included. NEUROVASCULAR STROKE SERVICE Daily Progress Note IDENTIFYING INFORMATION Nanette Harrison MR# [id number] 12/09/2021 HISTORY OF PRESENT ILLNESS Nanette Harrison is a 65 y.o. right handed female with no significant past medical history who presented as a level 1 stroke alert from OS with headache and confusion. Patient was last known well at 1700 on 12/07. Per family she had begun experiencing a headache on 12/06 but felt that it was her normal migraine. She did have poor appetite at that time. Then, on 12/07, she began having confusion. She was attempting to make her damian food cake that she has made many times in the past and knows the recipe by heart, however she had forgotten how to make it. She continued to repeat I don't know. Then on 12/08, she had worsening confusion and started making comments about dogs that were not there and continued repeating herself. She also did not recognize her son. Her brought her to OSH where she was agitated and complained of headache. 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 TPA was not given due to bleed. 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 CTA revealed complete occlusion ofthe distal left M2 segment of the middle cerebral artery with reconstitution distally likely due tocollateral flow; hyperattenuating focus noted on same day CT head favored to reflect a thrombosed aneurysm arising from the proximal M1 segment of the left middle cerebral artery; no flow distal to this; no large vessel occlusion or significant stenosis. At this time her NIHSS was 6. She was repeating Nanette, tower, and squad force. Neurosurgery saw her and recommended DCA for afternoon of12/09. She lives in [place], [place] with her , Alejandro, of 48 years, and two dogs. 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 Denies tobacco, drug, or alcohol use. She does not see a doctor INTERVAL HISTORY 12/08 - Repeat CTH revealed stable area of hypodensity in the inferior left temporal lobe favored to represent subacute infarct; stable hyperdensity suspected to represent thrombosed aneurysm likely arising from the proximal left MCA. Patient with expressive aphasia and confusion. Neurosurgery recommending DCA for 12/09. Today: 12/09: Today, Ms. Harrison has continued confusion with expressive aphasia and trouble identifying common items (ex. a pen), however she was oriented to age and month. She reports a headache aswell. She follows some commands but has difficulty. Taken for DCA procedure with neurosurgery this afternoon. Oxycodone PRN ordered for headache after procedure. Brain MRI ordered for further work-up, but not urgently. LDL came back at 107 so Atorvastatin 40mg started. A1c normal at 5.5. PHYSICAL EXAM General Physical Exam General: NAD, lying comfortably in bed HENT: Normal oropharynx and mucosa. Normal external appearance of ears and nose. CV/Chest: Regular rate and rhythm, normal S1S2 Lungs: No audible wheezing. Normal work of breathing. No accessory muscle use Abdomen: Non distended, non tender Extremities: Warm and well perfused. No appreciable edema, cyanosis or deformity. Skin: No rash. Normal palpation of skin. Musculoskeletal: No joint tenderness. Normal digits and nails by inspection. No clubbing. Neurologic Examination Mental status/Cognition: alert; oriented to month and age; poor attention; no apparent neglect Speech/language: expressive aphasia; object naming impaired Cranial nerves: CN II Visual eller full to confrontation without visual extinction CN III,IV, PERRL. EOMI. CN V Unable to assess CN VII No facial droop seen CN VIII Hearing grossly intact to voice CN IX & X Unable to assess CN XI Shoulder shrug with full strength CN XII Tongue protrudes midline Motor: Left and right arm both with slight drift but doesn't hit bed; able to lift bilateral lower extremities against gravity Sensation: intact to light touch throughout without extinction Coordination/Complex Motor: - [id number] intact bilaterally without dysmetria NIHSS 12/09/2021 Provider NIH Stroke Scale NIH Interval (Provider): admission NIH Level of Conciousness (Provider): 0 NIH LOC Questions (Provider): 2 NIH LOC Commands (Provider): 0 NIH Best Gaze (Provider): 0 NIH Visual (Provider): 0 NIH Facial Palsy (Provider): 0 NIH Left Arm Motor (Provider): 1 NIH Right Arm Motor (Provider): 1 NIH Left Leg Motor (Provider): 0 NIH Right Leg Motor (Provider): 0 NIH Limb Ataxia (Provider): 0 NIH Sensory (Provider): 0 NIH Best Language (Provider): 2 NIH Dysarthria (Provider): 0 NIH Extinction and Inattention (Provider): 0 NIH Total Score (Provider): 6 ASSESSMENT AND PLAN 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 No evidence of hemorrhagic transformation or significant mass effect; hyper attenuating adjacent to the left anterior clinoid process favored to reflect a thrombosed aneurysm, likely arising from proximal middle cerebral artery - CTA brain/neck: complete occlusion of the distal left M2 segment of the middle cerebral artery with reconstitution distally likely due to collateral flow; hyperattenuating focus noted on same day CT head favored to reflect a thrombosed aneurysm arising from the proximal M1 segment of the left middle cerebral artery; no flow distal to this; no large vessel occlusion or significant stenosis. - MRI: ordered - SBP: < 140 - LDL: 107 - A1C: 5.5 - TTE: not yet obtained - Statin therapy: started atorvastatin 40mg - Antiplatelet therapy: None currently, re-evaluate after DCA with neurosurgery - Anticoagulation: None - Patient with continued headache, ordered oxycodone 5mg PRN Ischemic Stroke Core Measures -NIHSS on admission 6 -Patient has been started on Mechanical (SCD's) and Pharmacological (SQ heparin/Lovenox) DVT prophylaxis. -Antiplatelet therapy has been initiated, Aspirin 81 mg daily. -Anticoagulation therapy was not indicated for this patient -Patients LDL and HgbA1c were checked and the patient will be discharged on atorvastatin 40mg -Dysphagia screening ordered, and will be completed prior to patient receiving oral intake. -Stroke education booklet has been ordered and will be provided by the RN that includes both written and verbal education to the patient and family regarding ischemic strokes. We have reviewed the patient's personal modifiable risk factors. -Patient is being assessed for Rehab by PT/OT/Speech and PM&R if indicated. Other problems Headache: - Patient with continued headache, oxycodone ordered PRN Diet: DIET NPO with meds DVT prophylaxis: [facility] Code status: DNRCC-ARREST Dispo: Discharge pending PT/OT/INSTALLATION DRAFTER evaluation Discussed on team rounds. Signed, Darlyn Ulloa, MS4 VITAL SIGNS Temp: [97.6 F (36.4 C)-98.7 F (37.1 C)] 97.7 F (36.5 C) Pulse (Heart Rate): [55-75] 66 Resp Rate: [8-27] 22 BP: (116-162)/(59-81) 141/67 O2 Sat (%): [91 %-99 %] 95 % Weight: [108.4 kg (238 lb 15.7 oz)-108.4 kg (239 lb)] 108.4 kg (238 lb 15.7 oz) Oxygen Therapy: Oxygen Therapy O2 Sat (%): 95 % O2 Device: room air Flow (L/min): 2 Oxygen Delivery/Consumption Hemodynamics BSA (Calculated - sq m): 2.2 m2 Intake/Output: Intake/Output Summary (Last 24 hours) at 12/09/2021 1603 Last data filed at 12/09/2021 1113 Gross per 24 hour Intake 1357.85 ml Output 750 ml Net 607.85 ml LABS/CULTURES Lab Results Component Value Date WBC 7.96 12/09/2021 HGB 13.9 12/09/2021 HCT 40.2 12/09/2021 PLATELET 171 12/09/2021 MCV 88.4 12/09/2021 Lab Results Component Value Date SODIUM 139 12/09/2021 POTASSIUM 3.9 12/09/2021 CHLORIDE 108 12/09/2021 CO2 24 12/09/2021 BUN 9 12/09/2021 CREATSERUM 0.79 12/09/2021 GLUCOSE 111 (H) 12/09/2021 Lab Results Component Value Date CHOLESTEROL 180 12/08/2021 TRIG 109 12/08/2021 HDL 51 12/08/2021 LDLCALC 107 (H) 12/08/2021 Lab Results Component Value Date HGBA1C 5.5 12/08/2021 Lab Results Component Value Date ALBUMIN 3.6 12/08/2021 , No results found for: CPK, TROP IMAGING/DIAGNOSTIC STUDIES CT HEAD WITHOUT CONTRAST Final Result IMPRESSION: 1. Stable area of hypodensity in the inferior left temporal lobe favored to represent a subacute infarct. 2. 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 I personally viewed and interpreted these images and I have reviewed and approved this report. ANGIO BRAIN/NECK Final Result IMPRESSION: 1. 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 2. 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 No CTA spot sign within this thrombosed aneurysm; minimal contrast near the base of the suspected aneurysm could reflect blood flow near the aneurysm neck. No flow distal to this 3. No large vessel occlusion or significant stenosis involving the major arterial vasculature head and neck. 4. Multinodular appearance of the thyroid gland with largest nodule within the left thyroid lobe. Recommend nonemergent thyroid ultrasound when clinically feasible. 5. Hazy bilateral groundglass densities, may relate to aspiration or a developing infectious/inflammatory etiology. Findings were discussed with Dr. Lilliam Parson on 12/08/2021 9:50 PM. I personally viewed and interpreted these images and I have reviewed and approved this report. STROKE HEAD-STROKE ALERT ONLY Final Result IMPRESSION: 1. 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 No evidence of hemorrhagic transformation or significant mass effect. 2. 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 Findings were discussed with Dr. Lilliam Parson on 12/08/2021 9:41 PM. I personally viewed and interpreted these images and I have reviewed and approved this report. BRAIN WITHOUT CONTRAST (Results Pending) FLUORO IMAGING FOR NEURO ENDOVASCULAR (Results Pending) MEDICATIONS [MAR Hold] atorvastatin 40 mg Oral QHS [MAR Hold] senna 8.6 mg Oral Daily Or [AUG Hold] senna 8.6 mg Per NG tube Daily [facility]07-06-2022 Note* Nursing Notes - Dmitry Beltre RN - 12/09/2021 2:00 PM EDT Patient arrived from ED and placed on bedside monitor. Patient clutching head and rolling around onED cart, My head really hurts. situation Patient alert, oriented X1 confused to date, place and .Will follow some commands 1425-Dr. Guerrier at bedside to obtain anesthesia consent from daughter Kailey. Consent obtained, Dr. Bar at bedside. [facility]07-06-2022 Note* Op Note - Faraz Bar MD, PhD - 12/09/2021 12:00 PM EDT Operative Report DATE PERFORMED: 12/09/2021 1. Left common carotid artery arteriogram. 2. Left common carotid artery cerebral arteriogram. 3. Right common carotid artery arteriogram. 4. Right common carotid artery cerebral arteriogram. 5. Left subclavian artery arteriogram. 6. Right subclavian artery arteriogram. HISTORY OF PRESENT ILLNESS: This is a 65-year-old female with concern for a stroke as well as a possible partially thrombosed left MCA aneurysm. She is here for digital subtraction arteriogram to further evaluate this. SURGEON(S): Faraz Bar MD, PhD FIREWOOD CUTTER: Agustín Tiwari MD ANESTHESIA: Monitored anesthesia care. DESCRIPTION OF PROCEDURE: The patient was brought to the operating room, was transferred onto the operative bed. All pressure points were padded appropriately. The area was prepped and draped in sterile fashion. A time-out occurred to verify correct patient and procedure. The right radial artery was identified under ultrasound and the area over it was infiltrated with 1% lidocaine. The right radial artery was then accessed with a micropuncture device under ultrasound guidance, and a 5-Lithuanian radial artery sheath was placed. Through this radial artery sheath, the patient received 2.5 mg of verapamil and 200 mcg of nitroglycerin. The patient also received 50,000 units of heparin IV. A 5-Lithuanian Sim 2 glide catheter was advanced over the aortic arch, reformatted, and advanced into the left subclavian artery, and a left subclavian artery arteriogram performed. The catheter was withdrawn and advanced in the left common carotid artery and a left common carotid artery arteriogram was performed. With the catheter in the left common carotid artery, a left common carotid artery cerebral arteriogram was performed. The catheter was withdrawn and advanced in the right common carotid artery and a right common carotid artery arteriogram was performed. With the catheter in the right common carotid artery, a right common carotid artery cerebral arteriogram was performed. The catheter was withdrawn into the right subclavian artery right at the entry site of the right vertebral artery and a right subclavian artery arteriogram was performed. The right subclavian artery cerebral arteriogram was performed of the vertebral artery circulation. The catheter was removed. The sheath was removed and hemostasis obtained with a TR band device. FINDINGS: The left subclavian artery arteriogram demonstrated opacification of the left subclavian artery with wide opacification of the vertebral artery. This is the dominant of the 2 vertebral arteries. There was no evidence of stenosis. The left common carotid artery arteriogram demonstrated antegrade filling of the common, internal, and external carotid arteries. There was no carotid stenosis. The left common carotid artery cerebral arteriogram demonstrated antegrade filling of the anterior and middle cerebral arteries. The inferior branch of the middle cerebral artery is missing. There was no evidence of aneurysm or AVM. The right common carotid artery arteriogram demonstrated antegrade filling of the common, internal, and external carotid arteries. There was no carotid stenosis. The right common carotid artery cerebral arteriogram demonstrated antegrade fill of the anterior and middle cerebral arteries. The capillary and venous phase were unremarkable. There was no evidence of aneurysm AVM. The right subclavian artery arteriogram demonstrated antegrade filling of the posterior circulation. The capillary and venous phases were unremarkable. There was no evidence of aneurysm AVM. There was moderate atherosclerotic disease throughout. COMPLICATIONS: None. DISPOSITION: Stable to recovery. IMPRESSION: 1. Inferior M2 occlusion. 2. No evidence of cerebral aneurysm. Dictated By: Faraz Bar MD, PhD Faraz Bar MD, PhD ATTENDING [facility]/Med[employer] JOB: [id number] DOC: [id number] [facility] Work Phone: [phone]) 613-780907-06-2022 Emergency department Note* Nisha Goldsmith RN - 12/09/2021 7:40 AM EDT Patient listed as not having a PCP. CM placed resources in AVS. Nisha Goldsmith RN Clinical Family Helper Emergency Department [phone] [facility]07-06-2022 Emergency department Note* Nisha Goldsmith RN - 12/09/2021 7:40 AM EDT Patient listed as not having a PCP. CM placed resources in AVS. Nisha Goldsmith RN Clinical Family Helper Emergency Department [phone] * Jodie Olivas MD - 12/08/2021 9:49 PM EDT EMERGENCY DEPARTMENT ENCOUNTER S: CHIEF COMPLAINT: Chief Complaint Patient presents with Altered mental status HPI: Nanette Harrison is a 65 y.o. female with no past medical history who presents as a transfer from [facility] as a level 1 hemorrhagic stroke alert. Patient started acting abnormal at her 07 of December cardiac, family assumed it was from a migraine. Earlier today patient was texting her daughter and not making sense, came home from work to evaluate her and found her altered. Patient was brought to outside hospital and found to have hemorrhagic stroke and transferred to [facility]. NIH 6. Patient is dysarthric with expressive aphasia, review of systems not performed. REVIEW OF SYSTEMS: Review of Systems Unable to perform ROS: Mental status change PAST MEDICAL HISTORY No past medical history on file. SURGICAL HISTORY No past surgical history on file. CURRENT MEDICATIONS No current outpatient medications on file. ALLERGIES Not on File FAMILY HISTORY History reviewed. No pertinent family history. SOCIAL HISTORY Social History Socioeconomic History Marital status: Not on file Spouse name: Not on file Number of children: Not on file Years of education: Not on file Highest education level: Not on file Occupational History Not on file Tobacco Use Smoking status: Never Smoker Smokeless tobacco: Never Used Vaping Use Vaping Use: Never used Substance and Sexual Activity Alcohol use: Never Drug use: Never Sexual activity: Not on file Other Topics Concern Not on file Social History Narrative Not on file Social Determinants of Health Financial Resource Strain: Not on file Food Insecurity: Not on file Transportation Needs: Not on file Physical Activity: Not on file Stress: Not on file Social Connections: Not on file Intimate Partner Violence: Not on file Housing Stability: Not on file O: PHYSICAL EXAM: Vital Signs:BP 145/65 Pulse 55 Temp 97.6 F (36.4 C) (Oral) Resp 15 Ht 1.727 m (5' 8) Wt 108.4 kg (239 lb) SpO2 99% BMI 36.34 kg/m Smoking Status Never Smoker Physical Exam Vitals and nursing note reviewed. Constitutional: General: She is not in acute distress. Appearance: Normal appearance. She is obese. She is not ill-appearing, toxic- appearing or diaphoretic. HENT: Head: Normocephalic and atraumatic. Right Ear: External ear normal. Left Ear: External ear normal. Nose: Nose normal. Mouth/Throat: Mouth: Mucous membranes are moist. Pharynx: Oropharynx is clear. Eyes: General: No scleral icterus. Right eye: No discharge. Left eye: No discharge. Conjunctiva/sclera: Conjunctivae normal. Cardiovascular: Rate and Rhythm: Normal rate and regular rhythm. Pulses: Normal pulses. Heart sounds: Normal heart sounds. No murmur heard. Pulmonary: Effort: Pulmonary effort is normal. No respiratory distress. Breath sounds: Normal breath sounds. No wheezing or rhonchi. Abdominal: General: Bowel sounds are normal. Palpations: Abdomen is soft. Tenderness: There is no abdominal tenderness. There is no guarding. Musculoskeletal: General: No deformity or signs of injury. Normal range of motion. Cervical back: Normal range of motion. No rigidity or tenderness. Right lower leg: No edema. Left lower leg: No edema. Skin: General: Skin is warm and dry. Capillary Refill: Capillary refill takes less than 2 seconds. Coloration: Skin is not jaundiced. Findings: No bruising or rash. Neurological: General: No focal deficit present. Mental Status: She is alert. GCS: GCS eye subscore is 4. GCS verbal subscore is 3. GCS motor subscore is 6. Cranial Nerves: Dysarthria present. No cranial nerve deficit or facial asymmetry. Sensory: No sensory deficit. Motor: No weakness. Comments: Expressive aphasia. NIH: NIHSS (Provider) Flowsheet Row First Filed Value Provider NIH Stroke Scale NIH Interval (Provider) admission filed on 12/08/20212111 NIH Level of Conciousness (Provider) 0 filed on 12/08/20212111 NIH LOC Questions (Provider) 2 filed on 12/08/20212111 NIH LOC Commands (Provider) 0 filed on 12/08/20212111 NIH Best Gaze (Provider) 0 filed on 12/08/20212111 NIH Visual (Provider) 0 filed on 12/08/20212111 NIH Facial Palsy (Provider) 0 filed on 12/08/20212111 NIH Left Arm Motor (Provider) 1 filed on 12/08/20212111 NIH Right Arm Motor (Provider) 1 filed on 12/08/20212111 NIH Left Leg Motor (Provider) 0 filed on 12/08/20212111 NIH Right Leg Motor (Provider) 0 filed on 12/08/20212111 NIH Limb Ataxia (Provider) 0 filed on 12/08/20212111 NIH Sensory (Provider) 0 filed on 12/08/20212111 NIH Best Language (Provider) 2 filed on 12/08/20212111 NIH Dysarthria (Provider) 0 filed on 12/08/20212111 NIH Extinction and Inattention (Provider) 0 filed on 12/08/20212111 NIH Total Score (Provider) 6 filed on 12/08/20212111 Is NIH=0 Within 180 min of Last Known Well Time? -- IMAGING: CT STROKE HEAD-STROKE ALERT ONLY Final Result IMPRESSION: 1. 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 No evidence of hemorrhagic transformation or significant mass effect. 2. 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 Findings were discussed with Dr. Lilliam Parson on 12/08/2021 9:41 PM. I personally viewed and interpreted these images and I have reviewed and approved this report. ANGIO BRAIN/NECK (Results Pending) LABS: Results for orders placed or performed during the hospital encounter of 12/08/21 PTINR-STROKE Result Value Ref Range PT 14.6 (H) 11.9 - 14.2 sec INR 1.2 (H) 0.9 - 1.1 PTT Result Value Ref Range PTT 25.2 24.0 - 34.3 sec [facility] 7 - ED Result Value Ref Range Sodium 138 135 - 145 mmol/L Potassium 3.6 3.5 - 5.0 mmol/L Chloride 106 98 - 108 mmol/L CO2 22 21 - 31 mmol/L Glucose 126 (H) 70 - 99 mg/dL BUN 10 7 - 25 mg/dL Creatinine 0.78 0.50 - 1.20 mg/dL Bun/Crea Ratio 13 Osmolality (Calculated) 289 278 - 305 mOsm/kg Anion Gap 14 7 - 17 mmol/L eGFR, CKD-EPI, Female 83 >=60 mL/min/1.73m2 PHOSPHATE, INORGANIC Result Value Ref Range Phosphorous 2.6 2.2 - 4.6 mg/dL MAGNESIUM Result Value Ref Range Magnesium 1.7 1.6 - 2.6 mg/dL CALCIUM Result Value Ref Range Calcium 8.2 (L) 8.6 - 10.5 mg/dL HEPATIC FUNCTION PANEL Result Value Ref Range Albumin 3.6 3.5 - 5.0 g/dL Bilirubin Direct 0.1 <0.3 mg/dL Bilirubin Total 0.5 <1.5 mg/dL ALP 48 32 - 126 U/L ALT 14 9 - 48 U/L AST 19 10 - 39 U/L Total Protein 6.1 (L) 6.4 - 8.3 g/dL CBC AND ELECTRONIC DIFF Result Value Ref Range WBC Count 6.20 3.99 - 11.19 K/uL RBC Count 4.43 3.91 - 5.04 M/uL Hemoglobin 13.2 11.4 - 15.2 g/dL Hematocrit 39.5 34.9 - 44.3 % Mean Cell Volume 89.2 79.6 - 97.7 fL Mean Cell Hgb 29.8 25.9 - 33.9 pg Mean Cell Hgb Conc 33.4 31.4 - 35.9 g/dL RBC Distribution 13.4 10.8 - 14.9 % Platelet Count 158 150 - 393 K/uL Mean Platelet Volume 11.9 8.5 - 12.2 fL DIFF STATUS Electronic Differential Segs + Bands Auto 62.9 % Immature Grans % 0.2 % Lymphocyte % Auto 30.5 % Monocyte % Auto 5.2 % Eosinophil % Auto 1.0 % Basophil % Auto 0.2 % Nucleated RBC 0.0 <=0.2 /100 WBC Segs + Bands,Absolute Auto 3.91 1.64 - 7.28 K/uL Immature Grans Absolute <0.04 <=0.08 K/uL Abs Lymph Auto 1.89 1.16 - 3.51 K/uL Abs Bond Auto 0.32 0.22 - 0.87 K/uL Abs Eos Auto 0.06 0.00 - 0.42 K/uL Abs Baso Auto <0.04 0.00 - 0.15 K/uL GLUCOSE POC Result Value Ref Range Glucose (POC Device) 102 (H) 70 - 99 mg/dL POC Sample Type CAPBL URINE DIPSTICK; REFLEX MICROSCOPY; REFLEX CULTURE PERFORMABLE Result Value Ref Range Color Yellow Yellow Appearance Urine Clear Clear Glucose Urine Negative Negative Ketones Urine Negative Negative Specific [place] Urine 1.010 1.001 - 1.035 Blood Urine Small (A) Negative pH Urine 7.0 5.0 - 7.0 Protein Urine Negative Negative Urobilinogen Urine 0.2 E.U./dL 0.2 E.U/dL, 1.0 E.U/dL Nitrites Urine Negative Negative Leukocyte Esterase Negative Negative URINE MICROSCOPIC WITH REFLEX TO CULTURE Specimen: Urine Result Value Ref Range RBC Urine 0-2 0 - 2 /HPF WBC Urine 0-5 0 - 5 /HPF Squamous/Epithelial Cells 0/hpf = 0+ 1/hpf = 1+, 2-5/hpf = 2+, 0/hpf = 0+, ABSENT Bacteria ABSENT ABSENT CT STROKE HEAD-STROKE ALERT ONLY Final Result IMPRESSION: 1. 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 No evidence of hemorrhagic transformation or significant mass effect. 2. 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 Findings were discussed with Dr. Lilliam Parson on 12/08/2021 9:41 PM. I personally viewed and interpreted these images and I have reviewed and approved this report. ANGIO BRAIN/NECK (Results Pending) A/P and MDM: Assessment: Nanette Harrison is a 65 y.o. female with no past medical history who presents with left anterior thrombosed aneurysm. Neurosurgery consulted, neurovascular will admit patient to their service. ED Course and Medical Decision Making: On arrival, vitals stable. Stroke alert was called. Neuro at bedside upon arrival. Initial NIHSS 6. BP goal less than 140 BG goal 100-200 Patient will be admitted to Neurovascular for further workup and monitoring. Impression: thrombosed aneurysm Disposition: admission to neurovasc Jodie Olivas MD This patient was discussed with the attending physician who was in the immediate care area during the evaluation and decision making process. A [id number] dictation tool was used in the production of this document and all attempts were made for proper editing but errors may occur. Theodore Olivas M.D Emergency Medicine, PGY-2 Jodie Olivas MD Resident 12/08/212199 * TAWNYA Lowery - 12/08/2021 9:13 PM EDT SW responded to level 1 stroke alert. Patient is awake and responsive to medical team. Patient's emergency contact information: Kailey, daughter, SW will continue to follow and provide support during time in ED. Meg MARTIN, [facility] Medical Social Work Emergency Department * Geeta Davalos MD - 12/08/2021 9:06 PM EDT ED Attending No past medical history on file. Reportedly no PMH possibly migraines unable to assess from patient Per EMS no known allergies No chief complaint on file. CC Stroke Alert The history is provided by medical records and the EMS personnel. The history is limited by the condition of the patient and the absence of a caregiver (No family present at time of arrival for collateral history). Pertinent Hx: Ms. Nanette Harrison is a 65 y.o. female with PMH ?migraines (no known PMH per EMS verbal report) who presents w/ CC transfer from O[facility] stroke alert. LKW >24h. Not on anticoag. Transfer from: [facility] Per verbal from flight - pt had seemed off over the weekend (today Tuesday) with poor appetite but thought was a typical migraine however today was texting nonsense to prompting OSH evaluation. OSH CT reportedly was 1.2 cm temporal lobe bleed & subacute infarct. New to [facility] system Social Hx: Limited by acuity and acute mental status change - not able to answer questions. AppearsEnglish-speaking. 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 Transfer Center: Clinical reason for transfer: No NS at HPI: Presented with AMS and head pain. Patient is awake but no orientated. PMH: none VS: 145/90 67 14 98.0 97% on RA Pertinent Labs, EKG and images: CT- stroke with hemorrhagic conversion COVID negative. Labs WNL IV drips: none Review of Systems Unable to perform ROS: Acuity of condition Pertinent Exam: BP 116/64 Pulse 75 Temp 98.7 F (37.1 C) (Oral) Resp 22 Ht 1.727 m (5' 8) Wt 108.4 kg (239 lb) SpO2 97% BMI 36.34 kg/m Smoking Status Never Smoker Temp: [97.6 F (36.4 C)-98.7 F (37.1 C)] 98.7 F (37.1 C) Pulse (Heart Rate): [55-75] 75 Resp Rate: [8-27] 22 BP: (116-146)/(64-81) 116/64 O2 Sat (%): [92 %-99 %] 97 % Weight: [108.4 kg (239 lb)] 108.4 kg (239 lb) No LMP recorded. See NIHSS, 65 y.o. F confused stating occasional Honduran words not accurate responses to questions. EKG Interpretation - EKG taken: 12/08/2021 21:53:24 Compared with EKG from: no prior EKG available Interpreted by emergency department physician Rhythm: normal sinus Rate: normal and 62 Ectopy: none Conduction: NM 204 QRS 92 QT/QTc 414/420 ST Segments & T Waves: nonspecific ST/T abn Other findings: Q inferior, poss LAE Clinical Impression: abnormal EKG CT ANGIO BRAIN/NECK Final Result IMPRESSION: 1. 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 2. 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 No CTA spot sign within this thrombosed aneurysm; minimal contrast near the base of the suspected aneurysm could reflect blood flow near the aneurysm neck. No flow distal to this 3. No large vessel occlusion or significant stenosis involving the major arterial vasculature head and neck. 4. Multinodular appearance of the thyroid gland with largest nodule within the left thyroid lobe. Recommend nonemergent thyroid ultrasound when clinically feasible. 5. Hazy bilateral groundglass densities, may relate to aspiration or a developing infectious/inflammatory etiology. Findings were discussed with Dr. Lilliam Parson on 12/08/2021 9:50 PM. I personally viewed and interpreted these images and I have reviewed and approved this report. STROKE HEAD-STROKE ALERT ONLY Final Result IMPRESSION: 1. 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 No evidence of hemorrhagic transformation or significant mass effect. 2. 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 Findings were discussed with Dr. Lilliam Parson on 12/08/2021 9:41 PM. I personally viewed and interpreted these images and I have reviewed and approved this report. HEAD WITHOUT CONTRAST (Results Pending) Impression & Plan: OSH transfer, stroke alert, concern for temporal bleed/subacute infarct, sent for neurovasc/neurosurg/level of care. Eval w/ neuro team on pt arrival. Verbal report was given from EMS. New to [facility]. Very limited info immediately available 2/2 pt no useful verbal responses, not yet here (collateral when able to call or if he arrives), no prior med records in our system, minimal info linked in Care Everywhere at this time. Eval on arrival and discussed w/ Dr. Parson neurovasc resident space and missile defense operations. BP parameters/PRNs. Imaging/NSG c/s. Admitted neurovascular. Evaluated with: Dr. Olivas EM2 I have spent 31 minutes of discontinuous time providing critical care. This time is exclusive of procedures. This time may have included but is not limited to: my initialevaluation, reassessments to evaluate response to treatments and changes in condition, supervision/coordination of care, ordering/review of diagnostic and radiologic studies/results, medication select ion, interpretation of EKGs/blood gas results if applicable, review of available outside/prior medical records, documentation, and discussion with care team and consultants. [x] I personally viewed available imaging - PACS / Juanita [x] Care Everywhere - Reviewed - very minimal info - only select labs are available in [facility], no OSH paper records received for personal review/no scan/no imaging/provider notes from OSH in Care Everywhere at time of evaluation [x] Discussed with outplacement consultant(s) [x] Verbal report from EMS [x] EMS runsheet not available A [id number] dictation tool may have been used in the production of this document and all attempts were made for proper editing, but errors may still occur. On 12/08/2021 I saw and examined the patient. I discussed the history and examination with the resident and agree with the plan of care if documentation is available for review at the time of my note and unless otherwise indicated. E037/E037 Geeta Davalos MD 12/09/21 0348 * Latoya Jackson RN - 12/08/2021 9:06 PM EDT Bed: E037 Expected date: Expected time: Means of arrival: Comments: markell [facility] Discharge instructions* Discharge Instructions* Sergio Mcfadden MD, PhD - 12/09/2021 7:39 AM EDT Please take these discharge instructions to your primary care doctor follow appointment to show them,keep them for your reference and refer to them often for follow up appointments.It is best to write your appointments on a personal calendar so you do not miss them,call if you need to change any appointments please. You had a stroke. We recommend the following: - Take aspirin, 81mg daily - Take atorvastatin, 40mg daily - Follow up with stroke clinic - Set up PT (physical therapy) and OT (occupational therapy) at home - Find a primary care provider to follow with Education: What are the most common symptoms of stroke? The following are the most common symptoms of stroke. However, each individual may experience symptoms differently. If any of these symptoms are present, call 911 (or your local ambulance service) immediately. Treatment is most effective when started immediately. Symptoms may be sudden and include: -Weakness or numbness of the face, arm, or leg, especially on one side of the body -Confusion or difficulty speaking or understanding -Problems with vision such as dimness or loss of vision in one or both eyes -Dizziness or problems with balance or coordination -Problems with movement or walking -Severe headaches with no other known cause, especially if sudden onset All of the above warning signs may not occur with each stroke. Do not ignore any of the warning signs, even if they go away - take action immediately. The symptoms of stroke may resemble other medical conditions or problems. Always consult your physician for a diagnosis We have provided both written and verbal education to the patient and family regarding ischemic andhemorrhagic strokes. We have discussed the warning signs/symptoms as well as causes of stroke. We have discussed the importance of activating 911/EMS in the event of these symptoms. We have reviewed the patient's personal risk factors as well as education on reducing these risk factors. [facility] Personalized Stroke Treatment Plan My Stroke Type: [x] Ischemic Stroke (Blockage of blood flow to the brain) [] Hemorrhagic Stroke (Bleeding in the brain) [] TIA- Transient Ischemic Attack (mini-stroke) My Risk Factors Include: [] High Blood Pressure [] Diabetes [x] High Cholesterol [] Heart Disease [] Atrial Fibrillation (Irregular Heart Rate) [] Smoking [] Obesity [] Clotting Disorder [] Alcohol Abuse [] Drug Abuse [] Prior History [] Family History [] Obstructive Sleep Apnea My Follow-Up Treatment Goals: [x] Blood Pressure < 140/90 [] Stop Smoking Immediately [x] LDL < 70 [x] HgA1C levels <7% [] Decrease BMI to <25 [x] Take all ordered medications [] Avoid non-prescription or over the counter medication not cleared by your physician [x] Limit Alcohol use to no more than 1 drink per day for females and 2 drinks per day for males [] Do not drive until cleared [x] Follow up with PCP within a week of discharge to home [x] Follow-up with Neurovascular [x] Follow-up with Occupational,physical and speech therapy if ordered [x] Watch out for depression and seek treatment if needed CONTACTS FOR NEUROVASCULAR SERVICE: - You may call your neurovascular doctors office at [phone], if you have questions between 8:30 am and 4:30 pm. - For off hours or the weekend you may call the office or the hospital logging tractor operator swamp at and ask for the stroke resident space and missile defense operations to be paged. - If you have any questions or needs, please call Joyce Ulloa RN, stroke program paraprofessional at [phone] Mon-Fri from 7-3 ? Any questions concerning your discharge instructions please call Case Management Office [phone] Patient Stroke Resources: [facility] Stroke Support [facility] Stroke Support Group is for stroke survivors, friends, andfamily members. Meets every Tuesday from 12:00PM to 1:00PM at [facility]), [address] [place] [address] Becky Muhammad, at [phone]. If you are outside of the [facility], contact The [place] [employer] at www.strokeassociation.org or 5-308-9-stroke, or for supports groups in your area. Also refer to the Stroke Education booklet you received as part of your stroke education while you were a patient for additional resources Additional Contacts: Evening and Weekend Contacts If you have questions or concerns during evening, weekend, or holiday hours, please call: -[facility] logging tractor operator swamp at [phone]. -[facility] logging tractor operator swamp at [phone] Ask the logging tractor operator swamp to page the on-call doctor for Neurovascular service, they were responsible for your care while you were in the hospital. If you having an emergency, call 911. *In the event of an Emergency: If you have a physical or psychiatric emergency call 911 or go to your local emergency department. You should also call your outpatient provider's emergency number. Other reference numbers: [facility] Intake Office at 503-911-4334; [facility] at [phone]; or Suicide Prevention Hotline at 837-501-0778. *Helpful phone numbers: Free Crisis Hotline: 9-305-008-TALK ( ) Suicide Hotline: 537.519.1587 Seniors Suicide Hotline: 328.834.7597 [facility] Youth: 355.946.3045 [facility] [place]: 540.287.2915 (free counseling) [facility] Access Hotline: 522-827-UCQB (936-947-7988) 24-hour crisis text hotline: Text the word 4hope to 573-547 for crisis support. Texting this number is free if you have Verizon, T-Mobile, AT[employer]T or Sprint. [facility] Financial Assistance: If you want to learn more about these programs, please call .There are three programsto help you with the cost of your medical care: Medicaid, Hospital Care Assurance Program (HCAP) & pauline If you are without Insurance and believe you may qualify for Medicaid/public assistance: The [facility] Department of Job and Family Services can now process davis (TANF), food (SNAP) and Medicaid Applications over the phone. Please call [phone] ([phone]) and apply over the phone or apply online at www.benefits.[place].gov. Tuesday-Tuesday 8am-12pm noon. Medication Assistance Programs [employer] members can buy 100+ common prescriptions for FREE, $3 or $6. Annual membership is $36 for individuals and $72 for families (up to 6 people, including pets). Sign up online or enroll at your nearest pharmacy! -[employer], web site can provide a significant number of coupons for medications at a much lower donnelly. Activity -- Please follow these instructions: -Advance your activity as you can tolerate - You may walk all you want. You may go up and down the steps. Use the railing for support - It is normal for your energy level and sleep patterns to change after a stroke - Take rest periods during the day as needed - Complete recovery may take several weeks, months, up to a year. Patience is ortiz. Eating a Mediterranean-style diet, which is rich in fruits and vegetables, lean meats, and nuts, may help women over 40 reduce the risk of stroke, according to a study published in the journal Stroke. The study enrolled more than 20,000 adults, ages 40 to 77, who were asked to record what they ate in a seven-day diet diary. Researchers then compared their diet and their stroke risk over a 17-year period. People in the study whose eating most closely resembled the Mediterranean-style diet had a lower risk of stroke compared with other participants in the study. For adults over all, the risk was 17% lower, but the benefit was far larger in women than in men -- 22% reduced risk for women versus 6% formen. Know your medicines Make sure you know why you are taking each medicine. Make a master list of all your medicines. Write down the medicine names and doctors' names. Includedoses and side effects too. And write down why you take each medicine. Include all prescription rjmbwlw-hda-twbnoda medicines, vitamins, and supplements. Keep this list up to date. Take a copy to each doctor visit. Know when you will run out of each medicine. Ask your pharmacist if there are ways the drugstore can remind you to refill your medicines so you do not run out. Write refill reminders on your calendar. Don't wait until you have a few pills left. Ask your pharmacist to plan your refills so that you can car pick up driver all your medicines at the same time. This can mean fewer trips to the drugstore. If we have prescribed you a new medication during your stay, please contact with your primary physician for refills Notify Your Doctor if you have any of the following: NEUROLOGICAL CHANGES-- Change in alertness Increased sleepiness Nausea and vomiting New onset of numbness or weakness in arms or legs New problems with your bowels or bladder New or worse problems with balance or walking Seizures, new or worsening UNRELIEVED HEADACHE PAIN-- New or increased pain unrelieved with pain medications Pain associated with nausea and vomiting Pain associated with other symptoms QUESTIONS OR PROBLEMS-- Any questions or problems that you are unsure about Deep Vein Thrombosis Symptoms Call your doctor or nurse right away if you have any signs of blood clots such as -Tender, swollen or reddened areas anywhere in your leg. -Numbness or tingling in your lower leg or calf, or at the top of your leg or groin -Skin on you leg looks pale or blue or feels cold to touch -Chest pain or have trouble breathing -Fever or chills [facility] PH[facility]IAN REFERRAL Please call the [facility] physician referral service at or toll-freeat to request a Primary Care Provider. You can also refer to the [facility] provider list that you were given. CLINICAL AGILITY INSTRUCTOR If you need any further assistance with scheduling follow up care, please call the Clinical Family Helper at . You may also select a primary care provider close to home. [facility] note* Steven Crum MD - 12/09/2021 12:09 AM EDTAssociated Order(s): IP CONSULT TO SURGERY - NEURO Neurosurgery Consult Note Reason for Consultation: thrombosed aneurysm HPI Ms. Nanette Harrison is a 65 y.o. female w/ no PMH who presents with acute headache and mental status change on 12/07 at 1700. She was taken to [facility] where CTH demonstrated subacute L temporal CVA with concern for hemorrhagic conversion. 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 She takes no anticoagulants or antiplatelet agents. ROS: Unable to obtain 2/2 aphasia No past medical history on file. No past surgical history on file. History reviewed. No pertinent family history. Social History Tobacco Use Smoking status: Never Smoker Smokeless tobacco: Never Used Vaping Use Vaping Use: Never used Substance Use Topics Alcohol use: Never Drug use: Never Allergies Not on File Infusions sodium chloride 0.9% 75 mL/hr at 12/08/21 2218 Scheduled Meds PRN Meds: hydrALAZINE, labetalol Home Meds Prior to Admission medications Not on File Vitals Temp: [97.6 F (36.4 C)] 97.6 F (36.4 C) Pulse (Heart Rate): [55-70] 66 Resp Rate: [8-22] 19 BP: (128-146)/(65-81) 146/79 O2 Sat (%): [92 %-99 %] 96 % Weight: [108.4 kg (239 lb)] 108.4 kg (239 lb) Physical NAD Oriented to self and December, but not hospital or year Expressive and receptive aphasia PERRL EOMI FS TM FCx4 At least 4/5 throughout, appears symmetric; exam limited by aphasia Labs WBC/Hgb/Hct/Plts: 6.20/13.2/39.5/158 (12/09 2131) Na/K+/Phos/Mg/Ca: 138/3.6/2.6/1.7/8.2 (12/09 2131) Bun/Creat/Cl/CO2/Glucose: 10/0.78/106/22/126 (12/09 2131) Recent Labs 12/08/212131 PT 14.6* INR 1.2* Imaging: CT ANGIO BRAIN/NECK Preliminary Result IMPRESSION: 1. 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 2. 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 No CTA spot sign within this thrombosed aneurysm to suggest active bleeding or could reflect contrast opacification of the base of the aneurysm. 3. No large vessel occlusion or significant stenosis involving the major arterial vasculature head and neck. 4. Multinodular appearance of the thyroid gland with largest nodule within the left thyroid lobe. Recommend nonemergent thyroid ultrasound when clinically feasible. 5. Hazy bilateral groundglass densities, may relate to aspiration or a developing infectious/inflammatory etiology. Findings were discussed with Dr. Lilliam Parson on 12/08/2021 9:[address] STROKE HEAD-STROKE ALERT ONLY Final Result IMPRESSION: 1. 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 No evidence of hemorrhagic transformation or significant mass effect. 2. 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 Findings were discussed with Dr. Lilliam Parson on 12/08/2021 9:41 PM. I personally viewed and interpreted these images and I have reviewed and approved this report. A/P: Nanette Harrison is a 65 y.o. female w/ 11mm thrombosed L MCA aneurysm possibly causing a subacute L MCA stroke. - NPO at 0200 - [facility] 12/[address] Bar Staff: Dipika Covering: NS2 ([id number]) ## neurosurgery coverage changes at 0530/1730; if 0530 or 1730 has passed since original consult note placed, please page covering pager above ## Associated attestation - Faraz Bar MD, PhD - 12/10/2021 9:56 AM EDT ATTENDING ADDENDUM I, Faraz Bar MD, PhD, have personally seen and examined the patient on 12/09/2021. I have reviewed all pertinent imaging. I agree with Dr. Crum's history, exam, assessment and plan. In addition: 65 yo female presents with ischemic stroke. We have been consulted to evaluate for a thrombosed left MCA aneurysm. On exam, Alert to person and situation, has receptive aphasia. Complains of headache. PRRL, EOMI, face symmetric, tongue midline. Follows simple commands x4. Does not understand complex commands. CT brain: left temporal ischemic stroke. There is an 11mm spherical hyperdensity that may representa thrombosed aneurysm. We will perform a DSA to further evaluate vasculature for residual aneurysm. [facility] Work Phone: 1(930) 793-287607-06-2022 Consult note* Steven Crum MD - 12/09/2021 12:09 AM EDTAssociated Order(s): IP CONSULT TO SURGERY - NEURO Neurosurgery Consult Note Reason for Consultation: thrombosed aneurysm HPI Ms. Nanette Harrison is a 65 y.o. female w/ no PMH who presents with acute headache and mental status change on 12/07 at 1700. She was taken to [facility] where CTH demonstrated subacute L temporal CVA with concern for hemorrhagic conversion. 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 She takes no anticoagulants or antiplatelet agents. ROS: Unable to obtain 2/2 aphasia No past medical history on file. No past surgical history on file. History reviewed. No pertinent family history. Social History Tobacco Use Smoking status: Never Smoker Smokeless tobacco: Never Used Vaping Use Vaping Use: Never used Substance Use Topics Alcohol use: Never Drug use: Never Allergies Not on File Infusions sodium chloride 0.9% 75 mL/hr at 12/08/212217 Scheduled Meds PRN Meds: hydrALAZINE, labetalol Home Meds Prior to Admission medications Not on File Vitals Temp: [97.6 F (36.4 C)] 97.6 F (36.4 C) Pulse (Heart Rate): [55-70] 66 Resp Rate: [8-22] 19 BP: (128-146)/(65-81) 146/79 O2 Sat (%): [92 %-99 %] 96 % Weight: [108.4 kg (239 lb)] 108.4 kg (239 lb) Physical NAD Oriented to self and December, but not hospital or year Expressive and receptive aphasia PERRL EOMI FS TM FCx4 At least 4/5 throughout, appears symmetric; exam limited by aphasia Labs WBC/Hgb/Hct/Plts: 6.20/13.2/39.5/158 (12/09 2131) Na/K+/Phos/Mg/Ca: 138/3.6/2.6/1.7/8.2 (12/09 2131) Bun/Creat/Cl/CO2/Glucose: 10/0.78/106/22/126 (12/09 2131) Recent Labs 12/08/212131 PT 14.6* INR 1.2* Imaging: CT ANGIO BRAIN/NECK Preliminary Result IMPRESSION: 1. 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 2. 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 No CTA spot sign within this thrombosed aneurysm to suggest active bleeding or could reflect contrast opacification of the base of the aneurysm. 3. No large vessel occlusion or significant stenosis involving the major arterial vasculature head and neck. 4. Multinodular appearance of the thyroid gland with largest nodule within the left thyroid lobe. Recommend nonemergent thyroid ultrasound when clinically feasible. 5. Hazy bilateral groundglass densities, may relate to aspiration or a developing infectious/inflammatory etiology. Findings were discussed with Dr. Lilliam Parson on 12/08/2021 9:[address] STROKE HEAD-STROKE ALERT ONLY Final Result IMPRESSION: 1. 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 No evidence of hemorrhagic transformation or significant mass effect. 2. 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 Findings were discussed with Dr. Lilliam Parson on 12/08/2021 9:41 PM. I personally viewed and interpreted these images and I have reviewed and approved this report. A/P: Nanette Harrison is a 65 y.o. female w/ 11mm thrombosed L MCA aneurysm possibly causing a subacute L MCA stroke. - NPO at 0200 - [facility] 12/[address] Bar Staff: Dipika Covering: NS2 ([id number]) ## neurosurgery coverage changes at 0530/1730; if 0530 or 1730 has passed since original consult note placed, please page covering pager above ## Associated attestation - Faraz Bar MD, PhD - 12/10/2021 9:56 AM EDT ATTENDING ADDENDUM I, Faraz Bar MD, PhD, have personally seen and examined the patient on 12/09/2021. I have reviewed all pertinent imaging. I agree with Dr. Crum's history, exam, assessment and plan. In addition: 65 yo female presents with ischemic stroke. We have been consulted to evaluate for a thrombosed left MCA aneurysm. On exam, Alert to person and situation, has receptive aphasia. Complains of headache. PRRL, EOMI, face symmetric, tongue midline. Follows simple commands x4. Does not understand complex commands. CT brain: left temporal ischemic stroke. There is an 11mm spherical hyperdensity that may representa thrombosed aneurysm. We will perform a DSA to further evaluate vasculature for residual aneurysm. [facility] NoteAcute Coronary Syndrome (ACS): Initial Evaluation and Management: [email or web address] [facility]07[facility] Note* Certification - Lilliam Parson MD - 12/08/2021 9:56 PM EDT I certify that this patient requires inpatient services at this time. I anticipate the expected length of stay will include at least two midnights. Inpatient services are due to the following medicalconcerns stroke. Plans for post hospitalization care will be discharge to pending PT/OT Lilliam aPrson MD Neurology, PGY2 [facility]07-05-2022 Physician Emergency department Note* Jodie Olivas MD - 12/08/2021 9:49 PM EDT EMERGENCY DEPARTMENT ENCOUNTER S: CHIEF COMPLAINT: Chief Complaint Patient presents with Altered mental status HPI: Nanette Harrison is a 65 y.o. female with no past medical history who presents as a transfer from [facility] as a level 1 hemorrhagic stroke alert. Patient started acting abnormal at her 07 of December cardiac, family assumed it was from a migraine. Earlier today patient was texting her daughter and not making sense, came home from work to evaluate her and found her altered. Patient was brought to outside hospital and found to have hemorrhagic stroke and transferred to [facility]. NIH 6. Patient is dysarthric with expressive aphasia, review of systems not performed. REVIEW OF SYSTEMS: Review of Systems Unable to perform ROS: Mental status change PAST MEDICAL HISTORY No past medical history on file. SURGICAL HISTORY No past surgical history on file. CURRENT MEDICATIONS No current outpatient medications on file. ALLERGIES Not on File FAMILY HISTORY History reviewed. No pertinent family history. SOCIAL HISTORY Social History Socioeconomic History Marital status: Not on file Spouse name: Not on file Number of children: Not on file Years of education: Not on file Highest education level: Not on file Occupational History Not on file Tobacco Use Smoking status: Never Smoker Smokeless tobacco: Never Used Vaping Use Vaping Use: Never used Substance and Sexual Activity Alcohol use: Never Drug use: Never Sexual activity: Not on file Other Topics Concern Not on file Social History Narrative Not on file Social Determinants of Health Financial Resource Strain: Not on file Food Insecurity: Not on file Transportation Needs: Not on file Physical Activity: Not on file Stress: Not on file Social Connections: Not on file Intimate Partner Violence: Not on file Housing Stability: Not on file O: PHYSICAL EXAM: Vital Signs:BP 145/65 Pulse 55 Temp 97.6 F (36.4 C) (Oral) Resp 15 Ht 1.727 m (5' 8) Wt 108.4 kg (239 lb) SpO2 99% BMI 36.34 kg/m Smoking Status Never Smoker Physical Exam Vitals and nursing note reviewed. Constitutional: General: She is not in acute distress. Appearance: Normal appearance. She is obese. She is not ill-appearing, toxic- appearing or diaphoretic. HENT: Head: Normocephalic and atraumatic. Right Ear: External ear normal. Left Ear: External ear normal. Nose: Nose normal. Mouth/Throat: Mouth: Mucous membranes are moist. Pharynx: Oropharynx is clear. Eyes: General: No scleral icterus. Right eye: No discharge. Left eye: No discharge. Conjunctiva/sclera: Conjunctivae normal. Cardiovascular: Rate and Rhythm: Normal rate and regular rhythm. Pulses: Normal pulses. Heart sounds: Normal heart sounds. No murmur heard. Pulmonary: Effort: Pulmonary effort is normal. No respiratory distress. Breath sounds: Normal breath sounds. No wheezing or rhonchi. Abdominal: General: Bowel sounds are normal. Palpations: Abdomen is soft. Tenderness: There is no abdominal tenderness. There is no guarding. Musculoskeletal: General: No deformity or signs of injury. Normal range of motion. Cervical back: Normal range of motion. No rigidity or tenderness. Right lower leg: No edema. Left lower leg: No edema. Skin: General: Skin is warm and dry. Capillary Refill: Capillary refill takes less than 2 seconds. Coloration: Skin is not jaundiced. Findings: No bruising or rash. Neurological: General: No focal deficit present. Mental Status: She is alert. GCS: GCS eye subscore is 4. GCS verbal subscore is 3. GCS motor subscore is 6. Cranial Nerves: Dysarthria present. No cranial nerve deficit or facial asymmetry. Sensory: No sensory deficit. Motor: No weakness. Comments: Expressive aphasia. NIH: NIHSS (Provider) Flowsheet Row First Filed Value Provider NIH Stroke Scale NIH Interval (Provider) admission filed on 12/08/20212111 NIH Level of Conciousness (Provider) 0 filed on 12/08/20212111 NIH LOC Questions (Provider) 2 filed on 12/08/20212111 NIH LOC Commands (Provider) 0 filed on 12/08/20212111 NIH Best Gaze (Provider) 0 filed on 12/08/20212111 NIH Visual (Provider) 0 filed on 12/08/20212111 NIH Facial Palsy (Provider) 0 filed on 12/08/20212111 NIH Left Arm Motor (Provider) 1 filed on 12/08/20212111 NIH Right Arm Motor (Provider) 1 filed on 12/08/20212111 NIH Left Leg Motor (Provider) 0 filed on 12/08/20212111 NIH Right Leg Motor (Provider) 0 filed on 12/08/20212111 NIH Limb Ataxia (Provider) 0 filed on 12/08/20212111 NIH Sensory (Provider) 0 filed on 12/08/20212111 NIH Best Language (Provider) 2 filed on 12/08/20212111 NIH Dysarthria (Provider) 0 filed on 12/08/20212111 NIH Extinction and Inattention (Provider) 0 filed on 12/08/20212111 NIH Total Score (Provider) 6 filed on 12/08/20212111 Is NIH=0 Within 180 min of Last Known Well Time? -- IMAGING: CT STROKE HEAD-STROKE ALERT ONLY Final Result IMPRESSION: 1. 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 No evidence of hemorrhagic transformation or significant mass effect. 2. 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 Findings were discussed with Dr. Lilliam Parson on 12/08/2021 9:41 PM. I personally viewed and interpreted these images and I have reviewed and approved this report. ANGIO BRAIN/NECK (Results Pending) LABS: Results for orders placed or performed during the hospital encounter of 12/08/21 PTINR-STROKE Result Value Ref Range PT 14.6 (H) 11.9 - 14.2 sec INR 1.2 (H) 0.9 - 1.1 PTT Result Value Ref Range PTT 25.2 24.0 - 34.3 sec [facility] 7 - ED Result Value Ref Range Sodium 138 135 - 145 mmol/L Potassium 3.6 3.5 - 5.0 mmol/L Chloride 106 98 - 108 mmol/L CO2 22 21 - 31 mmol/L Glucose 126 (H) 70 - 99 mg/dL BUN 10 7 - 25 mg/dL Creatinine 0.78 0.50 - 1.20 mg/dL Bun/Crea Ratio 13 Osmolality (Calculated) 289 278 - 305 mOsm/kg Anion Gap 14 7 - 17 mmol/L eGFR, CKD-EPI, Female 83 >=60 mL/min/1.73m2 PHOSPHATE, INORGANIC Result Value Ref Range Phosphorous 2.6 2.2 - 4.6 mg/dL MAGNESIUM Result Value Ref Range Magnesium 1.7 1.6 - 2.6 mg/dL CALCIUM Result Value Ref Range Calcium 8.2 (L) 8.6 - 10.5 mg/dL HEPATIC FUNCTION PANEL Result Value Ref Range Albumin 3.6 3.5 - 5.0 g/dL Bilirubin Direct 0.1 <0.3 mg/dL Bilirubin Total 0.5 <1.5 mg/dL ALP 48 32 - 126 U/L ALT 14 9 - 48 U/L AST 19 10 - 39 U/L Total Protein 6.1 (L) 6.4 - 8.3 g/dL CBC AND ELECTRONIC DIFF Result Value Ref Range WBC Count 6.20 3.99 - 11.19 K/uL RBC Count 4.43 3.91 - 5.04 M/uL Hemoglobin 13.2 11.4 - 15.2 g/dL Hematocrit 39.5 34.9 - 44.3 % Mean Cell Volume 89.2 79.6 - 97.7 fL Mean Cell Hgb 29.8 25.9 - 33.9 pg Mean Cell Hgb Conc 33.4 31.4 - 35.9 g/dL RBC Distribution 13.4 10.8 - 14.9 % Platelet Count 158 150 - 393 K/uL Mean Platelet Volume 11.9 8.5 - 12.2 fL DIFF STATUS Electronic Differential Segs + Bands Auto 62.9 % Immature Grans % 0.2 % Lymphocyte % Auto 30.5 % Monocyte % Auto 5.2 % Eosinophil % Auto 1.0 % Basophil % Auto 0.2 % Nucleated RBC 0.0 <=0.2 /100 WBC Segs + Bands,Absolute Auto 3.91 1.64 - 7.28 K/uL Immature Grans Absolute <0.04 <=0.08 K/uL Abs Lymph Auto 1.89 1.16 - 3.51 K/uL Abs Bond Auto 0.32 0.22 - 0.87 K/uL Abs Eos Auto 0.06 0.00 - 0.42 K/uL Abs Baso Auto <0.04 0.00 - 0.15 K/uL GLUCOSE POC Result Value Ref Range Glucose (POC Device) 102 (H) 70 - 99 mg/dL POC Sample Type CAPBL URINE DIPSTICK; REFLEX MICROSCOPY; REFLEX CULTURE PERFORMABLE Result Value Ref Range Color Yellow Yellow Appearance Urine Clear Clear Glucose Urine Negative Negative Ketones Urine Negative Negative Specific [place] Urine 1.010 1.001 - 1.035 Blood Urine Small (A) Negative pH Urine 7.0 5.0 - 7.0 Protein Urine Negative Negative Urobilinogen Urine 0.2 E.U./dL 0.2 E.U/dL, 1.0 E.U/dL Nitrites Urine Negative Negative Leukocyte Esterase Negative Negative URINE MICROSCOPIC WITH REFLEX TO CULTURE Specimen: Urine Result Value Ref Range RBC Urine 0-2 0 - 2 /HPF WBC Urine 0-5 0 - 5 /HPF Squamous/Epithelial Cells 0/hpf = 0+ 1/hpf = 1+, 2-5/hpf = 2+, 0/hpf = 0+, ABSENT Bacteria ABSENT ABSENT CT STROKE HEAD-STROKE ALERT ONLY Final Result IMPRESSION: 1. 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 No evidence of hemorrhagic transformation or significant mass effect. 2. 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 Findings were discussed with Dr. Lilliam Parson on 12/08/2021 9:41 PM. I personally viewed and interpreted these images and I have reviewed and approved this report. ANGIO BRAIN/NECK (Results Pending) A/P and MDM: Assessment: Nanette Harrison is a 65 y.o. female with no past medical history who presents with left anterior thrombosed aneurysm. Neurosurgery consulted, neurovascular will admit patient to their service. ED Course and Medical Decision Making: On arrival, vitals stable. Stroke alert was called. Neuro at bedside upon arrival. Initial NIHSS 6. BP goal less than 140 BG goal 100-200 Patient will be admitted to Neurovascular for further workup and monitoring. Impression: thrombosed aneurysm Disposition: admission to neurovasc Jodie Olivas MD This patient was discussed with the attending physician who was in the immediate care area during the evaluation and decision making process. A [id number] dictation tool was used in the production of this document and all attempts were made for proper editing but errors may occur. Theodore Olivas M.D Emergency Medicine, PGY-2 Jodie Olivas MD Resident 12/08/21 2200 [facility] Work Phone: [phone]) 920-426807-05-2022 Emergency department Note* TAWNYA Lowery - 12/08/2021 9:13 PM EDT SW responded to level 1 stroke alert. Patient is awake and responsive to medical team. Patient's emergency contact information: Kailey, daughter, LILIBETH will continue to follow and provide support during time in ED. Meg MARTIN, [facility] Medical Social Work Emergency Department [facility]07-05-2022 History and physical note* Lilliam Parson MD - 12/08/2021 9:13 PM EDT Neurovascular Evaluation Note Evaluation Date: 12/08/2021 Unit: [id number] Consultation was requested by Dr. Geeta Davalos MD Patient status: Emergency Length of stay: 0 days Reason for Consult/Chief Complaint L1 hemorrhagic History of Present Illness Nanette Harrison is a 65 y.o. R handed female with no significant PMH who presents with headache andconfusion. A stroke alert was called for STAT consultation. Time of Level 1 Stroke Alert Activation (Or In House): 2029 Arrival Time of Stroke Team : 2099 Patient Location - Onset of Symptoms: Not in a healthcare setting Patient first presented to an [facility] ED facility: no Last Known Well: Date: 12/07/21 Last Known Well: Time: 1200 Source of information: family Last know well 1700 on 12/07. She started developing a headache on 12/06 that they assumed was her migraine. She also had poor appetite. Then, yesterday at their cookout, at around 1700, they noticed shewas struggling with making her Damian food cake that she knows by heart. She kept repeating I don'tknow. Then today, she wasn't making sense and stating something about dogs that weren't there and kept repeating herself. She also didn't recognize her son. Her , an EMT, took her to the [facility].She still complained of the headache and was agitated. CTH with subacute L temporal CVA with hemorrhagic conversion . TPA not given due to bleed. She was transferred to [facility] for further evaluation. On arrival to [facility], NIHSS was 6 (LOC question, BUE drift, best language). CTH with subacute L temporal CVA with thrombosed aneurysm.. 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 Denies tobacco, drug, or alcohol use. She does not see a doctor Review of Systems Unable to obtain due to mental status Neurovascular-specific History / Information Home antiplatelet/anticoagulation therapy: None Patient Current Risk Factors: Stroke risk factors include none. Prior stroke history: no. Family Hx of Stroke: Parents: no Siblings: no Stroke Diagnostic/Treatment Eligibility Information tPA not given as out of window and due to bleed Stroke Clinical Assessment Information: NIHSS (Provider) Flowsheet Row First Filed Value Provider NIH Stroke Scale NIH Interval (Provider) admission filed on 12/08/20212111 NIH Level of Conciousness (Provider) 0 filed on 12/08/20212111 NIH LOC Questions (Provider) 2 filed on 12/08/20212111 NIH LOC Commands (Provider) 0 filed on 12/08/20212111 NIH Best Gaze (Provider) 0 filed on 12/08/20212111 NIH Visual (Provider) 0 filed on 12/08/20212111 NIH Facial Palsy (Provider) 0 filed on 12/08/20212111 NIH Left Arm Motor (Provider) 1 filed on 12/08/20212111 NIH Right Arm Motor (Provider) 1 filed on 12/08/20212111 NIH Left Leg Motor (Provider) 0 filed on 12/08/20212111 NIH Right Leg Motor (Provider) 0 filed on 12/08/20212111 NIH Limb Ataxia (Provider) 0 filed on 12/08/20212111 NIH Sensory (Provider) 0 filed on 12/08/20212111 NIH Best Language (Provider) 2 filed on 12/08/20212111 NIH Dysarthria (Provider) 0 filed on 12/08/20212111 NIH Extinction and Inattention (Provider) 0 filed on 12/08/20212111 NIH Total Score (Provider) 6 filed on 12/08/20212111 Is NIH=0 Within 180 min of Last Known Well Time? -- Stroke Scales Flowsheet Row Most Recent Value ICH Score (Calculated) 0 filed on 12/08/20212149 ICH Volume (ml) (Calculated Score) 0.83 filed on 12/08/20212149 Modified Rhea Scale Score Premorbid (MRSS) 0 filed on 12/08/20212135 NIH Total Score (Provider) 6 filed on 12/08/20212111 Past Medical History Medical History: No past medical history on file. SURGICAL HISTORY: No past surgical history on file. SOCIAL HISTORY: Social History Tobacco Use Smoking status: Never Smoker Smokeless tobacco: Never Used Vaping Use Vaping Use: Never used Substance Use Topics Alcohol use: Never Drug use: Never Medications PRIOR TO ARRIVAL MEDS: Prior to Admission medications Not on File Current Meds: Current Facility Administered Meds: Current Facility-Administered Medications Medication Dose Route Frequency Provider Last Rate Last Admin lidocaine 1% (PF) (XYLOCAINE MPF) 1 % injection 0.3 mL 0.3 mL Infiltration Once PRN Geeta Davalos MD No current outpatient medications on file. Scheduled Meds: Continuous Infusions: PRN Meds:lidocaine 1% (PF) Vitals Objective Findings: Vital Signs (24hrs): Temp: [97.6 F (36.4 C)] 97.6 F (36.4 C) Pulse (Heart Rate): [55] 55 Resp Rate: [13-15] 15 BP: (128-145)/(65-81) 145/65 O2 Sat (%): [98 %-99 %] 99 % Weight: [108.4 kg (239 lb)] 108.4 kg (239 lb) Body mass index is 36.34 kg/m . Lines/Drains/Airways/Wounds: Patient Lines/Drains/Airways Status Active Lines, Drains, Airways, & Wound Overview Name Placement date Placement time Site Days Peripheral IV Line - Single Lumen 12/08/21 median cubital vein (antecubital fossa), right 12/08/21 -- -- less than 1 Physical Exam General: Laying comfortably in bed; in no acute distress. CV: RRR. Pulmonary: No increased work of breathing, Equal chest rise bilaterally, no audible wheezing. Abdomen: soft, non-tender Ext: No cyanosis, edema, or deformity Skin: No rash Neurological Examination Psych and Mental status: alert; not oriented to person, place, year, and month; poor attention Speech/language: fluent; comprehension impaired ; object naming impaired; repetition impaired Cranial nerves: CN II visual eller full to threat CN III, IV, PERRL. EOMI. CN V unable to assess due to mental status CN VII no overt droop CN VIII hearing grossly intact to voice CN IX & X soft palate elevates symmetrically in the midline, no dysarthria CN XI shoulder shrug full strength bilaterally CNXII tongue protrudes midline Motor: Normal bulk and tone. - Left arm: slight drift, doesn't hit bed - Right arm: slight drift, doesn't hit bed - Left leg: no drift - Right leg: no drift Sensation: withdraws in all 4 extremities Coordination/Complex Motor: no obvious ataxia in arm or leg movements Gait: deferred Laboratory Results Diagnostics/Procedures: Labs-CBC WBC/Hgb/Hct/Plts: 6.20/13.2/39.5/158 (12/09 2131) Labs-Chem 7(PMC) Labs-Coags Ptt/Pt/Inr: 25.2/14.6/1.2 (12/09 2131) Additional Labs No results found for: CHOLESTEROL, TRIG, HDL, LDLCALC, LDLDIRECT Labs-Hemoglobin A1C No results found for: HGBA1C Imaging Imaging was analyzed by Mickie Avilez LVO CT Stroke Head: subacute L temporal CVA with thrombosed aneurysm CTA Brain/Neck: possible distal M2 occlusion -- final read pending Assessment/Impression Nanette Harrison is a 65 y.o. R handed female with no significant PMH who presents with headache andconfusion. NIHSS 6 (LOC question, BUE drift, best language), mRS 0. Presenation concerning for Wernicke's with fluent but impaired comprehension in the setting of a L temporal CVA. Will evaluate further as below. Plan -Please admit to neurovascular service PCU, attending Dr. Calvo. A hemorrhagic stroke order set has been signed and held. ICH score 0 -Neurosurgery consulted. Appreciate recommendations. Possible DCA -Check PT/INR/PTT and reverse any coagulopathy -Blood pressure goals with SBP less than 140 -Repeat a head CT [address] -Vital signs and neuro assessments q 2 -No anticoagulation, antiplatelet therapy and pharmacological DVT prophylaxis until a follow up head CT/MRI has been completed to ensure stability of hemorrhage -Obtain brain MRI with and without contrast unless contraindicated -Swallow evaluation prior to any oral intake -ECHO to evaluate cardiac function -Lipid panel, LFTs and HgbA1c to evaluate secondary risk factors -Baseline EKG, if not done in ED. Continuous telemetry -PT, OT, Speech and hospice social worker consults Other medical problems: None Code Status: DNRCC-ARREST, OK to intubate -- verified with /LNOK on 12/08 DVT prophylaxis: SCDs Diet: No diet orders on file This plan has been discussed stroke attending Dr. Pa and has been communicated to ED team. Signed, Lilliam Parson MD Neurology, PGY2 Pager: [phone] [facility]07-05-2022 Note* Nursing Notes - Donald Hurley RN - 12/08/2021 9:10 PM EDT Patient arrival to [facility] 2105hrs Blood glucose 102 [facility]07-05-2022 Note* Nursing Notes - Donald Hurley RN - 12/08/2021 9:10 PM EDT From [facility] by air. Presented with AMS, left sided headache, left arm/chest pain. No prior medical history per patient and EMS. LKW yesterday afternoon during family republican. Patient arrives GCS 14, RASS -1, NIH 5, disoriented to place, time, and situation. 2+ PERRL. 150mcg Fentanyl total en route by EMS. [facility]07-05-2022 Physician Emergency department Note* Geeta Davalos MD - 12/08/2021 9:06 PM EDT ED Attending No past medical history on file. Reportedly no PMH possibly migraines unable to assess from patient Per EMS no known allergies No chief complaint on file. CC Stroke Alert The history is provided by medical records and the EMS personnel. The history is limited by the condition of the patient and the absence of a caregiver (No family present at time of arrival for collateral history). Pertinent Hx: Ms. Nanette Harrison is a 65 y.o. female with PMH ?migraines (no known PMH per EMS verbal report) who presents w/ CC transfer from O[facility] stroke alert. LKW >24h. Not on anticoag. Transfer from: [facility] Per verbal from flight - pt had seemed off over the weekend (today Tuesday) with poor appetite but thought was a typical migraine however today was texting nonsense to prompting OSH evaluation. OSH CT reportedly was 1.2 cm temporal lobe bleed & subacute infarct. New to [facility] system Social Hx: Limited by acuity and acute mental status change - not able to answer questions. AppearsEnglish-speaking. 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 Transfer Center: Clinical reason for transfer: No NS at HPI: Presented with AMS and head pain. Patient is awake but no orientated. PMH: none VS: 145/90 67 14 98.0 97% on RA Pertinent Labs, EKG and images: CT- stroke with hemorrhagic conversion COVID negative. Labs WNL IV drips: none Review of Systems Unable to perform ROS: Acuity of condition Pertinent Exam: BP 116/64 Pulse 75 Temp 98.7 F (37.1 C) (Oral) Resp 22 Ht 1.727 m (5' 8) Wt 108.4 kg (239 lb) SpO2 97% BMI 36.34 kg/m Smoking Status Never Smoker Temp: [97.6 F (36.4 C)-98.7 F (37.1 C)] 98.7 F (37.1 C) Pulse (Heart Rate): [55-75] 75 Resp Rate: [8-27] 22 BP: (116-146)/(64-81) 116/64 O2 Sat (%): [92 %-99 %] 97 % Weight: [108.4 kg (239 lb)] 108.4 kg (239 lb) No LMP recorded. See NIHSS, 65 y.o. F confused stating occasional [place] words not accurate responses to questions. EKG Interpretation - EKG taken: 12/08/2021 21:53:24 Compared with EKG from: no prior EKG available Interpreted by emergency department physician Rhythm: normal sinus Rate: normal and 62 Ectopy: none Conduction: NM 204 QRS 92 QT/QTc 414/420 ST Segments & T Waves: nonspecific ST/T abn Other findings: Q inferior, poss LAE Clinical Impression: abnormal EKG CT ANGIO BRAIN/NECK Final Result IMPRESSION: 1. 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 2. 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 No CTA spot sign within this thrombosed aneurysm; minimal contrast near the base of the suspected aneurysm could reflect blood flow near the aneurysm neck. No flow distal to this 3. No large vessel occlusion or significant stenosis involving the major arterial vasculature head and neck. 4. Multinodular appearance of the thyroid gland with largest nodule within the left thyroid lobe. Recommend nonemergent thyroid ultrasound when clinically feasible. 5. Hazy bilateral groundglass densities, may relate to aspiration or a developing infectious/inflammatory etiology. Findings were discussed with Dr. Lilliam Parson on 12/08/2021 9:50 PM. I personally viewed and interpreted these images and I have reviewed and approved this report. STROKE HEAD-STROKE ALERT ONLY Final Result IMPRESSION: 1. 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 No evidence of hemorrhagic transformation or significant mass effect. 2. 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 Findings were discussed with Dr. Lilliam Parson on 12/08/2021 9:41 PM. I personally viewed and interpreted these images and I have reviewed and approved this report. HEAD WITHOUT CONTRAST (Results Pending) Impression & Plan: OSH transfer, stroke alert, concern for temporal bleed/subacute infarct, sent for neurovasc/neurosurg/level of care. Eval w/ neuro team on pt arrival. Verbal report was given from EMS. New to [facility]. Very limited info immediately available 2/2 pt no useful verbal responses, not yet here (collateral when able to call or if he arrives), no prior med records in our system, minimal info linked in Care Everywhere at this time. Eval on arrival and discussed w/ Dr. Parson neurovasc resident space and missile defense operations. BP parameters/PRNs. Imaging/NSG c/s. Admitted neurovascular. Evaluated with: Dr. Olivas EM2 I have spent 31 minutes of discontinuous time providing critical care. This time is exclusive of procedures. This time may have included but is not limited to: my initialevaluation, reassessments to evaluate response to treatments and changes in condition, supervision/coordination of care, ordering/review of diagnostic and radiologic studies/results, medication select ion, interpretation of EKGs/blood gas results if applicable, review of available outside/prior medical records, documentation, and discussion with care team and consultants. [x] I personally viewed available imaging - PACS / Juanita [x] Care Everywhere - Reviewed - very minimal info - only select labs are available in [facility], no OSH paper records received for personal review/no scan/no imaging/provider notes from OSH in Care Everywhere at time of evaluation [x] Discussed with outplacement consultant(s) [x] Verbal report from EMS [x] EMS runsheet not available A [id number] dictation tool may have been used in the production of this document and all attempts were made for proper editing, but errors may still occur. On 12/08/2021 I saw and examined the patient. I discussed the history and examination with the resident and agree with the plan of care if documentation is available for review at the time of my note and unless otherwise indicated. E037/E037 Geeta Davalos MD 12/09/21 0348 [facility] Work Phone: 1(840) 242-409307-05-2022 Emergency department Note* Latoya Jackson RN - 12/08/2021 9:06 PM EDT Bed: E037 Expected date: Expected time: Means of arrival: Comments: markell [facility]07-05-2022 Note* Nursing Notes - Donald Hurley RN - 12/08/2021 8:56 PM EDT Transfer Center Intake Note [phone] Triage Line [phone] Bed Placement REMINDER to TC magazine filler: please request facesheet, images, and discharge summary if inpatient. Pt Current Location/ Level of care: ED If Inpatient transfer, Date of admission to OSH: Today Clinical reason for transfer: No NS at HPI: Presented with AMS and head pain. Patient is awake but no orientated. PMH: none VS: 145/90 67 14 98.0 97% on RA Pertinent Labs, EKG and images: CT- stroke with hemorrhagic conversion COVID negative. Labs WNL IV drips: none Isolation: none ADA needs: none Level of care triaged to: If PCU, please describe reason: Silvia Castro RN [facility] Clinical Note Date No Information [email or web address] Phone: Discharge summary* Clinical Note Date No Information [email or web address] Phone: Evaluation noteNo assessment information available [facility] Work Phone: Evaluation note* Diagnosis 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- Primary Cerebrovascular accident (CVA), unspecified mechanism Other cerebrovascular vasospasm and vasoconstriction documented in [facility] Acute ischemic left MCA stroke- Primary Unspecified cerebral artery occlusion with cerebral infarction Aneurysm Aneurysm of unspecified site penitentiary (current) use of aspirin Thyroid nodule Nontoxic uninodular goiter PFO (patent foramen ovale) Ostium secundum type atrial septal defect [facility] Diagnosis Onset Date Resolution Status Epilepsy acute Memory loss acute [facility] Work Phone: Evaluation note* Type Assessment Date No Information [email or web address] Phone: History and physical note* Clinical Note Date No Information [email or web address] Phone: Instructions* Date Instruction Additional Infor mation No Information [email or web address] Phone: Progress note* Clinical Note Date No Information [email or web address] Phone: Reason for referral (narrative)* Reason For Referral No Information [email or web address] Phone: Chief Complaint and Reason for Visit Chief Complaint CHEST PAIN Chief Complaint CHEST PAIN STROKE,OCCLUDED ANEURYSM/RX HERE neuro Chief Complaint STROKE,OCCLUDED ANEU RYSM/RX HERE Chief Complaint STROKE,OCCLUDED ANEU RYSM/RX HERE STROKE,OCCLUDED ANEURYSM/RX HERE Chief Complaint STROKE,OCCLUDED ANEU RYSM/RX HERE STROKE,OCCLUDED ANEURYSM/RX HERE CONFUSION Chief Complaint STROKE,OCCLUDED ANEU RYSM/RX HERE CONFUSION CONVULSIONS, CVA Chief Complaint CONFUSION CONVULSIONS, CVA EPILEPSY Reason for Visit Epilepsy Memory loss Chief Complaint CONVULSIONS, CVA EPILEPSY GENERALIZED ILL Reason for Visit Epilepsy Memory loss Advance Directives Advance Directive Response Recorded Date/ Time Living Will No December 08, 2021 4 :30pm Power of Payroll Benefits Administrator No December 08, 2021 4:30pm Latest Code Status on File Code Status Date Activated Date Inactivated Comments DNRCC-ARREST 12/08/2021 9:35 PM I have disc ussed Nanette Prices Do Not Resuscitate wishes with her /LOGAN on 12/08. They are in agreement with this code status. SHe is DNRCC-A, OK to intubate Latest Code Status on File Code Status Date Activated Date Inactivated Comments DNRCC-ARREST 12/08/2021 9:35 PM I have disc ussed Nanette Prices Do Not Resuscitate wishes with her /LNRICARDO on 12/08. They are in agreement with this code status. SHe is DNRCC-A, OK to intubate Advance Directive Response Recorded Date/ Time Living Will No January 22 5:07pm Power of Payroll Benefits Administrator No January 22 022 5:07pm Advance Directive Response Recorded Date/ Time Living Will No January 22 4:07pm Power of Payroll Benefits Administrator No January 22 022 4:07pm Advance Directive Response Recorded Date/ Time Living Will No September 25, 2022 3:52pm Power of Payroll Benefits Administrator No September 25 3:52pm Latest Code Status on File Code Status Date Activated Date Inactivated Comments DNRCC-ARREST 12/08/2021 9:35 PM I have disc ussed Nanette Stock Do Not Resuscitate wishes with her /LNRICARDO on 12/08. They are in agreement with this code status. SHe is DNRCC-A, OK to intubate Advance Directive Response Recorded Date/ Time Living Will No February 04 023 6:04pm Power of Payroll Benefits Administrator No February 04, 2023 6:04pm Directive Yes / No Effective Date File Name No Information Summary Purpose Family History Family Member Type Diagnosis Age At Onset No Information Reason for Referral Specialty Diagnoses / Procedures Referred By Luna west Referred To Contact Diagnoses 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 Procedures MRI ARTERIOGRAM BRAIN WITH AND WITHOUT CONTRAST NM MR ANGIO, HEAD, COMBO Umesh, Eloy MD [address] [place] [address] Referral ID Status Reason Start Date Expiration Date V isits Requested Visits Authorized [id number] New Request 12/11/2021 01/05/2023 1 1 Specialty Diagnoses / Procedures Referred By Contac t Referred To Contact Diagnoses 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 Procedures MRI ANGIO NECK WITHOUT CONTRAST NM MR ANGIO, NECK Eloy Calvo MD [address] [place] [address] Referral ID Status Reason Start Date Expiration Date V isits Requested Visits Authorized [id number] New Request 12/11/2021 01/05/2023 1 1 Specialty Diagnoses / Procedures Referred By Contac t Referred To Contact Neurologic Surgery Diagnoses 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 Eloy Calvo MD [address] [place] [address] Referral ID Status Reason Start Date Expiration Date V isits Requested Visits Authorized [id number] New Request 12/11/2021 01/05/2023 1 1 Specialty Diagnoses / Procedures Referred By Contac t Referred To Contact Neurology Diagnoses 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 Eloy Calvo MD [facility] [place] [address] Referral ID Status Reason Start Date Expiration Date V isits Requested Visits Authorized [id number] New Request 12/11/2021 01/05/2023 1 1 Specialty Diagnoses / Procedures Referred By Contac t Referred To Contact Diagnoses 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 Cerebrovascular accident (CVA), unspecified mechanism Other cerebrovascular vasospasm and vasoconstriction Procedures MOBILE CARDIAC TELEMETRY Eloy Calvo MD [address] [place] [address] Referral ID Status Reason Start Date Expiration Date V isits Requested Visits Authorized [id number] New Request 12/11/2021 01/05/2023 1 1 Specialty Diagnoses / Procedures Referred By Luna west Referred To Contact Occupational Therapy Diagnoses 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 Eloy Calvo MD [address] [place] [address] Referral ID Status Reason Start Date Expiration Date V isits Requested Visits Authorized [id number] Pending Review 12/11/2021 01/05/2023 1 1 Scheduling Instructions [facility] [address] [facility], 2nd [place] [address] Fax Outpatient Rehabilitation [facility] [address] [place] [address] FAX [facility] [address] [place], [place] [phone] FAX [facility] [address] [address] FAX [facility] (Upper Extremity and Hand Therapy) [address] [facility], [address] [facility] [address] FAX [facility] [address] [place] [place] [address] FAX Specialty Diagnoses / Procedures Referred By Luna west Referred To Contact Physical Therapy Diagnoses 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 Eloy Calvo MD [address] [place] [address] Referral ID Status Reason Start Date Expiration Date V isits Requested Visits Authorized [id number] Pending Review 12/11/2021 01/05/2023 1 1 Scheduling Instructions [facility] [address] [facility] 2nd [place] [address] Fax [facility] (Neck and Back Therapy) [address] [place], [place] [address] FAX [facility] [address] [place] [address] FAX Outpatient Rehabilitation [facility] [address] [facility] [address] [place] [address] [phone] FAX [facility] [address] [place] [address] FAX Physical Therapy at [facility] [address] [place], [place] [address] FAX [facility] [address] [place], [place] [address] FAX [facility] [address] [place], [place] [phone] FAX Specialty Diagnoses / Procedures Referred By Contac t Referred To Contact Procedures ECG Geeta Davalos MD [address] [place] [address] Referral ID Status Reason Start Date Expiration Date V isits Requested Visits Authorized [id number] Pending Review 12/08/2021 01/02/2023 1 1 Specialty Diagnoses / Procedures Referred By Contac t Referred To Contact Procedures ECG Lesley Velazquez MD [address] [place] [address] Referral ID Status Reason Start Date Expiration Date V isits Requested Visits Authorized [id number] Pending Review 12/09/2021 01/03/2023 1 1 Specialty Diagnoses / Procedures Referred By Contac t Referred To Contact Procedures DVT/VTE RISK ASSESSMENT Lesley Velazquez MD [address] [place] [address] Referral ID Status Reason Start Date Expiration Date V isits Requested Visits Authorized [id number] Pending Review 12/09/2021 01/03/2023 1 1 Referral ID Status Reason Start Date Expiration Date V isits Requested Visits Authorized [id number] Pending Review 12/08/2021 01/02/2023 1 1 Additional Source Comments Goals (unrecognized section and content) Health Concern Goal Type Priority Status No Information INFORMATION SOURCE (unrecogn ized section and content) DATE CREATED AUTHOR 12/11/2021 [facility] DATE CREATED AUTHOR AUTHOR'S ORGANIZ ATION 01/28/2022 [facility] DATE CREATED AUTHOR AUTHOR'S ORGANIZ ATION 02/25/2023 [facility] DATE CREATED AUTHOR AUTHOR'S ORGANIZ ATION 05/22/2023 [facility] DATE CREATED AUTHOR AUTHOR'S ORGANIZ ATION 04/10/2024 [facility] Reason for Visit (unrecogniz ed section and content) Reason Comments Altered mental status Level A Hemorrhagi c Stroke Specialty Diagnoses / Procedures Referred By Contac t Referred To Contact Diagnoses Level A Hemorrhagic Stroke Eloy Calvo MD [address] [place] [address]. [place] [address] [facility] [address] [place] [address] Referral ID Status Reason Start Date Expiration Date Visits Re quested Visits Authorized [id number] 1 1 Reason Comments Post-Discharge Follow Up 66 y.o. female here for hospital FUV s/p stroke- here with and daughter Specialty Diagnoses / Procedures Referred By Contac t Referred To Contact Diagnoses 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 Procedures MRI ANGIO NECK WITH AND WITHOUT CONTRAST MRI ANGIO NECK WITHOUT CONTRAST NM MR ANGIO, NECK NM MR ANGIO, NECK, Sergio Howard MD, PhD [address] [place] [address] Referral ID Status Reason Start Date Expiration Date V isits Requested Visits Authorized [id number] New Request 12/11/2021 01/05/2023 1 1 Scheduled Active and Recently Administ ered Medications (unrecognized section and content) Medication Order 12/09/2021 12/10/2021 12/11/2021 aspirin chewable tablet 81 mg 81 mg, Oral, DAILY, First dose on Ashley 12/10/21 at 0945, Until Discontinued 1004 (Given - Provider: Kay Dutta, SHARMAINE) 0830 (Given - Provider: Joaquín Gonzales RN) atorvastatin (LIPITOR) tablet 40 mg 40 mg, Oral, DAILY AT BEDTIME, First dose on Tue12/09/21 at 2100, Until Discontinued 1353 (MAR Hold - Provider: Automatic Transfer - Reason: Transfer to a Procedural area)1837 (MAR Unhold - Provider: Automatic Transfer)2020 (Given - Provider: Amparo Menezes RN) 2121 (Given - Provider: Amparo Menezes RN) Enoxaparin Sodium (LOVENOX) injection 40 mg(Linked Group 1) 40 mg, Subcutaneous, DAILY, First dose on Ashley 12/10/21 at 1015, Until Discontinued, , Indications: DVT/PE prophylaxis 1047 (Given - Provider: Kay Dutta RN) 0830 (Given - Provider: Joaquín Gonzales RN) HYDROmorphone (DILAUDID) injection 1 mg 1 mg, Intravenous, ONCE, 1 dose, On Ashley 12/10/21 at 1230 1416 (Not Given - Provider: Kay Dutta RN - Reason: Patient sleeping) magnesium sulfate 1 g in dextrose 5% 100 mL premix IVPB (COMPLETED) 1 g, Intravenous, Administer over 60 Minutes, ONCE, 1 dose, On Ashley 12/10/21 at 1845 1833 ($$New Bag$$ - Provider: Kennedy Parada RN)1940 (Stopped - Provider: Amparo Menezes RN) Magnesium Sulfate 4 g in sterile water 50 ml premix IVPB (COMPLETED) 4 g, Intravenous, Administer over 4 Hours, ONCE, 1 dose, On Tue12/09/21 at 0645 0625 ($$New Bag$$ - Provider: Donald Hurley RN)0950 (Rate/Dose Verify - Provider: Yudi Salomon RN)1112 (Stopped - Provider: Yudi Salomon RN) prochlorperazine (COMPAZINE) injection 10 mg (COMPLETED) 10 mg, Intravenous, ONCE, 1 dose, On Ashley 12/10/21 at 1845, For IV route: dilute dose with 10mL normal saline and give by slow IV push at a rate of 5mg/min. Maximum of 40mg/day. 1828 (Given - Provider: Kennedy Parada, RN) senna (SENOKOT) tablet 8.6 mg(Linked Group 2) 8.6 mg, Oral, DAILY, First dose on Tue12/09/21 at 0900, Until Discontinued 1021 (Not Given - Provider: Yudi Salomon RN - Reason: NPO)1353 (AUG Hold - Provider: Automatic Transfer - Reason: Transfer to a Procedural area)1837 (AUG Unhold - Provider: Automatic Transfer) 0816 (Given - Provider: Kay Dutta, SHARMAINE) 0832 (Not Given - Provider: Joaquín Gonzales, SHARMAINE - Reason: Order Parameters not met) senna (SENOKOT) tablet 8.6 mg(Linked Group 2) 8.6 mg, Per NG tube, DAILY, First dose on Tue12/09/21 at 0900, Until Discontinued 1021 (See Alternative - Provider: Yudi Salomon RN)1353 (AUG Hold - Provider: Automatic Transfer - Reason: Transfer to a Procedural area)1837 (MAR Unhold - Provider: Automatic Transfer) 0816 (See Alternative - Provider: Kay Dutta, SHARMAINE) 0832 (See Alternative - Provider: Joaquín Gonzales, SHARMAINE) Continuous Medication Order 12/09/2021 12/10/2021 12/11/2021 sodium chloride 0.9% 1,000 ml with potassium chloride 20 mEq premix IV solution Intravenous, at 75 mL/hr, CONTINUOUS, Starting on Tue12/09/21 at 0115, Until Tue12/11/21 at 2019 0131 ($$New Bag$$ - Provider: Donald Hurley RN)0434 (Paused - Provider: Donald Hurley RN)0434 (Restarted - Provider: Donald Hurley RN)0619 (Rate/Dose Verify - Provider: Donald Hurley RN)0950 (Rate/Dose Verify - Provider: Yudi Slaomon RN)1150 (Rate/Dose Verify - Provider: Yudi Salomon RN)1353 (MAR Hold - Provider: Automatic Transfer - Reason: Transfer to a Procedural area)1837 (AUG Unhold - Provider: Automatic Transfer) 0235 ($$New Bag$$ - Provider: Amparo Menezes RN)1630 (Rate/Dose Verify - Provider: Kennedy Parada RN)1632 (Restarted - Provider: Kennedy Parada RN)1941 (Rate/Dose Verify - Provider: Amparo Menezes RN)1944 (Rate/Dose Verify - Provider: Amparo Menezes RN)2254 (Rate/Dose Verify - Provider: Amparo Menezes RN)2307 ($$New Bag$$ - Provider: Amparo Menezes RN) 0100 (Rate/Dose Verify - Provider: Amparo Menezes RN)0316 (Rate/Dose Verify - Provider: Amparo Menezes RN)0606 (Rate/Dose Verify - Provider: Amparo Menezes RN)1141 ($$New Bag$$ - Provider: Joaquín Gonzales RN)1716 (Stopped - Provider: Joaquín Gonzales RN) sodium chloride 0.9% IV solution (CANCELED) Intravenous, at 75 mL/hr, CONTINUOUS, Starting on Tue12/08/21 at 2215, Until Tue12/09/21 at 1859 0130 (Stopped - Provider: Donald Hurley RN)0235 (Rate/Dose Verify - Provider: Donald Hurley RN)0619 (Rate/Dose Verify - Provider: Donald Hurley RN)1113 (Stopped - Provider: Yudi Salomon RN)1353 (AUG Hold - Provider: Automatic Transfer - Reason: Transfer to a Procedural area)1455 (Restarted - Provider: LILIAN DunbarHIGH SCHOOL PHYSICAL EDUCATION TEACHER)1615 (Stopped - Provider: LILIAN DunbarHIGH SCHOOL PHYSICAL EDUCATION TEACHER)1837 (AUG Unhold - Provider: Automatic Transfer) sodium chloride 0.9% IV solution (CANCELED) Intravenous, at 20 mL/hr, CONTINUOUS, Starting on Ashley 12/10/21 at 1415, Until Ashley 12/10/21 at 1507, FOR TRANSESOPHAGEAL ECHO ONLY, Intra-op/Intra-Proc 1407 (Handoff - Provider: Roopa Smith, RN)1450 (Stopped - Provider: Roopa Smith RN) PRN Medication Order 12/09/2021 12/10/2021 12/11/2021 acetaminophen (TYLENOL) tablet 325 mg(Linked Group 3) 325 mg, Oral, EVERY 4 HOURS NEEDED, Starting on Tue12/09/21 at 0101, Until Tue12/11/21 at 2019, Mild Pain, Moderate Pain, Maximum dose of acetaminophen is 4000 mg from all sources in 24 hours. 0112 (See Alternative - Provider: Donald Hurley RN)1353 ([facility] Hold - Provider: Automatic Transfer - Reason: Transfer to a Procedural area)183 ([facility] Unhold - Provider: Automatic Transfer)194 (See Alternative - Provider: Amparo Menezes RN) 0816 (Given - Provider: Kay Dutta RN) 0102 (See Alternative - Provider: Amparo Menezes RN)0830 (See Alternative - Provider: Joaquín Gonzales RN) acetaminophen (TYLENOL) tablet 325 mg(Linked Group 3) 325 mg, Per NG tube, EVERY 4 HOURS NEEDED, Starting on Tue12/09/21 at 0101, Until Tue12/11/21 at 2019, Mild Pain, Moderate Pain, Maximum dose of acetaminophen is 4000 mg from all sources in 24 hours. 0112 (See Alternative - Provider: Donald Hurley RN)1353 ([facility] Hold - Provider: Automatic Transfer - Reason: Transfer to a Procedural area)183 ([facility] Unhold - Provider: Automatic Transfer)194 (See Alternative - Provider: Amparo Menezes RN) 0816 (See Alternative - Provider: Kay Dutta RN) 0102 (See Alternative - Provider: Amparo Menezes RN)0830 (See Alternative - Provider: Joaquín Gonzales, SHARMAINE) acetaminophen (TYLENOL) tablet 650 mg(Linked Group 3) 650 mg, Oral, EVERY 4 HOURS NEEDED, Starting on Tue12/09/21 at 0101, Until Tue12/11/21 at 2019, Severe Pain, Oral temp > 99.5, Maximum dose of acetaminophen is 4000 mg from all sources in 24 hours. 0112 (Given - Provider: Donald Hurley RN)1353 ([facility] Hold - Provider: Automatic Transfer - Reason: Transfer to a Procedural area)1837 ([facility] Unhold - Provider: Automatic Transfer)194 (Given - Provider: Amparo Menezes RN) 0816 (See Alternative - Provider: Kay Dutta RN) 0102 (Given - Provider: Amparo Menezes RN)0830 (Given - Provider: Joaquín Gonzales, RN) acetaminophen (TYLENOL) tablet 650 mg(Linked Group 3) 650 mg, Per NG tube, EVERY 4 HOURS NEEDED, Starting on Tue12/09/21 at 0101, Until Tue12/11/21 at 2019, Severe Pain, Oral temp > 99.5, Maximum dose of acetaminophen is 4000 mg from all sources in 24 hours. 0112 (See Alternative - Provider: Donald Hurley RN)1353 (MAR Hold - Provider: Automatic Transfer - Reason: Transfer to a Procedural area)1837 (MAR Unhold - Provider: Automatic Transfer)1945 (See Alternative - Provider: Amparo Menezes, SHARMAINE) 0816 (See Alternative - Provider: Kay Dutta RN) 0102 (See Alternative - Provider: Amparo Menezes RN)0830 (See Alternative - Provider: Joaquín Gonzales, SHARMAINE) fentaNYL (SUBLIMAZE) injection 200 mcg (CANCELED) 200 mcg, Intravenous, Administer over 2 Minutes, ADMINISTER DIRECTED, Starting on Ashley 12/10/21 at 1401, Until Ashley 12/10/21 at 1507, intraoperative procedure pain management, FOR GILDARDO PROCEDURE ONLY Administration during procedure as directed by physician. 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 Use if Heart Rate LESS THAN 60 beats per minute. Higher dose may be administered if lower dose was previously documented as ineffective 10 minutes after administration and did not result in adverse effects (HR>90) 1353 (MAR Hold - Provider: Automatic Transfer - Reason: Transfer to a Procedural area)1837 (AUG Unhold - Provider: Automatic Transfer) 0418 (Given - Provider: Amparo Menezes, SHARMAINE)1629 (Given - Provider: Kennedy Parada, SHARMAINE) hydrALAZINE (APRESOLINE) injection 10 mg (CANCELED) 10 mg, Intravenous, EVERY 10 MINUTES NEEDED, 3 doses, Starting on Tue12/08/21 at 2200, Until Tue12/09/21 at 0112, Administer for Systolic Blood Pressure greater than 140. HOLD if heart rate greater than 60. 0017 (Given - Provider: Donald Hurley RN) hydrALAZINE (APRESOLINE) injection 20 mg(Linked Group 4) 20 mg, Intravenous, EVERY 1 HOUR NEEDED, Starting on Tue12/09/21 at 0101, Until Tue12/11/21 at 2019, Other, SBP > 140 mmHg with HR < 60 bpm, Use if Heart Rate LESS THAN 60 beats per minute. Higher dose may be administered if lower dose was previously documented as ineffective 10 minutes after administration and did not result in adverse effects (HR>90). Decrease back to lower dose if patient has adverse effects, or no PRN used in previous 3 hours 1353 (AUG Hold - Provider: Automatic Transfer - Reason: Transfer to a Procedural area)1837 (AUG Unhold - Provider: Automatic Transfer) 0418 (See Alternative - Provider: Amparo Menezes RN)1629 (See Alternative - Provider: Kennedy Parada, RN) iodixanol (VISIPAQUE) injection 320 mg/mL for [facility] IR (CANCELED) NEEDED, Starting on Tue12/09/21 at 1518, Until Tue12/09/21 at 1618, Intra-op/Intra-Proc 1557 (Given - Provider: Agustín Tiwari MD) labetalol (NORMODYNE) injection 10 mg(Linked Group 5) 10 mg, Intravenous, EVERY 1 HOUR NEEDED, Starting on Tue12/09/21 at 0101, Until Tue12/11/21 at 2019, SBP > 140 mmHg with HR >60 bpm, Use as initial dose. Use if Heart Rate GREATER THAN 60 beats per minute. Higher dose may be administered if lower dose was previously documented as ineffective 10 minutes after administration and did not result in adverse effects (HR<60) For vials: labetalol should be treated as a SINGLE USE VIAL. Discard remaining contents after one use. 1353 (AUG Hold - Provider: Automatic Transfer - Reason: Transfer to a Procedural area)1837 (AUG Unhold - Provider: Automatic Transfer) labetalol (NORMODYNE) injection 20 mg(Linked Group 5) 20 mg, Intravenous, EVERY 1 HOUR NEEDED, Starting on Tue12/09/21 at 0101, Until Tue12/11/21 at 2019, SBP > 140 mmHg with HR > 60 bpm, Use if Heart Rate GREATER THAN 60 beats per minute. Higher dose may be administered if lower dose was previously documented as ineffective 10 minutes after administration and did not result in adverse effects (HR<60). Decrease back to lower dose if patient has adverse effects, or no PRN used in previous 3 hours For vials: labetalol should be treated as a SINGLE USE VIAL. Discard remaining contents after one use. 1353 ([facility] Hold - Provider: Automatic Transfer - Reason: Transfer to a Procedural area)1837 ([facility] Unhold - Provider: Automatic Transfer) lidocaine (XYLOCAINE) 10 mg/mL injection (CANCELED) NEEDED, Starting on Tue12/09/21 at 1517, Until Tue12/09/21 at 1618, Intra-op/Intra-Proc 1517 (Given - Provider: Agustín Tiwari MD) lidocaine (XYLOCAINE) 5 % ointment 1 Application (CANCELED) 1 Application, Topical, ADMINISTER DIRECTED, Starting on Ashley 12/10/21 at 1401, Until Ashley 12/10/21 at 1507, FOR GILDARDO PROCEDURE ONLY, FOR GILDARDO PROCEDURE ONLY Max: 20gm/day. Apply to back of throat., Intra-op/Intra-Proc 1415 (Given - Provider: Ash Chilel MD) midazolam (VERSED) injection 10 mg (CANCELED) 10 mg, Intravenous, ADMINISTER DIRECTED, Starting on Ashley 12/10/21 at 1401, Until Ashley 12/10/21 at 1507, for procedure sedation, FOR GILDARDO PROCEDURE ONLY Administration during procedure as directed by physician. Record cumulative dose on AUG., Intra-op/Intra-Proc 1420 (Given (IVP/IVPB) - Provider: Roopa Smith RN) nitroGLYCERIN in D5W 200mcg/5mL syringe SOLN (CANCELED) NEEDED, Starting on Tue12/09/21 at 1526, Until Tue12/09/21 at 1618, Intra-op/Intra-Proc 1526 (Given - Provider: Agustín Tiwari MD) ondansetron (ZOFRAN) tablet 4 mg(Linked Group 6) 4 mg, Oral, EVERY 6 HOURS NEEDED, Starting on Tue12/09/21 at 0101, Until Tue12/11/21 at 2019, Nausea / Vomiting 1353 ([facility] Hold - Provider: Automatic Transfer - Reason: Transfer to a Procedural area)1837 ([facility] Unhold - Provider: Automatic Transfer) 1149 (See Alternative - Provider: Kay Dutta, SHARMAINE) ondansetron 4mg/2ml (ZOFRAN) injection 4 mg(Linked Group 6) 4 mg, Intravenous, EVERY 6 HOURS NEEDED, Starting on Tue12/09/21 at 0101, Until Tue12/11/21 at 2019, Nausea / Vomiting 1353 ([facility] Hold - Provider: Automatic Transfer - Reason: Transfer to a Procedural area)1837 ([facility] Unhold - Provider: Automatic Transfer) 1149 (Given - Provider: Kay Dutta RN) oxyCODONE (ROXICODONE) tablet 5 mg (CANCELED) 5 mg, Oral, EVERY 4 HOURS NEEDED, Starting on Tue12/09/21 at 1235, Until Tue12/10/21 at 0933, Moderate Pain 1301 (Given - Provider: Yudi Salomon RN)1353 ([facility] Hold - Provider: Automatic Transfer - Reason: Transfer to a Procedural area)1837 ([facility] Unhold - Provider: Automatic Transfer)2242 (Given - Provider: Amparo Menezes, SHARMAINE) 0609 (Given - Provider: Amparo Menezes RN) oxyCODONE HCl (ROXICODONE) tablet 10 mg 10 mg, Oral, EVERY 4 HOURS NEEDED, Starting on Tue12/10/21 at 0937, Until Tue12/11/21 at 2019, Moderate Pain, Severe Pain 1004 (Given - Provider: aKy Dutta RN)1630 (Given - Provider: Kennedy Parada RN) 0326 (Given - Provider: Amparo Menezes RN)1131 (Given - Provider: Joaquín Gonzales RN)1736 (Given - Provider: Joaquín Gonzales RN) polyethylene glycol (MIRALAX) packet 17 g(Linked Group 7) 17 g, Oral, DAILY NEEDED, Starting on Tue12/09/21 at 0101, Until Tue12/11/21 at 2019, Constipation If No Bowel Movement in 48 Hours 1353 ([facility] Hold - Provider: Automatic Transfer - Reason: Transfer to a Procedural area)1837 ([facility] Unhold - Provider: Automatic Transfer) polyethylene glycol (MIRALAX) packet 17 g(Linked Group 7) 17 g, Per NG tube, DAILY NEEDED, Starting on Tue12/09/21 at 0101, Until Tue12/11/21 at 2019, Constipation If No Bowel Movement in 48 Hours 1353 ([facility] Hold - Provider: Automatic Transfer - Reason: Transfer to a Procedural area)1837 ([facility] Unhold - Provider: Automatic Transfer) tetracaine-benzocaine (CETACAINE) topical spray 1 spray (CANCELED) 1 spray, Oral, ADMINISTER DIRECTED, Starting on Tue12/10/21 at 1401, Until Tue12/10/21 at 1507, Mild Pain, FOR GILDARDO PROCEDURE ONLY, Administer one time as directed by physician. FOR [facility]ILDARDO PROCEDURE ONLY, Intra-op/Intra-Proc 1418 (Given - Provider: Ash Chilel MD) verapamil (ISOPTIN) injection (CANCELED) NEEDED, Starting on Tue12/09/21 at 1526, Until Tue12/09/21 at 1618, Intra-op/Intra-Proc 1526 (Given - Provider: Agustín Tiwari MD) Linked Groups Order Group 1: Enoxaparin Sodium (LOVENOX) injection 40 mgJump to med 40 mg, Subcutaneous, DAILY, First dose on Tue12/10/21 at 1015, Until Discontinued

Indications: DVT/PE prophylaxis And PLATELET COUNT - baseline (CANCELED) Routine, ONE TIME, On Tue12/10/21 at 0932, For 1 occurrence, New collection And PLATELET COUNT (CANCELED) Routine, EVERY 3 DAYS AM LAB, First occurrence on Tue12/13/21 at 0500, Until Specified, New collection Group 2: senna (SENOKOT) tablet 8.6 mgJump to med 8.6 mg, Oral, DAILY, First dose on Tue12/09/21 at 0900, Until Discontinued Or senna (SENOKOT) tablet 8.6 mgJump to med 8.6 mg, Per NG tube, DAILY, First dose on Tue12/09/21 at 0900, Until Discontinued Group 3: acetaminophen (TYLENOL) tablet 325 mgJump to med 325 mg, Oral, EVERY 4 HOURS NEEDED, Starting on Tue12/09/21 at 0101, Until Tue12/11/21 at 2019, Mild Pain, Moderate Pain
Maximum dose of acetaminophen is 4000 mg from all sources in 24 hours.
Or acetaminophen (TYLENOL) tablet 325 mgJump to med 325 mg, Per NG tube, EVERY 4 HOURS NEEDED, Starting on Tue12/09/21 at 0101, Until Tue12/11/21 at 2019, Mild Pain, Moderate Pain
Maximum dose of acetaminophen is 4000 mg from all sources in 24 hours.
Or acetaminophen (TYLENOL) tablet 650 mgJump to med 650 mg, Oral, EVERY 4 HOURS NEEDED, Starting on Tue12/09/21 at 0101, Until Tue12/11/21 at 2019, Severe Pain, Oral temp > 99.5
Maximum dose of acetaminophen is 4000 mg from all sources in 24 hours.
Or acetaminophen (TYLENOL) tablet 650 mgJump to med 650 mg, Per NG tube, EVERY 4 HOURS NEEDED, Starting on Tue12/09/21 at 0101, Until Tue12/11/21 at 2019, Severe Pain, Oral temp > 99.5
Maximum dose of acetaminophen is 4000 mg from all sources in 24 hours.
Group 4: hydrALAZINE (APRESOLINE) injection 10 mgJump to med 10 mg, Intravenous, EVERY 1 HOUR NEEDED, Starting on Tue12/09/21 at 0101, Until Tue12/11/21 at 2019, Other, SBP > 140 mmHg with HR < 60 bpm
Use as initial dose. Use if Heart Rate LESS THAN 60 beats per minute. Higher dose may be administered if lower dose was previously documented as ineffective 10 minutes after administration and did not result in adverse effects (HR>90)
Or hydrALAZINE (APRESOLINE) injection 20 mgJump to med 20 mg, Intravenous, EVERY 1 HOUR NEEDED, Starting on Tue12/09/21 at 0101, Until Tue12/11/21 at 2019, Other, SBP > 140 mmHg with HR < 60 bpm
Use if Heart Rate LESS THAN 60 beats per minute. Higher dose may be administered if lower dose was previously documented as ineffective 10 minutes after administration and did not result in adverse effects (HR>90). Decrease back to lower dose if patient has adverse effects, or no PRN used in previous 3 hours
Group 5: labetalol (NORMODYNE) injection 10 mgJump to med 10 mg, Intravenous, EVERY 1 HOUR NEEDED, Starting on Tue12/09/21 at 010, Until Tue12/11/21 at 2019, SBP > 140 mmHg with HR >60 bpm
Use as initial dose. Use if Heart Rate GREATER THAN 60 beats per minute. Higher dose may be administered if lower dose was previously documented as ineffective 10 minutes after administration and did not result in adverse effects (HR<60) For vials: labetalol should be treated as a SINGLE USE VIAL. Discard remaining contents after one use.
Or labetalol (NORMODYNE) injection 20 mgJump to med 20 mg, Intravenous, EVERY 1 HOUR NEEDED, Starting on Tue12/09/21 at 0101, Until Tue12/11/21 at 2019, SBP > 140 mmHg with HR > 60 bpm
Use if Heart Rate GREATER THAN 60 beats per minute. Higher dose may be administered if lower dose was previously documented as ineffective 10 minutes after administration and did not result in adverse effects (HR<60). Decrease back to lower dose if patient has adverse effects, or no PRN used in previous 3 hours For vials: labetalol should be treated as a SINGLE USE VIAL. Discard remaining contents after one use.
Group 6: ondansetron 4mg/2ml (ZOFRAN) injection 4 mgJump to med 4 mg, Intravenous, EVERY 6 HOURS NEEDED, Starting on Tue12/09/21 at 0101, Until Tue12/11/21 at 2019, Nausea / Vomiting Or ondansetron (ZOFRAN) tablet 4 mgJump to med 4 mg, Oral, EVERY 6 HOURS NEEDED, Starting on Tue12/09/21 at 0101, Until Tue12/11/21 at 2019, Nausea / Vomiting Group 7: polyethylene glycol (MIRALAX) packet 17 gJump to med 17 g, Oral, DAILY NEEDED, Starting on Tue12/09/21 at 0101, Until Tue12/11/21 at 2019, Constipation If No Bowel Movement in 48 Hours Or polyethylene glycol (MIRALAX) packet 17 gJump to med 17 g, Per NG tube, DAILY NEEDED, Starting on Tue12/09/21 at 0101, Until Tue12/11/21 at 2019, Constipation If No Bowel Movement in 48 Hours Care Teams (unrecognized sec tion and content) Team Status: Active Member Role Status Jean Pierre Francis DO Primary Care Provider Active Team Status: Inactive Member Role Status Dates GADIEL PEREYRA Attending Provider, Referring Provider Ac tive Yoselin Francis DO Primary Care Provider Active Team Status: Inactive Member Role Status Jean Pierre Francis DO Primary Care Provider Active GADIEL PEREYRA Attending Provider, Referring Provider Ac tive Team Status: Inactive Member Role Status Jean Pierre Francis DO Primary Care Provider Active Dr. Michael Beauchamp MD Emergency Provider Active Team Status: Inactive Member Role Status Jean Pierre Francis DO Primary Care Provider Active Dr. Michael Beauchamp MD Attending Provider, Emergency Provider Active Team Status: Inactive Member Role Status Jean Pierre Francis DO Primary Care Provi [email or web address], Attending Provider, Referring Provider Active [employer] Relationship Specialty Start Date End Date Yoselin Francis DO [address] [place] [id number] PCP - General Family Medicine 10/15/22 Team Status: Inactive Member Role Status Jean Pierre Francis DO Primary Care Provider, Referring Provider Active Dr. Ronen Moise MD Attending Provider Active Team Status: Active Member Role Status Jean Pierre Francis DO Primary Care Provider, Referring Provider Active Dr. Judah Desai MD Attending Provider Active Team Status: Inactive Member Role Status Dates Yoselin M Tito , DO Primary Care Provider Active IRMA ERVIN Attending Provider, Referring Provider Active Team Status: Inactive Member Role Status Jean Pierre Francis , DO Primary Care Provider Active Dr. Ronen Moise MD Attending Provider, Referring Provider Active Team Status: Inactive Member Role Status Jean Pierre Francis , DO Primary Care Provider Active Dr. Gulshan Finley MD Emergency Provider Active Name Effective Dates (start - stop) Status Members No Information FOR RECORDS PERTAINING TO PATIENTS WHO ARE OR HAVE BEEN ENROLLED IN A CHEMICAL DEPENDENCY/SUBSTANCEABUSE PROGRAM, SOME INFORMATION MAY BE OMITTED. This clinical summary was aggregated from multiple sources. Caution should be exercised in using it in the provision of clinical care. This summary normalizes information from multiple sources, and as a consequence, information in this document may materially change the coding, format and clinical context of patient data. In addition, data may be omitted in some cases. CLINICAL DECISIONS SHOULD BE BASED ON THE PRIMARY CLINICAL RECORDS. [facility] [employer] [facility]. provides no warranty or guarantee of the accuracy or completeness of information in this document.
[2024-12-13 17:41] LABS: Xtra Tube EP Lab EXTRA TUBE
== END | disposition home or self-care (01) ==
LOC: PAVLAB 09:28
PROVIDERS: PCP Family Medicine; Referring Provider Psychiatry & Neurology Neurology; Visit Provider Psychiatry & Neurology Neurology
DX: G40.909 Epilepsy, unspecified, not intractable, without status epilepticus (principal); Z86.73 Personal history of transient ischemic attack (TIA), and cerebral infarction without residual deficits
CPT/HCPCS: 36415; 80053; 80061; 80164; 82140; 85027